=== PATIENT | female | born 1965 | race Caucasian/White ===

== ENCOUNTER 2018-12-09 02:47 | Outpatient (CLI) | payer BC, SELFPAY ==
[2018-12-09 08:35] LABS: HGB 13.4 g/dL (12.0-15.5); Mean Corp. HGB Concentration 33.5 g/dL (32.0-36.0); Mean Corpuscular Hemoglobin 30.7 pg (27.0-33.0); Mean Corpuscular Volume 91.7 fL (80-95); Mean Platelet Volume 9.8 fL (8.0-11.0); Platelet Count 233 x1000/uL (130-400); RBC 4.36 m/cumm (4.00-5.20); RBC Distribution Width 11.7 % (11.7-14.6); White Blood Cell Count 4.76 k/cumm (4.4-10.8)
[2018-12-09 08:53] LABS: Hemoglobin A1C 5.7 % (4.5-6.2)
[2018-12-09 09:18] LABS: ALT 20 U/L (12-78); AST 16 U/L (15-37); Albumin 3.7 g/dL (3.4-5.0); Alkaline Phosphatase 79 U/L (46-116); Anion Gap 6.3 mmol/L (3-11); BUN 25 mg/dL (7-18); Bilirubin, Total 0.6 mg/dL (0.2-1.0); CO2 32.7 mmol/L (21.0-32.0); CREATININE 1.22 mg/dL (0.55-1.02); Calcium 9.1 mg/dL (8.5-10.1); Chloride 104 mmol/L (98-107); Cholesterol 208 mg/dL (50-200); Estimated GFR 46.11 (mL/min/1.73m2); Glucose 114 mg/dL (70-100); HDL Cholesterol 74 mg/dL (40-60); LDL CHOLESTEROL 114 mg/dL (<100); Potassium 3.9 mmol/L (3.5-5.1); Sodium 143 mmol/L (136-145); Total Protein 6.7 g/dL (6.4-8.2); Triglyceride 78 mg/dL (30-150)
== END 2018-12-09 03:07 ==
PROVIDERS: PCP Family Medicine; Visit Provider Family Medicine
DX: Z00.00 Encounter for general adult medical examination without abnormal findings (principal); Z13.220 Encounter for screening for lipoid disorders; Z13.1 Encounter for screening for diabetes mellitus; Z13.228 Encounter for screening for other metabolic disorders; Z13.0 Encounter for screening for diseases of the blood and blood-forming organs and certain disorders involving the immune mechanism
CPT/HCPCS: 36415; 80053; 80061; 83721; 85027; 83036

== ENCOUNTER 2018-12-22 01:19 | Outpatient (CLI) | payer BC, SELFPAY ==
--- NOTE | 2018-12-22 09:14 | DI.MAMMO_ITS ---
SYMPTOMS/DIAGNOSIS: SCREENING, Z12.31 MAMMOGRAMS: Mammograms were interpreted according to the usual protocol including computer analysis with CAD system, tomosynthesis and C view imaging. The breasts are heterogeneously dense. No dominant mass or clumped microcalcification is identified in either breast. Current examination is compared with the previous examinations including December 2017 and there has been no gross interval change in appearance in comparison with the previous studies. CONCLUSION: No specific evidence of malignancy at this time. Routine screening examinations are suggested at yearly intervals in this age group according to the ACS/ACR guidelines. Category 1, breast density category C. MQSA ASSESSMENT OF FINDINGS: Negative. Category 1. Patient will receive a letter notifying them of these results. Bi-RADS category C. The breasts are heterogeneously dense, which may obscure small masses.
== END 2018-12-22 01:39 ==
PROVIDERS: PCP Family Medicine; Visit Provider Family Medicine
DX: Z12.31 Encounter for screening mammogram for malignant neoplasm of breast (principal)
CPT/HCPCS: 77063; 77067

== ENCOUNTER 2019-02-03 02:05 | Outpatient (CLI) | payer BC, SELFPAY ==
[2019-02-03 07:41] LABS: Bilirubin Negative (Negative); Blood Moderate (Negative); Clarity Cloudy; Glucose Negative (Negative); Ketones Negative (Negative); Leukocyte Esterase Large (Negative); Nitrite Negative (Negative); Specific Gravity 1.025 (1.005-1.025); Urobilinogen 0.2 EU/dL (Up TO 0.2); pH 5.5 (5-8)
[2019-02-03 07:49] LABS: C & S Indicated? Yes
== END 2019-02-03 02:25 ==
PROVIDERS: PCP Family Medicine; Visit Provider Family Medicine
DX: R35.0 Frequency of micturition (principal); R39.15 Urgency of urination
CPT/HCPCS: 81003; 81015; 87086

== ENCOUNTER 2019-11-07 23:23 | Outpatient (REF) | payer BC, SELFPAY ==
[2019-11-07 20:23] LABS: Bilirubin Negative (Negative); Blood Large (Negative); Clarity Cloudy (Clear); Glucose Negative (Negative); Ketones Negative (Negative); Leukocyte Esterase Moderate (Negative); Nitrite Negative (Negative); Specific Gravity >= 1.030 (1.005-1.025); Urobilinogen 0.2 EU/dL (Up TO 0.2)
[2019-11-07 21:04] LABS: Bacteria Many HPF (Negative); C & S Indicated? Yes; Casts Negative LPF (Negative); Crystals Negative HPF (Negative); Epithelial Cells Rare HPF (Negative); Mucus Moderate (Negative); Other Cells Negative (Negative); RBC >50 HPF (0-2); WBC >50 HPF (0-5)
== END 2019-11-07 23:43 ==
LOC: LBN 23:23
PROVIDERS: PCP Family Medicine; Visit Provider Family Medicine
DX: R35.0 Frequency of micturition (principal)
CPT/HCPCS: 87077; 81003; 81015; 87086; 87186

== ENCOUNTER 2020-01-16 02:35 | Outpatient (CLI) | payer BC, SELFPAY ==
--- NOTE | 2020-01-16 16:30 | DI.MAMMO_ITS ---
EXAM: MAMMO SCREENING CLINICAL HISTORY: screening z12.39 TECHNIQUE: Mammograms were interpreted according to the usual protocol including computer analysis w [employer] CAD system, tomosynthesis and C-view imaging. COMPARISON: FINDINGS: Breasts are heterogeneously dense. No dominant mass or clumped microcalcification is identified eith er breast. Current examination is compared with previous examinations including December 2018. There are areas increased focal vaguely nodular radiodensity projected both superiorly and inferiorly in the l eft breast on MLO view only. Additional mammographic views of these areas are questioned to include MLO spot compression views of left breast. No other significant change seen. IMPRESSION: Additional mammographic views left breast requested as described above. Breast ultrasound may be in dicated as well depending on the results of the additional mammographic views. BI-RADS Cat 0 - Assessment Incomplete: Need additional imaging evaluation: Breast Density - Category C - Heterogeneously dense:
== END 2020-01-16 02:55 ==
PROVIDERS: PCP Family Medicine; Visit Provider Family Medicine
DX: Z12.31 Encounter for screening mammogram for malignant neoplasm of breast (principal); R92.8 Other abnormal and inconclusive findings on diagnostic imaging of breast
CPT/HCPCS: 77063; 77067

== ENCOUNTER 2020-01-19 01:30 | Outpatient (CLI) | payer BC, SELFPAY ==
--- NOTE | 2020-01-19 | DI.US_ITS ---
EXAM: US BREAST LT LIMITED CLINICAL HISTORY: F/U MAMMO, INCREASED NODULAR RADIODENSITY TECHNIQUE: Ultrasound performed using standard protocol. COMPARISON: US LEFT BREAST ULTRASOUND from 07/11/2013 FINDINGS: Additional mammographic views of the left breast and left breast ultrasound are interpreted in conjun ction. These examinations were obtained to evaluate areas of asymmetric density projected superiorly and inferiorly in the left breast on MLO view of recent mammogram. Additional mammographic views show no evidence of a mass. Breast ultrasound shows no evidence of a m ass or cyst. IMPRESSION: No specific evidence of malignancy at this time. Follow-up unilateral left breast mammogram recommen ded in 6 months. BI-RADS Cat 3 - 6 month - Probably Benign Finding: Recommend follow-up mammography in 6 months Breast Density - Category C - Heterogeneously dense DATA REPOSITORY:
== END 2020-01-19 01:50 ==
PROVIDERS: PCP Family Medicine; Visit Provider Family Medicine
DX: Z12.31 Encounter for screening mammogram for malignant neoplasm of breast (principal); R92.8 Other abnormal and inconclusive findings on diagnostic imaging of breast; N64.59 Other signs and symptoms in breast
CPT/HCPCS: 76642; 77063; 77067

== ENCOUNTER 2020-07-02 09:12 | Outpatient (REF) | payer BC, SELFPAY ==
[2020-07-02 14:52] LABS: Bilirubin Negative (Negative); Blood Moderate (Negative); Clarity Cloudy (Clear); Glucose Negative (Negative); Ketones Negative (Negative); Leukocyte Esterase Small (Negative); Nitrite Negative (Negative); Specific Gravity >= 1.030 (1.005-1.025); Urobilinogen 0.2 EU/dL (Up TO 0.2); pH 5.5 (5-8)
[2020-07-02 15:16] LABS: C & S Indicated? Yes; WBC >50 HPF (0-5)
== END 2020-07-02 09:32 ==
LOC: LBN 09:12
PROVIDERS: PCP Family Medicine; Visit Provider Family Medicine
DX: R35.0 Frequency of micturition (principal)
CPT/HCPCS: 81003; 81015; 87086

== ENCOUNTER 2021-01-31 01:23 | Outpatient (CLI) | payer BC, SELFPAY ==
--- NOTE | 2021-01-31 07:45 | DI.MAMMO_ITS ---
Exam(s) MAMMO SCREENING EXAM: MAMMO SCREENING CLINICAL HISTORY: screening,Z12.39. TECHNIQUE: Bilateral full field digital CC and MLO mammographic images were obtained with 3D tomosyn thesis and utilizing computer aided detection (CAD). COMPARISON: Prior mammograms dating back to 2012, the most recent being January 2020. Ultrasound in was reviewed.. FINDINGS: Fibroglandular pattern is again noted be dense, this decreasing the sensitivity of the mammogram for finding in underlying lesions. There are no new spiculated masses nor malignant appearing microcalcification groups. Previously described asymmetric tissue inferiorly in the left breast is unchanged. No new masses nor malignant-appearing microcalcification groups in either breast. There is no signif icant architectural distortion or skin thickening-traction. IMPRESSION: Dense bilateral fibroglandular tissue. No obvious radiographic evidence of malignancy. Given the de nsity of this patient's fibroglandular tissue it may be prudent to perform screening bilateral comple te breast ultrasound BI-RADS Category 2 - Benign Findings Breast Density - Category C - Heterogeneously dense Breast density Category C or D implies that the patient has dense breast tissue. Dense breast tissue can make it harder to find cancer on a mammogram. Dense breast tissue is also associated with an incr eased risk of breast cancer. This information about the result of the mammogram report was provided to the patient to raise their awareness. Use this report when you speak with the patient about their risks for breast cancer, which includes their family history. At that time, you may recommend additional screening tests (Ultrasoun d or MRI) as these tests may add significant information. A negative radiographic report should not delay biopsy if a dominant or clinically suspicious mass is present. Up to ten percent of cancers are not identified on mammography. A negative report may reinforce clinical impression. Adenosis and dense breasts may obscure an underlying neoplasm. False positive reports average 6 to 10%. Patient will receive a letter notifying them of these results.
== END 2021-01-31 01:43 ==
PROVIDERS: PCP Family Medicine; Visit Provider Family Medicine
DX: Z12.31 Encounter for screening mammogram for malignant neoplasm of breast (principal); R92.8 Other abnormal and inconclusive findings on diagnostic imaging of breast
CPT/HCPCS: 77063; 77067

== ENCOUNTER → 2021-12-22 16:11 | Outpatient (CLI) | payer BC, SELFPAY ==
--- NOTE | 2021-12-22 15:22 | DI.RAD_ITS ---
Exam(s) XR SHOULDER RT COMPLETE 2+V EXAM: XR SHOULDER RT COMPLETE 2+V CLINICAL HISTORY: S49.91XA - frozen shoulder on right, no trauma - M54.2 Cervicalgia. TECHNIQUE: 2D digital imaging was performed. Five views. COMPARISON: No exams were available for comparison FINDINGS: BONES: No acute fracture is present. No bony destructive lesion is seen. JOINTS: No dislocation present. SOFT TISSUE: Normal. No visible calcifications. IMPRESSION: Unremarkable radiographs of the right shoulder. DATA REPOSITORY: RADIATION DOSE DELIVERED:
== END ==
PROVIDERS: PCP Family Medicine; Visit Provider Family Medicine
DX: S49.81XA Other specified injuries of right shoulder and upper arm, initial encounter; M25.511 Pain in right shoulder; M54.2 Cervicalgia; M75.01 Adhesive capsulitis of right shoulder
CPT/HCPCS: 73030

== ENCOUNTER 2021-12-30 02:06 | Outpatient (CLI) | payer BC, SELFPAY ==
[2021-12-30 12:44] LABS: HCT 39.8 % (36.0-46.0); HGB 13.3 g/dL (11.2-15.7); MCH 30.6 pg (27.0-33.0); MCHC 33.4 % (32.0-36.0); MCV 92 fL (80-95); MPV 9.9 fL (8.0-11.0); Platelet Count 212 10^3/uL (130-400); RBC 4.35 10^6/uL (3.93-5.22); RDW 11.4 % (11.7-14.6); RDW-SD 38.2 fL
[2021-12-30 13:08] LABS: ALT 20 U/L (14-59); AST 18 U/L (15-37); Alkaline Phosphatase 68 U/L (46-116); Anion Gap 6.6 mmol/L (3-11); BUN 23 mg/dL (7-18); Bilirubin, Total 0.7 mg/dL (0.2-1.0); CO2 30.4 mmol/L (21.0-32.0); CREATININE 1.2 mg/dL (0.55-1.02); Calcium 8.8 mg/dL (8.5-10.1); Calculated LDL 132 mg/dL (<100); Chloride 106 mmol/L (98-107); Cholesterol 238 mg/dL (<200); Estimated GFR 46.47 (mL/min/1.73m2); Glucose 104 mg/dL (74-106); HDL Cholesterol 82 mg/dL (40-60); Potassium 4.5 mmol/L (3.5-5.1); Sodium 143 mmol/L (136-145); Total Protein 6.7 g/dL (6.4-8.2); Triglyceride 120 mg/dL (<150)
[2021-12-31 10:09] LABS: HIV-1/2 Ag & Ab Screen Negative (Negative)
[2021-12-31 10:25] LABS: Hepatitis C Ab w Rflx HCV PCR Negative (Negative)
== END 2021-12-30 02:07 | disposition home or self-care (01) ==
LOC: LOS 02:06
PROVIDERS: PCP Family Medicine; Visit Provider Family Medicine
DX: I10 Essential (primary) hypertension (principal); E78.5 Hyperlipidemia, unspecified; N28.9 Disorder of kidney and ureter, unspecified; Z11.4 Encounter for screening for human immunodeficiency virus [HIV]; Z11.59 Encounter for screening for other viral diseases
CPT/HCPCS: 36415; 80053; 80061; 85027; 86803; 87389

== ENCOUNTER → 2022-02-24 01:55 | Outpatient (CLI) | payer BC, SELFPAY ==
--- NOTE | 2022-02-24 15:55 | DI.MAMMO_ITS ---
Exam(s) MAMMO SCREENING EXAM: MAMMO SCREENING CLINICAL HISTORY: screening,Z12.39 TECHNIQUE: Bilateral full field digital CC and MLO mammographic images were obtained with 3D tomosyn thesis and utilizing computer aided detection (CAD). COMPARISON: Available for comparison. FINDINGS: Masses/Architectural Distortion: There are areas of asymmetric breast tissue in the upper left and ri ght breast seen on the MLO views. These may represent overlying fibroglandular tissue. But addition al views are requested for further evaluation. Microcalcifications: No suspicious pleomorphic-type are seen. Skin Thickening/Nipple Retraction: None. IMPRESSION: 1. Focal areas of asymmetric breast tissue in the upper breasts bilaterally on the MLO views. 2. Spot magnification views are requested for further evaluation. Ultrasound may be indicated at jolie t time. BI-RADS Category 0 - Assessment Incomplete: Need additional imaging evaluation Breast Density - Category C - Heterogeneously dense Breast density category C or D implies that the patient has dense breast tissue. Dense breast tissue is very common and is not abnormal but dense breast tissue can make it harder to find cancer on a ma mmogram. Also, dense breast tissue may increase their breast cancer risk. This information about the result of the mammogram report was provided to the patient to raise their awareness. Use this report when you speak with the patient about their risks for breast cancer, which includes their family hist ory. At that time, you may recommend for more screening tests (Ultrasound or MRI) as they might be us eful based on their risk. A negative radiographic report should not delay biopsy if a dominant or clinically suspicious mass is present. Up to ten percent of cancers are not identified on mammography. A negative report may reinforce clinical impression. Adenosis and dense breasts may obscure an underlying neoplasm. False positive reports average 6 to 10%. Patient will receive a letter notifying them of these results.
== END ==
PROVIDERS: PCP Family Medicine; Visit Provider Family Medicine
DX: Z12.31 Encounter for screening mammogram for malignant neoplasm of breast (principal); R92.8 Other abnormal and inconclusive findings on diagnostic imaging of breast
CPT/HCPCS: 77063; 77067

== ENCOUNTER → 2022-03-05 00:29 | Outpatient (CLI) | payer BC, SELFPAY ==
--- NOTE | 2022-03-05 | DI.US_ITS ---
Exam(s) US BREAST LT COMPLETE US BREAST RT COMPLETE MG MAMMO SCREEN CALL BACK BI EXAM: MG MAMMO SCREEN CALL BACK BI AND COMPLETE BILATERAL BREAST ULTRASOUND CLINICAL HISTORY: F/U ABNL MAMMO, FOCAL AREAS ASYMMETRIC DENSITY BILAT UPPER BREASTS. TECHNIQUE: Unilateral spot mammographic images obtained with 3D tomosynthesisand utilizing computer aided detection (CAD). . Complete BILATERAL breast Ultrasound was also performed, including all 4 quadrants, the retroareolar regions, and the bilateral axillae. COMPARISON: Prior mammograms were reviewed. This additional imaging was performed due to findings described on the recent screening mammogram of 02/24/2022. FINDINGS: DIAGNOSTIC BILATERAL MAMMOGRAM: Additional mammographic views performed todayrender the areas in both breasts less concerning. BILATERAL COMPLETE BREAST ULTRASOUND: Ultrasound performed today reveals no significant focal findings in the left breast. Left axilla als o negative for adenopathy. Right breast ultrasound today reveals benign-appearing asymmetric tissue at 12 o'clock position. At the 5 o'clock position there is a small finding which has appearance of conglomeration of microcysts measuring 3 millimeters. At the 9 o'clock position there is a 6 millimeter benign microcyst. Ultrasound of the right axilla is negative for significant adenopathy Most importantly, there are no concerning solid lesions seen in either breast IMPRESSION: 1. No radiographic evidence of malignancy. 2. Negative complete left breast ultrasound. 3. Benign-appearing right breast ultrasound findings, as described above. Appropriate follow-up , as discussed by myself with the patient today, is to keep this patient on her yearly mammogram schedule, with earlier imaging if a self detected breast change is noted. The patient was informed of these findings and recommendations prior to leaving the department today. BI-RADS Category 2 - Benign Findings Breast Density - Category C - Heterogeneously dense Breast density Category C or D implies that the patient has dense breast tissue. Dense breast tissue can make it harder to find cancer on a mammogram. Dense breast tissue is also associated with an incr eased risk of breast cancer. This information about the result of the mammogram report was provided to the patient to raise their awareness. Use this report when you speak with the patient about their risks for breast cancer, which includes their family history. At that time, you may recommend additional screening tests (Ultrasoun d or MRI) as these tests may add significant information. A negative radiographic report should not delay biopsy if a dominant or clinically suspicious mass is present. Up to ten percent of cancers are not identified on mammography. A negative report may reinforce clinical impression. Adenosis and dense breasts may obscure an underlying neoplasm. False positive reports average 6 to 10%. Patient will receive a letter notifying them of these results.
--- OUTSIDE RECORDS SUMMARY | 2022-03-05 00:36 | XMS_ITS | Encounter Summary ---
:1965 Author Organization [facility] [address] Care Team Providers Name Role Phone Caitlin Callahan MD Primary Care Provider Reason for Visit Reason Comments Established 6 mth ck Encounter Details Date Type Department Care Team Description 02/01/2018 Office Visit Gynecology Oncology Margarette Jalloh Mal ignant ne[place] [facility] [place], CUSTOMER SERVICE CLERK ovary, unspecified Formerly named [facility] [address] [place] [id number] [phone] Social History Tobacco Use Types Packs/Day Years Used Date Never Smoker Smokeless Tobacco: Never Used Alcohol Use Standard Drinks/Week Comments Not Asked 0 (1 standard drink = 0.6 oz pure alcoho l) rare Alcohol Habits Answer Date Recorded How often do you have a drink containing alcohol? Not asked How many drinks containing alcohol do you have on a typical Not asked day when you are drinking? How often do you have six or more drinks on one occasion? No t asked Comment: rare 08/10/2012 Sex Assigned at Date Recorded Not on file documented as of this encounter Last Filed Vital Signs Vital Sign Reading Time Taken Comments Blood Pressure 132/68 02/01/2018 2:02 PM EDT Pulse 60 02/01/2018 2:02 PM EDT Temperature 37 ??C (98.6 ??F) 02/01/2018 2:02 PM EDT Respiratory Rate 12 02/01/2018 2:02 PM EDT Oxygen Saturation 100% 02/01/2018 2:02 PM EDT Inhaled Oxygen Concentration - - Weight 71.6 kg (157 lb 13.6 oz) 02/01/2018 2:02 PM EDT Height 175.3 cm (5' 9.02) 02/01/2018 2:02 PM EDT Body Mass Index 23.3 02/01/2018 2:02 PM EDT documented in this encounter Progress Notes Margarette Jalloh, CUSTOMER SERVICE CLERK - 02/01/2018 1:30 PM EDT Division of [place] [address] Reason For Visit: Post Treatment Surveillance Exam History of Present Illness: Dunia Trimble is a 53 y.o. woman who presents today for surveillance exam. She is post treatment of stage IIIA ovarian cancer with Dr. Ledezma. Her disease is followed by review of systems and examination. Pap testin12/2014 normal pap/hpv testing negative. 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 07/27/12: s/p laparoscopic supra-cervical hysterectomy and RSO for presumed dermoid at an outsidehospital. ?? There was no gross disease noted a the time of her surgery. The right ovary was removed intact inan endo-catch bag and the uterus was morcellated to be removed. 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 Right fallopian tube not involved by tumor. Uterine pathology showed focal simple hyperplasia and leiomyoma. ?? CA-125 obtained shortly before the surgery returned as 183. ?? 07/2012 referred to [facility] PRODUCTION COST ESTIMATOR Oncology for management. ?? A pre-op CT Abdomen/Pelvis on 08/10/2012 revealed no evidence of gross metastatic disease. ?? 09/22/12: s/p robotic-assisted laparoscopic left salpingo-oophorectomy and pelvic and para-aortic lymphadenectomy, and multiple staging biopsies. ?? 02/2013: completed 6 cycles of IV/IP cisplatin/paclitaxel chemotherapy Interim Health: Feeling overall good. No PRODUCTION COST ESTIMATOR questions/concerns. No new medical issues, surgeries orhospitalizations since her last visit. ROS: No Fever, chills, nausea, vomiting, diarrhea No Pelvic/abdominal pain or bloating No Bowel/bladder concerns or changes. Mild VEDA with exercise, sx are tolerable. Energy level is pretty good No Vaginal bleeding or discharge Mild lower extremity edema after being on her feet all day, resolves with elevation. Weight is stable Reports appetite is good No SOB, cough or chest pain. Sexual function: no changes/concerns. Not currently sexually active Mood: good Advanced Directives: No advance directives on file,she has a copy of the forms at home that she has yet to complete. Health Habits: Tobacco: nonsmoker ETOH: 0-2 glasses of wine/beers a month Exercise: weight training 2x week, walking/racquet ball/tennis Health Maintenance: Mammogram: 11/2017, done at [facility]. Colonoscopy: done 01/2016, Repeat 10 years Social History: . 3 children, youngest son (9th grade) lives at home. Adult son and daughter. Daughter is an army RN in [place]. She and her youngest son will be going to [place] for 2 [place] [facility] Patient Active Problem List Diagnosis Code ??? Ovarian cancer C56.9 ??? S/P hysterectomy Z90.710 Past Surgical History: Procedure Laterality Date ??? HYSTERECTOMY 07/27/12 lsc BUD/RSO for fibroids and ovarian CA ??? PRO LAP INSERT INTRAPERITONEAL CATHETER 10/24/2012 LAPAROSCOPY, INSERTION PERITONEAL DIALYSIS CATHETER performed by Sebastian Ledezma MD at [facility] MAIN OR ??? PRO LAP, PELVIC LYMPHADENECTOMY/BX 09/22/2012 LAPAROSCOPY,W\BILATERAL TOTAL PELVIC LYMPHADENECTOMY, PERIAORTIC LYMPH NODE SAMPLING, ROBOTIC performed by Sebastian Ledezma MD at [facility] MAIN OR ??? PRO LAP, RMV ADNEXAL STRUCTURE 09/22/2012 LAPAROSCOPY, REMOVAL OF ADNEXA, ROBOT ASSIST performed by Sebastian Ledezma MD at [facility] MAIN OR Allergies Allergen Reactions ??? Shellfish Derived Nausea And Vomiting No current outpatient prescriptions on file prior to visit. No current facility-administered medications on file prior to visit. Vital Signs: BP 132/68 (Patient Position: Sitting) Pulse 60 Temp 37 ??C (98.6 ??F) Resp 12 Ht 175.3 cm (5' 9.02) Wt 71.6 kg (157 lb 13.6 oz) SpO2 100% BMI 23.3 kg/m2 PHYSICAL EXAM: Gen: Pleasant, NAD, Alert, appears well HEENT: No clavicular adenopathy or thyromegaly Lungs: clear to auscultation Cor: heart RRR without appreciable murmurs. Abdomen: soft, non- distended, non-tender, no appreciable masses or inguinal adenopathy Lower Extremities: without edema Pelvic exam: Normal appearing external female genitalia; vulva, urethral meatus, perineum and perianal area without lesions. Speculum exam: Vagina and cervix with mild atrophic changes, no visible lesions. Bimanual exam: Cervix is non- tender and freely mobile. Uterus and adnexa are surgically absent. No appreciable masses/tenderness or nodularity. Rectovaginal exam: no masses/tenderness. ASSESSMENT/PLAN: Dunia Trimble is a 53 y.o. woman who is post treatment of stage IIIA ovarian cancer. She has no evidence of recurrent disease. We reviewed signs and symptoms of recurrent disease. Due for pap/HPV testing 2019. She is now 5 years post treatment and per surveillance guidelines, may RTC in 1 year, sooner prn with questions/concerns. Margarette Jalloh APRN documented in this encounter Plan of Treatment Not on filedocumented as of this encounter Visit Diagnoses Diagnosis Malignant neoplasm of ovary, unspecified laterality documented in this encounter Care Teams Computing Machine Operator Relationship Specialty Start Date End Date Caitlin Callahan MD PCP - General 07/08/[address] [place] [address] [address] [facility] [address] [place] [address] documented as of this encounter
--- OUTSIDE RECORDS SUMMARY | 2022-03-05 00:36 | XMS_ITS | Encounter Summary ---
:1965 Author Organization [facility] [place] [address] Care Team Providers Name Role Phone Caitlin Callahan MD Primary Care Provider Reason for Visit Reason Onset Date Comments Other 02/22/2013 Encounter Details Date Type Department Care Team Description 02/22/2013 Telephone Gynecology Oncology at [facility] [place] [address] Social History Tobacco Use Types Packs/Day Years [...] on file documented as of this encounter Miscellaneous Notes Telephone Encounter - Caron Pham - 02/22/2013 11:03 AM EDT Please sign order documented in this encounter Plan of Treatment Not on filedocumented as of this encounter Results IR mediport placement or removal (03/21/2013 10:09 AM EDT) Anatomical Region Laterality Modality X-Ray Angiography Specimen (Source) Anatomical Collection Method Collection Time Re ceived Time Location / / Volume Laterality 03/21/2013 10:09 AM EDT Impressions 03/21/2013 4:01 PM EDT Impression: Successful removal of right IJ port. ?? Fellow: Jomar Han MD ?? VAISHNAVI Almanza was present and scr ubbed throughout the procedure. ?? Attending: Dr. Bobo ?? I, Dr. Bobo, was present throughout th e procedure. ?? Film and interpretation reviewed by the attending Narrative 03/21/2013 4:01 PM EDT Procedure: Removal of tunneled right IJ chest port. ?? Acc#:[id number] ?? Indication: No longer requires long-term central venous access for chemotherapy. ?? Technique: After discussing risks (inclu ding infection, hemorrhage), and benefits, patient consented to the proce dure and conscious sedation.Due to the painful nature of the procedure, split d oses of fentanyl and versed were administered by the IR nurse during cont inuous monitoring of pulse, blood pressure and oxygen saturation. ?? After sterile preparation of the upper c hest, 7cc 1% lidocaine SQ was administered for anesthesia, and an 11 b lade was used to make a 2.5 cm incision. With blunt dissection the port and catheter were dissected free and removed. Hemostasis obtained with manual compression at the IJ catheter entry site. Pocket was closed with resorbable 2-0 interrupted sutures and running 4-0 subcuticular suture. Patient tolerated t he procedure well. There were no immediate complications. ?? No contrast administered. ?? Fluro dose: 0 0 min. EBL: 3 cc ?? Medications: Ancef 1 gm IV, versed 2 mg IV and fentanyl 100 mcg IV. ?? Procedure Note Lyndon Bobo MD - 03/21/2013Formattin g of this note might be different from the original. Procedure: Removal of tunneled right IJ chest port. Acc#:[id number] Indication: No longer requires long-term central venous access for chemotherapy. Technique: After discussing risks (inclu ding infection, hemorrhage), and benefits, patient consented to the proce dure and conscious sedation.Due to the painful nature of the procedure, split d oses of fentanyl and versed were administered by the IR nurse during cont inuous monitoring of pulse, blood pressure and oxygen saturation. After sterile preparation of the upper c hest, 7cc 1% lidocaine SQ was administered for anesthesia, and an 11 b lade was used to make a 2.5 cm incision. With blunt dissection the port and catheter were dissected free and removed. Hemostasis obtained with manual compression at the IJ catheter entry site. Pocket was closed with resorbable 2-0 interrupted sutures and running 4-0 subcuticular suture. Patient tolerated t he procedure well. There were no immediate complications. No contrast administered. Fluro dose: 0 0 min. EBL: 3 cc Medications: Ancef 1 gm IV, versed 2 mg IV and fentanyl 100 mcg IV. IMPRESSION Impression: Successful removal of right IJ port. Fellow: MD Holley Baker PA was present and scr ubbed throughout the procedure. Attending: Dr. Jihan Parker, Dr. Bobo, was present throughout th e procedure. Film and interpretation reviewed by the attending Sebastian Ledezma MD IMG IR ORDERABLES documented in this encounter Visit Diagnoses Diagnosis Ovarian cancer - Primary Malignant neoplasm of ovary Ovarian cancer Malignant neoplasm of ovary documented in this encounter Care Teams Lab Asst Relationship Specialty Start Date End Date Cailtin Callhaan MD PCP - General 07/08/[address] [place], [place] [address] [address] [place] [address] documented as of this encounter
--- OUTSIDE RECORDS SUMMARY | 2022-03-05 00:36 | XMS_ITS | Encounter Summary ---
:1965 Author Organization [facility] [place] [address] Care Team Providers Name Role Phone Caitlin Callahan MD Primary Care Provider Encounter Details Date Type Department Care Team Description 12/21/2016 Notes Only Hematology and Oncology at Bairon Le MD [facility] porras HEMATOLOGY/[place] [address] [place] [address] [phone] (Wo rk) Social History Tobacco Use Types Packs/Day Years [...] on file documented as of this encounter Progress Notes Bairon Chacon MD - 12/21/2016 7:56 AM EDT I have reviewed the patient's record and given personal and/or family history of cancer she should be seen by genetic counselor. This will be scheduled for later this week. documented in this encounter Plan of Treatment Not on filedocumented as of this encounter Visit Diagnoses Not on filedocumented in this encounter Care Teams Coffee Sampler Relationship Specialty Start Date End Date Caitlin Callahan MD PCP - General 07/08/[address] [place] [address] documented as of this encounter
--- OUTSIDE RECORDS SUMMARY | 2022-03-05 00:36 | XMS_ITS | Encounter Summary ---
:1965 Author Organization [facility] [place] [address] Care Team Providers Name Role Phone Caitlin Callahan MD Primary Care Provider Encounter Details Date Type Department Care Team Description 02/21/2013 Hospital Encounter Hematology and INFUSION THER APY, MEDS None Ovarian cancer Oncology at [facility] Sebastian Ledezma MD [facility] [place] [address] (Primary Dx) [place] [id number] Social History Tobacco Use Types Packs/Day Years [...] on file documented as of this encounter Medications at Time of Discharge Medication Sig Dispensed Refills Start Date End Date prochlorperazine Take 1 tablet by 30 tablet 0 02/07/2013 (COMPAZINE) 10 mg tablet mouth every 6 hours as needed. OXYcodone-acetaminophen Take 1-2 tablets 15 tablet 0 201203/21/2013 (PERCOCET) 5-325 mg per by mouth every 4 tablet hours as needed for Pain. senna-docusate (PERICOLACE) Take 1-4 tablets 60 tablet 11 03/21/2013 8.6-50 mg per tablet by mouth 2 times daily as needed for Constipation. ibuprofen (MOTRIN) 600 mg Take 1 tablet by 30 tablet 2 10/1412/25/2014 tablet mouth every 6 hours as needed for Pain. documented as of this encounter Progress Notes Mikal Mccormick RN - 02/21/2013 12:02 PM EDT Patient Name: Dunia Hoyos Patient Age: 48 y.o. Birthdate: 1965 Admit date: 02/21/2013 Attending Physician: Infusion Therapy, Meds TIME TREATMENT STARTED: 1115 TIME TREATMENT ENDED: 1814 Dunia Hoyos, 48 y.o. female with diagnosis of Ovarian is here for chemotherapy infusion of Taxol and Cisplatin. PROTOCOL: None CYCLE: 6 DAY: 1 S: Pt. offers no complaints at this time. O: Chemotherapy orders independently verified for correct drug name, route and dosage per patient's height, weight and BSA by Mikal Mccormick RN and onsite pharmacist Spoke to Dr Ledezma and he stated OK to run post hydration (through chest port) while she is receiving IP Cisplatin REACTIONS (DESCRIPTION, TIME, INTERVENTION AND EFFECTIVENESS) None A: Pt. Tolerated treatment well. Dunia Hoyos confirms that all questions and issues have been addressed. P: Return to clinic as scheduled documented in this encounter Plan of Treatment Not on filedocumented as of this encounter Visit Diagnoses Diagnosis Ovarian cancer - Primary Malignant neoplasm of ovary documented in this encounter Administered Medications Inactive Administered Medications - up to 3 most recent administrations Medication Order MAR Action Action Date Dose Rate Site CISplatin (PLATINOL) 145 mg in New Bag 02/21/2013 3:59 PM 145 mg 1145 mL/hr sodium chloride 0.9% 1,145 mL EDT chemo infusion 145 mg, Intraperitoneal, ONCE, 1 dose, On Wed02/21/13 at 1045, Administer over 60 Minutes, For Intraperitoneal administration only. dexamethasone 20 mg in sodium chloride 0.9% Given 02/21/2013 11:50 AM EDT 20 mg infusion 20 mg, Intravenous, ONCE, 1 dose, On Wed02/21/13 at 1145, Administer over 10 Minutes dextrose 5% and sodium chloride New Bag 02/21/2013 4:39 PM EDT 999 mL/hr 999 mL/hr 0.45% with potassium chloride 20 mEq infusion 999 mL/hr, Intravenous, ONCE, 1 dose, On Wed02/21/13 at 1145, Post cisplatin hydration x 1 L diphenhydrAMINE (BENADRYL) injection 25 mg Given 02/21/2013 11:45 AM EDT 25 mg 25 mg, Intravenous, ONCE, 1 dose, On Wed02/21/13 at 1145, Routine famotidine (PEPCID) injection 20 mg Given 02/21/2013 11:43 AM EDT 20 mg 20 mg, Intravenous, ONCE, 1 dose, On Wed02/21/13 at 1145 fosaprepitant (EMEND) 150 mg in New Bag 02/21/2013 11:57 AM ED T 150 mg 310 mL/hr sodium chloride 0.9% 155 mL infusion 150 mg, Intravenous, ONCE, 1 dose, On Wed02/21/13 at 1145, Administer over 30 Minutes LORazepam (ATIVAN) 1 mg tablet Given 02/21/2013 11:35 AM EDT 1 mg 1 dose, Starting on Wed02/21/13 at 1127, Until Wed02/21/13 at 1135, MIKAL MCCORMICK: cabinet override PACLitaxel (TAXOL) 245 mg in New Bag 02/21/2013 12:51 PM EDT 245 m g 180.3 mL/hr dextrose 5% Non-PVC 540.8333 mL chemo infusion 245 mg, Intravenous, ONCE, 1 dose, On Wed02/21/13 at 1045, Administer over 3 Hours palonosetron (ALOXI) injection 0.25 mg Given 02/21/2013 11:40 AM EDT 0.25 mg 0.25 mg, Intravenous, ONCE, 1 dose, On Wed02/21/13 at 1145, Routine sodium chloride 0.9% infusion New Bag 02/21/2013 12:02 PM EDT 999 mL/hr 999 mL/hr 999 mL/hr, Intravenous, ONCE, 1 dose, On Wed02/21/13 at 1145, Pre cisplatin hydration documented in this encounter Care Teams Automobile Assembler Relationship Specialty Start Date End Date Caitlin Callahan MD PCP - General 07/08/[address] [place] [address] documented as of this encounter
--- OUTSIDE RECORDS SUMMARY | 2022-03-05 00:36 | XMS_ITS | Encounter Summary ---
:1965 Author Organization [facility] [place] [address] Care Team Providers Name Role Phone Caitlin Callahan MD Primary Care Provider Encounter Details Date Type Department Care Team Description 02/22/2013 Orders Only Gynecology Oncology Brooke Doshi Ov kinza cancer at [facility] J, RN (Primary Dx) [place] [phone] Social History Tobacco Use Types Packs/Day Years [...] on file documented as of this encounter Plan of Treatment Not on filedocumented as of this encounter Visit Diagnoses Diagnosis Ovarian cancer - Primary Malignant neoplasm of ovary documented in this encounter Care Teams Minister Of Religion Relationship Specialty Start Date End Date Caitlin Callahan MD PCP - General 07/08/[address] [place], [place] [id number] documented as of this encounter
--- OUTSIDE RECORDS SUMMARY | 2022-03-05 00:36 | XMS_ITS | Encounter Summary ---
:1965 Author Organization [facility] Address [facility] [place] [address] Care Team Providers Name Role Phone Caitlin Callahan MD Primary Care Provider Reason for Visit Reason Comments Established 3 mth ck Encounter Details Date Type Department Care Team Description 06/27/2013 Follow-Up Gynecology Oncology at [place], Phi Thakkar MD Malignant neoplasm of [facility] ovary (Primary Dx) [facility] [address] [place] [address] [place] [address] [phone] (Wo rk) Social History Tobacco Use Types [...] Sign Reading Time Taken Comments Blood Pressure 125/75 06/27/2013 1:07 PM EST Pulse - - Temperature - - Respiratory Rate - - Oxygen Saturation - - Inhaled Oxygen Concentration - - Weight 68 kg (149 lb 14.6 oz) 06/27/2013 1:07 PM EST Height - - Body Mass Index 22.14 10/24/2012 2:19 PM EDT documented in this encounter Progress Notes Sebastian Ledezma MD - 06/27/2013 1:44 PM EST Division [place] [address] Gynecologic Oncology-Clinic Note Reason for visit: Surveillance exam, history of ovarian cancer. History of present illness: Dunia Hoyos is a 48 y.o. female who was originally referred for evaluation of post-operatively identified ovarian cancer. On 07/27/12, at an outside hospital, she underwent laparoscopic supra-cervical hysterectomy and RSO for presumed dermoid. There was no gross disease noted a the time of her surgery. The right ovary was removed intact in an endo-catch bag and the uterus was morcellated to be removed. 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 Right fallopian tube not involved by tumor. Uterine pathology showed focal simple hyperplasia and leiomyoma. CA-125 obtained shortly before the surgery returned as 183. Dunia was subsequently referred to [facility] Oncology for management. A pre-op CT Abdomen/Pelvis on 08/10/2012 revealed no evidence of gross metastatic disease. On 09/22/12 she underwent: robotic-assisted laparoscopic left salpingo-oophorectom y and pelvic and para-aortic lymphadenectomy, and multiple staging biopsies. She was discharged the same day. Subsequently, she had an intraperitoneal port place, and underwent 6 cycles of IV/IP cisplatin/paclitaxel, completing all 6 cycles and in 02/2013. Dunia is back for her first surveillance visits since completion of therapy. She reports that she isfeeling well, denies any intercurrent changes in her health. Specifically she denies any changes in her past medical, surgical, social, or family history since the last visit. She reports good appetite, denies abdominal or pelvic pain, bloating, early satiety, or other digestive symptoms. She denies any vaginal bleeding or discharge. She is slight residual peripheral neuropathy, in her hands, and in the balls of her feet, but says this is not limiting. Review of systems: 7 systems in total were reviewed, otherwise negative. Vital signs: BP 125/75 Wt 68 kg (149 lb 14.6 oz) Physical examination: General: She is alert oriented, well-groomed, well-dressed. HEENT: Head exam was generally normal. There was no scleral icterus or corneal arcus. Mucus membranes were moist. Neck was supple and without jugular venous distension, thyromegaly, or carotid bruits. Carotids were easily palpable bilaterally. There was no adenopathy. Heart: Regular rate, normal rhythm, no murmurs. Abdomen: Well-healed surgical scars, with no obvious masses, hernias, organomegaly, masses, ascites,or inguinal lymphadenopathy. Pelvic exam: Normal external genitalia, with no lesions of the vulva, perineal body, or perianal area. Speculum exam demonstrates an atrophic vagina, parous cervix, with slight atrophy changes, and on bimanual exam, confirmed on rectovaginal exam, there is a normal size freely mobile uterus, with no obvious masses, nodularity, or tenderness. Extremities: Symmetric, well-developed, no edema. Laboratory studies: None. Imaging studies: None. Impression/plan: This is a 48-year-old woman with a history of stage IIIa borderline ovarian cancer,with invasive implants. She has mild residual peripheral neuropathy, non-limiting, as a result of her adjuvant chemotherapy. She has no concerning symptoms, and has a normal exa today, I reviewed in detail the goals of surveillance, the use of laboratory or imaging studies, and explained that CA 125 is not been shown to improve prognosis if use during surveillance for recurrence of ovarian cancer. However, as recommended by the radiologist, we will repeat a CT of the abdomen and pelvis in 3 months, to coincide with her follow-up examination. We reviewed the typical symptoms of recurrent ovarian cancer, and she voiced an understanding of these, roberto to report any should they occur between scheduled visits documented in this encounter Plan of Treatment Not on filedocumented as of this encounter Visit Diagnoses Diagnosis Malignant neoplasm of ovary - Primary documented in this encounter Care Teams Loader Operator Relationship Specialty Start Date End Date Caitlin Callahan MD PCP - General 07/08/[address] [place] [address] 1 [place] [address] documented as of this encounter
--- OUTSIDE RECORDS SUMMARY | 2022-03-05 00:36 | XMS_ITS | Encounter Summary ---
:1965 Author Organization [facility] [place] [address] Care Team Providers Name Role Phone Caitlin Callahan MD Primary Care Provider Reason for Visit Reason Onset Date Comments Results 02/20/2013 Encounter Details Date Type Department Care Team Description 02/20/2013 Telephone Gynecology Oncology at [facility] Brooke Doshi, [place] [address] Social History Tobacco Use Types Packs/Day [...] this encounter Miscellaneous Notes Telephone Encounter - Brooke Doshi, RN - 02/20/2013 3:58 PM EDT TELEPHONE NOTE Reason for call: Call to Dunia Romain to report her lab results as below. Results for NELSON PACKCI Mela ( ) as of 02/20/2013 15:57 Ref. Range 02/20/2013 00:00 WBC No range found 4.06 (External Lab) Hemoglobin Latest Range: 12.0-16.0 8.7 (A) Hematocrit Latest Range: 36.0-46.0 25.2 (A) MCV Latest Range: 82.0-108.0 93.0 (External Lab) Platelets No range found 280 (External Lab) Neutr Abs (ANC) Latest Range: 1.50-6.30 x10(3)/mcL 2720 (External Lab) Neutrophils % Latest Range: 46-78 67 (External Lab) Sodium Latest Range: 137-147 144 (External Lab) Potassium Latest Range: 3.4-5.3 4.4 (External Lab) Chloride Latest Range: 99-108 107 (External Lab) CO2 Latest Range: 22-29 29 (External Lab) BUN No range found 28 (External Lab) Creatinine No range found 1.3 (External Lab) Estimated GFR No range found 43.72 (External Lab) Glucose Lvl No range found 87 (External Lab) Calcium Latest Range: 8.7-10.7 8.5 (A) Total Protein Latest Range: 6.4-8.2 6.7 (External Lab) Albumin Latest Range: 3.5-5.0 3.8 (External Lab) Total Bilirubin Latest Range: 0.1-1.4 0.4 (External Lab) Alk Phos No range found 81 (External Lab) AST Latest Range: 13-35 17 (External Lab) ALT Latest Range: 7-35 18 (External Lab) documented in this encounter Plan of Treatment Not on filedocumented as of this encounter Visit Diagnoses Not on filedocumented in this encounter Care Teams Organic Preparation Technician Relationship Specialty Start Date End Date Caitlin Callahan MD PCP - General 07/08/[address] [place] [address] documented as of this encounter
--- OUTSIDE RECORDS SUMMARY | 2022-03-05 00:36 | XMS_ITS | Encounter Summary ---
:1965 Author Organization [facility] [place] [address] Care Team Providers Name Role Phone Caitlin Callahan MD Primary Care Provider Encounter Details Date Type Department Care Team Description 02/21/2013 External Results Gynecology Oncology at [place], Radha Thakkar MD [facility] [address]ras [place] [address] [place] [address] [phone] (Wo rk) Social History Tobacco Use Types [...] on filedocumented in this encounter Care Teams Salt Grinder Relationship Specialty Start Date End Date Caitlin Callahan MD PCP - General 07/08/[address] [place] [address] documented as of this encounter
--- OUTSIDE RECORDS SUMMARY | 2022-03-05 00:36 | XMS_ITS | Encounter Summary ---
:1965 Author Organization [facility] [place] [address] Care Team Providers Name Role Phone Caitlin Callahan MD Primary Care Provider Reason for Visit Reason Comments Established 3 month check Encounter Details Date Type Department Care Team Description 09/18/2014 Follow-Up Gynecology Oncology at [place], Phi Thakkar MD Ovarian cancer, [facility] unspecified laterality [facility] [address] [place] [address] [place] [address] [phone] (Wo rk) Social History Tobacco Use Types [...] Sign Reading Time Taken Comments Blood Pressure 110/80 09/18/2014 9:27 AM EST Pulse 64 09/18/2014 9:27 AM EST Temperature 36.4 ??C (97.5 ??F) 09/18/2014 9:27 AM EST Respiratory Rate 18 09/18/2014 9:27 AM EST Oxygen Saturation 99% 09/18/2014 9:27 AM EST Inhaled Oxygen Concentration - - Weight 67 kg (147 lb 11.3 oz) 09/18/2014 9:27 AM EST Height - - Body Mass Index 21.81 06/27/2014 11:11 AM EST documented in this encounter Progress Notes Sebastian Coy MD - 09/18/2014 9:48 AM EST Division [place] [address] Gynecologic Oncology-Clinic Note Reason for visit: Surveillance exam, history of ovarian cancer. History of present illness: Catalina Hoyos is a 49 y.o. female who was originally referred for [...] shortly before the surgery returned as 183. Catalina was subsequently referred to [facility] TIME STUDY TECHNICIAN Oncology for management. A pre-op CT Abdomen/Pelvis on 08/10/2012 revealed no evidence of gross metastatic disease. On 09/22/12 she underwent: robotic-assisted laparoscopic left salpingo-oophorectom y and pelvic and para-aortic lymphadenectomy, and multiple staging biopsies. She was discharged the same day. Subsequently, she had an intraperitoneal port place, and underwent 6 cycles of IV/IP cisplatin/paclitaxel, completing all 6 cycles and in 02/2013 for stage IIIA ovarian cancer. Catalina is back for her surveillance visit today. She reports that she is feeling well, denies any intercurrent changes in her health. Specifically she denies any changes in her past medical, surgical, social, or family history since the last visit. She reports good appetite, denies abdominal or pelvic pain, bloating, early satiety, or other digestive symptoms. She denies any vaginal bleeding or discharge. She still has slight residual peripheral neuropathy in the balls of her feet, but says this is not limiting, and is stable at this point. She has been evaluated for stable pulmonary nodules, and isnot concerned about these. No further follow-up/imaging is planned for this. Review of systems: 7 systems in total were reviewed, otherwise negative. Vital signs: BP 110/80 Pulse 64 Temp(Src) 36.4 ??C (97.5 ??F) Resp 18 Wt 67 kg (147 lb 11.3 oz) SpO2 99% Physical examination: General: She is alert oriented, well-groomed, well-dressed. HEENT: Head exam was generally normal. There was no scleral icterus or corneal arcus. Mucus membranes were moist. Neck was supple and without jugular venous distension, thyromegaly, or carotid bruits. Carotids were easily palpable bilaterally. There was no adenopathy. Lungs: Lungs were clear to auscultation and percussion, and with normal diaphragmatic excursion. No wheezes or rales were noted. Heart: Regular rate, normal rhythm, no murmurs. [...] there is a normal size freely mobile retained cervix, with no obvious masses, nodularity, or tenderness. Extremities: Symmetric, well-developed, no edema. Laboratory studies: None. Imaging studies:09/19/2013: Impression 1. Stable exam. 2 small pulmonary nodules noted, as described, recommend continued followup. 2. No evidence of intra-abdominal or pelvic spread of disease. Impression/plan: Catalina is a 49 y.o. woman with a history of stage IIIa borderline ovarian cancer, with invasive implants. She has mild residual peripheral neuropathy, non-limiting, as a result of her adjuvant chemotherapy, now stable. She has no concerning symptoms, and has a normal exam today, I revie wed in detail the goals of surveillance, the use of laboratory or imaging studies, and explained that CA 125 is not been shown to improve prognosis if use during surveillance for recurrence of ovarian cancer. The repeat CT of the abdomen and pelvis in 09/2013 was reassuring. We reviewed the typical symptoms of recurrent ovarian cancer, and she voiced an understanding of these, roberto to report any should they occur between scheduled visits, and she will follow-up in 3months in accordance with current surveillance guidelines, (Current Society of Gynecologic Oncologists (SGO) Surveillance Guidelines: Posttreatment surveillance and diagnosis of recurrence in women with gynecologic malignancies: Society of Gynecologic Oncologists recommendations (Rashel, et al; AJOG, January 2011)) documented in this encounter Plan of Treatment Not on filedocumented as of this encounter Procedures Procedure Name Priority Date/Time Associated Comments Diagnosis TIME STUDY TECHNICIAN MOLECULAR GENETICS Routine 09/18/2014 9:55 AM Results for this REPORT EST procedure are i n the results section. TIME STUDY TECHNICIAN CYTOLOGY FINAL Routine 09/18/2014 9:55 AM Res ults for this REPORT EST procedure are i n the results section. CYTOPATHOLOGY Routine 09/18/2014 9:55 AM Ovarian cancer, Resul ts for this GYNECOLOGICAL EST unspecified procedure are in laterality the results section. documented in this encounter Results Senior Technical Program Manager Cytology Final Report (09/18/2014 9:55 AM EST) Component Value Ref Test Analysis Performed At [facility] gist Range Method Time Signature Senior Technical Program Manager Cytology CERNER Final Report ? Formerly named [facility] ? Provider: ?? SEBASTIAN COY ?Pt. Name: ?? CORI CATALINA CONRAD ? Acc #: ?[id number] ?Pt. MRN: ?[id number] ? Col Date: ?? 09/18/2014 ?/Sex: ?1965,(49 years),Female ? Rec Date: ?? 09/18/2014 ?LOC: ?3K ? CYTOPATHOLOGY: ??TIME STUDY TECHNICIAN ? ---Adequacy--- ? Specimen submitted is unsatisfactory due to insuffici ent squamous ? component. ? ---Cytopathologic Diagnosis--- ? Unsatisfactory ? Specimen submitted is unsatisfactory for evaluation. ??See comment. ? 09/24/14 ?? Screened by: ??SLA ??LMY ? 09/25/14 ?? Verified by: ??Ziyad TOLBERT(ASCP) , Jenna Brunson - Brim Stiffener ? ---Comment--- ? Specimen processed and examined microscop ically but unsatisfactory for ? evaluation of epithelial abnormality due to insuffici ent squamous ? cellularity. ? Please also see concurrent HPV test result. ? ---Clinical Information--- ? HPV Option: ? HPV Option: Text: Concurrent HPV and Pap ? Preparation: ? Preparation: Text: Liquid based Pap ? Specimen Source: ? Specimen Source: Text: Cervical/Endocervical ? LMP: n/a ? Hormones?: No ? Hysterectomy?: ? Hysterectomy?: Text: Supracervical Hysterectomy ?: No ?: No ? I.U.D.?: No ? Pelvic Radiation: No ? Prior TIME STUDY TECHNICIAN Therapy?: No ? Hist Abnl Pap/Biopsy?: No ? Hist of HPV Vaccine?: No ? Hist of Smoking?: No ? Hist of ANTONIO Exposure?: No ? ICD-9 Diagnosis: ? ICD-9 Diagnosis: Text: V10.44 His tory Malignant neoplasm, Other genital ? organs ? Clinical Impression: N/A ? [facility] ? Provider: ?? SEBASTIAN COY ?Pt. Name: ?? CATALINA BOWDEN L ? Acc #: ?[id number] ?Pt. MRN: ?[id number] ? Col Date: ?? 09/18/2014 ?/Sex: ?1965,(49 years),Female ? Rec Date: ?? 09/18/2014 ?LOC: ?3K ? CYTOPATHOLOGY: ??TIME STUDY TECHNICIAN ? This Pap Test has bee n evaluated with the assistance of the ThinPrep Pap ? Test Imaging System. ? Note: ? The Pap test is a screening test for cervical c ancer with an inherent ? false-negative rate dependent upon several variables. ??For further ? information please contact the [facility] Laboratory. ? Reference: ??Krystal espinoza CS. ??Supervisor Stripping of Pap Smear Results. ??In: ? Lm BS, Sarthak HH, ed. ??The Pap Smear. ??[place]: ??Chinmay, 2002: ? 71-77. Specimen (Source) Anatomical Collection Method Collection Time Re ceived Time Location / / Volume Laterality 09/18/2014 9:55 AM EST Sebastian Coy MD PATHOLOGY/CYTOLOGY ORDERABLE S Performing Organization Address City/State/[place] [address] [facility] TIME STUDY TECHNICIAN Molecular Genetics Report (09/18/2014 9:55 AM EST) [facility] gist Method Time Signature TIME STUDY TECHNICIAN Molecular CERNER Genetics ? Formerly named [facility] Report ? Provider: ?? SEBASTIAN COY ?Pt. Name: ?? CATALINA BOWDEN ? Acc #: ?[id number] ?Pt. MRN: ?[id number] ? Col Date: ?? 09/18/2014 ?/Sex: ?1965,(49 years),Female ? Rec Date: ?? 09/18/2014 ?LOC: ?3K ? MOLECULAR GENETIC STUDIES ? ---REPORT OF DNA ANALYSIS--- ? Quentin Noa?? HPV test ? NEGATIVE for high-risk HPV *. ? It is recommended jolie t patients with ASCUS cytology and a negative test for ? high-risk HPV undergo further evaluation according to current practice ? guidelines. ??* Testi ng negative for high risk HPV means that the specimen ? is negative for the f ollowing 14 types tested: ??types 16, 18, 31, 33, 35, ? 39, 45, 51, 52, 56, 5 8, 59, 66, and 68. ??The test is not intended to detect ? low risk HPV types. ? Specimen: HPV Testing - Cytology Liquid Based Prep ? Reviewed by: ??Chinmay Latif, [facility] ? A ? CELD Cerv/Endo/ LBP/Diagnostic ? B ? HPVDO Do HPV Testing ? Verified date: ??09/21/14 ??ABH ? Verified by: ?Lab Review, Molecular Genetics ? (Electronic Signature) Specimen (Source) Anatomical Collection Method Collection Time Re ceived Time Location / / Volume Laterality 09/18/2014 9:55 AM EST Sebastian Coy MD PATHOLOGY/CYTOLOGY ORDERABLE S Performing Organization Address City/State/[place] [address] [facility] Cytopathology Gynecological (09/18/2014 9:55 AM EST) Specimen Anatomical Collection Method Collection Time Receive d Time (Source) Location / / Volume Laterality AP Specimen 09/18/2014 9:55 AM 201 5 9:55 EST AM EST Narrative [facility] - 09/18/2014 9:[address] Specimen requisition ordered. ??Separate Pathology report to follow Sebastian Coy MD PATHOLOGY/CYTOLOGY ORDERABLE S Performing Organization Address City/State/[place] [address] [address] [facility] documented in this encounter Visit Diagnoses Diagnosis Ovarian cancer, unspecified laterality documented in this encounter Care Teams Wiping Rag Washer Relationship Specialty Start Date End Date Caitlin Callahan MD PCP - General 07/08/[address] [place] [address] documented as of this encounter
--- OUTSIDE RECORDS SUMMARY | 2022-03-05 00:36 | XMS_ITS | Encounter Summary ---
:1965 Author Organization [facility] [place] [address] Care Team Providers Name Role Phone Caitlin Callahan MD Primary Care Provider Encounter Details Date Type Department Care Team Description 03/21/[address] Scan at [facility] [place] [place] [address] Social History Tobacco Use Types Packs/Day [...] Sig Dispensed Refills Start Date End Date ibuprofen (MOTRIN) 600 mg Take 1 tablet by 30 tablet 2 10/1412/25/2014 tablet mouth every 6 hours as needed for Pain. documented as of this encounter Miscellaneous Notes Miscellaneous - Provider, Shayne - 03/27/2013 8:44 AM EDT documented in this encounter Plan of Treatment Not on filedocumented as of this encounter Procedures Procedure Name Priority Date/Time Associated Diagnosis Comme nts CT CHEST ABDOMEN Routine 03/21/2013 2:28 PM Ovarian cancer Res ults for this PELVIS W CONTRAST EDT procedure are in (GENERIC) the results section. documented in this encounter Results CT chest, abdomen, & pelvis with contrast (03/21/2013 2:28 PM EDT) Anatomical Region Laterality Modality Computed Tomography Specimen (Source) Anatomical Collection Method Collection Time Re ceived Time Location / / Volume Laterality 03/21/2013 2:28 PM EDT Narrative 03/21/2013 5:08 PM EDT Liver aspiration and/or drainage placement. Examination CT Chest / Abdomen / Pelvis With Contras t Clinical History ovarian cancer p/chemo ? response ??(tn) Comparison CT abdomen pelvis August 10, 2012. Technique CT images were obtained of the chest, ab domen pelvis following the administration of 100 mL Visipaque 320 i ntravenous contrast. Findings There is an ill-defined pulmonary ground -glass opacity within the right upper lobe best seen on series 4 image number 102 and may be artifactual. A 3 mm pulmonary nodule is visualized within th e superior segment of the left upper lobe. The remaining lungs are clear. ??C entral airways are clear. Normal cardiac morphology. No pathologically enlarged m ediastinal or hilar lymph nodes. Soft tissues of the chest are normal. ?? There is normal enhancement within the l iver. ??Mild periportal edema. The remaining solid organs are normal. There are multiple subcentimeter mesenteric and retroperitoneal lymph nodes predomin antly located within the left mid abdomen and left upper quadrant. There i s a 5 mm retroperitoneal lymph node (L3 level, series 2, image 71) which was not visualized on the comparison study. There are also small subcentimeter pelvi c sidewall lymph nodes which are unchanged. No free air. Peritoneal infus ion port noted within the right hemipelvis with the tip seen anterior to the rectosigmoid junction. The uterus is been removed with a residual vaginal cuff. ?? Incidental note made of prior healed fra cture of the right 3rd transverse process versus unfused apophysis. ??Blanka ining osseous structures are normal. ?? Impression 1. 3 mm pulmonary nodule within the supe rior segment of the left upper lobe. Given history of ovarian malignancy breonna mmend follow up CT in 6 months to ensure stability or correlate with prior imaging. 2. ??Multiple subcentimeter mesenteric, retroperitoneal and pelvic sidewall lymph nodes. The majority of these lesio ns are unchanged; however, there is a new 5 mm retroperitoneal lymph node like ly benign. Film and interpretation reviewed by the attending Procedure Note Hannah Miles MD - 03/21/2013Formattin g of this note might be different from the original. Liver aspiration and/or drainage placeme nt. Examination CT Chest / Abdomen / Pelvis With Contras t Clinical History ovarian cancer p/chemo ? response (tn) Comparison CT abdomen pelvis August 10, 2012. Technique CT images were obtained of the chest, ab domen pelvis following the administration of 100 mL Visipaque 320 i ntravenous contrast. Findings There is an ill-defined pulmonary ground -glass opacity within the right upper lobe best seen on series 4 image number 102 and may be artifactual. A 3 mm pulmonary nodule is visualized within th e superior segment of the left upper lobe. The remaining lungs are clear. Jane tral airways are clear. Normal cardiac morphology. No pathologically enlarged m ediastinal or hilar lymph nodes. Soft tissues of the chest are normal. There is normal enhancement within the l iver. Mild periportal edema. The remaining solid organs are normal. There are multiple subcentimeter mesenteric and retroperitoneal lymph nodes predomin antly located within the left mid abdomen and left upper quadrant. There i s a 5 mm retroperitoneal lymph node (L3 level, series 2, image 71) which was not visualized on the comparison study. There are also small subcentimeter pelvi c sidewall lymph nodes which are unchanged. No free air. Peritoneal infus ion port noted within the right hemipelvis with the tip seen anterior to the rectosigmoid junction. The uterus is been removed with a residual vaginal cuff. Incidental note made of prior healed fra cture of the right 3rd transverse process versus unfused apophysis. Remain ing osseous structures are normal. Impression 1. 3 mm pulmonary nodule within the supe rior segment of the left upper lobe. Given history of ovarian malignancy breonna mmend follow up CT in 6 months to ensure stability or correlate with prior imaging. 2. Multiple subcentimeter mesenteric, re troperitoneal and pelvic sidewall lymph nodes. The majority of these lesio ns are unchanged; however, there is a new 5 mm retroperitoneal lymph node like ly benign. Film and interpretation reviewed by the attending Sebastian Ledezma MD IMG CT ORDERABLES documented in this encounter Visit Diagnoses Diagnosis Ovarian cancer Malignant neoplasm of ovary documented in this encounter Administered Medications Inactive Administered Medications - up to 3 most recent administrations Medication Order MAR Action Action Date Dose Rate Site iodixanol (VISIPAQUE) 320 mg Given 03/21/2013 2:01 PM EDT 100 mL s iodine/mL injection 100 mL 100 mL, Intravenous, ONCE PRN, 1 dose, Starting on Wed03/21/13 at 1401, Until Wed03/21/13 at 1401, Per Protocol, Routine documented in this encounter Care Teams Drafter Commercial Relationship Specialty Start Date End Date Caitlin Callahan MD PCP - General 07/08/[address] [place] [address] documented as of this encounter
--- OUTSIDE RECORDS SUMMARY | 2022-03-05 00:36 | XMS_ITS | Encounter Summary ---
:1965 Author Organization [facility] [place] [address] Care Team Providers Name Role Phone Caitlin Callahan MD Primary Care Provider Reason for Visit Reason Comments Genetic Evaluation OVARIAN CANCER Consultation (Routine) - Closed Specialty Diagnoses / Procedures Referred By Contact Refer red To Contact Hematology and Oncology Diagnoses ovarian cancer` Sebastian Ledezma MD [facility] Hem Onc [address] [facility] [address] [place] [phone] Fax: Referral ID Status Reason Start Date Expiration Date Visits Requ ested Visits Authorized [id number] Closed 11/12/2016 11/12/2017 1 1 Encounter Details Date Type Department Care Team Description 12/23/2016 Office Visit Hematology/Oncology at [facility], H/O ovarian cancer [address] [address] HEMATOLOGY/ONCOLOGY [phone] DEPT. [place], [place] [address] (Wo rk) Social History Tobacco Use Types [...] documented as of this encounter Progress Notes Sophie Moreno - 12/23/2016 9:00 AM EDT Ms. Trimble was seen by Sophie Moreno MS, [facility] at the request of Sebastian Ledezma MD, to advise regarding possible heritable predisposition to cancer. I spent 30 minutes of this face to face encounter with the patient gathering medical and family history and discussing the likelihood of a genetic predisposition to cancer and the option of genetic testing. Reason for referral/Chief complaint Personal history of ovarian cancer and family history of cancer. Medical history Cancer hx and treatment: Ovarian cancer at 48, Basal cell carcinoma Age at 1st menses: 16 Age at 1st child: 29 Menopause status: Postmenopausal Oral contraceptive use: Taken for 2-3 years in early 20's Hormone replacement therapy use: None Current cancer screening: [place] six [place] [facility] Family History of Cancer Problem Relation Age of Onset ??? Endometrial Cancer Mother 47 ??? Colorectal Cancer, Melanoma, Brain tumor Paternal Grandfather 90's ??? Skin Cancer-BCC Father ??? Skin Cancer- BCC/Melanoma Maternal Grandfather 80 ??? Pancreatic Cancer Maternal Great Grandfather 72 ??? Colorectal Cancer Maternal Great Aunt ??? Lung Cancer Maternal Great Uncle ??? Colorectal Cancer Maternal Second Cousin 53 ??? Lung Cancer Paternal Uncle 50's ??? Endometrial Cancer Paternal Aunt 57 ??? Liver Cancer Paternal Great Uncle ??? Lung Cancer Paternal Great Uncle ??? Colorectal Cancer Paternal Second Cousin 50's ??? Breast Cancer Paternal Second Cousin, once removed 30's Maternal ethnic background is [place], [place]ayan [place]arian, non-Restorationist. Paternal ethnic background is , [place], [place]arian, non-Restorationist. Genetic risk assessment Panel genetic testing for an inherited predisposition to cancer was discussed. The risks, benefits and limitations of panel genetic testing were reviewed. Dunia opted for testing with the Breast/Crosscutter/GIPanel, a next generation sequencing panel that simultaneously analyzes 42 genes, including BRCA1 and BRCA2, that contribute to increased risk for cancer. Dunia opted for testing and was consented. Her blood sample was drawn today and sent to [facility]. Insurance pre-authorization and testing will take approximately 2-3 weeks. Dunia will be contacted via telephone once her test results become available. If positive, we will schedule an in person follow-up appointment. At that time, we will discuss with Dunia the implications that this test result mayhave for her, as well as her family members. We will also provide Dunia with screening guidelines for cancer prevention and early detection, as well as answer any questions she may have. Screening Recommendations We will readdress the issue of screening upon the receipt of Dunia???s genetic test result. documented in this encounter Plan of Treatment Not on filedocumented as of this encounter Visit Diagnoses Diagnosis H/O ovarian cancer Personal history of malignant neoplasm o f ovary documented in this encounter Care Teams Wire Inspector Relationship Specialty Start Date End Date Caitlin Callahan MD PCP - General 07/08/[address] [place] [address] [address] [place] [address] documented as of this encounter
--- OUTSIDE RECORDS SUMMARY | 2022-03-05 00:36 | XMS_ITS | Encounter Summary ---
:1965 Author Organization [facility] [place] [address] Care Team Providers Name Role Phone Caitlin Callahan MD Primary Care Provider Reason for Visit Reason Comments Follow-up 6 month ck Encounter Details Date Type Department Care Team Description 12/21/2016 Office Visit Gynecology Oncology Margarette Jalloh Ova bianca cancer, at [facility] [place], [employer] unspecified laterality [facility] [address], [place] [phone] Social History Tobacco Use Types Packs/Day Years [...] Sign Reading Time Taken Comments Blood Pressure 114/81 12/21/2016 2:03 PM EDT Pulse 70 12/21/2016 2:03 PM EDT Temperature 36.8 ??C (98.2 ??F) 12/21/2016 2:03 PM EDT Respiratory Rate 14 12/21/2016 2:03 PM EDT Oxygen Saturation 98% 12/21/2016 2:03 PM EDT Inhaled Oxygen Concentration - - Weight 70.3 kg (154 lb 15.7 oz) 12/21/2016 2:03 PM EDT Height 175.3 cm (5' 9) 12/21/2016 2:03 PM EDT Body Mass Index 22.89 12/21/2016 2:03 PM EDT documented in this encounter Progress Notes Margarette Jalloh, [employer] - 12/21/2016 2:00 PM EDT Division [place] [address] Reason For Visit: Post Treatment Surveillance Exam History of Present Illness: Dunia Trimble is a 51 y.o. woman who presents today for surveillance exam. She is post treatment of stage IIIA ovarian cancer. Her disease is followed by review of systems and examination. Pap testin12/2014 normal pap/hpv testing negative. SOFTWARE DEVELOPMENT PROJECT MANAGER Oncology History: stage IIIA ovarian cancer ?? [...] returned as 183. ?? 07/2012 referred to [facility] [employer]ELOP[employer] PROJECT MANAGER Oncology for management. ?? A pre-op CT Abdomen/Pelvis on 08/10/2012 revealed no evidence of gross metastatic disease. ?? 09/22/12: s/p robotic-assisted laparoscopic left salpingo-oophorectomy and pelvic and para-aortic lymphadenectomy, and multiple staging biopsies. ?? 02/2013: completed 6 cycles of IV/IP cisplatin/paclitaxel chemotherapy Interim Health: Feeling very well. No new medical issues, surgeries or hospitalizations since her last visit. No SOFTWARE DEVELOPMENT PROJECT MANAGER questions/concerns today ROS: No Fever, chills, nausea, vomiting, diarrhea No Pelvic/abdominal pain or bloating No Bowel/bladder concerns or changes. Energy level is good No Vaginal bleeding or discharge No lower extremity edema Weight is up 8lbs Reports appetite is good No SOB, cough or chest pain. Neuropathy: very slight in her feet/toes, does not interfere with balance or gait. Sexual function: no changes/concerns. Not currently sexually active Mood: good Advanced Directives: No advance directives on file, has info at home. Plans to complete and return. Health Habits: Tobacco: nonsmoker ETOH: 0-2 glasses of wine/beers a week. Exercise: weight training 2x week, walking Health Maintenance: Mammogram: 11/2016. Colonoscopy: done 01/2016, Repeat 10 years Social History: . Works for [email or web address]. 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 3 children, youngest son (13) lives at home, other 2 are older. Patient Active Problem List Diagnosis Code ??? Ovarian cancer C56.9 ??? S/P hysterectomy Z90.710 Past Surgical History: Procedure Laterality Date ??? HYSTERECTOMY 07/27/12 lsc BUD/RSO for fibroids and ovarian CA ??? PRO LAP INSERT INTRAPERITONEAL CATHETER 10/24/2012 LAPAROSCOPY, INSERTION PERITONEAL DIALYSIS CATHETER performed by Sebastian Ledezma MD at [facility] MAIN OR ??? PRO LAP, PELVIC LYMPHADENECTOMY/BX 09/22/2012 LAPAROSCOPY,W\BILATERAL TOTAL PELVIC LYMPHADENECTOMY, PERIAORTIC LYMPH NODE SAMPLING, ROBOTIC performed by Sebastian Ledezma MD at [facility] MAIN OR ??? PRO LAP, RMV ADNEXAL STRUCTURE 09/22/2012 LAPAROSCOPY, REMOVAL OF ADNEXA, ROBOT ASSIST performed by Sebastian Ledezma MD at [facility] MAIN OR Allergies Allergen Reactions ??? Shellfish Derived Nausea And Vomiting No current outpatient prescriptions on file prior to visit. No current facility-administered medications on file prior to visit. Vital Signs: BP 114/81 Pulse 70 Temp 36.8 ??C (98.2 ??F) (Oral) Resp 14 Ht 175.3 cm (5' 9) Wt 70.3 kg (154 lb 15.7 oz) SpO2 98% BMI 22.89 kg/m2 PHYSICAL EXAM: Gen: Pleasant, NAD, Alert, [...] no masses/tenderness. ASSESSMENT/PLAN: Dunia Trimble is a 51 y.o. woman who is 4 years post treatment of stage IIIA ovarian cancer. She has no evidence of recurrent disease. We reviewed signs and symptoms of recurrent disease. Due for pap/HPV testing 2019. Per her surveillance plan she will RTC in 6months, sooner prn with questions/concerns. Margarette Jalloh APRN documented in this encounter Plan of Treatment Not on filedocumented as of this encounter Visit Diagnoses Diagnosis Ovarian cancer, unspecified laterality documented in this encounter Care Teams Director Of Development Relationship Specialty Start Date End Date Caitlin Callahan MD PCP - General 07/08/[address] [place] [address] [address] [place] [address] documented as of this encounter
--- OUTSIDE RECORDS SUMMARY | 2022-03-05 00:36 | XMS_ITS | Encounter Summary ---
:1965 Author Organization [place] [address] Care Team Providers Name Role Phone Caitlin Callahan MD Primary Care Provider Reason for Visit Reason Comments Chemotherapy Encounter Details Date Type Department Care Team Description 02/28/2013 Hospital Encounter Hematology and INFUSION THER APY, MEDS None Ovarian cancer Oncology at [facility] Sebastian Ledezma MD [facility] [place] [address] (Primary Dx) [place] [id number] Social History Tobacco Use Types Packs/Day Years [...] Sign Reading Time Taken Comments Blood Pressure 134/85 02/28/2013 2:12 PM EDT Pulse 77 02/28/2013 2:12 PM EDT Temperature 37.4 ??C (99.3 ??F) 02/28/2013 2:12 PM EDT Respiratory Rate 18 02/28/2013 2:12 PM EDT Oxygen Saturation 95% 02/28/2013 2:12 PM EDT Inhaled Oxygen Concentration - - Weight - - Height - - Body Mass Index - - documented in this encounter Medications at Time of Discharge [...] documented as of this encounter Progress Notes Grader, JACEY Sellers - 02/28/2013 4:45 PM EDT TIME TREATMENT STARTED: 1409 TIME TREATMENT ENDED: 1754 Dunia Hoyos, 48 y.o. female with diagnosis of ovarian CA is here for chemotherapy infusion of IP taxol. PROTOCOL: no CYCLE: 6 WEEK: DAY: 8 S: I took compazine at 10 am. I didn't take ativan because of having to care for my son. I've have vomited a couple of days since my last chemo and today twice so far O: Dunia is vomiting as she arrives in clinic and vomited 3 more times, lots of wretching and bilious emesis. She does not seem too dehydrated and she has tears when she wretches. Given ativan SL but still vomited x 3 after. Notifed Brooke Feng APRN, zofran 16 mg IV given LAB DATA: Within acceptable limits for chemo. IV ACCESS: IV port IP port HYDRATION: none ANTIEMETICS/PREMEDS: zofran 16 mg IV Decadron 20 mg IV Benadryl 25 mg IV pepcid 20 mg IV Ativan 1 mg po CHEMOTHERAPY: Taxol 110 mg IP Chemotherapy orders independently verified for drug name, route and dosage per patient's height, weight and BSA by Verito Wood RN and RPharmacist REACTIONS (DESCRIPTION, TIME, INTERVENTION AND EFFECTIVENESS) none A: Pt. Tolerated treatment well. Dunia L Romain confirms that all questions and issues have been addressed. No further emesis after zofran. Had a large void after IP port deaccessed P: Return to clinic per routine. documented in this encounter Plan of Treatment Not on filedocumented as of this encounter Visit Diagnoses Diagnosis Ovarian cancer - Primary Malignant neoplasm of ovary documented in this encounter Administered Medications Inactive Administered Medications - up to 3 most recent administrations Medication Order MAR Action Action Date Dose Rate Site dexamethasone 20 mg in sodium Given 02/28/2013 3:13 PM EDT 20 mg chloride 0.9% infusion 20 mg, Intravenous, ONCE, 1 dose, On Wed02/28/13 at 1430, Administer over 10 Minutes diphenhydrAMINE (BENADRYL) injection 25 mg Given 02/28/2013 3:07 PM EDT 25 mg 25 mg, Intravenous, ONCE, 1 dose, On Wed02/28/13 at 1430, Routine famotidine (PEPCID) injection 20 mg Given 02/28/2013 3:10 PM EDT 20 mg 20 mg, Intravenous, ONCE, 1 dose, On Wed02/28/13 at 1430, Routine LORazepam (ATIVAN) tablet 1 mg Given 02/28/2013 2:30 PM EDT 1 mg 1 mg, Oral, EVERY 4 HOURS PRN, Starting on Wed02/28/13 at 1412, Until Wed03/01/13 at 0216, Anxiety, Nausea, Vomiting, Routine ondansetron (ZOFRAN) 16 mg in sodium Given 02/28/2013 4:05 P M EDT 16 mg 232 mL/hr chloride 0.9% 58 mL 16 mg, Intravenous, ONCE, 1 dose, On Wed02/28/13 at 1630, Administer over 15 Minutes PACLitaxel (TAXOL) 110 mg in New Bag 02/28/2013 4:07 PM EDT 110 mg 1018.3 mL/hr sodium chloride 0.9% Non-PVC 1,018.3333 mL chemo infusion 110 mg, Intraperitoneal, ONCE, 1 dose, On Wed02/28/13 at 1515, Administer over 60 Minutes sodium chloride 0.9% infusion New Bag 02/28/2013 3:39 PM EDT 500 mL/hr 500 mL/hr 500 mL/hr, Intraperitoneal, ONCE, 1 dose, On Wed02/28/13 at 1430, Instill into IP port prior to use documented in this encounter Care Teams Wound Care Technician Relationship Specialty Start Date End Date Caitlin Callahan MD PCP - General 07/08/[address] [place] [address] documented as of this encounter
--- OUTSIDE RECORDS SUMMARY | 2022-03-05 00:36 | XMS_ITS | Encounter Summary ---
:1965 Author Organization [facility] [place] [address] Care Team Providers Name Role Phone Caitlin Callahan MD Primary Care Provider Reason for Visit Reason Onset Date Comments Other 06/27/2013 Encounter Details Date Type Department Care Team Description 06/27/2013 Telephone Gynecology Oncology at [facility] Arianne Caruso, [place] [address] Social History Tobacco Use Types Packs/Day [...] Notes Telephone Encounter - Caron Pham - 06/27/2013 1:41 PM EST Please sign order documented in this encounter Plan of Treatment Not on filedocumented as of this encounter Results CT chest, abdomen, & pelvis with contrast (09/19/2013 12:14 PM EST) Anatomical Region Laterality Modality Computed Tomography Specimen (Source) Anatomical Collection Method Collection Time Re ceived Time Location / / Volume Laterality 09/19/2013 12:14 PM EST Narrative 09/19/2013 1:[address] Chest / Abdomen / Pelvis With Contras t Clinical History hx of ovarian cancer,survillence exam, c ompare to previous Comparison 03/21/2013. Technique 110 mL Omnipaque 350 utilized for intrav enous contrast. ??Oral contrast also administered. Findings Chest: The lungs are stable. ??2 pulmonary nodu les are noted, which are both stable: 1 measuring approximate 3 mm seen in the l eft upper lobe and a ??somewhat smaller and ill-defined nodule seen in the right upper lobe. ??No pleural effusions. ??No areas of airspace consolidation. No thoracic adenopathy. Abdomen/pelvis: The liver and spleen are unremarkable an d stable. The gallbladder and pancreas are unremar kable. The adrenal glands and kidneys are arianne l. ??No hydronephrosis. No free fluid. ??No free air. ??No adeno marty. ??Scattered, subcentimeter mesenteric lymph nodes are seen. ??No fr ee fluid. ??No free air. No bowel obstruction. ??No areas of abno rmal small bowel wall thickening or small bowel dilatation. No pelvic sidewall or inguinal lymphaden opathy. ??No pelvic free fluid. The osseous structures are unremarkable metastasis. Impression ? 1. Stable exam. ??2 small pulmona ry nodules noted, as described, recommend continued followup. ? 2. No evidence of intra-abdominal or pelvic spread of disease. Procedure Note Brady Edgar MD - 09/19/2013Form atting of this note might be different from the original. Examination CT Chest / Abdomen / Pelvis With Contras t Clinical History hx of ovarian cancer,survillence exam, c ompare to previous Comparison 03/21/2013. Technique 110 mL Omnipaque 350 utilized for intrav enous contrast. Oral contrast also administered. Findings Chest: The lungs are stable. 2 pulmonary nodule s are noted, which are both stable: 1 measuring approximate 3 mm seen in the l eft upper lobe and a somewhat smaller and ill-defined nodule seen in the right upper lobe. No pleural effusions. No areas of airspace consolidation. No thoracic adenopathy. Abdomen/pelvis: The liver and spleen are unremarkable an d stable. The gallbladder and pancreas are unremar kable. The adrenal glands and kidneys are arianne l. No hydronephrosis. No free fluid. No free air. No adenopath y. Scattered, subcentimeter mesenteric lymph nodes are seen. No free fluid. No free air. No bowel obstruction. No areas of abnorm al small bowel wall thickening or small bowel dilatation. No pelvic sidewall or inguinal lymphaden opathy. No pelvic free fluid. The osseous structures are unremarkable metastasis. Impression 1. Stable exam. 2 small pulmonary nodul es noted, as described, recommend continued followup. 2. No evidence of intra-abdominal or pe lvic spread of disease. Sebastian Ledezma MD IMG CT ORDERABLES documented in this encounter Visit Diagnoses Diagnosis Ovarian cancer - Primary Malignant neoplasm of ovary Ovarian cancer Malignant neoplasm of ovary documented in this encounter Care Teams Injection Mold Tooling Technician Relationship Specialty Start Date End Date Caitlin Callahan MD PCP - General 07/08/[address] [place] [address] documented as of this encounter
--- OUTSIDE RECORDS SUMMARY | 2022-03-05 00:36 | XMS_ITS | Encounter Summary ---
:1965 Author Organization [facility] [place] [address] Care Team Providers Name Role Phone Caitlin Callahan MD Primary Care Provider Encounter Details Date Type Department Care Team Description 09/19/[address] Scan at [facility] [place] [phone] Social History Tobacco Use Types Packs/Day [...] Miscellaneous Notes Miscellaneous - Provider, Shayne - 09/22/2013 7:43 PM EST documented in this encounter Plan of Treatment Not on filedocumented as of this encounter Procedures Procedure Name Priority Date/Time Associated Diagnosis Comme nts CT CHEST ABDOMEN Routine 09/19/2013 12:14 PM Ovarian cancer Re sults for this PELVIS W CONTRAST EST procedure are in (GENERIC) the results section. [...] kable. The adrenal glands and kidneys are david l. ??No hydronephrosis. No free fluid. ??No [...] kable. The adrenal glands and kidneys are david l. No hydronephrosis. No free fluid. No [...] intra-abdominal or pe lvic spread of disease. Sebastain Ledezma MD IMG CT ORDERABLES documented in this encounter Visit Diagnoses Diagnosis Ovarian cancer Malignant neoplasm of ovary documented in this encounter Administered Medications Inactive Administered Medications - up to 3 most recent administrations Medication Order MAR Action Action Date Dose Rate Site iohexol (OMNIPAQUE) 350 mg Given 09/19/2013 10:00 AM EST 17,500 mg iodine/mL injection 17,500 mg 17,500 mg (50 mL), Oral, ONCE PRN, 1 dose, Starting on Wed09/19/13 at 1200, Until Tu09/19/13 at 1000, Per Protocol, Routine iohexol (OMNIPAQUE) 350 mg iodine/mL Given 09/19/2013 12:[address] 38,500 mg injection 38,500 mg 38,500 mg (110 mL), Intravenous, ONCE PRN, 1 dose, Starting on Wed09/19/13 at 1200, Until 09/19/13 at 1206, Per Protocol, Routine documented in this encounter Care Teams Senior Electrical Designer Relationship Specialty Start Date End Date Caitlin Callahan MD PCP - General 07/08/[address] [place] [address] [address] [facility] [address] [place] [address] documented as of this encounter
--- OUTSIDE RECORDS SUMMARY | 2022-03-05 00:36 | XMS_ITS | Encounter Summary ---
:1965 Author Organization [facility] [place] [address] Care Team Providers Name Role Phone Caitlin Callahan MD Primary Care Provider Encounter Details Date Type Department Care Team Description 01/07/2018 Telephone Gynecology Oncology at [facility] Margarette Jalloh, [facility] [place] [address] [facility] [phone] [place] [address] (Wo rk) Social History Tobacco Use Types [...] on filedocumented in this encounter Care Teams Eap Specialist Relationship Specialty Start Date End Date Caitlin Callahan MD PCP - General 07/08/[address] [place] [address] documented as of this encounter
--- OUTSIDE RECORDS SUMMARY | 2022-03-05 00:36 | XMS_ITS | Encounter Summary ---
:1965 Author Organization [facility] [place] [address] Care Team Providers Name Role Phone Caitlin Callahan MD Primary Care Provider Reason for Visit Reason Comments Ovarian Cancer Encounter Details Date Type Department Care Team Description 02/21/2013 Hospital Encounter Hematology and Ovarian cancer (Primary Oncology at [facility] Dx) [place] [phone] Social History Tobacco Use Types Packs/Day [...] documented as of this encounter Progress Notes Karen Stratton RN - 02/21/2013 10:19 AM EDT Patient Name: Dunia Hoyos Patient Age: 48 y.o. Birthdate: 1965 Admit date: 02/21/2013 Attending Physician: No att. providers found Patient's port accessed without difficulty. Positive blood return noted. Port flushed and capped forfurther therapy. documented in this encounter Plan of Treatment Not on filedocumented as of this encounter Visit Diagnoses Diagnosis Ovarian cancer - Primary Malignant neoplasm of ovary documented in this encounter Care Teams Talent Manager Relationship Specialty Start Date End Date Caitlin Callahan MD PCP - General 07/08/10 [address] [facility] [address] [facility] [address] [place] [address] documented as of this encounter
--- OUTSIDE RECORDS SUMMARY | 2022-03-05 00:36 | XMS_ITS | Encounter Summary ---
:1965 Author Organization [facility] [place] [address] Care Team Providers Name Role Phone Caitlin Callahan MD Primary Care Provider Encounter Details Date Type Department Care Team Description 03/21/2013 Hospital Encounter Radiology at [facility] [place] [address] Social History Tobacco Use Types Packs/Day [...] Sign Reading Time Taken Comments Blood Pressure 121/79 03/21/2013 11:30 AM EDT Pulse 59 03/21/2013 11:30 AM EDT Temperature 36 ??C (96.8 ??F) 03/21/2013 10:10 AM EDT Respiratory Rate 18 03/21/2013 11:30 AM EDT Oxygen Saturation 100% 03/21/2013 11:30 AM EDT Inhaled Oxygen Concentration - - Weight - - Height - - Body Mass Index - - documented in this encounter Discharge Instructions Discharge InstructionsHaydee Berrios RN - 03/21/2013 10:22 AM EDT [facility] Vascular and Interventional Radiology Discharge Instructions for your Chest Port Removal Activity: Relax for the next 24 hours Diet: Drink plenty of fluids. Resume your regular diet Bandage: There is a sterile dressing consisting of small gauze with a clear dressing (Tegaderm or [id number]). This dressing should be left in place for 48 hours. If the clear dressing becomes loose you should place tape over the edges to secure it in place. No tub baths, swimming or whirlpools for 1 week. No showering for 48 hours. Note: If you have steri-strips beneath your dressing, simply allow them to fall off. Do not peel them off. There may be Indermil (skin glue) also, allow this to flake off. Do not pick this off. When to call your healthcare provider: If you notice bleeding from the incision on your chest, you should lie flat and apply firm pressureover the site for 10-15 minutes, keeping the site covered and call your doctor. If you are still bleeding after 10-15 minutes, reapply pressure, and have someone drive you to the nearest Emergency Department, or call 911. If you develop pain, redness, drainage or swelling at or around chest incision site. If you develop a fever equal to or greater than 101 degrees Fahrenheit. When to call the Interventional Radiology Department: Please call with any questions or concerns. Ifit is during regular office hours, please call [phone]. If it is after regular office hours, oron weekends or holidays, please call [phone] and ask to speak to the Investigator Cash Shortage on callfor Interventional Radiology. xx You have received medication during your procedure to help lesson anxiety and keep you comfortable. These medications affect judgement and reaction time. We recommend that you do not drive, operateequipment, sign any important documents, or smoke unattended for 24 hours following your procedure. Because of the sedation, be careful on stairs, as you may be unsteady on your feet. You may resume your regular diet as tolerated. IV site -- slight redness, or tenderness is normal, you can use a warm compress. If tenderness and redness increases or foul drainage occurs, please contact your M. D. 08/28/11 documented in this encounter Medications at Time of Discharge Medication Sig Dispensed Refills Start Date End Date ibuprofen (MOTRIN) 600 mg Take 1 tablet by 30 tablet 2 10/1412/25/2014 tablet mouth every 6 hours as needed for Pain. documented as of this encounter Progress Notes Haydee Berrios RN - 03/21/2013 11:47 AM EDT 1145: Pt discharged. Left AC PIV left in place for CT scan at 1500. Pt awake and alert in no distress. Pt transported in wheelchair off unit with family. Amarjit Berrios RN Holley Krueger PA - 03/20/2013 6:29 AM EDT PRE-PROCEDURE VIR NOTE Date of : 1965 Age: 48 y.o. PCP: CAITLIN CALLAHAN MD Referring Physician (if different): [place] Indication: No longer needed Planned Procedure: Single lumen chest port removal Chief Complaint/Diagnosis: Ms. Catalina Hoyos is a 48 y.o. year old with h/o Stage 1C ovarian cancer who has completed her chemotherapy and port is no longer needed. Port was placed on 11/08/12. Pertinent Past Medical/Surgical History: Patient Active Problem List Diagnoses Code ??? Ovarian cancer 183.0 Allergies Allergen Reactions ??? Shellfish Derived Nausea And Vomiting Current Outpatient Prescriptions on File Prior to Encounter Medication Sig Dispense Refill ??? prochlorperazine (COMPAZINE) 10 mg tablet Take 1 tablet by mouth every 6 hours as needed. 30 tablet 0 ??? OXYcodone-acetaminophen (PERCOCET) 5-325 mg per tablet Take 1-2 tablets by mouth every 4 hours as needed for Pain. 15 tablet 0 ??? senna-docusate (PERICOLACE) 8.6-50 mg per tablet Take 1-4 tablets by mouth 2 times daily as needed for Constipation. 60 tablet 11 ??? ibuprofen (MOTRIN) 600 mg tablet Take 1 tablet by mouth every 6 hours as needed for Pain. 30 tablet 2 Pertinent ROS: as per HPI Pertinent Family History: non contributory Social History: n/a Labs: Lab Results Component Value Date WBC 2.91* 02/27/2013 ANC 1820* 02/27/2013 HCT 27.0* 02/27/2013 PLATELET 201* 02/27/2013 BUN 28* 02/20/2013 Lab Results Component Value Date ALKPHOS 81* 02/20/2013 AST 17* 02/20/2013 ALBUMIN 3.8* 02/20/2013 BILIDIR 0.1 10/24/2012 BILITOT 0.4* 02/20/2013 ALT 18* 02/20/2013 Imaging: Physical Exam: pending ASA: Mallampati Class: Assessment / Plan: Port removal Medications to discontinue: none Prophylactic antibiotic: ancef Planned access site / position: supine Addendum: The patient's history and physical exam have been reviewed and completed. There has been no intervalchange from that of the pre-operative history and physical exam done within the last 30 days. Risks and benefits discussed and patient consented to the procedure. Physical Exam Heart: RRR Lungs: clear ASA Classification: ASA 2 - Patient with mild systemic disease with no functional limitations Mallampati Classification: II (soft palate, uvula, fauces visible) Tierra Conrad RN - 03/15/2013 6:04 PM EDT [facility] NURSING DATABASE Name: CATALINA HOYOS Date of : 1965 AGE 48 y.o. Address: [address] [place] [id number] (home) [phone] (work) Mobile: Telephone Information: Referring Provider: Sebastian Ledezma Reason for Visit: Mediport removal Catalina Hoyos is a 48 y.o. year old with Stage 1C ovarian cancer who is here today for cycle #6 of 6IP/IV cisplatin and paclitaxel. Lab slips given. F/U 3-[address] scan, IP port removal. Allergies Allergen Reactions ??? Shellfish Derived Nausea And Vomiting Pertinent PMH: Patient Active Problem List Diagnoses Code ??? Ovarian cancer 183.0 Pertinent PSH: Past Surgical History Procedure Date ??? Hysterectomy 07/27/12 lsc BUD/RSO for fibroids and ovarian CA ??? Lap, rmv adnexal structure 09/22/2012 LAPAROSCOPY, REMOVAL OF ADNEXA, ROBOT ASSIST performed by Sebastian Ledezma MD at [facility] MAIN OR ??? Lap, pelvic lymphadenectomy/bx 09/22/2012 LAPAROSCOPY,W\BILATERAL TOTAL PELVIC LYMPHADENECTOMY, PERIAORTIC LYMPH NODE SAMPLING, ROBOTIC performed by Sebastian Ledezma MD at [facility] MAIN OR ??? Lap insert intraperitoneal catheter 10/24/2012 LAPAROSCOPY, INSERTION PERITONEAL DIALYSIS CATHETER performed by Sebastian Ledezma MD at [facility] MA[facility] OR Date/Procedure Comments: 11/08/12 Single Lumen Power Port Ancef 1gm/Versed 4mg/Fent 200mcg. Robel well. 03/21/13 mediport removal Ancef 1 gm, Versed 2 mg, Fentanyl 100 mcg Laboratory Results: No results found for this basename: inr No results found for this basename: PT, PTT Lab Results Component Value Date BUN 28* 02/20/2013 Lab Results Component Value Date CREATININE 1.3* 02/20/2013 Lab Results Component Value Date K 4.4* 02/20/2013 Lab Results Component Value Date PLATELET 201* 02/27/2013 Medications: Prior to Admission medications Medication Sig Start Date End Date Taking? Authorizing Provider prochlorperazine (COMPAZINE) 10 mg tablet Take 1 tablet by mouth every 6 hours as needed. 02/07/13 Brooke Feng APRN OXYcodone-acetaminophen (PERCOCET) 5-325 mg per tablet Take 1-2 tablets by mouth every 4 hours as needed for Pain. 10/24/12 Davi Rinaldi MD senna-docusate (PERICOLACE) 8.6-50 mg per tablet Take 1-4 tablets by mouth 2 times daily as needed for Constipation. 10/24/12 Davi Rinaldi MD ibuprofen (MOTRIN) 600 mg tablet Take 1 tablet by mouth every 6 hours as needed for Pain. 10/24/12 Davi Rinaldi MD MED'S TO STOP DAY OF PROCEDURE: MED'S TO STOP DAYS OUT: PT. INFORMED: (Y/N) LABS ORDERED: (place an X in front of lab) NONE PLT CBC PT/INR BUN CREAT K OTHER LABS ORDERED IN EDH: For outpatient procedures: This patient has been informed that they require a deliver driver to drive them home after this procedure. In the absence of a deliver driver, IR will not be able to perform this procedure and will need to reschedule. Pt verbalized understanding of these instructions during the pre-procedure education via phone. documented in this encounter Procedure Notes Lyndon Bobo MD - 03/21/2013 10:09 AM EDT Procedure: Removal of tunneled right IJ chest port. Acc#:[id number] Indication: No longer requires long-term central venous access for chemotherapy. Technique: After discussing risks (including infection, hemorrhage), and benefits, patient consentedto the procedure and conscious sedation.Due to the painful nature of the procedure, split doses of fentanyl and versed were administered by the IR nurse during continuous monitoring of pulse, blood pres sure and oxygen saturation. After sterile preparation of the upper chest, 7cc 1% lidocaine SQ was administered for anesthesia, and an 11 blade was used to make a 2.5 cm incision. With blunt dissection the port and catheter were dissected free and removed. Hemostasis obtained with manual compression at the IJ catheter entry site.Pocket was closed with resorbable 2-0 interrupted sutures and running 4-0 subcuticular suture. Patient tolerated the procedure well. There were no immediate complications. No contrast administered. Fluro dose: 0 0 min. EBL: 3 cc Medications: Ancef 1 gm IV, versed 2 mg IV and fentanyl 100 mcg IV. Impression: Successful removal of right IJ port. Fellow: MD Holley Baker PA was present and scrubbed throughout the procedure. Attending: Dr. Jihan Parker, Dr. Bobo, was present throughout the procedure. documented in this encounter Miscellaneous Notes Miscellaneous - Provider, Scanning - 04/05/2013 10:16 AM EDT Miscellaneous - Provider, Scanning - 04/05/2013 10:11 AM EDT documented in this encounter Plan of Treatment Not on filedocumented as of this encounter Procedures Procedure Name Priority Date/Time Associated Diagnosis Comme nts IR MEDIPORT Routine 03/21/2013 10:09 AM Ovarian cancer Result s for this PLACEMENT EDT procedure are i n the results section. documented in this encounter Results IR mediport placement or [...] of tunneled right IJ chest port. ?? Acc#:[id number] ?? Indication: No longer requires long-term central [...] Removal of tunneled right IJ chest port. Acc#:[id number] Indication: No longer requires long-term central venous [...] Jihan Parker, Dr. Bobo, was present throughout e procedure. Film and interpretation reviewed by the attending Sebastian Ledezma MD IMG IR ORDERABLES documented in this encounter Visit Diagnoses Diagnosis Ovarian cancer Malignant neoplasm of ovary documented in this encounter Administered Medications Inactive Administered Medications - up to 3 most recent administrations Medication Order MAR Action Action Date Dose Rate Site ceFAZolin (ANCEF) 1g in Given 03/21/2013 9:30 AM EDT 1,000 mg 100 mL/hr dextrose 5% 50mL 1,000 mg (1 g), Intravenous, ONCE, 1 dose, On Wed03/21/13 at 0930, Administer over 30 Minutes, Angio/IR (Intra-Procedure), Indication for (Active or Suspected): Prophylaxis fentaNYL 50mcg/mL injection Given 03/21/2013 9:48 AM EDT 25 mcg 25-50 mcg, Intravenous, EVERY 5 MIN PRN, Starting on Wed03/21/13 at 0902, Until Wed03/21/13 at 0950, Pain, Angio/IR (Intra-Procedure), Routine Given 03/21/2013 9:36 AM EDT 25 mcg Given 03/21/2013 9:29 AM EDT 50 mcg midazolam (VERSED) injection 0.5-1 mg Given 03/21/2013 9:48 AM EDT 0.5 mg 0.5-1 mg, Intravenous, EVERY 5 MIN PRN, Starting on Wed03/21/13 at 0902, Until Wed03/21/13 at 0950, Sleep, Angio/IR (Intra-Procedure), Routine Given 03/21/2013 9:36 AM EDT 0.5 mg Given 03/21/2013 9:30 AM EDT 1 mg promethazine (PHENERGAN) 25 mg/mL inject ion 1 dose, Starting on Wed03/21/13 at 1414, Until Wed03/21/13 at 1420, JUAN JENSEN: cabinet override promethazine (PHENERGAN) injection 6.25 mg Given 03/21/2013 2:20 PM EDT 6.25 mg 6.25 mg, Intravenous, EVERY 6 HOURS PRN, Starting on Wed03/21/13 at 1411, Until 05/11/15 at 0046, Nausea, Avoid extravasation, Routine documented in this encounter Care Teams Manager Pulmonary Relationship Specialty Start Date End Date Caitlin Callahan MD PCP - General 07/08/[address] [place] [address] documented as of this encounter
--- OUTSIDE RECORDS SUMMARY | 2022-03-05 00:36 | XMS_ITS | Encounter Summary ---
:1965 Author Organization [facility] [place] [address] Care Team Providers Name Role Phone Caitlin Callahan MD Primary Care Provider Reason for Visit Reason Onset Date Comments Other 02/21/2013 Encounter Details Date Type Department Care Team Description 02/21/2013 Telephone Gynecology Oncology at [facility] Sebastian Ledezma MD [facility] [address] [address] GYNECOLOGY ONCOLOGY [phone] [place], [place] [address] (Wo rk) Social History Tobacco [...] Notes Telephone Encounter - Caron Pham - 02/21/2013 9:17 AM EDT Please sign order documented in [...] ovary documented in this encounter Care Teams Kindergarten Instructional Assistant Relationship Specialty Start Date End Date Caitlin Callahan MD PCP - General 07/08/[address] [place] [address] documented as of this encounter
--- OUTSIDE RECORDS SUMMARY | 2022-03-05 00:36 | XMS_ITS | Encounter Summary ---
:1965 Author Organization [facility] [place] [address] Care Team Providers Name Role Phone Caitlin Callahan MD Primary Care Provider Reason for Visit Reason Comments Established 3 month check Encounter Details Date Type Department Care Team Description 12/25/2014 Follow-Up Gynecology Oncology at [place], Phi Thakkar MD Ovarian cancer, [facility] unspecified laterality [facility] [address] [place] [address] [place] [address] [phone] (Wo rk) Social History Tobacco Use Types [...] Sign Reading Time Taken Comments Blood Pressure 96/64 12/25/2014 2:01 PM EDT Pulse - - Temperature - - Respiratory Rate - - Oxygen Saturation - - Inhaled Oxygen Concentration - - Weight 64.5 kg (142 lb 3.2 oz) 12/25/2014 2:01 PM EDT Height - - Body Mass Index 21 06/27/2014 11:11 AM EST documented in this encounter Progress Notes Sebastian Coy MD - 12/25/2014 2:19 PM EDT Division [place] [address] Gynecologic Oncology-Clinic Note Reason for visit: Surveillance [...] as 183. Catalina was subsequently referred to [facility] VITICULTURIST Oncology for management. A pre-op CT Abdomen/Pelvis on 08/10/2012 revealed no evidence of gross metastatic disease. On 09/22/12 she underwent: robotic-assistedlaparoscopic left salpingo-oophorectomy and pelvic and para-aortic lymphadenectomy, and multiple staging biopsies. She was discharged the same day. Subsequently, she had an intraperitoneal port placed,and underwent 6 cycles of IV/IP cisplatin/paclitaxel, completing [...] No further follow-up/imaging is planned for this. She is UTD on MMG and will be due for colonoscopy this year. Plans on going to [place] with her 21 y/o daughter next month. Review of systems: 7 systems in total were reviewed, otherwise negative. Vital signs: BP 96/64 Wt 64.5 kg (142 lb 3.2 oz) Physical examination: General: She is alert [...] with no obvious masses, nodularity, or tenderness. Routine cervical cytology screening performed today. Extremities: Symmetric, well-developed, no edema. Laboratory studies: [...] abdomen and pelvis in 09/2013 was reassuring. Routine screening Pap done today. We reviewed the typical symptoms of recurrent ovarian cancer, and she voiced an understanding of these, roberto to report any should they occur between scheduled visits, and she will follow-up in 6months in accordance with current surveillance guidelines, (Current Society of Gynecologic Oncologists (SGO) Surveillance Guidelines: Posttreatment surveillance and diagnosis of recurrence in women with gynecologic malignancies: Society of Gynecologic Oncologists recommendations (Rashel, et al; AJOG, January 2011)) documented in this encounter Plan of Treatment Not on filedocumented as of this encounter Procedures Procedure Name Priority Date/Time Associated Comments Diagnosis HPV Routine 12/25/2014 2:48 PM Results f or this EDT procedure are i n the results section. VITICULTURIST CYTOLOGY FINAL Routine 12/25/2014 2:48 PM Res ults for this REPORT EDT procedure are i n the results section. CYTOPATHOLOGY Routine 12/25/2014 2:48 PM Ovarian cancer, Resul ts for this GYNECOLOGICAL EDT unspecified procedure are in laterality the results section. documented in this encounter Results Unattended Ground Sensor Specialist Cytology Final Report (12/25/2014 2:48 PM EDT) Component Value Ref Test Analysis Performed At [facility] gist Range Method Time Signature Unattended Ground Sensor Specialist Cytology CERNER Final Report ? [facility] ? Provider: ?? SEBASTIAN COY ?Pt. Name: ?? CATALINA BOWDEN ? Acc #: ?[id number] ?Pt. MRN: ?[id number] ? Col Date: ?? 5 ? /Sex: ?1965,(49 years),Female ? Rec Date: ?? 12/25/2014 ? LOC: ?3K ? CYTOPATHOLOGY: ??VITICULTURIST ? ---Adequacy--- ? Specimen submitted is satisfactory. ? Endocervical component present. ? ---Cytopathologic Diagnosis--- ? NORMAL ? Negative for Intraepithelial Lesion or Malignancy (NI LM). ? 12/28/14 ?? Screened by: ??REP ? 12/28/14 ?? Verified by: ??Proskovec, CT(ASCP), Rosey E. - Bulk Sausage Casing Tier Off ? ---Comment--- ? Please also see concurrent HPV test result. ? ---Clinical Information--- ? HPV Option: ?Concurrent HPV and Pa p ? Preparation: ? Liquid based Pap ? Specimen Source: ? Cervical/Endocervical ? LMP: ? n/a ? Hormones?: ? No ? Hysterectomy?: ? No ?: ? No ?: ? No ? I.U.D.?: ? No ? Pelvic Radiation: ?No ? Prior VITICULTURIST Therapy?: ?Cryotherapy ? Hist Abnl Pap/Biopsy?: ?? Yes, history of previous ab normal Pap ? Hist of HPV Vaccine?: ?No ? Hist of Smoking?: ?No ? Hist of ANTONIO exposure?: ?? No ? ICD-9 Diagnosis: ? V76.2 Screening Pap no s ymptoms ? Clinical Data, Significant Therapy and Clinical Impre ssion: ? _ ? This Pap Test has bee n evaluated with the assistance of the ThinPrep Pap ? Test Imaging System. ? Note: ? The Pap test is a screening test for cervical c ancer with an inherent ? false-negative rate dependent upon several variables. ??For further ? information please contact the [facility] Laboratory. ? [facility] ? Provider: ?? SEBASTIAN COY ?Pt. Name: ?? CATALINA BOWDEN ? Acc #: ?[id number] ?Pt. MRN: ?[id number] ? Col Date: ?? 5 ? /Sex: ?1965,(49 years),Female ? Rec Date: ?? 12/25/2014 ? LOC: ?3K ? CYTOPATHOLOGY: ??VITICULTURIST ? Reference: ??Abendrot h CS. ??Deposit Refund Clerk of Pap Smear Results. ??In: ? Lm BS, Sarthak HH, ed. ??The Pap Smear. ??[place]: ??Chinmay, 2002: ? 71-77. Specimen (Source) Anatomical Collection Method Collection Time Re ceived Time Location / / Volume Laterality 12/25/2014 2:48 PM EDT Sebastian Coy MD PATHOLOGY/CYTOLOGY ORDERABLE S Performing Organization Address City/State/[place] [address] CERNER MILLENNIUM HPV (12/25/2014 2:48 PM EDT) Component Value Ref Test Analysis Performed At [facility] Method Time Signature HPV 16 NEGATIVE CERNER MILLENNIUM HPV 18 NEGATIVE CERNER MILLENNIUM HPV Other HR NEGATIVE CERNER MILLENNIUM HPV Quentin Noa?? HPV test CERNER Interpretation MILLENNIUM NEGATIVE for high-risk HPV *. It is recommended that patients with ASCUS cytology and a negative test for high-risk HPV undergo further evaluation according to curren t practice guidelines. ??* Testing negative for high risk H PV means that the specimen is negative for the following 1 4 types tested: ??types 16, 18, 31, 33, 35, 39, 45, 51, 52, 56, 58, 59, 66, and 68. ??The test is no t intended to detect low risk HPV types. Specimen: HPV Testing - Cytology Liquid Based Prep Specimen Anatomical Collection Method Collection Time Receive d Time (Source) Location / / Volume Laterality Cervical swab 12/25/2014 2:48 PM 12/27/19 15 3:12 (specimen) EDT PM EDT Resulting Agency Comment Spec In Lab Sebastian Coy MD PATHOLOGY/CYTOLOGY ORDERABLE S Performing Organization Address City/[facility]/ZIP Code Phon e Number [address] [facility] Cytopathology Gynecological (12/25/2014 2:48 PM EDT) Specimen Anatomical Collection Method Collection Time Receive d Time (Source) Location / / Volume Laterality AP Specimen 12/25/2014 2:48 PM 5 2:48 EDT PM EDT Narrative CERNER MILLENNIUM - 12/25/2014 2:48 PM E DT Specimen requisition ordered. ??Separate Pathology report to follow Sebastian Coy MD PATHOLOGY/CYTOLOGY ORDERABLE S Performing Organization Address City/[facility] Phon e Number [address] [facility] documented in this encounter Visit Diagnoses Diagnosis Ovarian cancer, unspecified laterality documented in this encounter Care Teams Ediphone Operator Relationship Specialty Start Date End Date Caitlin Callahan MD PCP - General 07/08/10 [address] [place] [address] documented as of this encounter
--- OUTSIDE RECORDS SUMMARY | 2022-03-05 00:36 | XMS_ITS | Encounter Summary ---
:1965 Author Organization [facility] [place] [address] Care Team Providers Name Role Phone Caitlin Callahan MD Primary Care Provider Reason for Visit Reason Comments Follow-up Encounter Details Date Type Department Care Team Description 06/24/2016 Office Visit Gynecology Oncology Margarette Jalloh [place] b[place]ca [place] [facility] [place] SURVEY STATISTICIAN unspecified laterality [facility] [address] [place], [place], [place] [id number] [phone] Social History Tobacco Use Types Packs/Day Years [...] Sign Reading Time Taken Comments Blood Pressure 124/65 06/24/2016 3:36 PM EST Pulse 64 06/24/2016 3:36 PM EST Temperature 36.6 ??C (97.9 ??F) 06/24/2016 3:36 PM EST Respiratory Rate 16 06/24/2016 3:36 PM EST Oxygen Saturation 99% 06/24/2016 3:36 PM EST Inhaled Oxygen Concentration - - Weight 68.6 kg (151 lb 3.8 oz) 06/24/2016 3:36 PM EST Height - - Body Mass Index 22.33 06/27/2014 11:11 AM EST documented in this encounter Progress Notes Margarette Jalloh, SURVEY STATISTICIAN - 06/24/2016 3:30 PM EST Division [place] [address] Reason For Visit: Post Treatment Surveillance Exam History of Present Illness: Dunia Trimble is a 51 y.o. woman who presents today for surveillance exam. She is post treatment of stage IIIA ovarian cancer. Her disease is followed by review of systems and examination. Pap testin12/2014 normal pap/hpv testing negative. FIL[facility]ENT MAKER Oncology History: stage IIIA ovarian cancer ?? [...] 183. ?? 07/2012 [place] [facility] On[facility] for management. ?? A pre-op CT Abdomen/Pelvis on 08/10/2012 revealed no evidence of gross metastatic disease. ?? 09/22/12: s/p robotic-assisted laparoscopic left salpingo-oophorectomy and pelvic and para-aortic lymphadenectomy, and multiple staging biopsies. ?? 02/2013: completed 6 cycles of IV/IP cisplatin/paclitaxel chemotherapy Interim Health: Feeling fine. No new medical issues, surgeries or hospitalizations since her last visit. No questions/concerns today ROS: No Fever, chills, nausea, vomiting, diarrhea No Pelvic/abdominal pain or bloating No Bowel/bladder concerns or changes. Energy level is ok No Vaginal bleeding or discharge No lower extremity edema Weight is up Reports appetite is fine, diet could be better No SOB, cough or chest pain. Neuropathy: very slight in her feet/toes. Sexual function: no changes/concerns. Not currently sexually active Mood: pretty good Advanced Directives: No advance directives on file, has info at home. Plans to complete and return. Health Habits: Tobacco: nonsmoker ETOH: 0-2 glasses of wine a week. Exercise: nothing recently, plans to start spinning Health Maintenance: Mammogram: 01/2015, plans to repeat in 2 years. Colonoscopy: done 01/2016, Repeat 10 years Social History: . Works for [employer]. 3 children, youngest son (12) lives at home, other 2 are older. Patient Active Problem List Diagnosis Code ??? Ovarian cancer C56.9 ??? S/P hysterectomy Z90.710 Past Surgical History Procedure Laterality Date ??? Hysterectomy 07/27/12 lsc BUD/RSO for fibroids and ovarian CA ??? Pro lap, rmv adnexal structure 09/22/2012 LAPAROSCOPY, REMOVAL OF ADNEXA, ROBOT ASSIST performed by Sebastian Ledezma MD at [facility] MA[facility] OR ??? Pro lap, pelvic lymphadenectomy/bx 09/22/2012 LAPAROSCOPY,W\BILATERAL TOTAL PELVIC LYMPHADENECTOMY, PERIAORTIC LYMPH NODE SAMPLING, ROBOTIC performed by Sebastian Ledezma MD at [facility] MA[facility] OR ??? Pro lap insert intraperitoneal catheter 10/24/2012 LAPAROSCOPY, INSERTION PERITONEAL DIALYSIS CATHETER performed by Sebastian Ledezma MD at [facility] MAIN OR Allergies Allergen Reactions ??? Shellfish Derived Nausea And Vomiting No current outpatient prescriptions on file prior to visit. No current facility-administered medications on file prior to visit. Vital Signs: BP 124/65 Pulse 64 Temp 36.6 ??C (97.9 ??F) (Oral) Resp 16 Wt 68.6 kg (151 lb 3.8 oz) SpO2 99% BMI 22.33 kg/m2 PHYSICAL EXAM: Gen: Pleasant, NAD, Alert, [...] Cervix is non- tender and freely mobile. No appreciable masses/tenderness or nodularity. Rectovaginal exam: no masses/tenderness. ASSESSMENT/PLAN: Dunia Trimble is a 51 y.o. woman who is 3 years post treatment of stage IIIA ovarian [...] laterality documented in this encounter Care Teams Conditioner Tumbler Relationship Specialty Start Date End Date Caitlin Callahan MD PCP - General 07/08/[address] [place] [address] [address] [place] [address] documented as of this encounter
--- OUTSIDE RECORDS SUMMARY | 2022-03-05 00:36 | XMS_ITS | Encounter Summary ---
:1965 Author Organization [facility] [place] [address] Care Team Providers Name Role Phone Caitlin Callahan MD Primary Care Provider Encounter Details Date Type Department Care Team Description 01/22/2017 Telephone [place]ology [place] [address] [facility]AT[phone] [address] ([facility]o r[facility] Social History Tobacco Use Types [...] this encounter Miscellaneous Notes Telephone Encounter - Sophie Moreno - 01/22/2017 2:40 PM EDT This test result was discussed with the patient by phone. A copy of a letter sent to the patient containing these results is provided below. Please be advised that [place] law requires that all health care workers respect the confidentiality of this information and not pass it along to other health care providers, insurance companies, or individuals without the written permission of the patient. The [facility] welcomes any questions about these matters. Our phone number is: [phone]. On 12/23/16, Dunia underwent genetic testing for a hereditary predisposition to ovarian cancer. Following are the results of this test. Result: The Common Hereditary Cancers Panel analysis showed no mutation was detected. This means that Dunia does not carry a mutation in the genes detectable by this test. The genes included on this panel are BRCA1, BRCA2, CDH1, PALB2, PTEN, STK11, TP53, CHEK2, ARACELI, BARD1, BRIP1, NBN, NF1, RAD50, RAD51C, RAD51D, SDHB, SDHD, MUTYH, MLH1, MSH2, MSH6, PMS2, APC, BMPR1A, SMAD4, AXIN2, POLD1, POLE, DICER1, SMARCA4, CDKN2A, KIT, MEN1, PDGFRA, SDHA, SDHC, TSC1, TSC2, and VHL (sequencing and deletion/duplication), EPCAM and GREM1 (deletion/duplication only). We are enclosing a printed copy of Dunia's test results. Interpretation: Because the genetic basis, if any, of the cancer in Dunia and her family has not been identified, this negative test result does not necessarily mean that Dunia's cancer was sporadic (i.e. not attributable to an inherited predisposition). This is because of two important limitations of the test. First, not all inherited predisposition to cancer is attributable to the genes tested by this panel. Research has identified other genes that when mutated can increase one???s risk of cancer. Second, a smallpercentage of mutations in genes tested by this panel may be missed by current technology. Additional genetic testing for Dunia or other family members is not recommended at this time. Screening Recommendations Based on genetic test results and personal and/or family history, we recommend: Breast cancer screening ?? Monthly self breast exams and annual clinical breast exams ?? Annual tomosynthesis (3D mammogram) Other cancer screening ?? Periodic colonoscopy screening as recommended by Dunia's sensor specialist. ?? Annual dermatologic/skin exams documented in this encounter Plan of Treatment Not on filedocumented as of this encounter Visit Diagnoses Not on filedocumented in this encounter Care Teams Harm Reduction Worker Relationship Specialty Start Date End Date Caitlin Callahan MD PCP - General 07/08/[address] [place] [address] documented as of this encounter
--- OUTSIDE RECORDS SUMMARY | 2022-03-05 00:36 | XMS_ITS | Encounter Summary ---
:1965 Author Organization [facility] [place] [address] Care Team Providers Name Role Phone Caitlin Callahan MD Primary Care Provider Reason for Visit Reason Comments Other Encounter Details Date Type Department Care Team Description 02/28/2013 Hospital Encounter Hematology and Ovarian cancer ([place] [facility] [address] Social History Tobacco Use Types Packs/Day [...] documented as of this encounter Progress Notes Rohan Ramos RN - 02/28/2013 1:49 PM EDT Patient Name: Dunia Hoyos Patient Age: 48 y.o. Birthdate: 1965 Admit date: 02/28/2013 Attending Physician: No att. providers found Port accessed for infusion. documented in this encounter Plan of Treatment Not on filedocumented as of this encounter Visit Diagnoses Diagnosis Ovarian cancer - Primary Malignant neoplasm of ovary documented in this encounter Care Teams Dam Attendant Relationship Specialty Start Date End Date Caitlin Callahan MD PCP - General 07/08/10 [address] [place] [address] documented as of this encounter
--- OUTSIDE RECORDS SUMMARY | 2022-03-05 00:36 | XMS_ITS | Encounter Summary ---
:1965 Author Organization [facility] [place] [address] Care Team Providers Name Role Phone Caitlin Callahan MD Primary Care Provider Reason for Visit Reason Comments Established 3 mth ck Encounter Details Date Type Department Care Team Description 12/19/2013 Follow-Up Gynecology Oncology at [place], Phi Thakkar MD Ovarian cancer, [facility] unspecified laterality [facility] [address] [place] [address] [place] [address] [phone] (Wo rk) Social History Tobacco Use Types [...] Sign Reading Time Taken Comments Blood Pressure 120/62 12/19/2013 3:15 PM EDT Pulse - - Temperature - - Respiratory Rate - - Oxygen Saturation - - Inhaled Oxygen Concentration - - Weight 71.8 kg (158 lb 4.6 oz) 12/19/2013 3:15 PM EDT Height - - Body Mass Index 23.38 10/24/2012 2:19 PM EDT documented in this encounter Progress Notes Sebastian Ledezma MD - 12/19/2013 3:44 PM EDT Division [place] [address] Gynecologic Oncology-Clinic Note Reason for visit: Surveillance [...] as 183. Dunia was subsequently referred to [facility] Oncology for management. A pre-op CT [...] in 02/2013. Dunia is back for her surveillance visit today. [...] discharge. She still has slight residual peripheral neuropathy, in her fingertips, and in the balls of her feet, but says this is not limiting, and is gradually improving.. Review of systems: 7 systems in total were reviewed, otherwise negative. Vital signs: BP 120/62 Wt 71.8 kg (158 lb 4.6 oz) Physical examination: General: She is alert [...] intra-abdominal or pelvic spread of disease. Impression/plan: Dunia is a 48 y.o. woman with a history of stage IIIa borderline ovarian cancer, with invasive implants. She has mild residual peripheral neuropathy, non-limiting, as a result of her adjuvant chemotherapy, but this continues to improve. She has no concerning symptoms, and has a normal exam today, I reviewed in detail the goals [...] laterality documented in this encounter Care Teams Communication Studies Professor Relationship Specialty Start Date End Date Caitlin Callahan MD PCP - General 07/08/[address] [place] [address] [address] [place] [address] documented as of this encounter
--- OUTSIDE RECORDS SUMMARY | 2022-03-05 00:36 | XMS_ITS | Encounter Summary ---
:1965 Author Organization [facility] Address [address] [place] [address] Care Team Providers Name Role Phone Caitlin Callahan MD Primary Care Provider Reason for Visit Reason Comments Follow-up Encounter Details Date Type Department Care Team Description 07/28/2019 Office Visit Gynecology Oncology Margarette Jalloh ignant neoplasm of ovary, unspecified laterality; at [facility] M, WELL DRILL OPERATOR Screening for malignant neoplasm of cerv ix; [facility] [address] [place] [id number] [phone] Social History Tobacco Use Types Packs/Day Years [...] Sign Reading Time Taken Comments Blood Pressure 138/82 07/28/2019 10:48 AM EST Pulse 60 07/28/2019 10:48 AM EST Temperature 36.8 ??C (98.2 ??F) 07/28/2019 10:48 AM EST Respiratory Rate 16 07/28/2019 10:48 AM EST Oxygen Saturation 100% 07/28/2019 10:48 AM EST Inhaled Oxygen Concentration - - Weight 64.8 kg (142 lb 13.7 oz) 07/28/2019 10:48 AM EST Height 175 cm (5' 8.9) 07/28/2019 10:48 AM EST Body Mass Index 21.16 07/28/2019 10:48 AM EST documented in this encounter Progress Notes Margarette Jalloh, WELL DRILL OPERATOR - 07/28/2019 11:00 AM EST Division of Gynecologic Oncology [place] [id number] Reason For Visit: Post Treatment Surveillance Exam History of Present Illness: Dunia Trimble is a 54 y.o. woman who presents today for surveillance exam. She is post treatment of stage IIIA ovarian cancer with Dr. Ledezma. Her disease is followed by review of systems and examination. She had a supra cervical hysterectomy, no hx of abnormal paps or HPV. Last pap testin12/2014 normal pap/hpv testing negative. 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 [...] returned as 183. ?? 07/2012 referred to [facility] CUSTOM FRAMING SPECIALIST Oncology for management. ?? A pre-op CT Abdomen/Pelvis on 08/10/2012 revealed no evidence of gross metastatic disease. ?? 09/22/12: s/p robotic-assisted laparoscopic left salpingo-oophorectomy and pelvic and para-aortic lymphadenectomy, and multiple staging biopsies. ?? 02/2013: completed 6 cycles of IV/IP cisplatin/paclitaxel chemotherapy Interim Health: Feeling great. She is in a new relationship this past year and has been sexually active now for 9 months, notes a recent white discharge, no itching, burning, irritation or odor. [place] is fine without problems. No vaginal bleeding. Otherwise her health has been stable with no newmedical issues, surgeries or hospitalizations since her last visit. ROS: No Fever, chills, nausea, vomiting, diarrhea No Pelvic/abdominal pain or bloating No Bowel/bladder concerns or changes. Mild VEDA with exercise, sx are tolerable. Energy level is good No Vaginal bleeding No lower extremity edema Weight is down, not eating as much Reports appetite is good No SOB, cough or chest pain. Sexual function: no concerns Mood: good Health Habits: Tobacco: nonsmoker ETOH: 0-2 glasses of wine/beers a month Exercise: weight training 2x week Health Maintenance: Mammogram: 11/2018, done at [facility]. Colonoscopy: done 01/2016, Repeat 10 years Social History: . 3 children, youngest son is in . Adult son and daughter. Daughter is an army RN in [place] Patient Active Problem List Diagnosis Code ??? Ovarian cancer C56.9 ??? S/P hysterectomy Z90.710 Past Surgical History: Procedure Laterality Date ??? HYSTERECTOMY 07/27/12 lsc BUD/RSO for fibroids and ovarian CA ??? PRO LAP INSERT INTRAPERITONEAL CATHETER 10/24/2012 LAPAROSCOPY, INSERTION PERITONEAL DIALYSIS CATHETER performed by Sebastian Ledezma MD at [facility] MA[facility] OR ??? PRO LAP, PELVIC LYMPHADENECTOMY/BX 09/22/2012 LAPAROSCOPY,W\BILATERAL TOTAL PELVIC LYMPHADENECTOMY, PERIAORTIC LYMPH NODE SAMPLING, ROBOTIC performed by Sebastian Ledezma MD at [facility] OR ??? PRO LAP, RMV ADNEXAL STRUCTURE 09/22/2012 LAPAROSCOPY, REMOVAL OF ADNEXA, ROBOT ASSIST performed by Sebastian Ledezma MD at [facility] OR Allergies Allergen Reactions ??? Shellfish Derived Nausea And Vomiting No current outpatient medications on file prior to visit. No current facility-administered medications on file prior to visit. Vital Signs: BP 138/82 Pulse 60 Temp 36.8 ??C (98.2 ??F) (Temporal) Resp 16 Ht 175 cm (5' 8.9) Wt 64.8kg (142 lb 13.7 oz) SpO2 100% BMI 21.16 kg/m?? PHYSICAL EXAM: Gen: Pleasant, NAD, Alert, appears well HEENT: No clavicular adenopathy or thyromegaly Breast Exam: No dominant masses, no lymphadenopathy, No nipple discharge or puckering noted. Lungs: clear to auscultation Cor: heart RRR without appreciable murmurs. Abdomen: soft, non- distended, non-tender, no appreciable masses or inguinal adenopathy Lower Extremities: without edema Pelvic exam: Normal appearing external female genitalia; vulva, urethral meatus, perineum and perianal area without lesions. Speculum exam: Vagina and cervix with mild atrophic changes, no visible lesions. There is a small amount of discharge which appears physiologic. Bimanual exam: Cervix is non-tender and freely mobile. Uterus and adnexa are surgically absent. No appreciable masses/tenderness or nodularity. Rectovaginal exam: no masses/tenderness. ASSESSMENT/PLAN: Dunia Trimble is a 54 y.o. woman who is post treatment of stage IIIA ovarian cancer. She has no evidence of recurrent disease. We reviewed signs and symptoms of recurrent disease. Pap/HPV testing done today. Vaginal discharge, asymptomatic: could be physiologic, but will check GC/chlamydia culture and BV cultures today. She will continue to monitor and f/u if sx worsen/fail to improve. Per surveillance guidelines, may RTC in 1 year, sooner prn with questions/concerns. Margarette Jalloh APRN documented in this encounter Plan of Treatment Not on filedocumented as of this encounter Procedures Procedure Name Priority Date/Time Associated Comments Diagnosis CYTOPATHOLOGY Routine 07/28/2019 12:25 Screening for Results f or this GYNECOLOGICAL PM EST malignant neoplasm procedur e are in of cervix the results section. CT/NG PCR Routine 07/28/2019 11:00 Results for this AM EST procedure are i n the results section. HPV Routine 07/28/2019 11:00 Results for this AM EST procedure are i n the results section. CUSTOM FRAMING SPECIALIST CYTOLOGY Routine 07/28/2019 11:00 Results for this INTERPRETATION AM EST procedure are in the results section. CUSTOM FRAMING SPECIALIST CYTOLOGY FINAL Routine 07/28/2019 11:00 Resul ts for this REPORT AM EST procedure are i n the results section. HC BV RAPID TEST Routine 07/28/2019 11:00 Vaginal discharge Re sults for this AM EST procedure are i n the results section. documented in this encounter Results Cytopathology Gynecological (07/28/2019 12:25 PM EST) Specimen Anatomical Collection Method Collection Time Receive d Time (Source) Location / / Volume Laterality AP Specimen 07/28/2019 12:25 07/28/2019 PM EST 12:25 PM EST Narrative [facility] - 07/28/2019 12:25 PM EST Specimen requisition ordered. ??Separate Pathology report to follow Margarette Jalloh APRN PATHOLOGY/CYTOLOGY ORDERABLE S Performing Organization Address City/State/[place] [address] [facility] Final Report (07/28/2019 11:00 AM EST) Component Value Ref Test Analysis Performed At [facility] gist Range Method Time Signature [facility] [id number] ? Location: [address] [place] [address] Final Report COURTENAY The signing pathologist has (i) examined the relevant preparation(s) for the [facility] specimen(s) and (ii) rendered or confirmed the diagnosis(es) . HOSPITAL LABORATORY . ? [facility] Final DIAGNOSIS Infection and/or Reactive Repair Process Note: Reactive changes are p resent in the epithelial cells (benign cellular changes). This Pap test is negative for intraepithelial lesion or m alignancy. (NILM) For consensus guidelines for the management of c ervical cancer screening test results, please see: ?? http://www.asccp.org . Electronically signed by: ??Claudia Aguilar MD Verified: ??08/10/2019 ?Pathologist Performed at: ??-[facility] Dept. of Pathology, [place], [place] DISCUSSION Inflammation present. HPV RESULTS HPV16 (Result) ?Negative HPV18 (Result) ?Negative HPVOHR (Result) ? Positive * HPV (Interpretation) ?See Below HPV (Interpretation) Text: POSITIVE for high-risk HPV* (High risk type other than types 16 or 18): *Testing positive for high risk HPV means that the specimen is positive for at least one of the following 14 types tested: types 16 , 18, 31, 33, 35, 39, 45, 51, 52, 56, 58, 59, 66, and 68. Quentin noa HPV test Specimen: HPV Testing - Cytology Liquid Based Prep The Quentin noa ? HPV cal t was validated, performed and results reported through the Laboratory for Clinical Gen omics and Advanced Technology (CGAT) at [facility]. ? - Alexis Murray, PhD, HCLD, Director-[facility] STATEMENT OF ADEQUACY Specimen submitted is satisfactory. Endocervical component present. CLINICAL INFORMATION HPV Option: ?Concurrent HPV and Pap CT/NG Option: ?Yes Preparation: ? Liquid based Pap Specimen Source: ? Cervical/Endocervical LMP: ? N/A Hysterectomy: ?Supracervical Hysterectomy : ?_ : ?_ I.U.D.: ?_ Pelvic Radiation: ?No Hist Abnl Pap/Biopsy: ?No Prior CUSTOM FRAMING SPECIALIST Therapy: ? Cryotherapy Hist of HPV Vaccine: ? No . CLINICAL INFORMATION ICD Diagnosis: ? Z12.4 Encounter for screening for malignant neoplasm of cervix Clinical Data, Significant Therapy and Clinical Impression ? ? : ?_ This Pap Test has been evalu ated with the assistance of the ThinPrep Pap Test Imaging System. Note: The Pap test is a screening test for cervical cancer with an inherent false-negative rate dependent upon several variables. For further information please contact the [facility] Laboratory. Reference: Pio WETZEL. Bus Mechanic of Pap Smear Results. In: Lm BS, Sarthak MOREAU, tc austin. The Pap Smear. The [facility]: Chinmay, 2002: 71-77. Specimen (Source) Anatomical Collection Method Collection Time Re ceived Time Location / / Volume Laterality 07/28/2019 11:00 AM EST Margarette Jalloh APRN PATHOLOGY/CYTOLOGY ORDERABLE S Performing Organization Address City/[facility]/[place]IP [place] [address] CUSTOM FRAMING SPECIALIST Cytology Interpretation (07/28/2019 11:00 AM EST) [employer] gist Method Time Signature [facility] NILM [facility] LABORATORY Comment: [facility] Final Report Acces farrukh: [id number] [facility] Comment Present [facility] Endocervical Component Present [facility] Specimen Anatomical Collection Method Collection Time Receive d Time (Source) Location / / Volume Laterality AP Specimen 07/28/2019 11:00 08/10/2019 3:00 AM EST PM EST Margarette Jalloh APRN PATHOLOGY/CYTOLOGY ORDERABLE S Performing Organization Address City/[facility]/[place] [address] (ABNORMAL) HPV (07/28/2019 11:00 AM EST) [employer] gist Method Time Signature HPV 16 NEGATIVE NEGATIVE [facility] HPV 18 NEGATIVE NEGATIVE [facility] HPV Other HR POSITIVE NEGATIVE [facility] (A) [facility] HPV See Comment [facility] Interpretation [facility] Comment: POSITIVE for high-risk HPV* (High risk t ype other than types 16 or 18): * Testing positive for high risk HPV samia ns that the specimen is positive for at least one of the following 14 types test ed: ??types 16, 18, 31, 33, 35, 39, 45, 51, 52, 56, 58, 59, 66, and 68. Quentin Noa HPV test Specimen: HPV Testing - Cytology Liquid Based Prep Specimen Anatomical Collection Method Collection Time Receive d Time (Source) Location / / Volume Laterality Cervical swab 07/28/2019 11:00 07/28/2019 6:44 (specimen) AM EST PM EST Resulting Agency Comment Spec In Lab Margarette Jalloh APRN PATHOLOGY/CYTOLOGY ORDERABLE S Performing Organization Address City/State/[place] [address]/NG PCR (07/28/2019 11:00 AM EST) Analysis Performed At Patho logist Time Signature Chlamydia Gene Negative Negative [facility] LABORATORY Comment: This assay was performed in the [facility] [employer] Laboratory using the noa?? CT/NG v2.0 Test ([employer]entin [employer] The noa?? CT/NG v2.0 Test is an in vit ro diagnostic test for the qualitative detection of Chlamydia trachomatis (CT) and/or Neisseria gonorrhoeae (NG) DNA in urogenital specimens. The Test utiliz es the Polymerase Chain Reaction (PCR) for the detection of Chlamydia trachomat is and Neisseria gonorrhoeae DNA in cervical specimens collected in PreservC yt?? solution. This test is intended as an aid in the diagnosis of chlamydial an d gonococcal disease in both symptomatic and asymptomatic individuals . GC Gene Amp Negative Negative [facility] LAB[facility] Comment: This assay was performed in the [facility] [employer] and [employer] Laboratory using the noa?? CT/NG v2.0 Test ([employer] The noa?? CT/NG v2.0 Test is an in vit ro diagnostic test for the qualitative detection of Chlamydia trachomatis (CT) and/or Neisseria gonorrhoeae (NG) DNA in urogenital specimens. The Test utiliz es the Polymerase Chain Reaction (PCR) for the detection of Chlamydia trachomat is and Neisseria gonorrhoeae DNA in cervical specimens collected in PreservC yt?? solution. This test is intended as an aid in the diagnosis of chlamydial an d gonococcal disease in both symptomatic and asymptomatic individuals . Specimen Anatomical Collection Method Collection Time Receive d Time (Source) Location / / Volume Laterality Cervical swab 07/28/2019 11:00 07/31/2019 3:49 (specimen) AM EST PM EST Resulting Agency Comment Spec In Lab Margarette Jalloh APRN MICROBIOLOGY - GENERAL ORDER SIMONE Performing Organization Address City/State/[place] [address] Bacterial Vaginosis Screen ([facility]/CGP/APD) (07/28/2019 11:00 AM EST) [facility] gist Method Time Signature Bacterial Bacterial [facility] Vaginosis Vaginosis [facility] Screen Screen: HOSPITAL Negative LABORATORY Specimen Anatomical Collection Method Collection Time Receive d Time (Source) Location / / Volume Laterality Vaginal 07/28/2019 11:00 07/28/2019 3:00 AM EST PM EST Resulting Agency Comment Spec In Lab Margarette Jalloh APRN MICROBIOLOGY - GENERAL ORDER SIMONE Performing Organization Address City/[facility]/ZIP [facility] [place] [address] documented in this encounter Visit Diagnoses Diagnosis Malignant neoplasm of ovary, unspecified laterality Screening for malignant neoplasm of cerv ix Screening for malignant neoplasm of the cervix Vaginal discharge Leukorrhea, not specified as infective documented in this encounter Care Teams Oil Lease Broker Relationship Specialty Start Date End Date Caitlin Callahan MD PCP - General 07/08/10 [facility] [address] [place] [address] documented as of this encounter
--- OUTSIDE RECORDS SUMMARY | 2022-03-05 00:36 | XMS_ITS | Encounter Summary ---
:1965 Author Organization [place] [address] Care Team Providers Name Role Phone Caitlin Callahan MD Primary Care Provider Reason for Visit Reason Comments Port Removal IP port removal Encounter Details Date Type Department Care Team Description 03/21/2013 Office Visit Hematology and CLINIC, DR ZAMORA Malignant neoplasm of Oncology at [facility], Sebastian Thakkar MD [facility] [place] [address] ovary (Primary Dx) [place] [id number] Social History Tobacco Use Types Packs/Day Years [...] Sign Reading Time Taken Comments Blood Pressure 106/64 03/21/2013 2:43 PM EDT Pulse - - Temperature - - Respiratory Rate - - Oxygen Saturation - - Inhaled Oxygen Concentration - - Weight - - Height - - Body Mass Index - - documented in this encounter Progress Notes Sebastian Ledezma MD - 03/21/2013 4:22 PM EDT Gynecologic Oncology-Clinic Note Reason for visit: Intraperitoneal chemotherapy port/catheter removal. History of present illness: Dunia Hoyos is a 47 y.o. female who was originally referred for evaluation of post-operatively identified ovarian cancer. On 07/27/12 laparoscopic supra-cervical hysterectomy and RSO for presumed [...] as 183. 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 On 09/22/12 she underwent: robotic-assisted laparoscopic left salpingo- oophorectomy and pelvic and para-aortic lymphadenectomy, and multiple staging biopsies. She was discharged the same day. 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 2 - Focal foreign body reaction with chronic inflammation. 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 C - Right bladder serosa, biopsy: Fibrous connective tissue and rare psammoma bodies, negative for malignancy. D - Cul-de-sac, biopsy: Loose fibrous connective tissue and scattered psammoma bodies, negative for malignancy. E - Right ovarian fossa, biopsy: Fibrous connective tissue and small clusters of psammoma bodies, negative for malignancy. F - Right ovarian vessel, excision: Benign vascular tissue, negative for malignancy. G - Periaortic lymph nodes, excision: Two lymph nodes negative for malignancy (0/2). H - Bilateral pelvic lymph nodes, excision: Eleven lymph nodes negative for malignancy (0/11). I - Omentum, resection: Adipose tissue with scattered psammoma bodies and a few minute clumps of atypical cells, consistent with microscopic non-invasive implants of micropapillary serous carcinoma, low-grade (see Comment). J - Left ovary, excision: 1 - Micropapillary serous tumor, left ovary (see Comment). 2 - Corpus luteum. 3 - Left fallopian tube without histopathological abnormality. 4 - Paratubal cyst. 5 - Two lymph nodes negative for malignancy (0/2). TNM Staging (AJCC, 7th ed., 2009): Primary tumor stage: pT3a [IIIA](Microscopic peritoneal metastasis beyond pelvis; no macroscopic tumor) Regional lymph nodes: pN0 (No regional lymph node metastases) Distant metastasis: pMX (Not applicable or not assessed) The tumor in the left ovary by itself has features most in keeping with a borderline tumor; given the findings of microinvasion in the contralateral ovary ([id number]), however, the tumor in this ovary likely represents the same neoplasm. Microscopic rounded collections of atypical cells with histologic features resembling the ovarian tumor are present on the surfaces of biopsies A and B and in the omentum in specimen I. These foci stain positively with PAX-8, supporting the diagnosis of microscopic tumor implants. Dr. Armas reviewed outbound call center representative slides from this case and concurs with this interpretation. Due to the invasive microscopic implants on the ovary, she was dispositioned to, and subsequently received 6 cycles of IV/IP cisplatin/paclitaxel. Today, Dunia is here for follow-up visit. She underwent removal of her IV Mediport today, had a CT of the abdomen and pelvis for baseline, and had some nausea associated with contrast. She was given promethazine, and reports that she is quite groggy and sleepy today. She has no other concerns today, really does not want to engage in a long discussion, and just wants to get her port out, so she can gohome. She voices no other concerns today. Review of systems: 3 systems reviewed, otherwise negative. Vital signs: BP 106/64 Physical examination: Abdomen: Well-healed surgical scars, the IP port reservoir is palpable in the right upper quadrant. The abdomen is otherwise nondistended and soft. Pelvic exam: Deferred today. Procedure Note: IP Catheter Removal Indication: Completion if Intraperitoneal Chemotherapy, IP port no longer needed. Anesthesia: Local infiltration with 10 mL lidocaine/epinephrine Procedure: Written consent obtained. A procedural time-out was performed. The IP port area of the abdomen was prepped and draped. Infiltration analgesia was performed. The skin was incised with a scalpel, and the sub-cutaneous space was developed. The port reservoir was visualized and freed from its attachments/sutures, and withdrawn. The reservoir and silicone tubing was fully recovered. The incision was closed with Vicryl suture(s), and a sterile dressing/cyanoacylate adhesive was applied. Wound care instructions and precautions were provided to the patient. Complications: None. Impression/plan: Dunia is a 48-year-old woman with a history of stage IIIa borderline ovarian serouscarcinoma, with microinvasive implants. She completed 6 cycles of IV/IP cisplatin/paclitaxel. She does voice some peripheral neuropathy, which has increased slightly since her last cycle. I reassured her that that she is usually will improve over the next 6-9 months. We will arrange surveillance visits every 3 months. I will follow-up in the CT performed today. She voiced understanding of the plan. She was also given precautions for wound care, regarding the IP catheter removal site. documented in this encounter Plan of Treatment Not on filedocumented as of this encounter Visit Diagnoses Diagnosis Malignant neoplasm of ovary - Primary documented in this encounter Care Teams Research Environmental Engineer Relationship Specialty Start Date End Date Caitlin Callahan MD PCP - General 07/08/[address] [place] [address] [address] [place] [address] documented as of this encounter
--- OUTSIDE RECORDS SUMMARY | 2022-03-05 00:36 | XMS_ITS | Encounter Summary ---
:1965 Author Organization [facility] [place] [address] Care Team Providers Name Role Phone Caitlin Callahan MD Primary Care Provider Reason for Visit Reason Comments Referral Encounter Details Date Type Department Care Team Description 06/27/2014 Office Visit Pulmonology at [facility] [place] Joseph Richardson Pulmonary nodules [facility] Aiden porras Jr., [place] [address] [facility] [phone] PULMONARY MEDICI [place], [place] 0[address] (Wo rk) Social History Tobacco [...] Sign Reading Time Taken Comments Blood Pressure 108/59 06/27/2014 11:11 AM EST Pulse 68 06/27/2014 11:11 AM EST Temperature - - Respiratory Rate 18 06/27/2014 11:11 AM EST Oxygen Saturation 99% 06/27/2014 11:11 AM EST Inhaled Oxygen Concentration - - Weight 69.9 kg (154 lb) 06/27/2014 11:11 AM EST Height 175.3 cm (5' 9) 06/27/2014 11:11 AM EST Body Mass Index 22.74 06/27/2014 11:11 AM EST documented in this encounter Progress Notes Joseph Richardson Jr., MD - 07/01/2014 2:45 PM EST Pulmonary Outpatient Consult Reason for Consult: I was asked by Dr. CAITLIN CALLAHAN to evaluate this patient for pulmonary nodules. I have personally interviewed and examined the patient, and reviewed her radiographic studies and laboratory data. HPI: Ms. Trimble is a 49 y.o. female who presents for evaluation of incidentally found pulmonary nodules. She was diagnosed with ovarian cancer in 2012, and is s/p hysterectomy and oophorectomy. In follow-up, small pulmonary nodules were identified. Subsequent imaging showed them to be stable in size. She is referred to Pulmonary for further evaluation and management suggestions. From a symptomatic front, Ms. Trimble is doing well. She denies fevers, chills, exertional dyspnea,chest wall pain, hemoptysis, nocturnal dyspnea, and any other symptoms which could be attributable to progressive lung disease. Past Medical History 1. 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 S/p hysterectomy and right salphigo-oophorectomy 07/2012 3. Left salpingo-oophorectomy and lymph node dissection 09/2012 4. S/p 6 cycles cisplatin/paclitaxel, completed 02/2013 Allergies Shellfish derived Medications Current Outpatient Prescriptions on File Prior to Visit Medication Sig Dispense Refill ??? ibuprofen (MOTRIN) 600 mg tablet Take 1 tablet by mouth every 6 hours as needed for Pain. 30 tablet 2 Current Facility-Administered Medications on File Prior to Visit Medication Dose Route Frequency Provider Last Rate Last Dose ??? 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 Two sisters, twobrothers. Three children alive and well. Review of Systems A complete review of systems was obtained. Positives are noted in the HPI. All remaining systems arenegative. Physical Exam General Pleasant slender female in no acute respiratory distress. Vitals Pulse: 68 Resp: 18 BP: 108/59 Weight 69.854 kg (154 lb). Body mass index is 22.73 kg/(m^2). O2 sat 99% on room air HEENT PER, EOMI. Sinuses non-tender. OP clear. Dentition is in good repair. Neck Supple, no stridor. Trachea is midline. Lymph No adenopathy in the supraclavicular, cervical, or posterior auricular node chains. Lungs Clear to auscultation bilaterally. No crackles, wheezes, or pleural rubs. Chest excursion is symmetric. Cardiac Regular rhythm, no murmurs. Abdomen Soft, non-tender, non-distended. Bowel sounds are normal. Extremities No cyanosis, clubbing, or peripheral edema. Neuro Alert and oriented to name, time, and location. Ambulates without difficulty. Transfers from chair to exam table without difficulty. Objective Data Radiology 09/19/2013 CCT shows stability of the previously noted pulmonary nodules. No evidence of acute or chronic pulmonary disease 03/21/2013 CCT shows 3 mm rounded nodule in the left upper lobe, less defined opacity (~ 2-3 mm in diameter) in the right upper lobe. No evidence of pulmonary fibrosis or emphysema. No pleural effusion. Pulmonary Function Testing 06/27/2014 FEV1 3.02L (91%), FVC 4.36L (104%), FEV1/FVC 0.69; Dsb 105%. RA O2 sat 99%, without ambulatory desaturation. Assessment Incidental pulmonary nodules, less than 1 cm each, found in a lifelong non- smoker. Normal pulmonary function testing. Normal physical examination. No respiratory symptoms. We discussed the role for CT surveillance in following pulmonary nodules. Typically nodules are followed for 1-2 years to document size stability. Her initial scan was over a year ago, with a follow-upnine months ago with size stability. I think it is reasonable to repeat a chest CT without IV contrast. That said, she remains completely asymptomatic over the last nine months. We reviewed the pros and cons of repeating a CT today, or in September. At present she would like to defer follow-up chest CTimaging. We reviewed signs and symptoms which might be attributable to an intrapulmonary metastasis. Plan 1. Suggest repeat chest CT w/o contrast 2. No scheduled follow-up at present, but would be happy to see her again following chest CT if she elects to undergo repeat scanning. --Vanita Richardson MD documented in this encounter Plan of Treatment Not on filedocumented as of this encounter Visit Diagnoses Diagnosis Pulmonary nodules Other nonspecific abnormal finding of kelton ng field documented in this encounter Care Teams Neuroscientist Relationship Specialty Start Date End Date Caitlin Callahan MD PCP - General 07/08/[address] [place] [address] documented as of this encounter
--- OUTSIDE RECORDS SUMMARY | 2022-03-05 00:36 | XMS_ITS | Encounter Summary ---
:1965 Author Organization [facility] [place] [address] Care Team Providers Name Role Phone Caitlin Callahan MD Primary Care Provider Encounter Details Date Type Department Care Team Description 02/20/2013 External Results [facility]necology [facility] [place] [facility] [place] [address] Social History Tobacco Use Types Packs/Day [...] Name Priority Date/Time Associated Diagnosis Comme nts EXTERNAL LAB CBC CMP Routine 02/20/2013 Results for this THYROID RESULTS PANEL proced ure are in the results section . documented in this encounter Results (ABNORMAL) CBC / CMP / Thyroid External Results (02/20/2013) [facility] Method Time Signature WBC 4.06 (External Lab) Hemoglobin 8.7 (A) 12.0 - 16.0 Hematocrit 25.2 (A) 36.0 - 46.0 MCV 93.0 82.0 - (External 108.0 Lab) Platelets 280 (External Lab) Sodium 144 137 - 147 (External Lab) Potassium 4.4 3.4 - 5.3 (External Lab) Chloride 107 99 - 108 (External Lab) CO2 29 22 - 29 (External Lab) BUN 28 (External Lab) Creatinine 1.3 (External Lab) Estimated GFR 43.72 (External Lab) Glucose Lvl 87 (External Lab) Calcium 8.5 (A) 8.7 - 10.7 Magnesium Phosphorus 2.5 - 4.9 Total Protein 6.7 6.4 - 8.2 (External Lab) Albumin 3.8 3.5 - 5.0 (External Lab) Total Bilirubin 0.4 0.1 - 1.4 (External Lab) Bili, Direct 0.01 - 0.4 Alk Phos 81 (External Lab) AST 17 13 - 35 (External Lab) ALT 18 7 - 35 (External Lab) GGT LDH 80 - 250 Amylase 25 - 110 Lipase 0 - 53 TSH T4, total Neutrophils % 67 46 - 78 (External Lab) Neutr Abs (ANC) 2,720 (External Lab) Specimen (Source) Anatomical Location Collection Method / Collectio n Time Received Time / Laterality Volume 02/20/2013 Sebastian Ledezma MD POINT OF CARE TEST ORDERABLE S documented in this encounter Visit Diagnoses Not on filedocumented in this encounter Care Teams Ambulance Mechanic Relationship Specialty Start Date End Date Caitlin Callahan MD PCP - General 07/08/[address] [place] [address] documented as of this encounter
--- OUTSIDE RECORDS SUMMARY | 2022-03-05 00:36 | XMS_ITS | Encounter Summary ---
:1965 Author Organization [facility] [address] Care Team Providers Name Role Phone Caitlin Callahan MD Primary Care Provider Reason for Visit Reason Comments Established 3 mth ck Encounter Details Date Type Department Care Team Description 04/10/2014 Follow-Up Gynecology Oncology at [place], Phi Thakkar MD Ovarian cancer, [facility] unspecified laterality [facility] [address] Freeman [place] [address] [place] [address] [phone] (Wo rk) Social History Tobacco Use Types [...] Sign Reading Time Taken Comments Blood Pressure 116/62 04/10/2014 3:17 PM EDT Pulse - - Temperature - - Respiratory Rate - - Oxygen Saturation - - Inhaled Oxygen Concentration - - Weight 70.9 kg (156 lb 4.9 oz) 04/10/2014 3:17 PM EDT Height - - Body Mass Index 23.08 10/24/2012 2:19 PM EDT documented in this encounter Progress Notes Sebastian Ledezma MD - 04/10/2014 3:39 PM EDT Division of [place] [address] Gynecologic Oncology-Clinic Note Reason for visit: Surveillance exam, history of ovarian cancer. History of present illness: Dunia Hoyos is a 49 y.o. female who [...] as 183. Dunia was subsequently referred to [facility] Oncology for management. A pre-op CT Abdomen/Pelvis [...] were reviewed, otherwise negative. Vital signs: BP 116/62 Wt 70.9 kg (156 lb 4.9 oz) Physical examination: General: She is alert [...] spread of disease. Impression/plan: Dunia is a 49 y.o. woman with a [...] laterality documented in this encounter Care Teams Garment Form Assembler Relationship Specialty Start Date End Date Caitlin Callahan MD PCP - General 07/08/[address] [place] [address] [address] [place] [address] documented as of this encounter
--- OUTSIDE RECORDS SUMMARY | 2022-03-05 00:36 | XMS_ITS | Encounter Summary ---
:1965 Author Organization [facility] [address] Care Team Providers Name Role Phone Caitlin Callahan MD Primary Care Provider Reason for Visit Reason Comments Follow-up ctscan 12noon Encounter Details Date Type Department Care Team Description 09/19/2013 Follow-Up [facility] [place] [address] cancer, unspecified [facility] lateralit y (Primary Dx) [place] [address] Social History Tobacco Use Types Packs/Day [...] Sign Reading Time Taken Comments Blood Pressure 98/64 09/19/2013 2:06 PM EST Pulse - - Temperature - - Respiratory Rate - - Oxygen Saturation - - Inhaled Oxygen Concentration - - Weight 69.8 kg (153 lb 14.1 oz) 09/19/2013 2:06 PM EST Height - - Body Mass Index 22.72 10/24/2012 2:19 PM EDT documented in this encounter Progress Notes Sebastian Ledezma MD - 09/20/2013 12:46 PM EST Division of [place] [address] Gynecologic Oncology-Clinic Note Reason for visit: Surveillance [...] as 183. Dunia was subsequently referred to [facility] for management. A pre-op CT Abdomen/Pelvis [...] still has slight residual peripheral neuropathy, in herfingertips, and in the balls of her feet, but says this is not limiting. Review of systems: 7 systems in total were reviewed, otherwise negative. Vital signs: BP 98/64 Wt 69.8 kg (153 lb 14.1 oz) Physical examination: General: She is alert [...] intra-abdominal or pelvic spread of disease. Impression/plan: This is a 48-year-old woman with [...] repeat CT of the abdomen and pelvis today was reassuring. We reviewed the typical symptoms of recurrent ovarian cancer, and she voiced an understanding of these, roberto to report any should they occur between scheduled visits, and she will follow-up in 3 months,*G. A surveillance guidelines, (Current Society of Gynecologic Oncologists (SGO) Surveillance Guidelines: Posttreatment surveillance and diagnosis of recurrence in women with gynecologic malignancies: Society of Gynecologic Oncologists recommendations (Rashel, et al; AJOG, January 2011)) Sandy Vyas - 09/19/2013 2:26 PM EST Division of Gynecologic Oncology [place] [id number] Dunia Trimble [id number] 1965 Service Date: 09/19/2013 ID/CC:Dunia Trimble is a 48 y.o. female w/ h/o stage IIIa borderline ovarian cancer, s/p hysterectomy and RSO in 07/2012, LSO and lymphadenectomy in 09/2012, and adjuvant chemotherapy. Current Issues: Patient finished 6 cycles of IV/IP paclitaxel/cisplatin chemotherapy in 02/2013. She still reports mild, constant peripheral neuropathy in fingers and toes. She describes the neuropathy as discomfort at her fingertips and pads of toes, with intermittent paresthesias. She says the neuropathy has improved considerably and does not affect QOL. No abdominal pain, cramping, bloating, or vaginal bleeding. Normal BM and no dysuria or increased urinary frequency. Had normal MMG recently, no other concerns voiced. Problem List: Patient Active Problem List Diagnosis ??? Ovarian cancer Past Medical History: No past medical history on file. Past Surgical History: Past Surgical History Procedure Date ??? Hysterectomy 07/27/12 lsc BUD/RSO for fibroids and ovarian CA ??? Lap, rmv adnexal structure 09/22/2012 LAPAROSCOPY, REMOVAL OF ADNEXA, ROBOT ASSIST performed by Sebastian Ledezma MD at [facility] MAIN OR ??? Lap, pelvic lymphadenectomy/bx 09/22/2012 LAPAROSCOPY,W\BILATERAL TOTAL PELVIC LYMPHADENECTOMY, PERIAORTIC LYMPH NODE SAMPLING, ROBOTIC performed by Sebastian Ledezma MD at [facility] MAIN OR ??? Lap insert intraperitoneal catheter 10/24/2012 LAPAROSCOPY, INSERTION PERITONEAL DIALYSIS CATHETER performed by Sebastian Ledezma MD at [facility] MAIN OR Family History: Family History Problem Relation Age of Onset ??? Diabetes Mother ??? Cancer Mother 47 hysterectomy, no further treatment ??? Cancer neg for breast, ovarian, colon ??? Cancer Paternal Grandfather possibly bladder ALLERGIES: Shellfish derived MEDICATIONS: Prior to Admission medications Medication Sig Start Date End Date Taking? Authorizing Provider ibuprofen (MOTRIN) 600 mg tablet Take 1 tablet by mouth every 6 hours as needed for Pain. 10/24/12 Davi Rinaldi MD REVIEW OF SYSTEMS No fevers/chills, fatigue, dizziness, headache, vision change, chest pain, palpitations, cough, wheeze, shortness of breath, abdominal pain, nausea/vomiting, diarrhea/constipation, dysuria, urinary frequency, vaginal bleeding, change in vaginal discharge, muscle/joint aches, easy bruising, rashes, depression/anxiety. PHYSICAL EXAM VITAL SIGNS Filed Vitals: 09/19/13 1406 BP: 98/64 Weight: 69.8 kg (153 lb 14.1 oz) General: alert and oriented, NAD CV: RRR, no r/m/g Pulm: CTAB Pelvis: External genitalia: normal general appearance Vaginal: normal mucosa without prolapse or lesions Cervix: absent w/ well-healed cuff Adnexa: no masses or tenderness Rectal: no masses or tenderness Imagin09/19/13 CT chest, abd, pelvis: 2 small pulmonary nodules noted, stable, recommend continued followup.No evidence of intra-abdominal or pelvic spread of disease. ASSESSMENT: Patient is a 48 y.o. female w/ h/o stage IIIa borderline ovarian cancer, s/p hysterectomy and RSO in 07/2012, LSO and lymphadenectomy in 09/2012, and adjuvant chemotherapy. Patient's peripheral neuropathy has improved, and she reports no other symptoms. PE was benign and CT scan was negative. PLAN: - F/u in 3mo w/ history and physical exam. Continue to follow q3mo for total of 2yrs. - Per guidelines for ovarian cancer: CT scan per provider discretion, based upon any clinical concerns for recurrence, per SGO surveillance guidelines.; Patient does not need CA-[address] scan at this time. - Discussed genetic screening with patient, as patient had ovarian cancer when <50yo. Her mother had endometrial cancer at 47yo. She will consider. She is concerned about cost. Sandy Ariane Vyas MS3 09/19/2013 Pt was seen and discussed with Dr. Ledezma, Attending. Staff Addendum: I saw and evaluated the patient with the medical student. I independently confirmed the student's history and physical findings, and I reviewed the pertinent data. The assessment and plan were formulated in discussion with me, as outlined in the above note, and I agree with the note as written. In addition to the above, Dunia was given contact information for the familial cancer program here, for self referral as desired. She will come back in 3 months for her next visit. In the interval between visits, she is counseled to report any symptoms which may be typical of recurrent ovarian cancer,and she voiced understanding of this. documented in this encounter Plan of Treatment Not on filedocumented as of this encounter Visit Diagnoses Diagnosis Ovarian epithelial cancer, unspecified l aterality - Primary documented in this encounter Care Teams Window Caser Relationship Specialty Start Date End Date Caitlin Callahan MD PCP - General 07/08/[address] [place] [address] [address] [place] [address] documented as of this encounter
--- OUTSIDE RECORDS SUMMARY | 2022-03-05 00:36 | XMS_ITS | Encounter Summary ---
:1965 Author Organization [facility] [place] [address] Care Team Providers Name Role Phone Caitlin Callahan MD Primary Care Provider Encounter Details Date Type Department Care Team Description 06/19/2014 Orders Only [place] [facility], Pulmonary nodule [facility] Helga Alves MD (Primary Dx) [place] [address] [address] [phone] PULMONARY MEDICI [place], [place] [address] Social History Tobacco Use Types Packs/Day Years [...] on filedocumented as of this encounter Results Pulmonary Function Testing (06/28/2014 4:48 PM EST) Narrative Joseph Richardson Jr., MD - 06/28/2014 4: 48 PM EST Joseph Richardson Jr., MD ? 06/28/2014 ??4:48 PM Pulmonary Function Testing Spirometry is normal, although the reduc ed FEV1/FVC ratio and BZJ31-93% suggest early airflow obstruct ion. ??Diffusing capacity is normal. ??Oxygen saturation is normal at rest, without ambulatory desaturation. Joseph Richardson MD Pulmonary Medicine Helga Cabrera MD PFT ORDERABLES documented in this encounter Visit Diagnoses Diagnosis Pulmonary nodule - Primary Solitary pulmonary nodule documented in this encounter Care Teams Dairy Laboratory Technician Relationship Specialty Start Date End Date Caitlin Callahan MD PCP - General 07/08/[address] [place] [address] documented as of this encounter
--- OUTSIDE RECORDS SUMMARY | 2022-03-05 00:36 | XMS_ITS | Clinical Summary ---
:1965 Author Organization [facility] [place] [address] Care Team Providers Name Role Phone Caitlin Callahan MD Primary Care Provider Allergies Active Allergy Reactions Severity Noted Date Comments Shellfish Derived Nausea And Vomiting Medium 11/03/2012 Medications No known medications Active Problems Problem Noted Date S/P hysterectomy 07/01/2014 Ovarian cancer 11/01/2012 Family History Medical History Relation Comments Skin Cancer Father BCC Colorectal Cancer Maternal Cousin Skin Cancer Maternal Grandfather BCC/Melanoma Diabetes Mother Endometrial Cancer Mother hysterectomy, no fur ther treatment Pancreatic Cancer Other 1 Colorectal Cancer Other 2 Lung Cancer Other 3 Liver Cancer Other 4 Lung Cancer Other 5 Endometrial Cancer Paternal Aunt Colorectal Cancer Paternal Cousin 1 Breast Cancer Paternal Cousin 2 Brain Tumor Paternal Grandfather Colorectal Cancer Paternal Grandfather Melanoma Paternal Grandfather Lung Cancer Paternal Uncle Relation Status Comments Father Maternal Cousin Alive Maternal Grandfather Maternal Grandmother Mother Other 1 Other 2 Other 3 Other 4 Other 5 Paternal Aunt Alive Paternal Cousin 1 Alive Paternal Cousin 2 Alive Paternal Grandfather Paternal Grandmother Paternal Uncle Social History Tobacco Use Types Packs/Day Years [...] Assigned at Date Recorded Not on file Last Filed Vital Signs Vital Sign Reading Time Taken Comments Blood Pressure 124/72 08/11/2019 10:34 AM EST Pulse 67 08/11/2019 10:34 AM EST Temperature 36.8 ??C (98.3 ??F) 08/11/2019 10:34 AM EST Respiratory Rate 16 08/11/2019 10:34 AM EST Oxygen Saturation 97% 08/11/2019 10:34 AM EST Inhaled Oxygen Concentration - - Weight 65.5 kg (144 lb 6.4 oz) 08/11/2019 10:34 AM EST Height 175 cm (5' 8.9) 08/11/2019 10:34 AM EST Body Mass Index 21.39 08/11/2019 10:34 AM EST Plan of Treatment Health Maintenance Due Date Last Done Comments Covid-19 Vaccine (#1) 1970 HIV screen 1983 Hepatitis C Screening 1983 Tdap adult 01/25/1984 Tetanus vaccine 01/25/1984 Breast Cancer Share Decision Needed 2005 Colonoscopy 2010 Breast Cancer screening 2015 Zoster vaccine (1 of 2) 2015 Advance Directive 01/25/2020 Influenza (Flu) vaccine (1 of 1 - 04/16/2022 Influenza standard series) HPV test 07/28/2024 07/28/2019, 12/25/2014, 09/18/2014 PAP Smear 07/28/2024 07/28/2019, 12/25/2014, 09/18/2014 Medical Devices Implanted Type Area Credit Rating Inspector Device Shelf Model / Identifier Expiration Serial / Date Lot Port,Ifsn,Mri,Plst,1 Lmn,9.6fr ([id number]) - [id number] IMPLANTS N/A: 07/15/2017 [id number] / Implanted: Qty: 1 on 10/24/2012 by Sebastian Ledezma MD at [facility] Abdomen / [id number] Insurance Payer Benefit Plan / Subscriber ID Effective Dates Phone Addre ss Type Group [facility] [facility] [id number] 2018-Kelly [phone] [address] [employer] PPO t [address] [place] [address] Advance Directives Latest Code Status on File Code Status Date Activated Date Inactivated Comments Full Code 10/24/2012 5:04 PM 10/24/2012 8:43 PM Full Code 10/24/2012 5:04 PM 10/24/2012 5:04 PM Does patient have decision making capacity? Yes, Order is based on Patients wishes. Full Code 10/24/2012 2:26 PM 10/24/2012 5:04 PM Order Status: Initial Order Does patient have decision making capacity? Yes, Order is based on Patients wishes. Full Code 09/22/2012 10:38 AM 09/23/2012 1:13 AM Full Code 09/22/2012 6:34 AM 09/22/2012 10:38 AM Order Status: Initial Order Does patient have decision making capacity? Yes, Order is based on Patients wishes. Care Teams Senior Ui Developer Relationship Specialty Start Date End Date Caitlin Callahan MD PCP - General 07/08/[address] [place] [address]
--- OUTSIDE RECORDS SUMMARY | 2022-03-05 00:36 | XMS_ITS | Encounter Summary ---
:1965 Author Organization [facility] [place] [address] Care Team Providers Name Role Phone Caitlin Callahan MD Primary Care Provider Reason for Visit Reason Onset Date Comments Results 02/27/2013 Encounter Details Date Type Department Care Team Description 02/27/2013 Telephone Gynecology Oncology at [facility] [place] [place] Brooke Doshi, [place] [address] Social History Tobacco Use Types Packs/Day [...] Telephone Encounter - Brooke Doshi, RN - 02/27/2013 2:01 PM EDT Left message for Dunia Romain of lab results as listed below. Results for NELSON PACKCI Mela ( ) as of 02/27/2013 14:02 Ref. Range 02/27/2013 00:00 WBC No range found 2.91 (External Lab) Hemoglobin Latest Range: 12.0-16.0 9.2 (A) Hematocrit Latest Range: 36.0-46.0 27.0 (A) MCV Latest Range: 82.0-108.0 91.8 (External Lab) Platelets No range found 201 (External Lab) Neutr Abs (ANC) Latest Range: 1.50-6.30 x10(3)/mcL 1820 (External Lab) Neutrophils % Latest Range: 46-78 63 (External Lab) documented in this encounter Plan of Treatment Not on filedocumented as of this encounter Visit Diagnoses Not on filedocumented in this encounter Care Teams Reptile Keeper Relationship Specialty Start Date End Date Caitlin Callahan MD PCP - General 07/08/[address] [place] [address] documented as of this encounter
--- OUTSIDE RECORDS SUMMARY | 2022-03-05 00:36 | XMS_ITS | Encounter Summary ---
:1965 Author Organization [facility] Address [facility] [place] [address] Care Team Providers Name Role Phone Caitlin Callahan MD Primary Care Provider Reason for Visit Reason Comments Chemotherapy IP CISPLAT/TAXOL Encounter Details Date Type Department Care Team Description 02/21/2013 Office Visit Gynecology Oncology Sebastian Ledezma MD Malignant neoplasm of at [facility] ovary (Primary Dx) [facility] [address] GYNECOLOGY [place], [place] ONCOLOGY [address] [place] [address] [phone] Social History Tobacco Use Types Packs/Day Years [...] Sign Reading Time Taken Comments Blood Pressure 102/62 02/21/2013 8:30 AM EDT Pulse 64 02/21/2013 8:30 AM EDT Temperature 36.8 ??C (98.2 ??F) 02/21/2013 8:30 AM EDT Respiratory Rate 20 02/21/2013 8:30 AM EDT Oxygen Saturation - - Inhaled Oxygen Concentration - - Weight 67.7 kg (149 lb 4 oz) 02/21/2013 8:30 AM EDT Height - - Body Mass Index 22.04 10/24/2012 2:19 PM EDT documented in this encounter Progress Notes Rachel Medrano MD - 02/21/2013 8:43 AM EDT Division [place] [address] PreChemotherapy Visit: cycle #6 of 6 IP/IV cisplatin and paclitaxel Patient Active Problem List Diagnoses Code ??? 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 With her primary ict quality assurance engineer, the plan was made to proceed to [facility] supra-cervical hysterectomy and RSO for presumed dermoid, which she had on 07/27/12. There was no gross disease noted a the time of her surgery. The right ovary was removed intact in an endo-catch bag and the uterus was morcellated to be removed. 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 Right fallopian tube not involved bytumor. Uterine pathology showed focal simple hyperplasia and leiomyoma. CA-125 obtained shortly before the surgery returned as 183. On 09/22/12 she underwent: robotic-assisted laparoscopic left salpingo- oophorectomy and pelvic and para-aortic lymphadenectomy at [facility] Stage 1C ovarian cancer IP port was placed on 10-24-2012. She had delay of cycle #5 due to neutropenia. Subjective: Dunia Hoyos comes to the office today before cycle # 6 of IP /IV Cisplatin/Paclitaxel, day 1, day 8 for ovarian cancer. She has felt very well for the past week and a half. Reports that one toe on her right foot that hasstable numbness. Taking Senna-S and is having bowel movements every other day. Reports a PINZON over thelast couple of days due to lack of sleep. Denies swelling on arms/legs. Constipation is managed wellwith 2 senna BID. Denies any vaginal bleeding. Her CBC yesterday was acceptable for treatment today. Review of Systems Otherwise negative to 10-point review of systems Objective: Filed Vitals: 02/21/13 0830 BP: 102/62 Pulse: 64 Temp: 36.8 ??C (98.2 ??F) Resp: 20 Physical Exam: General: Dunia appears well, wearing a head wrap Pulm: Lungs CTAB without wheezes/crackles CV: RRR, normal S1 S2 Abdomen: soft and non tender. Incision sites are well healed. IP port in place with well-healed incision. Pelvic: Normal external female genitalia with a normal pubic hair distribution. The urethral meatus is without prolapse. The vagina is pink and rugated. There are no vaginal lesions. The cervix is normal in appearance without lesions/masses. Bimanual exam reveals a normal-sized retroverted, mobile andnon- tender uterus and no palpable adnexal masses. The rectovaginal exam reveals no masses, parametrial thickening or rectovaginal septum nodularity or thickening. The anal sphincter tone is normal and there are no rectal masses. The stool is grossly heme negative. Ext: No peripheral edema Labs: Are reviewed and are acceptable for chemotherapy Assessment and Plan: Dunia Hoyos is a 48 y.o. year old with Stage 1C ovarian cancer who is here today for cycle #6 of 6IP/IV cisplatin and paclitaxel. Lab slips given. F/U 3-[address] scan, IP port removal. RACHEL MEDRANO MD, PGY-3 02/21/2013 I saw and evaluated the patient with Dr. Medrano, and I confirmed the history and physical findings as outlined, and I agree with the note as written. documented in this encounter Plan of Treatment Not on filedocumented as of this encounter Visit Diagnoses Diagnosis Malignant neoplasm of ovary - Primary documented in this encounter Care Teams Thermal Cutter Hand Relationship Specialty Start Date End Date Caitlin Callahan MD PCP - General 07/08/[address] [place] [address] documented as of this encounter
--- OUTSIDE RECORDS SUMMARY | 2022-03-05 00:36 | XMS_ITS | Encounter Summary ---
:1965 Author Organization [facility] [place] [address] Care Team Providers Name Role Phone Caitlin Callahan MD Primary Care Provider Reason for Visit Reason Comments Established 6 month check Encounter Details Date Type Department Care Team Description 01/07/2016 Office Visit Gynecology Oncology Margarette Jalloh Ova bianca cancer, at [facility] M, BLASTING MACHINE OPERATOR unspecified laterality [address] [facility] [address] [place], [place] [phone] Social History Tobacco Use Types Packs/Day Years [...] Sign Reading Time Taken Comments Blood Pressure 115/67 01/07/2016 9:19 AM EDT Pulse - - Temperature - - Respiratory Rate - - Oxygen Saturation - - Inhaled Oxygen Concentration - - Weight 66.4 kg (146 lb 6.2 oz) 01/07/2016 9:19 AM EDT Height - - Body Mass Index 21.62 06/27/2014 11:11 AM EST documented in this encounter Progress Notes Margarette Jalloh, BLASTING MACHINE OPERATOR - 01/07/2016 9:19 AM EDT Division of [place] [address] Reason For Visit: Post Treatment Surveillance Exam History of Present Illness: Dunia Trimble is a 50 y.o. woman who presents today for surveillance exam. She is post treatment of stage IIIA ovarian cancer. Her disease is followed by review of systems and examination. Pap testin12/2014 normal pap/hpv testing negative. OPTOMETRY DOCTOR Oncology History: stage IIIA ovarian cancer ?? [...] returned as 183. ?? 07/2012 referred to [facility] OPTOMETRY DOCTOR Oncology for management. ?? A pre-op CT Abdomen/Pelvis on 08/10/2012 revealed no evidence of gross metastatic disease. ?? 09/22/12: s/p robotic-assisted laparoscopic left salpingo-oophorectomy and pelvic and para-aortic lymphadenectomy, and multiple staging biopsies. ?? 02/2013: completed 6 cycles of IV/IP cisplatin/paclitaxel chemotherapy Interim Health: Feeling good. Blocked tear duct, otherwise, no new medical issues, surgeries or hospitalizations since her last visit. No questions/concerns/complaints. ROS: No Fever, chills, nausea, vomiting, diarrhea No Pelvic/abdominal pain or bloating No Bowel/bladder concerns or changes. Energy level:lately lower than norm, not sleeping through the night, increased stressors r/t work and daughter's graduation from college. No Vaginal bleeding or discharge No lower extremity edema Weight is stable Reports appetite is fine No SOB, cough or chest pain. Neuropathy: barely noticeable, much improved. Sexual function: no changes/concerns. Not currently sexually active Mood: good/ok Advanced Directives: No advance directives on file. The purpose of advance directives were reviewed with her and she was provided with the state-specific booklet to complete these. I have asked that she bring a copy of her completed advance directives to her next visit so that it may be scanned into our electronic medical record. Health Habits: Tobacco: nonsmoker ETOH: 1-2 glasses of wine a week. Exercise: walking/running 2x week. Health Maintenance: Mammogram: Due next month. Colonoscopy:scheduled January 29, 2016. Social History: . Works for [employer]. Lives with her 12 yo son. Daughter just graduated from [employer] with her BSN. 20 yo son is living in [place]. Patient Active Problem List Diagnosis Code ??? Ovarian cancer C56.9 ??? S/P hysterectomy Z90.710 Past Surgical History Procedure Laterality Date ??? Hysterectomy 07/27/12 lsc BUD/RSO for fibroids and ovarian CA ??? Pro lap, rmv adnexal structure 09/22/2012 LAPAROSCOPY, REMOVAL OF ADNEXA, ROBOT ASSIST performed by Sebastian Ledezma MD at [facility] OR ??? Pro lap, pelvic lymphadenectomy/bx 09/22/2012 LAPAROSCOPY,W\BILATERAL TOTAL PELVIC LYMPHADENECTOMY, PERIAORTIC LYMPH NODE SAMPLING, ROBOTIC performed by Sebastian Ledezma MD at [facility] MA[facility] OR ??? Pro lap insert intraperitoneal catheter 10/24/2012 LAPAROSCOPY, INSERTION PERITONEAL DIALYSIS CATHETER performed by Sebastian Ledezma MD at [facility] MA[facility] OR Allergies Allergen Reactions ??? Shellfish Derived Nausea And Vomiting No current outpatient prescriptions on file prior to visit. No current facility-administered medications on file prior to visit. Vital Signs: Visit Vitals ??? BP 115/67 ??? Wt 66.4 kg (146 lb 6.2 oz) ??? BMI 21.62 kg/m2 PHYSICAL EXAM: Gen: Pleasant, NAD, Alert, [...] No appreciable masses/tenderness or nodularity. Rectovaginal exam: confirms above. ASSESSMENT/PLAN: Dunia Trimble is a 50 y.o. woman who is post treatment of stage IIIA ovarian cancer. She has no evidence of recurrent disease. We reviewed signs and symptoms of recurrent disease. Due for pap/HPV testing 2019. Per her surveillance plan she will RTC in 6months, sooner prn with questions/concerns. Margarette Jalloh APRN documented in this encounter Miscellaneous Notes Advance Care Plan Note - Margarette Jalloh APRN - 01/07/2016 9:20 AM EDT Advanced Directives: No advance directives on file. The purpose of advance directives were reviewed with her and she was provided with the state-specific booklet to complete these. I have asked that she bring a copy of her completed advance directives to her next visit so that it may be scanned into our electronic medical record. documented in this encounter Plan of Treatment Not on filedocumented as of this encounter Visit Diagnoses Diagnosis Ovarian cancer, unspecified laterality documented in this encounter Care Teams Network Operations Center Engineer Relationship Specialty Start Date End Date Caitlin Callahan MD PCP - General 07/08/[address] [place] [address] [address] [place] [address] documented as of this encounter
--- OUTSIDE RECORDS SUMMARY | 2022-03-05 00:36 | XMS_ITS | Encounter Summary ---
:1965 Author Organization [facility] [place] [address] Care Team Providers Name Role Phone Caitlin Callahan MD Primary Care Provider Reason for Visit Reason Comments Established 6 month check Encounter Details Date Type Department Care Team Description 06/25/2015 Office Visit Gynecology Oncology Margarette Jalloh Ova bianca cancer, at [facility] M, DESK INTERVIEWER unspecified laterality [address] [place], [place], [place] [phone] Social History Tobacco Use Types Packs/Day Years [...] Sign Reading Time Taken Comments Blood Pressure 110/60 06/25/2015 10:27 AM EST Pulse - - Temperature - - Respiratory Rate - - Oxygen Saturation - - Inhaled Oxygen Concentration - - Weight 63.5 kg (139 lb 15.9 oz) 06/25/2015 10:27 AM EST Height - - Body Mass Index 20.67 06/27/2014 11:11 AM EST documented in this encounter Progress Notes Margarette Jalloh, DESK INTERVIEWER - 06/25/2015 10:33 AM EST Division [place] [address] Reason For Visit: Post Treatment Surveillance Exam History of Present Illness: Dunia Trimble is a 50 y.o. woman who presents today for surveillance exam. She is post treatment of stage IIIA ovarian cancer. Her disease is followed by review of systems and examination. 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 [...] returned as 183. ?? 07/2012 referred to [facility] SALON PROFESSIONAL Oncology for management. ?? A pre-op CT Abdomen/Pelvis on 08/10/2012 revealed no evidence of gross metastatic disease. ?? 09/22/12: s/p robotic-assisted laparoscopic left salpingo-oophorectomy and pelvic and para-aortic lymphadenectomy, and multiple staging biopsies. ?? 02/2013: completed 6 cycles of IV/IP cisplatin/paclitaxel chemotherapy Interim Health: Feeling great. No new medical issues, surgeries or hospitalizations since her lastvisit. No questions/concerns/complaints. ROS: No Fever, chills, nausea, vomiting, diarrhea No Pelvic/abdominal pain or bloating No Bowel/bladder concerns or changes. Energy level: pretty good No Vaginal bleeding or discharge No lower extremity edema Weight is stable Reports appetite is good No SOB or chest pain. Getting over cold, lingering cough. Neuropathy: continues to improve. Resolved in her fingers, Mild numbness in her toes. Sexual function: Not currently sexually active Health Habits: Tobacco: nonsmoker ETOH: 1-2 drinks a month Exercise: yoga, wt. Training/walking 3x week. Health Maintenance: Mammogram: up to date ? 09/2014 Colonoscopy: no baseline, will schedule through PCP. Pap testin12/2014 normal pap/hpv testing negative. Social History: . Lives with her 11 yo son. 2 older children in college. Works for [employer]. Patient Active Problem List Diagnosis Code ??? Ovarian cancer C56.9 ??? S/P hysterectomy Z90.710 Past Surgical History Procedure Laterality Date ??? Hysterectomy 07/27/12 lsc BUD/RSO for fibroids and ovarian CA ??? Pro lap, rmv adnexal structure 09/22/2012 LAPAROSCOPY, REMOVAL OF ADNEXA, ROBOT ASSIST performed by Sebastian Ledezma MD at [facility] OR ??? Pro lap, pelvic lymphadenectomy/bx 09/22/2012 LAPAROSCOPY,W\BILATERAL TOTAL PELVIC LYMPHADENECTOMY, PERIAORTIC LYMPH NODE SAMPLING, ROBOTIC performed by Sebastian Ledezma MD at [facility] OR ??? Pro lap insert intraperitoneal catheter 10/24/2012 LAPAROSCOPY, INSERTION PERITONEAL DIALYSIS CATHETER performed by Sebastian Ledezma MD at [facility] MA[facility] OR Allergies Allergen Reactions ??? Shellfish Derived Nausea And Vomiting No current outpatient prescriptions on file prior to visit. No current facility-administered medications on file prior to visit. Vital Signs: BP 110/60 mmHg Wt 63.5 kg (139 lb 15.9 oz) PHYSICAL EXAM: Gen: Pleasant, NAD, Alert, appears [...] laterality documented in this encounter Care Teams Trials Manager Relationship Specialty Start Date End Date Caitlin Callahan MD PCP - General 07/08/[address] [place] [address] [address] [place] [address] documented as of this encounter
--- OUTSIDE RECORDS SUMMARY | 2022-03-05 00:36 | XMS_ITS | Encounter Summary ---
:1965 Author Organization [facility] [place] [address] Care Team Providers Name Role Phone Caitlin Callahan MD Primary Care Provider Reason for Visit Reason Comments Follow-up Encounter Details Date Type Department Care Team Description 08/11/2019 Office Visit Gynecology Oncology at Lawrence[facility], Vaginal discharge [facility] VP CARDIOVASCULAR [facility] [address] [place] [address] [place] [phone] (Wo rk) Social History Tobacco Use Types [...] Mass Index 21.39 08/11/2019 10:34 AM EST documented in this encounter Progress Notes Margarette Jalloh, VP CARDIOVASCULAR - 08/11/2019 10:30 AM EST Division of Gynec[place] [address] Reason For Visit: Vaginal discharge History of Present Illness: Dunia Trimble is a 54 y.o. woman who is post treatment of stage IIIA ovarian cancer, she is s/p supracervical hysterectomy. She was seen a 07/28/19 for her surveillance exam, at that time she had c/o vaginal discharge. GC/chlamydia and BV cultures were done at that time and were negative. Her discharge persists, it is less than before, but still present. No vaginal/vulvar itching, burning or irritation. No odor. Her recent pap was NILM but did show Infection and/or Reactive Repair Process. Her HPV testing was positive for other high risk types Patient Active Problem List Diagnosis Code ??? Ovarian cancer C56.9 ??? S/P hysterectomy Z90.710 Allergies Allergen Reactions ??? Shellfish Derived Nausea And Vomiting No current outpatient medications on file prior to visit. No current facility-administered medications on file prior to visit. Vital Signs: BP 124/72 Pulse 67 Temp 36.8 ??C (98.3 ??F) (Temporal) Resp 16 Ht 175 cm (5' 8.9) Wt 65.5 kg (144 lb 6.4 oz) SpO2 97% BMI 21.39 kg/m?? PHYSICAL EXAM: Gen: Pleasant, NAD, Alert, appears well Pelvic exam: normal external female genitalia; vulva, urethral meatus, perineum and perianal area without lesions. Speculum exam: intact vaginal cuff, no visible lesions, small amount of light yellow discharge. Bimanual and rectovaginal exam: deferred. wet prep: + wbcs, + parabasal cells, few squamous cells, ph 7, no hyphae, no clue cells, negative whiff, negative for trich ASSESSMENT/PLAN: Vaginal discharge/inflammatory vaginitis. Rx for cleocin 2% cream vaginally qhs x 2-4 weeks. Reviewed pap and HPV results. + HR HPV, discussed high risk for cervical changes/dysplasia and need for yearly screening. Patient verbalized understanding. She will f/u 1 year, she will call/RTC sooner prn with questions/concerns or if her vaginal discharge worsens/fails to improve. Margarette Jalloh APRN documented in this encounter Plan of Treatment Not on filedocumented as of this encounter Visit Diagnoses Diagnosis Vaginal discharge Leukorrhea, not specified as infective documented in this encounter Care Teams Artist'S Model Relationship Specialty Start Date End Date Caitlin Callahan MD PCP - General 07/08/[address] [place] [address] [address] [place] [address] documented as of this encounter
--- OUTSIDE RECORDS SUMMARY | 2022-03-05 00:36 | XMS_ITS | Encounter Summary ---
:1965 Author Organization [facility] [address] Care Team Providers Name Role Phone Caitlin Callahan MD Primary Care Provider Encounter Details Date Type Department Care Team Description 02/27/2013 External Results [facility]cology [facility] at [facility] [place] [address] Social History Tobacco Use Types Packs/Day [...] Comme nts EXTERNAL LAB CBC CMP Routine 02/27/2013 Results for this THYROID RESULTS PANEL proced ure are in the results section . documented in this encounter Results (ABNORMAL) CBC / CMP / Thyroid External Results (02/27/2013) [facility] Method Time Signature WBC 2.91 (External Lab) Hemoglobin 9.2 (A) 12.0 - 16.0 Hematocrit 27.0 (A) 36.0 - 46.0 MCV 91.8 82.0 - (External 108.0 Lab) Platelets 201 (External Lab) Sodium 137 - 147 Potassium 3.4 - 5.3 Chloride 99 - 108 CO2 22 - 29 BUN Creatinine Estimated GFR Glucose Lvl Calcium 8.7 - 10.7 Magnesium Phosphorus 2.5 - 4.9 Total Protein 6.4 - 8.2 Albumin 3.5 - 5.0 Total Bilirubin 0.1 - 1.4 Bili, Direct 0.01 - 0.4 Alk Phos AST 13 - 35 ALT 7 - 35 GGT LDH 80 - 250 Amylase 25 - 110 Lipase 0 - 53 TSH T4, total Neutrophils % 63 46 - 78 (External Lab) Neutr Abs (ANC) 1,820 (External Lab) Specimen (Source) Anatomical Location Collection Method / Collectio n Time Received Time / Laterality Volume 02/27/2013 Narrative This result has an attachment that is no t available. Sebastian Ledezma MD POINT OF CARE TEST ORDERABLE S documented in this encounter Visit Diagnoses Not on filedocumented in this encounter Care Teams Machine Packager Relationship Specialty Start Date End Date Caitlin Callahan MD PCP - General 07/08/[address] [place] [address] documented as of this encounter
--- OUTSIDE RECORDS SUMMARY | 2022-03-05 00:37 | XMS_ITS | Encounter Summary ---
:1965 Author Organization [facility] [place] [address] Care Team Providers Name Role Phone Caitlin Callahan MD Primary Care Provider Encounter Details Date Type Department Care Team Description 01/30/2013 External Results Gynecology Oncology [place] [address] Social History Tobacco Use Types Packs/Day [...] Name Priority Date/Time Associated Diagnosis Comme nts CBC (WITH DIFF) Routine 01/30/2013 Results for this procedure are in the resu lts section. documented in this encounter Results (ABNORMAL) CBC (with Diff) (01/30/2013) [facility] Method Time Signature WBC 2.79 (External Lab) Hemoglobin 9.7 (A) 12.0 - 16.0 Hematocrit 28.7 (A) 36.0 - 46.0 Platelets 200 (External Lab) Neutrophil % 54.9 (External Lab) Neutr Abs (ANC) 1,530 (External Lab) Specimen (Source) Anatomical Location Collection Method / Collectio n Time Received Time / Laterality Volume Blood specimen 01/30/2013 (specimen) Sebastian Ledezma MD HEMATOLOGY ORDERABLES documented in this encounter Visit Diagnoses Not on filedocumented in this encounter Care Teams Rpg Developer Relationship Specialty Start Date End Date Caitlin Callahan MD PCP - General 07/08/[address] [place] [address] documented as of this encounter
--- OUTSIDE RECORDS SUMMARY | 2022-03-05 00:37 | XMS_ITS | Encounter Summary ---
:1965 Author Organization [facility] [place] [address] Care Team Providers Name Role Phone Caitlin Callahan MD Primary Care Provider Encounter Details Date Type Department Care Team Description 11/21/2012 External Results [facility] [place] [address] Social History Tobacco Use Types Packs/Day Years Used Date Never Smoker Alcohol Use Standard Drinks/Week Comments Not Asked [...] Comme nts EXTERNAL LAB CBC CMP Routine 11/21/2012 Results for this THYROID RESULTS PANEL proced ure are in the results section . documented in this encounter Results (ABNORMAL) External Lab CBC CMP THYROID Panel (11/21/2012) [facility] Method Time Signature WBC 3.10 (External Lab) Hemoglobin 10.9 (A) 12.0 - 16.0 Hematocrit 34.4 (A) 36.0 - 46.0 MCV 82.0 - 108.0 Platelets 279 (External Lab) Sodium 144 137 - 147 (External Lab) Potassium 3.8 3.4 - 5.3 (External Lab) Chloride 105 99 - 108 (External Lab) CO2 31 (A) 22 - 29 BUN 17 (External Lab) Creatinine 0.9 (External Lab) Estimated GFR Glucose Lvl Calcium 8.2 (A) 8.7 - 10.7 Magnesium 1.7 (External Lab) Phosphorus 3.7 2.5 - 4.9 (External Lab) Total Protein 6.9 6.4 - 8.2 (External Lab) Albumin 3.6 3.5 - 5.0 (External Lab) Total Bilirubin 0.3 0.1 - 1.4 (External Lab) Bili, Direct 0.01 - 0.4 Alk Phos 96 (External Lab) AST 15 13 - 35 (External Lab) ALT 19 7 - 35 (External Lab) GGT LDH 80 - 250 Amylase 25 - 110 Lipase 0 - 53 TSH T4, total Neutrophil % 53.9 (External Lab) Neutr Abs (ANC) 1,670 (External Lab) Specimen (Source) Anatomical Location Collection Method / Collectio n Time Received Time / Laterality Volume 11/21/2012 Sebastian Ledezma MD POINT OF CARE TEST ORDERABLE S documented in this encounter Visit Diagnoses Not on filedocumented in this encounter Care Teams Crna Relationship Specialty Start Date End Date Caitlin Callahan MD PCP - General 07/08/[address] [place] [address] documented as of this encounter
--- OUTSIDE RECORDS SUMMARY | 2022-03-05 00:37 | XMS_ITS | Encounter Summary ---
:1965 Author Organization [facility] [place] [address] Care Team Providers Name Role Phone Caitlin Callahan MD Primary Care Provider Encounter Details Date Type Department Care Team Description 2013 Hospital Encounter Hematology [place] [address] Social History Tobacco Use Types Packs/Day [...] Take 1 tablet by 30 tablet 0 12/13/2012 (COMPAZINE) 10 mg tablet mouth every 6 [...] for Pain. documented as of this encounter Plan of Treatment Not on filedocumented as of this encounter Visit Diagnoses Not on filedocumented in this encounter Care Teams Captain Waiter/Waitress Relationship Specialty Start Date End Date Caitlin Callahan MD PCP - General 07/08/[address] [place] [address] [address] [place] [address] documented as of this encounter
--- OUTSIDE RECORDS SUMMARY | 2022-03-05 00:37 | XMS_ITS | Encounter Summary ---
:1965 Author Organization [facility] [address] Care Team Providers Name Role Phone Caitlin Callahan MD Primary Care Provider Encounter Details Date Type Department Care Team Description 12/05/2012 External Results Gynecology Oncology at Arianne Caruso RN [facility] [place] [address] Social History Tobacco Use Types Packs/Day [...] Diagnosis Comme nts CBC (WITH DIFF) Routine 12/05/2012 Results for this procedure are in the resu lts section. documented in this encounter Results (ABNORMAL) CBC (with Diff) (12/05/2012) [facility] gist Method Time Signature WBC 2.72 (External Lab) Hemoglobin 11.2 (A) 12.0 - 16.0 Hematocrit 34.2 (A) 36.0 - 46.0 Platelets 150 (External Lab) Neutrophil % 44.2 (External Lab) Neutr Abs (ANC) 1,200 (External Lab) Specimen (Source) Anatomical Location Collection Method / Collectio n Time Received Time / Laterality Volume Blood specimen 12/05/2012 (specimen) Narrative This result has an attachment that is no t available. Sebastian Ledezma MD HEMATOLOGY ORDERABLES documented in this encounter Visit Diagnoses Not on filedocumented in this encounter Care Teams Lunchroom Worker Relationship Specialty Start Date End Date Caitlin Callahan MD PCP - General 07/08/[address] [place] [address] documented as of this encounter
--- OUTSIDE RECORDS SUMMARY | 2022-03-05 00:37 | XMS_ITS | Encounter Summary ---
:1965 Author Organization [facility] [place] [address] Care Team Providers Name Role Phone Caitlin Callahan MD Primary Care Provider Reason for Visit Reason Comments Chemotherapy Encounter Details Date Type Department Care Team Description 12/20/2012 Hospital Encounter Hematology and INFUSION THER APY, MEDS None Ovarian ca ([place] [facility] [place] Sebastian Thakkar MD [facility] GYNEC[place] [address] Dx) [place] [id number] Social History Tobacco Use Types Packs/Day Years [...] documented as of this encounter Progress Notes Radha Rodriguez RN - 12/20/2012 2:54 PM EDT Patient Name: Dunia Hoyos Patient Age: 47 y.o. Birthdate: 1965 Admit date: 12/20/2012 Attending Physician: Infusion Therapy, Meds INFUSION THERAPY ADMINISTRATION NOTES TIME TREATMENT STARTED: 1425 TIME TREATMENT ENDED: 1800 DIAGNOSIS: Ovarian Ca PROTOCOL: CYCLE #: 3 REASON FOR VISIT: IP Taxol SUBJECTIVE Dunia Hoyos has c/o nausea, vomited on arrival to room after receiving oral Ativan OBJECTIVE Patient states she has had nausea everyday for 8 days, taking Compazine. Seen by clinic nurse, Jimmy script given. LAB DATA: Labs reviewed and found adequate for treatment. HYDRATION, RATE, START TIME, STOP TIME NS @ KVO, right chest port NS 500 cc to right abdomen port, on fluid warmer Premeds: IV Pepcid IV Ativan IV Benadryl IV Decadron Pre administration: Chemotherapy orders independently verified for drug name, route, and dosage per patient's height, weight and BSA by Radha Rodriguez RN and on site pharmacist. REACTIONS (DESCRIPTION, TIME, INTERVENTION AND EFFECTIVENESS) none ASSESSMENT Dunia Hoyos was awake, alert and she tolerated treatment well. PLAN Return to clinic per routine. documented in this encounter Plan of Treatment Not on filedocumented as of this encounter Visit Diagnoses Diagnosis Ovarian ca - Primary Malignant neoplasm of ovary documented in this encounter Administered Medications Inactive Administered Medications - up to 3 most recent administrations Medication Order MAR Action Action Date Dose Rate Site dexamethasone 20 mg in sodium Given 12/20/2012 2:37 PM EDT 20 mg chloride 0.9% infusion 20 mg, Intravenous, ONCE, 1 dose, On Wed12/20/12 at 1430, Administer over 10 Minutes diphenhydrAMINE (BENADRYL) injection 25 mg Given 12/20/2012 2:45 PM EDT 25 mg 25 mg, Intravenous, ONCE, 1 dose, On Wed12/20/12 at 1430, Routine famotidine (PEPCID) injection 20 mg Given 12/20/2012 2:30 PM EDT 20 mg 20 mg, Intravenous, ONCE, 1 dose, On Wed12/20/12 at 1430, Routine LORazepam (ATIVAN) 2 mg/mL injection Given 12/20/2012 3:10 PM EDT 0.5 mg 1 dose, Starting on Wed12/20/12 at 1451, Until Wed12/20/12 at 1510, RADHA RODRIGUEZ: cabinet override LORazepam (ATIVAN) tablet 1 mg Given 12/20/2012 2:30 PM EDT 1 mg 1 mg, Oral, EVERY 4 HOURS PRN, Starting on Wed12/20/12 at 1400, Until Wed12/21/12 at 0216, Anxiety, Nausea, Vomiting, Routine PACLitaxel (TAXOL) 110 mg in New Bag 12/20/2012 4:00 PM EDT 110 mg 1018.3 mL/hr sodium chloride 0.9% Non-PVC 1,018.3333 mL chemo infusion 110 mg, Intraperitoneal, ONCE, 1 dose, On Wed12/20/12 at 1415, Administer over 60 Minutes sodium chloride 0.9% infusion New Bag 12/20/2012 3:20 PM EDT 500 mLs mL/hr 500 mL, Intraperitoneal, ONCE, 1 dose, On Wed12/20/12 at 1430, Instill into IP port prior to use documented in this encounter Care Teams Full Service Supervisor Relationship Specialty Start Date End Date Caitlin Callahan MD PCP - General 07/08/[address] [place] [address] documented as of this encounter
--- OUTSIDE RECORDS SUMMARY | 2022-03-05 00:37 | XMS_ITS | Encounter Summary ---
:1965 Author Organization [facility] [place] [address] Care Team Providers Name Role Phone Caitlin Callahan MD Primary Care Provider Encounter Details Date Type Department Care Team Description 01/26/2013 External Results Gynecology Oncology [place] [address] Social History Tobacco Use Types Packs/Day [...] Diagnosis Comme nts CBC (WITH DIFF) Routine 01/26/2013 Results for this procedure are in the resu lts section. documented in this encounter Results (ABNORMAL) CBC (with Diff) (01/26/2013) [facility] Method Time Signature WBC 2.43 (External Lab) Hemoglobin 9.4 (A) 12.0 - 16.0 Hematocrit 27.1 (A) 36.0 - 46.0 Platelets 184 (External Lab) Neutrophil % 47 (External Lab) Neutr Abs (ANC) 1,140 (EXTERNAL/ ABN) Specimen (Source) Anatomical Location Collection Method / Collectio n Time Received Time / Laterality Volume Blood specimen 01/26/2013 (specimen) Sebastian Ledezma MD HEMATOLOGY ORDERABLES documented in this encounter Visit Diagnoses Not on filedocumented in this encounter Care Teams Industrial Furnace Fabricator Relationship Specialty Start Date End Date Caitlin Callahan MD PCP - General 07/08/[address] [place] [address] documented as of this encounter
--- OUTSIDE RECORDS SUMMARY | 2022-03-05 00:37 | XMS_ITS | Encounter Summary ---
:1965 Author Organization [facility] [place] [address] Care Team Providers Name Role Phone Caitlin Callahan MD Primary Care Provider Reason for Visit Reason Onset Date Comments Results 11/21/2012 Encounter Details Date Type Department Care Team Description 11/21/2012 Telephone Gynecology Oncology at [facility] Arianne Caruso, [place] [address] Social History Tobacco Use Types Packs/Day [...] this encounter Miscellaneous Notes Telephone Encounter - Arianne Caruso RN - 11/21/2012 3:47 PM EDT Relayed following results to pt Recent Results (from the past 24 hour(s)) EXTERNAL LAB CBC CMP THYROID PANEL Component Value Range WBC 3.10 (*) Hemoglobin 10.9 (*) 12.0 - 16.0 Hematocrit 34.4 (*) 36.0 - 46.0 MCV 82.0 - 108.0 Platelets 279 (*) Sodium 144 (*) 137 - 147 Potassium 3.8 (*) 3.4 - 5.3 Chloride 105 (*) 99 - 108 CO2 31 (*) 22 - 29 BUN 17 (*) Creatinine 0.9 (*) Estimated GFR Glucose Lvl Calcium 8.2 (*) 8.7 - 10.7 Magnesium 1.7 (*) Phosphorus 3.7 (*) 2.5 - 4.9 Total Protein 6.9 (*) 6.4 - 8.2 Albumin 3.6 (*) 3.5 - 5.0 Total Bilirubin 0.3 (*) 0.1 - 1.4 Bili, Direct 0.01 - 0.4 Alk Phos 96 (*) AST 15 (*) 13 - 35 ALT 19 (*) 7 - 35 GGT LDH 80 - 250 Amylase 25 - 110 Lipase 0 - 53 TSH T4, total Neutrophil % 53.9 (*) Neutr Abs (ANC) 1670 (*) CANCER ANTIGEN 125 Component Value Range CA 125 14.5 (*) documented in this encounter Plan of Treatment Not on filedocumented as of this encounter Visit Diagnoses Not on filedocumented in this encounter Care Teams Remote Broadcast Engineer Relationship Specialty Start Date End Date Caitlin Callahan MD PCP - General 07/08/[address] [place] [address] documented as of this encounter
--- OUTSIDE RECORDS SUMMARY | 2022-03-05 00:37 | XMS_ITS | Encounter Summary ---
:1965 Author Organization [facility] [place] [address] Care Team Providers Name Role Phone Caitlin Callahan MD Primary Care Provider Encounter Details Date Type Department Care Team Description 12/13/2012 External Results Gynecology Oncology at Arianne Caruso RN [facility] [place] [address] Social History Tobacco Use Types Packs/Day [...] Comme nts EXTERNAL LAB CBC CMP Routine 12/12/2012 Results for this THYROID RESULTS PANEL proced ure are in the results section . documented in this encounter Results (ABNORMAL) External Lab CBC CMP THYROID Panel (12/12/2012) [facility] Method Time Signature WBC 3.13 (External Lab) Hemoglobin 11.0 (A) 12.0 - 16.0 Hematocrit 33.5 (A) 36.0 - 46.0 MCV 82.0 - 108.0 Platelets 236 (External Lab) Sodium 139 137 - 147 (External Lab) Potassium 4.2 3.4 - 5.3 (External Lab) Chloride 102 99 - 108 (External Lab) CO2 29 22 - 29 (External Lab) BUN 14 (External Lab) Creatinine 0.9 (External Lab) Estimated GFR Glucose Lvl Calcium 8.5 (A) 8.7 - 10.7 Magnesium Phosphorus 2.5 - 4.9 Total Protein 7.0 6.4 - 8.2 (External Lab) Albumin 3.7 3.5 - 5.0 (External Lab) Total Bilirubin 0.3 0.1 - 1.4 (External Lab) Bili, Direct 0.01 - 0.4 Alk Phos 82 (External Lab) AST 20 13 - 35 (External Lab) ALT 23 7 - 35 (External Lab) GGT LDH 80 - 250 Amylase 25 - 110 Lipase 0 - 53 TSH T4, total Neutrophil % 56.9 (External Lab) Neutr Abs (ANC) 1,780 (External Lab) CA 125 10.9 (External Lab) Specimen (Source) Anatomical Location Collection Method / Collectio n Time Received Time / Laterality Volume 12/12/2012 Sebastian Ledezma MD POINT OF CARE TEST ORDERABLE S documented in this encounter Visit Diagnoses Not on filedocumented in this encounter Care Teams Residential Real Estate Appraiser Relationship Specialty Start Date End Date Caitlin Callahan MD PCP - General 07/08/[address] [place] [address] documented as of this encounter
--- OUTSIDE RECORDS SUMMARY | 2022-03-05 00:37 | XMS_ITS | Encounter Summary ---
:1965 Author Organization [facility] [place] [address] Care Team Providers Name Role Phone Caitlin Callahan MD Primary Care Provider Encounter Details Date Type Department Care Team Description 01/27/2013 External Results Gynecology Oncology at [place], Radha Thakkar MD [facility] Aiden porras [place] [address] [place] [address] [phone] (Wo rk) Social History Tobacco Use Types [...] on filedocumented in this encounter Care Teams Mail Forwarding System Markup Clerk Relationship Specialty Start Date End Date Caitlin Callahan MD PCP - General 07/08/[address] [place] [address] documented as of this encounter
--- OUTSIDE RECORDS SUMMARY | 2022-03-05 00:37 | XMS_ITS | Encounter Summary ---
:1965 Author Organization [facility] [place] [address] Care Team Providers Name Role Phone Caitlin Callahan MD Primary Care Provider Encounter Details Date Type Department Care Team Description 01/03/2013 External Results Hematology and Oncology Mela Ledezma MD at [facility] Aiden porras [place] [address] [place] [address] [phone] (Wo rk) Social History Tobacco Use Types [...] on filedocumented in this encounter Care Teams Drapery Sewer Hand Relationship Specialty Start Date End Date Caitlin Callahan MD PCP - General 07/08/[address] [place] [address] documented as of this encounter
--- OUTSIDE RECORDS SUMMARY | 2022-03-05 00:37 | XMS_ITS | Encounter Summary ---
:1965 Author Organization [facility] [place] [address] Care Team Providers Name Role Phone Caitlin Callahan MD Primary Care Provider Encounter Details Date Type Department Care Team Description 11/29/2012 External Results Gynecology Oncology at [place], Radha Thakkar MD [facility] Aiden porras [place] [address] [place] [address] [phone] (Wo rk) Social History Tobacco Use Types [...] on filedocumented in this encounter Care Teams Agricultural And Forestry Supervisor Relationship Specialty Start Date End Date Caitlin Callahan MD PCP - General 07/08/[address] [place] [address] documented as of this encounter
--- OUTSIDE RECORDS SUMMARY | 2022-03-05 00:37 | XMS_ITS | Encounter Summary ---
:1965 Author Organization [facility] [place] [address] Care Team Providers Name Role Phone Caitlin Callahan MD Primary Care Provider Encounter Details Date Type Department Care Team Description 01/16/2013 External Results Gynecology Oncology [place] [address] Social History Tobacco Use Types Packs/Day [...] Diagnosis Comme nts CBC (WITH DIFF) Routine 01/16/2013 Results for this procedure are in the resu lts section. documented in this encounter Results (ABNORMAL) CBC (with Diff) (01/16/2013) [facility] Method Time Signature WBC 2.4 (External Lab) Hemoglobin 10.0 (A) 12.0 - 16.0 Hematocrit 29.3 (A) 36.0 - 46.0 Platelets 192 (External Lab) Neutrophil % 62 (External Lab) Neutr Abs (ANC) 1,490 (External Lab) Specimen (Source) Anatomical Location Collection Method / Collectio n Time Received Time / Laterality Volume Blood specimen 01/16/2013 (specimen) Narrative This result has an attachment that is no t available. Sebastian Ledezma MD HEMATOLOGY ORDERABLES documented in this encounter Visit Diagnoses Not on filedocumented in this encounter Care Teams Outboard Motorboat Operator Relationship Specialty Start Date End Date Caitlin Callahan MD PCP - General 07/08/[address] [place] [address] documented as of this encounter
--- OUTSIDE RECORDS SUMMARY | 2022-03-05 00:37 | XMS_ITS | Encounter Summary ---
:1965 Author Organization [facility] [place] [address] Care Team Providers Name Role Phone Caitlin Callahan MD Primary Care Provider Encounter Details Date Type Department Care Team Description 11/22/2012 Hospital Encounter Hematology and Ovarian cancer (Primary Oncology at [facility] [place] [address] Social History Tobacco Use Types Packs/Day [...] Sig Dispensed Refills Start Date End Date ondansetron (ZOFRAN) 8 mg Take 1 tablet by 20 tablet 3 10/1412/01/2012 tablet mouth every 8 hours as needed for Nausea for 30 days. prochlorperazine Take 1 tablet by 30 tablet 0 11/01/2012 (COMPAZINE) 10 mg tablet mouth every 6 hours as needed for Nausea for 30 days. LORazepam (ATIVAN) 1 mg Take 1 tablet by 30 tablet 2 201212/01/2012 tablet mouth every 6 hours as needed (place under the tongue as needed for nausea not controlled with zofran and compazine) for 30 days. OXYcodone-acetaminophen Take 1-2 tablets by 15 tablet 0 06/201303/21/2013 (PERCOCET) 5-325 mg per mouth every 4 hours tablet as needed for Pain. senna-docusate Take 1-4 tablets by 60 tablet 11 10/24/2012 0 03/21/2013 (PERICOLACE) 8.6-50 mg per mouth 2 times daily tablet as needed for Constipation. ibuprofen (MOTRIN) 600 mg Take 1 tablet by 30 tablet 2 10/1412/25/2014 tablet mouth every 6 hours as needed for Pain. documented as of this encounter Progress Notes Ibis Reyes, RN - 11/22/2012 8:55 AM EDT Patient Name: Dunia Hoyos Patient Age: 47 y.o. Birthdate: 1965 Admit date: 11/22/2012 Attending Physician: No att. providers found Chest mediport accessed for treatment. documented in this encounter Plan of Treatment Not on filedocumented as of this encounter Visit Diagnoses Diagnosis Ovarian cancer - Primary Malignant neoplasm of ovary documented in this encounter Care Teams Sink Maker Relationship Specialty Start Date End Date Caitlin Callahan MD PCP - General 07/08/[address] [place] [address] [address] [place] [address] documented as of this encounter
--- OUTSIDE RECORDS SUMMARY | 2022-03-05 00:37 | XMS_ITS | Encounter Summary ---
:1965 Author Organization [facility] [place] [address] Care Team Providers Name Role Phone Caitlin Callahan MD Primary Care Provider Encounter Details Date Type Department Care Team Description 02/06/2013 External [facility] [address] Social History Tobacco Use Types Packs/Day [...] Diagnosis Comme nts CBC (WITH DIFF) Routine 02/06/2013 CBC (WITH DIFF) Routine 02/06/2013 Results for this procedure are in the resu lts section. documented in this encounter Results CBC (with Diff) (02/06/2013) Specimen (Source) Anatomical Location Collection Method / Collectio n Time Received Time / Laterality Volume Blood specimen (specimen) Narrative This result has an attachment that is no t available. Sebastian Ledezma MD HEMATOLOGY ORDERABLES (ABNORMAL) CBC (with Diff) (02/06/2013) [facility] gist Method Time Signature WBC 2.39 (External Lab) Hemoglobin 9.4 (A) 12.0 - 16.0 Hematocrit 26.9 (A) 36.0 - 46.0 Platelets 88 (EXTERNAL/ ABN) Neutrophil % 59.5 (External Lab) Neutr Abs (ANC) 1,420 (External Lab) Specimen (Source) Anatomical Location Collection Method / Collectio n Time Received Time / Laterality Volume Blood specimen 02/06/2013 (specimen) Sebastian Ledezma MD HEMATOLOGY ORDERABLES documented in this encounter Visit Diagnoses Not on filedocumented in this encounter Care Teams Devops Consultant Relationship Specialty Start Date End Date Caitlin Callahan MD PCP - General 07/08/[address] [place] [address] documented as of this encounter
--- OUTSIDE RECORDS SUMMARY | 2022-03-05 00:37 | XMS_ITS | Encounter Summary ---
:1965 Author Organization [facility] [place] [address] Care Team Providers Name Role Phone Caitlin Callahan MD Primary Care Provider Encounter Details Date Type Department Care Team Description 12/20/2012 Hospital Encounter Hematology and Ovarian cancer (Primary Oncology at [facility] [address] Social History Tobacco Use Types Packs/Day [...] documented as of this encounter Progress Notes Francie Lin RN - 12/20/2012 1:33 PM EDT Patient Name: Dunia Hoyos Patient Age: 47 y.o. Birthdate: 1965 Admit date: 12/20/2012 Attending Physician: Marcia att. providers found Port accessed for treatment by Ibis Reyes RN documented in this encounter Plan of Treatment Not on filedocumented as of this encounter Visit Diagnoses Diagnosis Ovarian cancer - Primary Malignant neoplasm of ovary documented in this encounter Care Teams Branch Controller Relationship Specialty Start Date End Date Caitlin Callahan MD PCP - General 07/08/[address] [place] [address] [address] [place] [address] documented as of this encounter
--- OUTSIDE RECORDS SUMMARY | 2022-03-05 00:37 | XMS_ITS | Encounter Summary ---
:1965 Author Organization [place] [address] Care Team Providers Name Role Phone Caitlin Callahan MD Primary Care Provider Reason for Visit Reason Comments Chemotherapy Encounter Details Date Type Department Care Team Description 01/03/2013 Hospital Encounter Hematology and INFUSION THER APY, MEDS None Ovarian cancer Oncology at [facility] Sebastian Ledezma MD [facility] [address] [place] [address] (Primary Dx) [place] [id number] Social History Tobacco Use Types Packs/Day Years [...] documented as of this encounter Progress Notes Kristi Wall RN - 01/03/2013 6:46 PM EDT Patient Name: Dunia Hoyos Patient Age: 47 y.o. Birthdate: 1965 Admit date: 01/03/2013 Attending Physician: Infusion Therapy, Meds Care assumed from Radha Rodriguez RN at 1750. Pt. Tolerated rest of post hydration without incident. Pt. To return to clinic per routine. documented in this encounter Plan of Treatment Not on filedocumented as of this encounter Visit Diagnoses Diagnosis Ovarian cancer - Primary Malignant neoplasm of ovary documented in this encounter Administered Medications Inactive Administered Medications - up to 3 most recent administrations Medication Order MAR Action Action Date Dose Rate Site CISplatin (PLATINOL) 145 mg in New Bag 01/03/2013 3:29 PM 145 mg 1145 mL/hr sodium chloride 0.9% 1,145 mL EDT chemo infusion 145 mg, Intraperitoneal, ONCE, 1 dose, On Wed01/03/13 at 1045, Administer over 60 Minutes, For Intraperitoneal administration only. dexamethasone (DECADRON) premix Given 01/03/2013 11:05 AM EDT 1 dose, Starting on Wed01/03/13 at 1048, Until Wed01/03/13 at 1105, RADHA RODRIGUEZ: cabinet override diphenhydrAMINE (BENADRYL) 50 mg/mL inje ction Given 01/03/2013 11:03 AM EDT 25 mg 1 dose, Starting on 5/21/13 at 1050, Until Wed01/03/13 at 1103, RADHA RODRIGUEZ: cabinet override famotidine (PEPCID) 20 mg/2 mL injection Given 01/03/2013 11:01 AM EDT 20 mg 1 dose, Starting on Wed01/03/13 at 1050, Until Wed01/03/13 at 1101, RADHA RODRIGUEZ: cabinet override fosaprepitant (EMEND) 150 mg in New Bag 01/03/2013 11:39 AM ED T 150 mg 310 mL/hr sodium chloride 0.9% 155 mL infusion 150 mg, Intravenous, ONCE, 1 dose, On Wed01/03/13 at 1145, Administer over 30 Minutes LORazepam (ATIVAN) 1 mg tablet Given 01/03/2013 11:00 AM EDT 1 mg 1 dose, Starting on Wed01/03/13 at 1050, Until Wed01/03/13 at 1100, RADHA RODRIGUEZ: cabinet override PACLitaxel (TAXOL) 250 mg in New Bag 01/03/2013 12:17 PM EDT 250 m g 180.6 mL/hr dextrose 5% Non-PVC 541.6667 mL chemo infusion 250 mg, Intravenous, ONCE, 1 dose, On Wed01/03/13 at 1045, Administer over 3 Hours palonosetron (ALOXI) 0.25 mg/5 mL inject ion Given 01/03/2013 11:00 AM EDT 0.25 mg 1 dose, Starting on Wed01/03/13 at 1050, Until Wed01/03/13 at 1100, RADHA RODRIGUEZ: cabinet override sodium chloride 0.9% infusion New Bag 01/03/2013 2:00 PM EDT 500 mL/hr 500 mL/hr 500 mL/hr, Intraperitoneal, ONCE, 1 dose, On Wed01/03/13 at 1145, Instill 500cc into IP port prior to use documented in this encounter Care Teams Binding End Stitcher Relationship Specialty Start Date End Date Caitlin Callahan MD PCP - General 07/08/[address] [place] [address] documented as of this encounter
--- OUTSIDE RECORDS SUMMARY | 2022-03-05 00:37 | XMS_ITS | Encounter Summary ---
:1965 Author Organization [facility] [place] [address] Care Team Providers Name Role Phone Caitlin Callahan MD Primary Care Provider Reason for Visit Reason Onset Date Comments Results 02/06/2013 Encounter Details Date Type Department Care Team Description 02/06/2013 Telephone [place]cology [place] [facility] [place]uso[place] [address] Social History Tobacco Use Types Packs/Day [...] Telephone Encounter - Arianne Caruso RN - 02/06/2013 2:35 PM EDT Spoke with Dunia and relayed following results Recent Results (from the past 24 hour(s)) CBC (WITH DIFF) Component Value Range WBC 2.39 (*) Hemoglobin 9.4 (*) 12.0 - 16.0 Hematocrit 26.9 (*) 36.0 - 46.0 Platelets 88 (*) Neutrophil % 59.5 (*) Neutr Abs (ANC) 1420 (*) documented in this encounter Plan of Treatment Not on filedocumented as of this encounter Visit Diagnoses Not on filedocumented in this encounter Care Teams Delicate Fabrics Presser Relationship Specialty Start Date End Date Caitlin Callahan MD PCP - General 07/08/10 [facility] [address] [place] [address] documented as of this encounter
--- OUTSIDE RECORDS SUMMARY | 2022-03-05 00:37 | XMS_ITS | Encounter Summary ---
:1965 Author Organization [facility] [place] [address] Care Team Providers Name Role Phone Caitlin Callahan MD Primary Care Provider Encounter Details Date Type Department Care Team Description 11/21/2012 External Results Gynecology Oncology [place] [address] Social History Tobacco Use Types Packs/Day [...] Name Priority Date/Time Associated Diagnosis Comme nts CANCER ANTIGEN 125 Routine 11/21/2012 Results f or this procedure are i n the results section . documented in this encounter Results (ABNORMAL) Cancer Antigen 125 (11/21/2012) P athologist Signature CA 125 14.5 (External Lab) Specimen (Source) Anatomical Location Collection Method / Collectio n Time Received Time / Laterality Volume Blood specimen 11/21/2012 (specimen) Sebastian Ledezma MD CHEMISTRY ORDERABLES documented in this encounter Visit Diagnoses Not on filedocumented in this encounter Care Teams Road Engineer Relationship Specialty Start Date End Date Caitlin Callahan MD PCP - General 07/08/[address] [place] [address] documented as of this encounter
--- OUTSIDE RECORDS SUMMARY | 2022-03-05 00:37 | XMS_ITS | Encounter Summary ---
:1965 Author Organization [facility] [place] [address] Care Team Providers Name Role Phone Caitlin Callahan MD Primary Care Provider Reason for Visit Reason Onset Date Comments Results 01/30/2013 Encounter Details Date Type Department Care Team Description 01/30/2013 Telephone Gynecology Oncology at [facility] Arianne [place]uso, [place] [address] Social History Tobacco Use Types Packs/Day [...] Telephone Encounter - Arianne Caruso RN - 01/30/2013 2:28 PM EDT Relayed following results to pt Recent Results (from the past 24 hour(s)) CBC (WITH DIFF) Component Value Range WBC 2.79 (*) Hemoglobin 9.7 (*) 12.0 - 16.0 Hematocrit 28.7 (*) 36.0 - 46.0 Platelets 200 (*) Neutrophil % 54.9 (*) Neutr Abs (ANC) 1530 (*) documented in this encounter Plan of Treatment Not on filedocumented as of this encounter Visit Diagnoses Not on filedocumented in this encounter Care Teams Accountant Auditor Relationship Specialty Start Date End Date Caitlin Callahan MD PCP - General 07/08/10 [facility] [address] [place] [address] documented as of this encounter
--- OUTSIDE RECORDS SUMMARY | 2022-03-05 00:37 | XMS_ITS | Encounter Summary ---
:1965 Author Organization [facility] [place] [address] Care Team Providers Name Role Phone Caitlin Callahan MD Primary Care Provider Reason for Visit Reason Onset Date Comments Results 01/16/2013 Encounter Details Date Type Department Care Team Description 01/16/2013 Telephone Gynecology Oncology [place] [facility] Arianne Caruso, [place] [address] Social History Tobacco Use Types Packs/Day [...] Telephone Encounter - Arianne Caruso RN - 01/16/2013 11:48 AM EDT Relayed following labs to pt via phone message. Recent Results (from the past 24 hour(s)) CBC (WITH DIFF) Component Value Range WBC 2.4 (*) Hemoglobin 10.0 (*) 12.0 - 16.0 Hematocrit 29.3 (*) 36.0 - 46.0 Platelets 192 (*) Neutrophil % 62 (*) Neutr Abs (ANC) 1490 (*) documented in this encounter Plan of Treatment Not on filedocumented as of this encounter Visit Diagnoses Not on filedocumented in this encounter Care Teams Sheep Herder Relationship Specialty Start Date End Date Caitlin Callahan MD PCP - General 07/08/[address] [place] [address] documented as of this encounter
--- OUTSIDE RECORDS SUMMARY | 2022-03-05 00:37 | XMS_ITS | Encounter Summary ---
:1965 Author Organization [facility] Address [address] [place] [address] Care Team Providers Name Role Phone Caitlin Callahan MD Primary Care Provider Reason for Visit Reason Comments Chemotherapy PRECHEMO Encounter Details Date Type Department Care Team Description 01/31/2013 Office Visit Gynecology Oncology Brooke Feng, Joselyn varian cancer at [facility] ASSISTANT PROGRAM MANAGER (Primary Dx) [facility] [address] [place], [place] OBSTETRICS & [phone] GYNECOLOGY [phone] [place], [place] [address] (Wo rk) Social History Tobacco [...] Sign Reading Time Taken Comments Blood Pressure 115/80 01/31/2013 8:53 AM EDT Pulse 60 01/31/2013 8:53 AM EDT Temperature 36.4 ??C (97.5 ??F) 01/31/2013 8:53 AM EDT Respiratory Rate 20 01/31/2013 8:53 AM EDT Oxygen Saturation - - Inhaled Oxygen Concentration - - Weight 68.4 kg (150 lb 12.7 oz) 01/31/2013 8:53 AM EDT Height - - Body Mass Index 22.27 10/24/2012 2:19 PM EDT documented in this encounter Progress Notes Brooke Feng E - 01/31/2013 9:28 AM EDT Division [place] [address] PreChemotherapy Visit: Patient Active Problem List Diagnoses Code ??? Ovarian cancer 183.0 MUD MILL TENDER/ONC History This 47 yo female went to ED for evaluation in late April 2012 for abdominal pain, had a f/u US which showed ovarian mass and small fibroids, then had CT and second US. With her primary senior property accountant, the plan was made to proceed to [facility] supra-cervical hysterectomy and RSO for presumed dermoid, [...] oophorectomy and pelvic and para-aortic lymphadenectomy at [facility] Stage 1C ovarian cancer IP port was placed on 10-24-2012 Subjective: Dunia Hoyos comes to the office today before cycle # 5 of IP /IV Cisplatin/Paclitaxel, day 1, day 8 for ovarian cancer. She reports increasing nausea after each cycle, and she is taking compazine as needed. She had delay of cycle #5 due to neutropenia. Her CBC yesterday was acceptable for treatment t marciano. Constipation is managed well with 2 senna BID. Her neuropathy is stable in the one great toe. She takes magnesium daily. Performance status is 1 Review of Systems 6 point review is o/w negative Objective: Filed Vitals: 01/31/13 0853 BP: 115/80 Pulse: 60 Temp: 36.4 ??C (97.5 ??F) Resp: 20 General: Dunia Hoyos appears fatigued but well. she is appropriate in her dress and demeanor Lungs are clear Heart RRR Abdomen: soft and non tender. Incision sites are clean and dry. IP port intact and w/o erythema. No peripheral edema Labs: Are reviewed and are acceptable for chemotherapy Assessment and Plan: Dunia Hoyos is a 48 y.o. year old with Stage 1C ovarian cancer who is here today for cycle 5 of 6 IP/IV cisplatin and paclitaxel. Neutropenia, grade 3 has resolved. Neulasta today after chemotherapy.Lab slips given. F/U 3 weeks documented in this encounter Plan of Treatment Not on filedocumented as of this encounter Visit Diagnoses Diagnosis Ovarian cancer - Primary Malignant neoplasm of ovary documented in this encounter Care Teams Hand Sample Maker Relationship Specialty Start Date End Date Caitlin Callahan MD PCP - General 07/08/[address] [place] [address] documented as of this encounter
--- OUTSIDE RECORDS SUMMARY | 2022-03-05 00:37 | XMS_ITS | Encounter Summary ---
:1965 Author Organization [place] [address] Care Team Providers Name Role Phone Caitlin Callahan MD Primary Care Provider Reason for Visit Reason Comments Chemotherapy ip cisplat/taxol Encounter Details Date Type Department Care Team Description 11/22/2012 Office Visit Gynecology Oncology Sebastian Ledezma MD [facility] [place] [address] [place] [facility] Ibis Reyes RN (Primary Dx) [place] [id number] Social History Tobacco Use Types Packs/Day Years [...] Sign Reading Time Taken Comments Blood Pressure 130/85 11/22/2012 8:14 AM EDT Pulse 64 11/22/2012 8:14 AM EDT Temperature 36.7 ??C (98.1 ??F) 11/22/2012 8:14 AM EDT Respiratory Rate 36 11/22/2012 8:14 AM EDT Oxygen Saturation - - Inhaled Oxygen Concentration - - Weight 69.5 kg (153 lb 3.5 oz) 11/22/2012 8:14 AM EDT Height - - Body Mass Index 22.63 10/24/2012 2:19 PM EDT documented in this encounter Progress Notes Sebastian Ledezma MD - 11/22/2012 9:52 AM EDT Gynecologic Oncology-Clinic Note Reason for visit: Cycle #2, IV/IP cisplatin/paclitaxel, for stage IC low-grade papillary ovarian carcinoma. History of present illness: Dunia is a very nice 47-year-old woman who was diagnosed with stage I C.low-grade papillary ovarian carcinoma, with invasive implants. She was dispositioned to, and is currently receiving adjuvant chemotherapy, with IV/IP cisplatin/paclitaxel. Dunia reports that she had some constipation after the for cycle, as well as myalgias/arthralgias. She was not sure whether she could take analgesics for this and did not take anything to relieve her pain. She had slight nausea, which was relieved by oral prochlorperazine. She had no vomiting. She notes some slight neuropathy, with a right second toe, which started and she began to experience alopecia. She voices no other concerns for the visit today. Review of systems: 6 systems in total reviewed, otherwise negative Vital signs: BP 130/85 Pulse 64 Temp 36.7 ??C (98.1 ??F) Resp 36 Wt 69.5 kg (153 lb 3.5 oz) Physical examination: General: She is alert and oriented, well-groomed and rest, has almost total alopecia this point. No obvious distress. HEENT: Pupils are equal square without icterus extracted muscles intact. The oropharynx is moist. She has excellent dentition and no mucosal lesions. There is no lymphadenopathy or thyromegaly appreciated. Heart: Regular rate, normal rhythm, no murmurs. Lungs: Clear to auscultation bilaterally Abdomen: flat, soft, nontender, without well-healed laparoscopic and IP port site. The IP port reservoir is palpable in the right upper quadrant. There no concerning masses, ascites, organomegaly, or lymphadenopathy. Of exam: Deferred today. Extremities: Symmetric, no edema. Impression/plan: Dunia is a very nice 47-year-old woman with stage IC low-grade papillary ovarian carcinoma. She had mild myalgias/arthralgias, and will benefit from oral Tylenol or ibuprofen, which have encouraged her to use. Additionally she has a mild constipation likely due to the antiemetics. I reviewed bowel hygiene with her today. Her laboratory studies are adequate for treatment today. She will return in 3 weeks for cycle #3. documented in this encounter Plan of Treatment Not on filedocumented as of this encounter Visit Diagnoses Diagnosis Ovarian cancer - Primary Malignant neoplasm of ovary documented in this encounter Care Teams Garden Machinery Mechanic Relationship Specialty Start Date End Date Caitlin Callahan MD PCP - General 07/08/[address] [place] [address] [address] [place] [address] documented as of this encounter
--- OUTSIDE RECORDS SUMMARY | 2022-03-05 00:37 | XMS_ITS | Encounter Summary ---
:1965 Author Organization [facility] [place] [address] Care Team Providers Name Role Phone Caitlin Callahan MD Primary Care Provider Encounter Details Date Type Department Care Team Description 11/22/2012 External Results Obstetrics [place] [address] Social History Tobacco Use Types Packs/Day [...] on filedocumented in this encounter Care Teams Wrapper And Preserver Relationship Specialty Start Date End Date Caitlin Callahan MD PCP - General 07/08/[address] [place], [place] [id number] documented as of this encounter
--- OUTSIDE RECORDS SUMMARY | 2022-03-05 00:37 | XMS_ITS | Encounter Summary ---
:1965 Author Organization [facility] [place] [address] Care Team Providers Name Role Phone Caitlin Callahan MD Primary Care Provider Encounter Details Date Type Department Care Team Description 01/10/2013 Hospital Encounter Laboratory Sebastian Ledezma MD [facility] [place] [address] GYNECOLOGY ONCOLOGY [phone] [place], [place] [address] (Wo rk) Social History Tobacco [...] Name Priority Date/Time Associated Diagnosis Comme nts DIFFERENTIAL, Routine 01/10/2013 3:00 PM Results for this AUTOMATED EDT procedure are i n the results section. CBC (WITH DIFF) Routine 01/10/2013 3:00 PM Result s for this EDT procedure are i n the results section. documented in this encounter Results (ABNORMAL) Differential, Automated (01/10/2013 3:00 PM EDT) [facility] gist Method Time Signature Neutrophils % 59.7 34.0 - CERNER 71.0 % MILLENNIUM Neutr Abs (ANC) 1.94 1.50 - CERNER 6.30 MILLENNIUM x10(3)/mcL Lymphocytes % 34.8 19.0 - CERNER 53.0 % MILLENNIUM Lymphocytes Abs 1.1 1.0 - 3.6 CERNER x10(3)/mcL MILLENNIUM Monocytes % 4.3 4.0 - 13.0 CERNER % MILLENNIUM Monocyte Abs 0.1 (L) 0.2 - 1.0 CERNER x10(3)/mcL MILLENNIUM Eosinophils % 0.6 0.0 - 7.0 CERNER % MILLENNIUM Eosinophils Abs 0.0 0.0 - 0.5 CERNER x10(3)/mcL MILLENNIUM Basophils % 0.3 0.0 - 2.0 CERNER % MILLENNIUM Basophils Abs 0.0 0.0 - 0.2 CERNER x10(3)/mcL MILLENNIUM Immature Gran % 0.30 0.00 - CERNER 0.66 % MILLENNIUM Comment: Immature granulocytes(IG's)percentage an d absolute count will include metamyelocytes, myelocytes, and promyelo cytes. Blood smears from CBCs yielding IG's will be scanned manually for concor danrock. If this scan disagrees with the automated IG or if promyelocytes are not ed, a manual differential will be performed. Marilee Gran Abs 0.01 0.00 - 0.05 x10(3)/mcL CER NER MILLENNIUM Specimen Anatomical Collection Method Collection Time Receive d Time (Source) Location / / Volume Laterality Blood specimen 01/10/2013 3:00 PM 013 3:20 (specimen) EDT PM EDT Sebastian Ledezma MD HEMATOLOGY ORDERABLES Performing Organization Address City/[facility] Code Phon e Number [address] CERNER MILLENNIUM (ABNORMAL) CBC (with Diff) (01/10/2013 3:00 PM EDT) P athologist Signature WBC 3.2 (L) 4.0 - 10.0 CERNER x10(3)/mcL MILLENNIUM RBC 3.36 (L) 3.93 - CERNER 5.22 MILLENNIUM x10(6)/mcL Hemoglobin 9.9 (L) 11.2 - CERNER 15.7 gm/dL MILLENNIUM Hematocrit 28.0 (L) 34.0 - CERNER 45.0 % MILLENNIUM MCV 83.3 79.0 - CERNER 94.0 fL MILLENNIUM MCH 29.5 26.6 - CERNER 32.2 pg MILLENNIUM MCHC 35.4 32.0 - CERNER 36.5 gm/dL MILLENNIUM Platelets 173 145 - 370 CERNER x10(3)/mcL MILLENNIUM RDWSD 45.4 35.0 - CERNER 46.0 fL MILLENNIUM RDWCV 14.8 (H) 10.9 - CERNER 14.4 % MILLENNIUM MPV 9.3 9.0 - 12.0 CERNER fL MILLENNIUM Specimen Anatomical Collection Method Collection Time Receive d Time (Source) Location / / Volume Laterality Blood specimen 01/10/2013 3:00 PM 013 3:20 (specimen) EDT PM EDT Resulting Agency Comment Spec In Lab Sebastian Ledezma MD HEMATOLOGY ORDERABLES Performing Organization Address City/[facility]/[place] [address] [facility] documented in this encounter Visit Diagnoses Not on filedocumented in this encounter Care Teams Account Consultant Relationship Specialty Start Date End Date Caitlin Callahan MD PCP - General 07/08/[address] [place] [address] documented as of this encounter
--- OUTSIDE RECORDS SUMMARY | 2022-03-05 00:37 | XMS_ITS | Encounter Summary ---
:1965 Author Organization [facility] [place] [address] Care Team Providers Name Role Phone Caitlin Callahan MD Primary Care Provider Encounter Details Date Type Department Care Team Description 12/13/2012 Notes Only Care Management Jo Ann Peters, [facility] [address] [facility] [address] [address] PSYCHIATRY [phone] [place] [address] Social History Tobacco Use Types Packs/Day Years [...] documented as of this encounter Progress Notes Jo Ann Peters, WRAPPER LAYER AND EXAMINER SOFT WORK - 12/13/2012 9:24 AM EDT Social Work follow up note: I met with pt today to follow up on referrals for [facility] and state assistance. Pt reported that she has been using the money from her tax return and has not follow up on applying for any further assistance. I stressed that it was important to do it sooner than later as money is not an added stressor that she needs, especially as she still has three more cycles of treatment. Pt reported that she feels good and that her children were still doing well. P/A: Pt knows to call or have me paged should she need any further psychosocial or resource supports. Will continue to monitor her progress and follow up as needed. documented in this encounter Plan of Treatment Not on filedocumented as of this encounter Visit Diagnoses Not on filedocumented in this encounter Care Teams Ice Cream Chef Relationship Specialty Start Date End Date Caitlin Callahan MD PCP - General 07/08/[address] [place] [address] documented as of this encounter
--- OUTSIDE RECORDS SUMMARY | 2022-03-05 00:37 | XMS_ITS | Encounter Summary ---
:1965 Author Organization [facility] [address] Care Team Providers Name Role Phone Caitlin Callahan MD Primary Care Provider Reason for Visit Reason Onset Date Comments Results 11/28/2012 Encounter Details Date Type Department Care Team Description 11/28/2012 Telephone Gynecology Oncology at [facility] Arianne Caruso, [place] [address] Social History Tobacco Use Types Packs/Day [...] Telephone Encounter - Arianne Caruso RN - 11/28/2012 4:31 PM EDT Relayed following lab results to pt Recent Results (from the past 24 hour(s)) CBC (WITH DIFF) Component Value Range WBC 3.2 (*) Hemoglobin 12.1 (*) 12.0 - 16.0 Hematocrit 36.3 (*) 36.0 - 46.0 Platelets 195 (*) Neutrophil % 61.8 (*) Neutr Abs (ANC) 2000 (*) documented in this encounter Plan of Treatment Not on filedocumented as of this encounter Visit Diagnoses Not on filedocumented in this encounter Care Teams Cooling Pipe Inspector Relationship Specialty Start Date End Date Caitlin Callahan MD PCP - General 07/08/[address] [facility] [place] [address] documented as of this encounter
--- OUTSIDE RECORDS SUMMARY | 2022-03-05 00:37 | XMS_ITS | Encounter Summary ---
:1965 Author Organization [facility] [place] [address] Care Team Providers Name Role Phone Caitlin Callahan MD Primary Care Provider Encounter Details Date Type Department Care Team Description 11/14/2012 External Results Obstetrics and Sebastian Ledezma M D Gynecology at [facility] Aiden porras [place] [address] [place] [address] [phone] (Wo rk) Social History Tobacco Use Types [...] Comme nts EXTERNAL LAB CBC CMP Routine 11/14/2012 Results for this THYROID RESULTS PANEL proced ure are in the results section . documented in this encounter Results (ABNORMAL) External Lab CBC CMP THYROID Panel (11/14/2012) Patholo gist Method Time Signature WBC 2.21 (EXTERNAL/ ABN) Hemoglobin 11.2 12.0 - (EXTERNAL/ 16.0 ABN) Hematocrit 35.3 36.0 - (EXTERNAL/ 46.0 ABN) MCV 79.7 82.0 - (EXTERNAL/ 108.0 ABN) Platelets 208 (EXTERNAL/ ABN) Sodium 137 - 147 Potassium 3.4 - [...] Lipase 0 - 53 TSH T4, total Specimen (Source) Anatomical Location Collection Method / Collectio n Time Received Time / Laterality Volume 11/14/2012 Narrative This result has an attachment that is no t available. Sebastian Ledezma MD POINT OF CARE TEST ORDERABLE S documented in this encounter Visit Diagnoses Not on filedocumented in this encounter Care Teams Unit Controller Relationship Specialty Start Date End Date Caitlin Callahan MD PCP - General 07/08/[address] [place] [address] documented as of this encounter
--- OUTSIDE RECORDS SUMMARY | 2022-03-05 00:37 | XMS_ITS | Encounter Summary ---
:1965 Author Organization [facility] [place] [address] Care Team Providers Name Role Phone Caitlin Callahan MD Primary Care Provider Encounter Details Date Type Department Care Team Description 2013 External Results Gynecology Oncology [place] [address] Social History Tobacco Use Types Packs/Day [...] Comme nts EXTERNAL LAB CBC CMP Routine 01/23/2013 Results for this THYROID RESULTS PANEL proced ure are in the results section . documented in this encounter Results (ABNORMAL) External Lab CBC CMP THYROID Panel (01/23/2013) [facility] Method Time Signature WBC 2.16 (External Lab) Hemoglobin 10.6 (A) 12.0 - 16.0 Hematocrit 30.0 (A) 36.0 - 46.0 MCV 82.0 - 108.0 Platelets 221 (External Lab) Sodium 139 137 - 147 (External Lab) Potassium 3.7 3.4 - 5.3 (External Lab) Chloride 100 99 - 108 (External Lab) CO2 31 (A) 22 - 29 BUN 23 (External Lab) Creatinine 1.2 (External Lab) Estimated GFR Glucose Lvl Calcium 9.0 8.7 - 10.7 (External Lab) Magnesium 1.2 (External Lab) Phosphorus 3.6 2.5 - 4.9 (External Lab) Total Protein 7.5 6.4 - 8.2 (External Lab) Albumin 4.1 3.5 - 5.0 (External Lab) Total Bilirubin 0.7 0.1 - 1.4 (External Lab) Bili, Direct 0.01 - 0.4 Alk Phos 80 (External Lab) AST 30 13 - 35 (External Lab) ALT 23 7 - 35 (External Lab) GGT LDH 80 - 250 Amylase 25 - 110 Lipase 0 - 53 TSH T4, total Neutrophil % 38 (EXTERNAL/ ABN) Neutr Abs (ANC) 840 (EXTERNAL/ ABN) CA 125 5.58 (External Lab) Specimen (Source) Anatomical Location Collection Method / Collectio n Time Received Time / Laterality Volume 01/23/2013 Sebastian Ledezma MD POINT OF CARE TEST ORDERABLE S documented in this encounter Visit Diagnoses Not on filedocumented in this encounter Care Teams Contract Management Specialist Relationship Specialty Start Date End Date Caitlin Callahan MD PCP - General 07/08/[address] [place] [address] documented as of this encounter
--- OUTSIDE RECORDS SUMMARY | 2022-03-05 00:37 | XMS_ITS | Encounter Summary ---
:1965 Author Organization [facility] [address] Care Team Providers Name Role Phone Caitlin Callahan MD Primary Care Provider Reason for Visit Reason Onset Date Comments Results 12/05/2012 Encounter Details Date Type Department Care Team Description 12/05/2012 Telephone [place] [facility] [place]rian[place] [address] Social History Tobacco Use Types Packs/Day [...] Telephone Encounter - Arianne Caruso RN - 12/05/2012 12:03 PM EDT Relayed following lab results to pt via phone message. Recent Results (from the past 72 hour(s)) CBC (WITH DIFF) Component Value Range WBC 2.72 (*) Hemoglobin 11.2 (*) 12.0 - 16.0 Hematocrit 34.2 (*) 36.0 - 46.0 Platelets 150 (*) Neutrophil % 44.2 (*) Neutr Abs (ANC) 1200 (*) documented in this encounter Plan of Treatment Not on filedocumented as of this encounter Visit Diagnoses Not on filedocumented in this encounter Care Teams Medical Support Specialist Relationship Specialty Start Date End Date Caitlin Callahan MD PCP - General 07/08/[address] [place] [address] [address] [place] [address] documented as of this encounter
--- OUTSIDE RECORDS SUMMARY | 2022-03-05 00:37 | XMS_ITS | Encounter Summary ---
:1965 Author Organization [facility] Address [facility] [place] [address] Care Team Providers Name Role Phone Caitlin Callahan MD Primary Care Provider Reason for Visit Reason Comments Chemotherapy IP CISPLAT/TAXOL Encounter Details Date Type Department Care Team Description 2013 Office Visit Gynecology Oncology Brooke Feng, Jsoelyn varian cancer at [facility] [place] TOBACCO EDUCATOR (Primary Dx) Formerly [facility] [address] [place], [place] OBSTETRICS & [phone] GYNECOLOGY [phone] [place], [place] [address] (Wo rk) Social History Tobacco [...] Sign Reading Time Taken Comments Blood Pressure 110/70 2013 8:03 AM EDT Pulse 68 2013 8:03 AM EDT Temperature 36.6 ??C (97.9 ??F) 2013 8:03 AM EDT Respiratory Rate 20 2013 8:03 AM EDT Oxygen Saturation - - Inhaled Oxygen Concentration - - Weight 66.9 kg (147 lb 7.8 oz) 2013 8:03 AM EDT Height - - Body Mass Index 21.78 10/24/2012 2:19 PM EDT documented in this encounter Progress Notes Brooke Feng E - 2013 3:14 PM EDT Division of [place] [address] PreChemotherapy Visit: Patient Active Problem List Diagnoses Code ??? Ovarian cancer 183.0 SPARERIBS TRIMMER/ONC History This 47 yo female went to ED for evaluation in late April 2012 for abdominal pain, had a f/u US which showed ovarian mass and small fibroids, then had CT and second US. With her primary senior analytical chemist, the plan was made to proceed [place] [facility] [place] supra-cervical hysterectomy and RSO for presumed dermoid, [...] oophorectomy and pelvic and para-aortic lymphadenectomy at [facility] [place] Stage 1C ovarian cancer IP port was placed on 10-24-2012 Subjective: Dunia Hoyos comes to the office today before cycle # 5 of IP /IV Cisplatin/Paclitaxel, day 1, day 8 for ovarian cancer. She reports increasing nausea after each cycle, and she is taking compazine as needed. After this past cycle, she recovered from chemo until late last week, when her nausea returned. This had not happened before. She also noted increased fatigue.Constipation is managed well with 2senna BID. Her neuropathy is stable in the one great toe. She takes magnesium daily. Performance status is 1 Review of Systems 6 point review is o/w negative Objective: Filed Vitals: 01/24/13 0803 BP: 110/70 Pulse: 68 Temp: 36.6 ??C (97.9 ??F) Resp: 20 General: Dunia Hoyos appears fatigued she is appropriate in her dress and demeanor Lungs are clear Heart RRR Abdomen: soft and non tender. Incision sites are clean and dry. IP port intact and w/o erythema. No peripheral edema Labs: Are reviewed and are not acceptable for chemotherapy Assessment and Plan: Dunia Hoyos is a 48 y.o. year old with Stage 1C ovarian cancer who is here today for cycle 5 of 6 IP/IV cisplatin and paclitaxel. Neutropenia, grade 3. She is showing the effects of chemotherapy related fatigue. Chemotherapy cancelled for today. Will repeat blood work on , and is scheduled for infusion this Wednesday if her neutropenia resolves documented in this encounter Plan of Treatment Not on filedocumented as of this encounter Visit Diagnoses Diagnosis Ovarian cancer - Primary Malignant neoplasm of ovary documented in this encounter Care Teams Spot Machine Operator Relationship Specialty Start Date End Date Caitlin Callahan MD PCP - General 07/08/10 [address] [facility] [facility] [address] [place] [address] documented as of this encounter
--- OUTSIDE RECORDS SUMMARY | 2022-03-05 00:37 | XMS_ITS | Encounter Summary ---
:1965 Author Organization [facility] [place] [address] Care Team Providers Name Role Phone Caitlin Callahan MD Primary Care Provider Encounter Details Date Type Department Care Team Description 01/31/2013 External Results Obstetrics [place] [address] Social History Tobacco Use Types Packs/Day [...] on filedocumented in this encounter Care Teams Marketing Manager Relationship Specialty Start Date End Date Caitlin Callahan MD PCP - General 07/08/[address] [place], [place] [id number] documented as of this encounter
--- OUTSIDE RECORDS SUMMARY | 2022-03-05 00:37 | XMS_ITS | Encounter Summary ---
:1965 Author Organization [facility] [place] [address] Care Team Providers Name Role Phone Caitlin Callahan MD Primary Care Provider Encounter Details Date Type Department Care Team Description 02/07/2013 Hospital Encounter Hematology and Ovarian cancer (Primary Oncology at [facility] [place] [address] Social History Tobacco Use Types Packs/Day [...] Sig Dispensed Refills Start Date End Date OXYcodone-acetaminophen Take 1-2 tablets by 15 tablet 0 06/201303/21/2013 (PERCOCET) 5-325 mg per mouth every 4 hours tablet as needed for Pain. senna-docusate Take 1-4 tablets by 60 tablet 11 10/24/2012 0 03/21/2013 (PERICOLACE) 8.6-50 mg mouth 2 times daily per tablet as needed for Constipation. ibuprofen (MOTRIN) 600 Take 1 tablet by 30 tablet 2 013 12/25/2014 mg tablet mouth every 6 hours as needed for Pain. documented as of this encounter Progress Notes Kristi Wlal RN - 02/07/2013 7:54 AM EDT Patient Name: Dunia Hoyos Patient Age: 48 y.o. Birthdate: 1965 Admit date: 02/07/2013 Attending Physician: Marcia att. providers found Pt. Here to have port accessed. POrt accessed using sterile technique. Pt. Tolerated procedure well.Pt. To return to clinic per routine. documented in this encounter Plan of Treatment Not on filedocumented as of this encounter Visit Diagnoses Diagnosis Ovarian cancer - Primary Malignant neoplasm of ovary documented in this encounter Care Teams Oncology Nurse Relationship Specialty Start Date End Date Caitlin Callahan MD PCP - General 07/08/[address] [place] [address] [address] [place] [address] documented as of this encounter
--- OUTSIDE RECORDS SUMMARY | 2022-03-05 00:37 | XMS_ITS | Encounter Summary ---
:1965 Author Organization [facility] Address [facility] [place] [address] Care Team Providers Name Role Phone Caitlin Callahan MD Primary Care Provider Reason for Visit Reason Comments Chemotherapy IP cisplat/taxol Encounter Details Date Type Department Care Team Description 01/03/2013 Office Visit Gynecology Oncology Sebastian Ledezma MD Malignant neoplasm of at [facility] ovary (Primary Dx) [facility] [address] GYNECOLOGY [place], [place] ONCOLOGY [address] [place] [address] [phone] Social History Tobacco Use Types Packs/Day Years [...] Sign Reading Time Taken Comments Blood Pressure 108/70 01/03/2013 9:12 AM EDT Pulse 72 01/03/2013 9:12 AM EDT Temperature 37 ??C (98.6 ??F) 01/03/2013 9:12 AM EDT Respiratory Rate 18 01/03/2013 9:12 AM EDT Oxygen Saturation - - Inhaled Oxygen Concentration - - Weight 69 kg (152 lb 1.9 oz) 01/03/2013 9:12 AM EDT Height - - Body Mass Index 22.46 10/24/2012 2:19 PM EDT documented in this encounter Progress Notes Alonso Olivarez MD - 01/03/2013 10:50 AM EDT Outpatient Editor Dictionary-Oncology Follow-up Patient Active Problem List Diagnoses ??? Ovarian cancer ID: 47 y./o on treatment for low grade, stage Ic ovarian cancer, with IP/IV cisplatin/paclitaxel. She presents for cycle 4 of 6. Interval History: She had more trouble with nausea after cycle 3, with 4 episodes of vomiting during the first week. She was only given 6 tablets of ondansetron because of insurance problems, but has since got this resolved and will have enough ondansetron for this cycle. She was taking the Compazine on a scheduled basis. SHe did not take any lorazepam. She otherwise maintained reasonable PO intake, urinating several time per day and maintaining pale urine. She has quests about the timing of her port removals and implications of her cancer for her daughter(who accompanies her today). ROS: General: Denies fever, chills, nightsweats. Eyes: Denies pain, vision changes ENT: Denies epistaxis, mouth pain or lesions Cardiovascular: Denies chest pain, pressure or palpitations Respiratory: Denies SOB, orthopnea, cough GI: Denies dysphagia, abd pain, GERD Sx, N/V/D, black or bloody stool. Constipation controlled with senna daily : Denies dysuria Musculoskeletal: Denies arthralgia, myalgia Neuro: Denies numbness, tingling or focal weakness other than numbness in the second digit of the left foot, which is unchanged from cycle 1. Hem/Lymph: Denies new lumps or bumps Skin: Denies rash or concerning lesions Other systems reviewed and negative. Outpatient medications: Medications the Patient is Leaving With 01/03/13 0915 Medication Sig Start Date End Date Taking? Authorizing Provider prochlorperazine (COMPAZINE) 10 mg tablet Take 1 tablet by mouth every 6 hours as needed. 12/13/12 Yes Brooke Feng, TEMO senna-docusate (PERICOLACE) 8.6-50 mg per tablet Take 1-4 tablets by mouth 2 times daily as needed for Constipation. 10/24/12 Yes Davi Rinaldi MD ibuprofen (MOTRIN) 600 mg tablet Take 1 tablet by mouth every 6 hours as needed for Pain. 10/24/12 Yes Davi Rinaldi MD OXYcodone-acetaminophen (PERCOCET) 5-325 mg per tablet Take 1-2 tablets by mouth every 4 hours as needed for Pain. 10/24/12 Davi Rinaldi MD Allergies: Shellfish derived Physical Exam: Temperature Temp: 37 ??C (98.6 ??F) Heart Rate Heart Rate: 72 Blood Pressure BP: 108/70 mmHg Respiratory Rate Resp: 18 SpO2 on RA Wt Readings from Last 3 Encounters: 01/03/13 69 kg (152 lb 1.9 oz) 12/13/12 70.2 kg (154 lb 12.2 oz) 11/22/12 69.5 kg (153 lb 3.5 oz) Constitutional: Well appearing woman, alopecia Eyes: Non-icteric, not injected, PERRL, EOMI ENT: MM moist, no oral lesions Cardiovascular: RRR, no m/r/g, mediport OK Respiratory: CTAB Hem/Lymph/Immuno: No cervical or supraclavicular DANILO GI: Soft, NT, ND, no organomegaly, BS+, IP port palpated in the RUQ - nontender Skin: No rash or lesions noted Extremities: No peripheral edema Labs: Recent Labs Basename 01/02/13 12/26/12 12/19/12 12/12/12 12/05/12 WBC 2.99* 2.21* 3.35* 3.13* 2.72* HGB 10.1* 9.8* 12.2* 11.0* 11.2* PLATELET 226* 173* 228* 236* 150* LDH -- -- -- -- -- Lab Results Component Value Date NEUTROABS 2.14 10/24/2012 Recent Labs Basename 01/02/13 12/12/12 11/21/12 10/24/12 1405 NA 140* 139* 144* 140 K 4.0* 4.2* 3.8* 4.1 CL 102* 102* 105* 103 CO2 31* 29* 31* 29 BUN 24* 14* 17* 15 CREATININE 1.0* 0.9* 0.9* 0.96 GLUCOSE -- -- -- 83 CALCIUM 8.6* 8.5* 8.2* 9.6 MAGNESIUM 1.3* -- 1.7* 0.85 PHOS 3.3* -- 3.7* -- URICACID -- -- -- -- Recent Labs Basename 01/02/13 12/12/12 11/21/12 10/24/12 1405 PROT 6.8* 7.0* 6.9* 6.9 ALBUMIN 3.6* 3.7* 3.6* 4.5 BILITOT 0.3* 0.3* 0.3* 0.5 BILIDIR -- -- -- 0.1 AST 16* 20* 15* 18 ALT 24* 23* 19* 9 ALKPHOS 82* 82* 96* 59 59 Radiology/Studies: No new ASSESSMENT/PLAN: The patient is a 47 y.o. woman with a history of stage Ic ovarian cancer. She has had minimal toxicity from her adjuvant chemotherapy and her labs are adequate for treatment today,. She is planning a trip to [place] in late February, about 3 weeks after cycle 6. While we may be ableto remove her IP port before this, we will leave the Mediport in until obtaining a baseline CT scan ~ 1month after completion of adjuvant chemotherapy. She was given information about the [facility]. Given the limited number of female relatives, it is reasonable to have her seen to discuss the probability of a familial mutation and the implications of testing. She was given lab slips for counts monitoring before cycle 5. Staff Addendum: I saw and evaluated the patient with the fellow. I independently confirmed the resident's history and physical findings, and I reviewed the pertinent data. The assessment and plan were formulated in discussion with me, as outlined in the above note, and I agree with the note as written. documented in this encounter Plan of Treatment Not on filedocumented as of this encounter Visit Diagnoses Diagnosis Malignant neoplasm of ovary - Primary documented in this encounter Care Teams Cavalry Scout Relationship Specialty Start Date End Date Caitlin Callahan MD PCP - General 07/08/[address] [place] [address] documented as of this encounter
--- OUTSIDE RECORDS SUMMARY | 2022-03-05 00:37 | XMS_ITS | Encounter Summary ---
:1965 Author Organization [facility] [place] [address] Care Team Providers Name Role Phone Caitlin Callahan MD Primary Care Provider Encounter Details Date Type Department Care Team Description 12/19/2012 External [facility] [place] [address] Social History Tobacco Use Types Packs/Day [...] Diagnosis Comme nts CBC (WITH DIFF) Routine 12/19/2012 Results for this procedure are in the resu lts section. documented in this encounter Results (ABNORMAL) CBC (with Diff) (12/19/2012) [facility] Method Time Signature WBC 3.35 (External Lab) Hemoglobin 12.2 12.0 - (External 16.0 Lab) Hematocrit 35.4 36.0 - (External 46.0 Lab) Platelets 228 (External Lab) Neutrophil % 61.2 (External Lab) Neutr Abs (ANC) 2,050 (External Lab) Specimen (Source) Anatomical Location Collection Method / Collectio n Time Received Time / Laterality Volume Blood specimen 12/19/2012 (specimen) Sebastian Ledezma MD HEMATOLOGY ORDERABLES documented in this encounter Visit Diagnoses Not on filedocumented in this encounter Care Teams Library Director Relationship Specialty Start Date End Date Caitlin Callahan MD PCP - General 07/08/[address] [place] [address] documented as of this encounter
--- OUTSIDE RECORDS SUMMARY | 2022-03-05 00:37 | XMS_ITS | Encounter Summary ---
:1965 [place] [address] Care Team Providers Name Role Phone Caitlin Callahan MD Primary Care Provider Encounter Details Date Type Department Care Team Description 11/29/2012 Notes Only Care Management Jo Ann Peters, [facility] A[address] [facility] [address] [place] [address] PSYCHIATRY [phone] [place] [address] Social History Tobacco Use Types Packs/Day Years [...] this encounter Progress Notes Jo Ann Peters, SALES DEPARTMENT CLERK - 11/29/2012 3:10 PM EDT Social Work follow up: Pt resides in [place] with her two sons and has an older daughter who attends [employer]. Pt's eldest son is a stacia in high school, and her youngest is 8 years old. Pt reported that her children have been coping well with her illness. She reported her daughter checks in about 2x a week and will be home for the summer. She shared that the children understand she has an illness that many people get, and how the medicine to help her makes her ill. She shared that her understanding isthat her cancer is very curable and this is what she has shared with her children. 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 Pt has many family and friends in the area who have been supportive with rides, helping out in the house, bringing meals over and emotionally. Pt reported that she is using the [facility] services at the cancer center, and that a good friend of hers is able to do it for her at home. Pt reported that her coping is to take things one day at a time and not dwell on what might happen. She feels positive about her future. I provided pt with information on Social Security. I referred her to the state as well to apply for aide as an incapacitated parent, and I referred her to grass roots supports including local utilitiesand the town. I gave her information on Cancer Care and the [employer] [place]. Provided information on the Gynecologic Cancer support group through [facility] Patient Support Services. Plan: To follow up for support and resources as needed. documented in this encounter Plan of Treatment Not on filedocumented as of this encounter Visit Diagnoses Not on filedocumented in this encounter Care Teams Radio Machinist Relationship Specialty Start Date End Date Caitlin Callahan MD PCP - General 07/08/[address] [place] [address] [address] [place] [address] documented as of this encounter
--- OUTSIDE RECORDS SUMMARY | 2022-03-05 00:37 | XMS_ITS | Encounter Summary ---
:1965 Author Organization [facility] [place] [address] Care Team Providers Name Role Phone Caitlin Callahan MD Primary Care Provider Encounter Details Date Type Department Care Team Description 12/20/2012 External Results Gynecology Oncology at [place], Radha Thakkar MD [facility] [address] [place] [address] [place] [address] [phone] (Wo rk) Social History Tobacco Use Types [...] on filedocumented in this encounter Care Teams Ludlow Machine Operator Relationship Specialty Start Date End Date Caitlin Callahan MD PCP - General 07/08/[address] [place] [address] documented as of this encounter
--- OUTSIDE RECORDS SUMMARY | 2022-03-05 00:37 | XMS_ITS | Encounter Summary ---
:1965 Author Organization [facility] [place] [address] Care Team Providers Name Role Phone Caitlin Callahan MD Primary Care Provider Reason for Visit Reason Onset Date Comments Other 11/29/2012 referral Encounter Details Date Type Department Care Team Description 11/29/2012 Telephone Care Management Jo Ann Peters, Other (referral) [facility] [place] [address] [facility] [phone] [place] [address] Social History Tobacco Use Types Packs/Day Years [...] this encounter Miscellaneous Notes Telephone Encounter - Jo Ann Peters MSW - 11/29/2012 8:42 AM EDT Pt was referred by GRANT Green from the [facility] for support and resources. Pt reported that she is a single parent of three children, 2 in the home and 1 in college. She reported she was told by her doctor that she should not be working, which she has stopped. Pt reported that she receives very little in child support ($500 and change). She has gone to [employer] in [facility] to apply for assistance. Pt reported that she will have her 2nd cycle of 6 tx's tomorrow. I planned with the pt to connect during her 2:30 infusion apt. Plan: Look into resources for pt and family. Meet with pt to assess and provide resources. documented in this encounter Plan of Treatment Not on filedocumented as of this encounter Visit Diagnoses Not on filedocumented in this encounter Care Teams Plant Safety Leader Relationship Specialty Start Date End Date Caitlin Callahan MD PCP - General 07/08/[address] [place] [address] documented as of this encounter
--- OUTSIDE RECORDS SUMMARY | 2022-03-05 00:37 | XMS_ITS | Encounter Summary ---
:1965 Author Organization [facility] [address] Care Team Providers Name Role Phone Caitlin Callahan MD Primary Care Provider Reason for Visit Reason Comments Chemotherapy Encounter Details Date Type Department Care Team Description 11/29/2012 Hospital Encounter Hematology and INFUSION THER APY, MEDS None Ovarian cancer Oncology [place] [facility] Maite Kim MD [facility] [place] [address] (Primary Dx) [place] [phone] Social History Tobacco Use Types Packs/Day Years [...] Sign Reading Time Taken Comments Blood Pressure 120/75 11/29/2012 2:02 PM EDT Pulse 70 11/29/2012 2:02 PM EDT Temperature 36.6 ??C (97.9 ??F) 11/29/2012 2:02 PM EDT Respiratory Rate 18 11/29/2012 2:02 PM EDT Oxygen Saturation 100% 11/29/2012 2:02 PM EDT Inhaled Oxygen Concentration - [...] encounter Progress Notes Grader, JACEY Sellers - 11/29/2012 6:20 PM EDT TIME TREATMENT STARTED: 1353 TIME TREATMENT ENDED: 1800 Dunia Hoyos, 47 y.o. female with diagnosis of ovarian CA is here for chemotherapy infusion of IP taxol. PROTOCOL: no CYCLE: 2 WEEK: DAY: 8 S: I had a lot of nausea after (day 1) this time. It was constant. I took my meds but I still threwup one day. The bone pain was less and I had a little joint pain. The 2nd toe of my right foot is numb but it hasn't increased. I don't have any mouth sores O: Dunia's friend Tonia is here with her today LAB DATA: Within acceptable limits for chemo. Per 11/28 IV ACCESS: IP port IV port HYDRATION: NS 500 cc IP pre taxol ANTIEMETICS/PREMEDS: Decadron 20 mg IV Benadryl 25 mg IV pepcid 20 mg IV CHEMOTHERAPY: Taxol 110 mg IP Chemotherapy orders independently verified for drug name, route and dosage per patient's height, weight and BSA by Verito Wood RN and RPharmacist REACTIONS (DESCRIPTION, TIME, INTERVENTION AND EFFECTIVENESS) none A: Pt. Tolerated treatment well. Dunia Hoyos confirms that all questions and issues have been addressed. P: Return to clinic in 2 weeks. documented in this encounter Plan of Treatment Not on filedocumented as of this encounter Visit Diagnoses Diagnosis Ovarian cancer - Primary Malignant neoplasm of ovary documented in this encounter Administered Medications Inactive Administered Medications - up to 3 most recent administrations Medication Order MAR Action Action Date Dose Rate Site dexamethasone 20 mg in sodium Given 11/29/2012 2:35 PM EDT 20 mg chloride 0.9% infusion 20 mg, Intravenous, ONCE, 1 dose, On Wed11/29/12 at 1415, Administer over 10 Minutes diphenhydrAMINE (BENADRYL) injection 25 mg Given 11/29/2012 2:25 PM EDT 25 mg 25 mg, Intravenous, ONCE, 1 dose, On Wed11/29/12 at 1415, Routine famotidine (PEPCID) injection 20 mg Given 11/29/2012 2:30 PM EDT 20 mg 20 mg, Intravenous, ONCE, 1 dose, On Wed11/29/12 at 1415, Routine PACLitaxel (TAXOL) 110 mg in New Bag 11/29/2012 4:13 PM EDT 110 mg 1018.3 mL/hr sodium chloride 0.9% Non-PVC 1,018.3333 mL chemo infusion 110 mg, Intraperitoneal, ONCE, 1 dose, On Wed11/29/12 at 1400, Administer over 1 Hours sodium chloride 0.9% infusion New Bag 11/29/2012 3:35 PM EDT 500 mLs mL/hr 500 mL, Intraperitoneal, ONCE, 1 dose, On Wed11/29/12 at 1415, Instill into IP port prior to use documented in this encounter Care Teams Shop Technician Relationship Specialty Start Date End Date Caitlin Callahan MD PCP - General 07/08/[address] [place] [address] documented as of this encounter
--- OUTSIDE RECORDS SUMMARY | 2022-03-05 00:37 | XMS_ITS | Encounter Summary ---
:1965 Author Organization [place] [address] Care Team Providers Name Role Phone Caitlin Callahan MD Primary Care Provider Encounter Details Date Type Department Care Team Description 11/28/2012 External Results [facility] [place] [address] Social History Tobacco Use Types Packs/Day [...] Diagnosis Comme nts CBC (WITH DIFF) Routine 11/28/2012 Results for this procedure are in the resu lts section. documented in this encounter Results (ABNORMAL) CBC (with Diff) (11/28/2012) [facility] gist Method Time Signature WBC 3.2 (External Lab) Hemoglobin 12.1 12.0 - (External 16.0 Lab) Hematocrit 36.3 36.0 - (External 46.0 Lab) Platelets 195 (External Lab) Neutrophil % 61.8 (External Lab) Neutr Abs (ANC) 2,000 (External Lab) Specimen (Source) Anatomical Location Collection Method / Collectio n Time Received Time / Laterality Volume Blood specimen 11/28/2012 (specimen) Sebastian Ledezma MD HEMATOLOGY ORDERABLES documented in this encounter Visit Diagnoses Not on filedocumented in this encounter Care Teams Manga Artist Relationship Specialty Start Date End Date Caitlin Callahan MD PCP - General 07/08/[address] [place] [address] documented as of this encounter
--- OUTSIDE RECORDS SUMMARY | 2022-03-05 00:37 | XMS_ITS | Encounter Summary ---
:1965 Author Organization [facility] [address] Care Team Providers Name Role Phone Caitlin Callahan MD Primary Care Provider Reason for Visit Reason Comments Chemotherapy Encounter Details Date Type Department Care Team Description 12/13/2012 Hospital Encounter Hematology and INFUSION THERAPY, Ov kinza cancer Oncology at [facility] (Primary Dx) [place] [id number] Social History Tobacco Use Types Packs/Day Years [...] documented as of this encounter Progress Notes Verito Wood RN - 12/13/2012 6:28 PM EDT TIME TREATMENT STARTED: 952 TIME TREATMENT ENDED: 1824 Dunia Hoyos, 47 y.o. female with diagnosis of ovarian CA is here for chemotherapy infusion of IV taxol/IP cisplatin. PROTOCOL: no CYCLE: 3 WEEK: DAY: 1 S: I've had lots of constipation but I took senna. But last week was great, I felt really great O: Dunia's brother Arjun is with her today LAB DATA: Within acceptable limits for chemo. IV ACCESS: IV port, IP port HYDRATION: NS 1 liter IV over 1 hour pre chemo D51/2 NS 1 liter IV over 2 hours post chemo NS 500cc IP pre IP chemo ANTIEMETICS/PREMEDS: Decadron 20 mg IV Benadryl 25 mg IV pepcid 20 mg IV aloxi 0.25 mg IV Emend 150 mg IV CHEMOTHERAPY: Taxol 250 mg IV Cisplatin 145 mg IP Chemotherapy orders independently verified for drug name, route and dosage per patient's height, weight and BSA by Verito Wood RN and RPharmacist REACTIONS (DESCRIPTION, TIME, INTERVENTION AND EFFECTIVENESS) none A: Pt. Tolerated treatment well. Dunia Hoyos confirms that all questions and issues have been addressed. INTAKE PO: 1080 INTAKE IV: 4782 OUTPUT: 2450 P: Return to clinic in 1 week for day 8. documented in this encounter Plan of Treatment Not on filedocumented as of this encounter Visit Diagnoses Diagnosis Ovarian cancer - Primary Malignant neoplasm of ovary documented in this encounter Administered Medications Inactive Administered Medications - up to 3 most recent administrations Medication Order MAR Action Action Date Dose Rate Site CISplatin (PLATINOL) 145 mg in New Bag 12/13/2012 3:08 PM 145 mg 1145 mL/hr sodium chloride 0.9% 1,145 mL EDT chemo infusion 145 mg, Intraperitoneal, ONCE, 1 dose, On Wed12/13/12 at 1030, Administer over 60 Minutes, For Intraperitoneal administration only. dexamethasone 20 mg in sodium chloride 0.9% Given 12/13/2012 11:00 AM EDT 20 mg infusion 20 mg, Intravenous, ONCE, 1 dose, On Wed12/13/12 at 1045, Administer over 10 Minutes dextrose 5% and sodium chloride New Bag 12/13/2012 4:10 PM EDT 500 mL/hr 500 mL/hr 0.45% with potassium chloride 20 mEq infusion 500 mL/hr, Intravenous, CONTINUOUS, Starting on Wed12/13/12 at 1045, Until Wed12/13/12 at 1244, Post cisplatin diphenhydrAMINE (BENADRYL) injection 25 mg Given 12/13/2012 10:56 AM EDT 25 mg 25 mg, Intravenous, ONCE, 1 dose, On Wed12/13/12 at 1045, Routine famotidine (PEPCID) injection 20 mg Given 12/13/2012 10:50 AM EDT 20 mg 20 mg, Intravenous, ONCE, 1 dose, On Wed12/13/12 at 1045, Routine fosaprepitant (EMEND) 150 mg in New Bag 12/13/2012 11:17 AM ED T 150 mg 310 mL/hr sodium chloride 0.9% 155 mL infusion 150 mg, Intravenous, ONCE, 1 dose, On Wed12/13/12 at 1030, Administer over 30 Minutes PACLitaxel (TAXOL) 250 mg in New Bag 12/13/2012 11:54 AM EDT 250 m g 180.6 mL/hr dextrose 5% Non-PVC 541.6667 mL chemo infusion 250 mg, Intravenous, ONCE, 1 dose, On Wed12/13/12 at 1030, Administer over 3 Hours palonosetron (ALOXI) injection 0.25 mg Given 12/13/2012 10:49 AM EDT 0.25 mg 0.25 mg, Intravenous, ONCE, 1 dose, On Wed12/13/12 at 1045, Routine sodium chloride 0.9% infusion New Bag 12/13/2012 10:48 AM EDT 999 mL/hr 999 mL/hr 999 mL/hr, Intravenous, CONTINUOUS, Starting on Wed12/13/12 at 1045, Until Wed12/14/12 at 1044, Prior to cisplatin sodium chloride 0.9% infusion New Bag 12/13/2012 2:30 PM EDT 500 mLs mL/hr 500 mL, Intraperitoneal, ONCE, 1 dose, On Wed12/13/12 at 1045, Instill into IP port prior to use documented in this encounter Care Teams Service Station Operator Relationship Specialty Start Date End Date Caitlin Callahan MD PCP - General 07/08/[address] [place] [address] documented as of this encounter
--- OUTSIDE RECORDS SUMMARY | 2022-03-05 00:37 | XMS_ITS | Encounter Summary ---
:1965 Author Organization [facility] [place] [address] Care Team Providers Name Role Phone Caitlin Callahan MD Primary Care Provider Encounter Details Date Type Department Care Team Description 12/27/2012 External Results [facility] [place] [address] Social History Tobacco Use Types Packs/Day [...] Diagnosis Comme nts CBC (WITH DIFF) Routine 12/26/2012 Results for this procedure are in the resu lts section. documented in this encounter Results (ABNORMAL) CBC (with Diff) (12/26/2012) [facility] gist Method Time Signature WBC 2.21 (EXTERNAL/ ABN) Hemoglobin 9.8 (A) 12.0 - 16.0 Hematocrit 29.2 (A) 36.0 - 46.0 Platelets 173 (External Lab) Neutrophil % 43.4 (External Lab) Neutr Abs (ANC) 960 (EXTERNAL/ ABN) Specimen (Source) Anatomical Location Collection Method / Collectio n Time Received Time / Laterality Volume Blood specimen 12/26/2012 (specimen) Narrative This result has an attachment that is no t available. Sebastian Ledezma MD HEMATOLOGY ORDERABLES documented in this encounter Visit Diagnoses Not on filedocumented in this encounter Care Teams Memory Care Program Director Relationship Specialty Start Date End Date Caitlin Callahan MD PCP - General 07/08/[address] [place] [address] documented as of this encounter
--- OUTSIDE RECORDS SUMMARY | 2022-03-05 00:37 | XMS_ITS | Encounter Summary ---
:1965 Author Organization [place] [address] Care Team Providers Name Role Phone Caitlin Callahan MD Primary Care Provider Encounter Details Date Type Department Care Team Description 11/29/2012 Hospital Encounter Hematology and Ovarian cancer (Primary Oncology at [facility] [place] [place] [address] Social History Tobacco Use Types Packs/Day [...] documented as of this encounter Progress Notes Gaviota Duarte, JACEY - 11/29/2012 1:07 PM EDT Port accessed for infusion today. documented in this encounter Plan of Treatment Not on filedocumented as of this encounter Visit Diagnoses Diagnosis Ovarian cancer - Primary Malignant neoplasm of ovary documented in this encounter Care Teams Rubber Compounder Supervisor Relationship Specialty Start Date End Date Caitlin Callahan MD PCP - General 07/08/[address] [place] [address] [address] [place] [address] documented as of this encounter
--- OUTSIDE RECORDS SUMMARY | 2022-03-05 00:37 | XMS_ITS | Encounter Summary ---
:1965 Author Organization [facility] [place] [address] Care Team Providers Name Role Phone Caitlin Callahan MD Primary Care Provider Reason for Visit Reason Comments Ovarian Cancer Encounter Details Date Type Department Care Team Description 01/31/2013 Hospital Encounter Hematology and INFUSION THER APY, MEDS None Ovarian cancer Oncology at [facility] Sebastian Ledezma MD [facility] [address] (Primary Dx) [place] [phone] Social History Tobacco Use Types Packs/Day Years [...] encounter Progress Notes Karen Stratton RN - 01/31/2013 2:58 PM EDT Patient Name: Dunia Hoyos Patient Age: 48 y.o. Birthdate: 1965 Admit date: 01/31/2013 Attending Physician: Infusion Therapy, Meds TIME TREATMENT STARTED: 1040 TIME TREATMENT ENDED: 1700 End of shift report given to: Daljit Sumner RN Dunia Hoyos, 48 y.o. female with diagnosis of Ovarian Cancer is here for chemotherapy infusion of Paclitaxel and IP Cisplatin. CYCLE: 5 DAY: 1 S: Pt. offers no complaints. O: Patient alert, oriented and appropriate. IV utilized for therapy: Right port a cath (chest) for Paclitaxel and IP port for Cisplatin. Chemotherapy orders independently verified for drug name, route and dosage per patient's height, weight and BSA by Karen Stratton RN and Pharmacy Personnel. REACTIONS (DESCRIPTION, TIME, INTERVENTION AND EFFECTIVENESS) None noted. A: Pt. Tolerated treatment well. Dunia Hoyos confirms that all questions and issues have been addressed. P: Return to clinic as previously scheduled. Discharge Note: Patient to be discharged to home when her post-hydration is complete. documented in this encounter Plan of Treatment Not on filedocumented as of this encounter Visit Diagnoses Diagnosis Ovarian cancer - Primary Malignant neoplasm of ovary documented in this encounter Administered Medications Inactive Administered Medications - up to 3 most recent administrations Medication Order MAR Action Action Date Dose Rate Site CISplatin (PLATINOL) 145 mg in New Bag 01/31/2013 3:03 PM 145 mg 1145 mL/hr sodium chloride 0.9% 1,145 mL EDT chemo infusion 145 mg, Intraperitoneal, ONCE, 1 dose, On Wed01/31/13 at 1000, Administer over 60 Minutes, For Intraperitoneal administration only. dexamethasone 20 mg in sodium chloride 0.9% Given 01/31/2013 10:58 AM EDT 20 mg infusion 20 mg, Intravenous, ONCE, 1 dose, On Wed01/31/13 at 1015, Administer over 10 Minutes dextrose 5% and sodium chloride New Bag 01/31/2013 4:30 PM EDT 500 mL/hr 500 mL/hr 0.45% with potassium chloride 20 mEq infusion 500 mL/hr, Intravenous, CONTINUOUS, Starting on Wed01/31/13 at 1015, Until Wed01/31/13 at 1214, Post cisplatin diphenhydrAMINE (BENADRYL) injection 25 mg Given 01/31/2013 10:55 AM EDT 25 mg 25 mg, Intravenous, ONCE, 1 dose, On Wed01/31/13 at 1015, Routine famotidine (PEPCID) injection 20 mg Given 01/31/2013 10:52 AM EDT 20 mg 20 mg, Intravenous, ONCE, 1 dose, On Wed01/31/13 at 1015, Routine fosaprepitant (EMEND) 150 mg in New Bag 01/31/2013 11:30 AM ED T 150 mg 310 mL/hr sodium chloride 0.9% 155 mL infusion 150 mg, Intravenous, ONCE, 1 dose, On Wed01/31/13 at 1000, Administer over 30 Minutes PACLitaxel (TAXOL) 245 mg in New Bag 01/31/2013 11:51 AM EDT 245 m g 180.3 mL/hr dextrose 5% Non-PVC 540.8333 mL chemo infusion 245 mg, Intravenous, ONCE, 1 dose, On Wed01/31/13 at 1000, Administer over 3 Hours palonosetron (ALOXI) injection 0.25 mg Given 01/31/2013 10:50 AM EDT 0.25 mg 0.25 mg, Intravenous, ONCE, 1 dose, On Wed01/31/13 at 1015, Routine pegfilgrastim (NEULASTA) injection 6 mg Given 01/31/2013 4:25 PM EDT 6 mg 6 mg, Subcutaneous, ONCE, 1 dose, On Wed01/31/13 at 1015, Routine sodium chloride 0.9% infusion New Bag 01/31/2013 2:15 PM EDT 500 mLs 500 mL, Intraperitoneal, ONCE, 1 dose, On Wed01/31/13 at 1015, Instill into IP port prior to use sodium chloride 0.9% infusion New Bag 01/31/2013 11:01 AM EDT 1,000 mLs 999 mL/hr 1,000 mL, at 999 mL/hr, Intravenous, ONCE, 1 dose, On Wed01/31/13 at 1015, Pre-cisplatin documented in this encounter Care Teams Group Home Manager Relationship Specialty Start Date End Date Caitlin Callahan MD PCP - General 07/08/[address] [place] [address] documented as of this encounter
--- OUTSIDE RECORDS SUMMARY | 2022-03-05 00:37 | XMS_ITS | Encounter Summary ---
:1965 Author Organization [facility] [address] Care Team Providers Name Role Phone Caitlin Callahan MD Primary Care Provider Encounter Details Date Type Department Care Team Description 12/13/2012 Hospital Encounter Hematology and Ovarian cancer (Primary Oncology [place] [facility] [place] [address] Social History Tobacco Use Types Packs/Day [...] as of this encounter Progress Notes Gaviota Duarte RN - 12/13/2012 9:33 AM EDT Port accessed for infusion documented in this encounter Plan of Treatment Not on filedocumented as of this encounter Visit Diagnoses Diagnosis Ovarian cancer - Primary Malignant neoplasm of ovary documented in this encounter Care Teams Insurance Follow Up Representative Relationship Specialty Start Date End Date Caitlin Callahan MD PCP - General 07/08/[address] [place] [address] [address] [place] [address] documented as of this encounter
--- OUTSIDE RECORDS SUMMARY | 2022-03-05 00:37 | XMS_ITS | Encounter Summary ---
:1965 Author Organization [place] [address] Care Team Providers Name Role Phone Caitlin Callahan MD Primary Care Provider Encounter Details Date Type Department Care Team Description 11/08/2012 External Results Gynecology Oncology at [place], Radha Thakkar MD [facility] Aiden porras [place] [address] [place] [address] [phone] (Wo rk) Social History Tobacco Use Types [...] on filedocumented in this encounter Care Teams Chainstitch Hemmer Relationship Specialty Start Date End Date Caitlin Callahan MD PCP - General 07/08/[address] [place] [address] documented as of this encounter
--- OUTSIDE RECORDS SUMMARY | 2022-03-05 00:37 | XMS_ITS | Encounter Summary ---
:1965 Author Organization [facility] [place] [address] Care Team Providers Name Role Phone Caitlin Callahan MD Primary Care Provider Encounter Details Date Type Department Care Team Description 01/03/2013 Hospital Encounter Hematology and Ovarian cancer (Primary Oncology [place] [facility] [place] [address] Social History Tobacco Use Types Packs/Day [...] documented as of this encounter Progress Notes Donna Davies RN - 01/03/2013 10:05 AM EDT Patient Name: Dunia Hoyos Patient Age: 47 y.o. Birthdate: 1965 Admit date: 01/03/2013 Attending Physician: No att. providers found Port Accessed. documented in this encounter Plan of Treatment Not on filedocumented as of this encounter Visit Diagnoses Diagnosis Ovarian cancer - Primary Malignant neoplasm of ovary documented in this encounter Care Teams Coutierier Relationship Specialty Start Date End Date Caitlin Callahan MD PCP - General 07/08/[address] [place] [address] [address] [place] [address] documented as of this encounter
--- OUTSIDE RECORDS SUMMARY | 2022-03-05 00:37 | XMS_ITS | Encounter Summary ---
:1965 Author Organization [facility] [place] [address] Care Team Providers Name Role Phone Caitlin Callahan MD Primary Care Provider Reason for Visit Reason Onset Date Comments Medication Refill 02/07/2013 Encounter Details Date Type Department Care Team Description 02/07/2013 Refill [place] [facility] Sebastian Ledezma MD [facility] [address] [place] [address] GYNECOLOGY ONCOLOGY [phone] [place], [place] [address] (Wo rk) Social History Tobacco [...] on filedocumented in this encounter Care Teams Senior Mechanical Design Engineer Relationship Specialty Start Date End Date Caitlin Callahan MD PCP - General 07/08/[address] [place] [address] documented as of this encounter
--- OUTSIDE RECORDS SUMMARY | 2022-03-05 00:37 | XMS_ITS | Encounter Summary ---
:1965 Author Organization [facility] [place] [address] Care Team Providers Name Role Phone Caitlin Callahan MD Primary Care Provider Reason for Visit Reason Onset Date Comments Results 11/14/2012 Encounter Details Date Type Department Care Team Description 11/14/2012 Telephone [place]st[place]s [place] [facility] [place], [place] [address] Social History Tobacco Use Types Packs/Day [...] this encounter Miscellaneous Notes Telephone Encounter - Tess Snider - 11/14/2012 3:50 PM EDT Message left for patient that her labs were in and her ANC was low but to be expected. She may call with any questions. documented in this encounter Plan of Treatment Not on filedocumented as of this encounter Visit Diagnoses Not on filedocumented in this encounter Care Teams Plastics Design Engineer Relationship Specialty Start Date End Date Caitlin Callahan MD PCP - General 07/08/[address] [place] [address] documented as of this encounter
--- OUTSIDE RECORDS SUMMARY | 2022-03-05 00:37 | XMS_ITS | Encounter Summary ---
:1965 Author Organization [facility] [place] [address] Care Team Providers Name Role Phone Caitlin Callahan MD Primary Care Provider Encounter Details Date Type Department Care Team Description 01/02/2013 External Results Gynecology [place] [address] Social History Tobacco Use Types Packs/Day [...] Comme nts EXTERNAL LAB CBC CMP Routine 01/02/2013 THYROID RESULTS PANEL EXTERNAL LAB CBC CMP Routine 01/02/2013 Results for this THYROID RESULTS PANEL proced ure are in the results section . documented in this encounter Results External Lab CBC CMP THYROID Panel (01/02/2013) Narrative This result has an attachment that is no t available. Sebastian Ledezma MD POINT OF CARE TEST ORDERABLE S (ABNORMAL) External Lab CBC CMP THYROID Panel (01/02/2013) [facility] gist Method Time Signature WBC 2.99 (External Lab) Hemoglobin 10.1 (A) 12.0 - 16.0 Hematocrit 30.2 (A) 36.0 - 46.0 MCV 82.0 - 108.0 Platelets 226 (External Lab) Sodium 140 137 - 147 (External Lab) Potassium 4.0 3.4 - 5.3 (External Lab) Chloride 102 99 - 108 (External Lab) CO2 31 (A) 22 - 29 BUN 24 (External Lab) Creatinine 1.0 (External Lab) Estimated GFR Glucose Lvl Calcium 8.6 (A) 8.7 - 10.7 Magnesium 1.3 (External Lab) Phosphorus 3.3 2.5 - 4.9 (External Lab) Total Protein 6.8 6.4 - 8.2 (External Lab) Albumin 3.6 3.5 - 5.0 (External Lab) Total Bilirubin 0.3 0.1 - 1.4 (External Lab) Bili, Direct 0.01 - 0.4 Alk Phos 82 (External Lab) AST 16 13 - 35 (External Lab) ALT 24 7 - 35 (External Lab) GGT LDH 80 - 250 Amylase 25 - 110 Lipase 0 - 53 TSH T4, total Neutrophil % 55.6 (External Lab) Neutr Abs (ANC) 1,660 (External Lab) Specimen (Source) Anatomical Location Collection Method / Collectio n Time Received Time / Laterality Volume 01/02/2013 Sebastian Ledezma MD POINT OF CARE TEST ORDERABLE S documented in this encounter Visit Diagnoses Not on filedocumented in this encounter Care Teams Air Boatswain Relationship Specialty Start Date End Date Caitlin Callahan MD PCP - General 07/08/[address] [place] [address] documented as of this encounter
--- OUTSIDE RECORDS SUMMARY | 2022-03-05 00:37 | XMS_ITS | Encounter Summary ---
:1965 Author Organization [facility] [place] [address] Care Team Providers Name Role Phone Caitlin Callahan MD Primary Care Provider Reason for Visit Reason Comments Chemotherapy Encounter Details Date Type Department Care Team Description 11/22/2012 Hospital Encounter Hematology and INFUSION THERAPY, Ov kinza cancer Oncology at [facility] MEDS (Primary Dx) [place] [id number] Social History Tobacco Use Types Packs/Day Years [...] documented as of this encounter Progress Notes GraderVerito RN - 11/22/2012 10:54 AM EDT TIME TREATMENT STARTED: 931 TIME TREATMENT ENDED: 1756 Dunia Hoyos, 47 y.o. female with diagnosis of ovarian CA is here for chemotherapy infusion of IV taxol/cisplatin IP. PROTOCOL: no CYCLE: 2 WEEK: DAY: 1 S: after the first chemo, I couldn't eat until Wednesday. I was nauseated but took my anti nausea medsso I didn't vomit. I lost weight but gained it back. And I felt much better after the day 8 chemo O: here today with her friend Cindy LAB DATA: Within acceptable limits for chemo. Per 11/21 IV ACCESS: IP port IV port HYDRATION: NS 1 liter pre chemo (ran concurrent with premeds and chemo) D51/2 NS with 20 meq KCL (premix) IV over 2 hours post chemo, ran alone ANTIEMETICS/PREMEDS: Decadron 20 mg IV Benadryl 25 mg IV pepcid 20 mg IV aloxi 0.25 mg IV Emend 150 mg IV CHEMOTHERAPY: Taxol 245 mg IV Cisplatin 145 mg IP Chemotherapy orders independently verified for drug name, route and dosage per patient's height, weight and BSA by Verito Wood RN and RPharmacist REACTIONS (DESCRIPTION, TIME, INTERVENTION AND EFFECTIVENESS) None INTAKE IV: 4661 INTAKE PO: 900 OUTPUT: 3150 A: Pt. Tolerated treatment well. Dunia Hoyos confirms that all questions and issues have been addressed. P: Return to clinic next Wednesday for day 8. documented in this encounter Plan of Treatment Not on filedocumented as of this encounter Visit Diagnoses Diagnosis Ovarian cancer - Primary Malignant neoplasm of ovary documented in this encounter Administered Medications Inactive Administered Medications - up to 3 most recent administrations Medication Order MAR Action Action Date Dose Rate Site CISplatin (PLATINOL) 145 mg in New Bag 11/22/2012 2:39 PM 145 mg 2290 mL/hr sodium chloride 0.9% 1,145 mL EDT chemo infusion 145 mg, Intraperitoneal, ONCE, 1 dose, On Wed11/22/12 at 0945, Administer over 30 Minutes, For Intraperitoneal administration only. dexamethasone 20 mg in sodium chloride 0.9% Given 11/22/2012 10:11 AM EDT 20 mg infusion 20 mg, Intravenous, ONCE, 1 dose, On Wed11/22/12 at 1015, Administer over 10 Minutes dextrose 5% and sodium chloride New Bag 11/22/2012 3:37 PM EDT 500 mL/hr 500 mL/hr 0.45% with potassium chloride 20 mEq infusion 500 mL/hr, Intravenous, CONTINUOUS, Starting on Wed11/22/12 at 1015, Until Wed11/22/12 at 1214, Post cisplatin diphenhydrAMINE (BENADRYL) injection 25 mg Given 11/22/2012 10:07 AM EDT 25 mg 25 mg, Intravenous, ONCE, 1 dose, On Wed11/22/12 at 1015, Routine famotidine (PEPCID) injection 20 mg Given 11/22/2012 10:03 AM EDT 20 mg 20 mg, Intravenous, ONCE, 1 dose, On Wed11/22/12 at 1015, Routine fosaprepitant (EMEND) 150 mg in New Bag 11/22/2012 10:29 AM ED T 150 mg 310 mL/hr sodium chloride 0.9% 155 mL infusion 150 mg, Intravenous, ONCE, 1 dose, On Wed11/22/12 at 1015, Administer over 30 Minutes PACLitaxel (TAXOL) 245 mg in New Bag 11/22/2012 11:42 AM EDT 245 m g 180.3 mL/hr dextrose 5% Non-PVC 540.8333 mL chemo infusion 245 mg, Intravenous, ONCE, 1 dose, On Wed11/22/12 at 0945, Administer over 3 Hours palonosetron (ALOXI) injection 0.25 mg Given 11/22/2012 10:01 AM EDT 0.25 mg 0.25 mg, Intravenous, ONCE, 1 dose, On Wed11/22/12 at 1015, Routine sodium chloride 0.9% infusion New Bag 11/22/2012 10:00 AM EDT 999 mL/hr 999 mL/hr 999 mL/hr, Intravenous, CONTINUOUS, Starting on Wed11/22/12 at 1015, Until Wed11/23/12 at 1014, Prior to cisplatin sodium chloride 0.9% infusion New Bag 11/22/2012 2:14 PM EDT 500 mLs 999 mL/hr 500 mL, Intraperitoneal, ONCE, 1 dose, On Wed11/22/12 at 1015, Instill into IP port prior to use documented in this encounter Care Teams Oil Dispenser Relationship Specialty Start Date End Date Caitlin Callahan MD PCP - General 07/08/[address] [place] [address] documented as of this encounter
--- OUTSIDE RECORDS SUMMARY | 2022-03-05 00:37 | XMS_ITS | Encounter Summary ---
:1965 Author Organization [facility] [place] [address] Care Team Providers Name Role Phone Caitlin Callahan MD Primary Care Provider Reason for Visit Reason Comments IV Access Encounter Details Date Type Department Care Team Description 01/31/2013 Hospital Encounter Hematology and Ovarian ca (Primary Dx) [place] [address] Social History Tobacco Use Types Packs/Day [...] documented as of this encounter Progress Notes Rylie Miles RN - 01/31/2013 9:43 AM EDT Patient Name: Dunia Hoyos Patient Age: 48 y.o. Birthdate: 1965 Admit date: 01/31/2013 Attending Physician: No att. providers found Pts port accessed for infusion documented in this encounter Plan of Treatment Not on filedocumented as of this encounter Visit Diagnoses Diagnosis Ovarian ca - Primary Malignant neoplasm of ovary documented in this encounter Care Teams Rn Burn Relationship Specialty Start Date End Date Caitlin Callahan MD PCP - General 07/08/[address] [place] [address] documented as of this encounter
--- OUTSIDE RECORDS SUMMARY | 2022-03-05 00:37 | XMS_ITS | Encounter Summary ---
:1965 Author Organization [facility] [place] [address] Care Team Providers Name Role Phone Caitlin Callahan MD Primary Care Provider Encounter Details Date Type Department Care Team Description 01/10/2013 Hospital Encounter Hematology and Ovarian cancer (Primary Oncology at [facility] Dx) [place] [address] Social History Tobacco Use Types Packs/Day [...] encounter Progress Notes Francie Lin RN - 01/10/2013 3:06 PM EDT Patient Name: Dunia Hoyos Patient Age: 47 y.o. Birthdate: 1965 Admit date: 01/10/2013 Attending Physician: No att. providers found Port accessed, CBC drawn. documented in this encounter Plan of Treatment Not on filedocumented as of this encounter Visit Diagnoses Diagnosis Ovarian cancer - Primary Malignant neoplasm of ovary documented in this encounter Care Teams Vp Product Relationship Specialty Start Date End Date Caitlin Callahan MD PCP - General 07/08/[address] [place] [address] [address] [place] [address] documented as of this encounter
--- OUTSIDE RECORDS SUMMARY | 2022-03-05 00:37 | XMS_ITS | Encounter Summary ---
:1965 Author Organization [facility] [place] [address] Care Team Providers Name Role Phone Caitlin Callahan MD Primary Care Provider Reason for Visit Reason Comments Ovarian Cancer Encounter Details Date Type Department Care Team Description 02/07/2013 Hospital Encounter Hematology and INFUSION THER APY, MEDS None Ovarian cancer Oncology at [facility] Sebastian Ledezma MD [facility] [place] [address] (Primary Dx) [place] [id number] Social History Tobacco Use Types Packs/Day Years [...] Sign Reading Time Taken Comments Blood Pressure 136/75 02/07/2013 8:27 AM EDT Pulse 81 02/07/2013 8:27 AM EDT Temperature 36.7 ??C (98.1 ??F) 02/07/2013 8:27 AM EDT Respiratory Rate 18 02/07/2013 8:27 AM EDT Oxygen Saturation 100% 02/07/2013 8:27 AM EDT Inhaled Oxygen Concentration - - [...] documented as of this encounter Progress Notes Zuri Gómez RN - 02/07/2013 8:15 AM EDT Patient Name: Dunia Hoyos Patient Age: 48 y.o. Birthdate: 1965 Admit date: 02/07/2013 Attending Physician: Infusion Therapy, Meds TIME TREATMENT STARTED: 0820 TIME TREATMENT ENDED: 1210 Dunia Hoyos, 48 y.o. female with diagnosis of Ovarian Cancer is here for chemotherapy infusion of IP Paclitaxel. CYCLE: 5 DAY: 8 S: Pt. Reported feeling nauseated all morning. It got worse when she arrived at the hospital and shevomited three times prior to arriving in the Infusion Suites and one time upon arrival. Her emesis was yellowish mucous. Yokasta Feng RED HAT LINUX ADMINISTRATOR came to the bedside in the Infusion Suites to evaluate Dunia. She discussed developing a schedule for nausea control since this has been an on going issue. Yokasta Feng RED HAT LINUX ADMINISTRATOR returned to patient's bedside prior to discharge. Patient admits relief from her nausea. O: Patient alert, oriented and appropriate. Pleasant affect. IV utilized for therapy: IP PORT. Chemotherapy orders independently verified for drug name, route and dosage per patient's height, weight and BSA by Zuri Gómez RN and Pharmacy Personnel. REACTIONS (DESCRIPTION, TIME, INTERVENTION AND EFFECTIVENESS) None noted. A: Pt. Tolerated treatment well. Dunia Mela Hoyos confirms that all questions and issues have been addressed. P: Return to clinic as previously scheduled. Discharge Note: Both the IJ port and the IP were flushed and de-accessed. documented in this encounter Plan of Treatment Not on filedocumented as of this encounter Visit Diagnoses Diagnosis Ovarian cancer - Primary Malignant neoplasm of ovary documented in this encounter Administered Medications Inactive Administered Medications - up to 3 most recent administrations Medication Order MAR Action Action Date Dose Rate Site dexamethasone 20 mg in sodium Given 02/07/2013 8:47 AM EDT 20 mg chloride 0.9% infusion 20 mg, Intravenous, ONCE, 1 dose, On Wed02/07/13 at 0830, Administer over 10 Minutes diphenhydrAMINE (BENADRYL) injection 25 mg Given 02/07/2013 8:45 AM EDT 25 mg 25 mg, Intravenous, ONCE, 1 dose, On Wed02/07/13 at 0830, Routine famotidine (PEPCID) injection 20 mg Given 02/07/2013 8:42 AM EDT 20 mg 20 mg, Intravenous, ONCE, 1 dose, On Wed02/07/13 at 0830, Routine LORazepam (ATIVAN) tablet 1 mg Given 02/07/2013 8:48 AM EDT 1 mg 1 mg, Oral, EVERY 4 HOURS PRN, Starting on Wed02/07/13 at 0814, Until Wed02/08/13 at 0229, Anxiety, Nausea, Vomiting, Routine PACLitaxel (TAXOL) 110 mg in New Bag 02/07/2013 10:00 AM EDT 1 10 mg 1018.3 mL/hr sodium chloride 0.9% Non-PVC 1,018.3333 mL chemo infusion 110 mg, Intraperitoneal, ONCE, 1 dose, On Wed02/07/13 at 0815, Administer over 60 Minutes palonosetron (ALOXI) 0.25 mg/5 mL inject ion 1 dose, Starting on Wed02/07/13 at 0930, Until Wed02/07/13 at 0932, ZURI GÓMEZ: cabinet override palonosetron (ALOXI) injection 0.25 mg Given 02/07/2013 9:32 AM EDT 0.25 mg 0.25 mg, Intravenous, ONCE, 1 dose, On Wed02/07/13 at 1000, Routine sodium chloride 0.9% infusion New Bag 02/07/2013 9:33 AM EDT 500 mL/hr 500 mL/hr 500 mL/hr, Intraperitoneal, ONCE, 1 dose, On Wed02/07/13 at 0830, Instill into IP port prior to use sodium chloride 0.9% infusion New Bag 02/07/2013 9:32 AM EDT 999 mL/hr 999 mL/hr 999 mL/hr, Intravenous, ONCE, 1 dose, On Wed02/07/13 at 1000 documented in this encounter Care Teams Relations Liaison Relationship Specialty Start Date End Date Caitlin Callahan MD PCP - General 07/08/[address] [place] [address] documented as of this encounter
--- OUTSIDE RECORDS SUMMARY | 2022-03-05 00:38 | XMS_ITS | Encounter Summary ---
:1965 Author Organization [facility] Address [facility] [place] [address] Care Team Providers Name Role Phone Caitlin Callahan MD Primary Care Provider Encounter Details Date Type Department Care Team Description 10/13/2012 Orders Only Gynecology Oncology at [place], Phi Thakkar MD Ovarian ca (Primary [facility] Dx) [facility] [address] [place] [address] ONCOLOGY [phone] [place], [place] [address] Social History Tobacco Use Types Packs/Day Years [...] on filedocumented as of this encounter Results Cancer Antigen 125 (10/24/2012 2:05 PM EDT) athologist Signature CA 125 19 <=20 u/ml CERNER [facility] Specimen Anatomical Collection Method Collection Time Receive d Time (Source) Location / / Volume Laterality Blood specimen 10/24/2012 2:05 PM 013 8:14 (specimen) EDT AM EDT Resulting Agency Comment Spec In Lab Sebastian Ledezma MD CHEMISTRY ORDERABLES Performing Organization Address City/[facility]/ZIP Code Phon e Number [address] CERNER MILLENNIUM Alkaline Phosphatase (10/24/2012 2:05 PM EDT) athologist Signature Alk Phos 59 40 - 104 CERNER unit/L MILLENNIUM Specimen Anatomical Collection Method Collection Time Receive d Time (Source) Location / / Volume Laterality Blood specimen 10/24/2012 2:05 PM 013 2:18 (specimen) EDT PM EDT Resulting Agency Comment Spec In Lab Sebastian Ledezma MD CHEMISTRY ORDERABLES Performing Organization Address City/[facility]/ZIP [facility] Phon e Number [address] CERNER MILLENNIUM Magnesium (10/24/2012 2:05 PM EDT) athologist Signature Magnesium 0.85 0.69 - 1.07 CERNER mmol/L MILLENNIUM Specimen Anatomical Collection Method Collection Time Receive d Time (Source) Location / / Volume Laterality Blood specimen 10/24/2012 2:05 PM 013 2:18 (specimen) EDT PM EDT Resulting Agency Comment Spec In Lab Sebastian Ledezma MD CHEMISTRY ORDERABLES Performing Organization Address City/[facility]/ZIP [facility] [place] [address] CERNER MILLENNIUM Comprehensive metabolic panel (non-fasting) (10/24/2012 2:05 PM EDT) athologist Signature Glucose Lvl 83 60 - 199 CERNER mg/dL MILLENNIUM Comment: Diabetes: >=200 mg/dL plus symp toms BUN 15 8 - 18 mg/dL CERNER MILLENNIUM Creatinine 0.96 0.70 - 1.20 mg/dL CERNER MILL ENNIUM Comment: Please note that the pediatric reference intervals supplied above were not validated at [facility]. Results from pediatri c patients should be interpreted in conjunction to the patient's age, height and muscle mass. Sodium 140 135 - 145 mmol/L CERNER TIA NIUM Potassium 4.1 3.5 - 5.0 mmol/L CERNER TIA NIUM Comment: Please note: ??Patients with WBC >100,00 0 may have falsely elevated Potassium levels. ??For accurate Potassium quantif ication in these patients send serum separator tube (gold top) for subsequent determinations. ??Contact the Clinical Chemistry Laboratory if there are any qu estions. Chloride 103 98 - 107 mmol/L CERNER MILLENN IUM CO2 29 22 - 31 mmol/L CERNER MILLENNI UM Anion Gap 8 5 - 15 mmol/L CERNER MILLENNIU M Calcium 9.6 8.5 - 10.5 mg/dL CERNER TIA NIUM Total Protein 6.9 6.4 - 8.3 gm/dL CERNER MIL LENNIUM Albumin 4.5 3.2 - 5.2 gm/dL CERNER MILLENN IUM AST 18 0 - 30 unit/L CERNER MILLENNIU M ALT 9 0 - 30 unit/L CERNER MILLENNIU M Alk Phos 59 40 - 104 unit/L CERNER MILLENN IUM Total Bilirubin 0.5 0.2 - 1.3 mg/dL CERNER M ILLENNIUM Bili, Direct 0.1 0.0 - 0.3 mg/dL CERNER MILL ENNIUM Estimated GFR >60 >=60 CERNER MILLENNIU M Comment: The National Kidney Disease Education Pr ogram (NKDEP) has recommended all laboratories report estimated GFR (eGFR) along with plasma creatinine measurements to assist you with recognit ion of early kidney disease. Caveats: ??Plasma creatinine should be a t steady-state (unchanged within the past week). For patient s multiply eGFR by 1.2. The MDRD equation was developed using patients be tween the ages of 18 and 70 years. ?? The MDRD equation has not been validated for patients < 18 years of age and should not be used to assess renal function in the pediatric population. ??The MDRD eGFR equation will also overestimate the true GFR of patients above the age of 70. ??This overestimation is variable bu t increases with age. At present, NKDEP does NOT recommend usi ng the MDRD equation for drug dosing purposes and pharmacists should continue to use their current dosing methods. In addition, numerical eGFR values great er than 60 ml/min/1.73 square meters should be treated as > 60, and not an ex act number due to greater inaccuracies at these higher values. Per NKDEP, they classify normal renal function as any GFR >60ml/min/1.73 square meters; chronic kidney disease wh en GFR <60, and renal failure when GFR <15. ??This calculation may not be valid for patients with atypical muscle mass (very lean or obese), acute renal failur e, and in patients with diabetic kidney disease. References: http://nkdep.nih.gov/resources/NKDEP_Sug gestn4Labs_0606_508.pdf http://www.kidney.org/professionals/kls/ pdf/faq_gfr.pdf Roxana Nicholson, Josy NA, Magnus AK, Cory TS, Luz AD, Huma MILAGROS. Relative performance of the MDRD and CKD-EPI equa tions for estimating glomerular filtration rate among patients with vari ed clinical presentations. Clin J Am Soc Nephrol;6:1963-72. Specimen Anatomical Collection Method Collection Time Receive d Time (Source) Location / / Volume Laterality Blood specimen 10/24/2012 2:05 PM 013 2:18 (specimen) EDT PM EDT Resulting Agency Comment Spec In Lab Sebastian Ledezma MD CHEMISTRY ORDERABLES Performing Organization Address City/State/[place]IP [place] [address] CERNER MILLENNIUM (ABNORMAL) CBC (with Diff) (10/24/2012 2:05 PM EDT) P athologist Signature WBC 4.0 4.0 - 10.0 CERNER x10(3)/mcL MILLENNIUM RBC 4.78 3.93 - CERNER 5.22 MILLENNIUM x10(6)/mcL Hemoglobin 11.9 11.2 - CERNER 15.7 gm/dL MILLENNIUM Hematocrit 37.9 34.0 - CERNER 45.0 % MILLENNIUM MCV 79.3 79.0 - CERNER 94.0 fL MILLENNIUM MCH 24.9 (L) 26.6 - CERNER 32.2 pg MILLENNIUM MCHC 31.4 (L) 32.0 - CERNER 36.5 gm/dL MILLENNIUM Platelets 186 145 - 370 CERNER x10(3)/mcL MILLENNIUM RDWSD 44.5 35.0 - CERNER 46.0 fL MILLENNIUM RDWCV 15.4 (H) 10.9 - CERNER 14.4 % MILLENNIUM MPV 10.0 9.0 - 12.0 CERNER fL MILLENNIUM Specimen Anatomical Collection Method Collection Time Receive d Time (Source) Location / / Volume Laterality Blood specimen 10/24/2012 2:05 PM 013 2:18 (specimen) EDT PM EDT Resulting Agency Comment Spec In Lab Sebastian Ledezma MD HEMATOLOGY ORDERABLES Performing Organization Address City/State/[place]IP [place] [address] [facility] DAVIDENNIUM documented in this encounter Visit Diagnoses Diagnosis Ovarian ca - Primary Malignant neoplasm of ovary documented in this encounter Care Teams Bag Mender Relationship Specialty Start Date End Date Caitlin Callahan MD PCP - General 07/08/[address] [place] [address] documented as of this encounter
--- OUTSIDE RECORDS SUMMARY | 2022-03-05 00:38 | XMS_ITS | Encounter Summary ---
:1965 Author Organization [facility] [place] [address] Care Team Providers Name Role Phone Caitlin Callahan MD Primary Care Provider Encounter Details Date Type Department Care Team Description 11/07/2012 External Results [facility] [address] Social History Tobacco Use Types Packs/Day [...] Diagnosis Comme nts CBC (WITH DIFF) Routine 11/07/2012 Results for this procedure are in the resu lts section. documented in this encounter Results (ABNORMAL) CBC (with Diff) (11/07/2012) [facility] gist Method Time Signature WBC 3.6 (External Lab) Hemoglobin 12.9 12.0 - (External 16.0 Lab) Hematocrit 40.0 36.0 - (External 46.0 Lab) Platelets 257 (External Lab) Neutrophil % 58 (External Lab) Neutr Abs (ANC) 2,100 (External Lab) Specimen (Source) Anatomical Location Collection Method / Collectio n Time Received Time / Laterality Volume Blood specimen 11/07/2012 (specimen) Sebastian Ledezma MD HEMATOLOGY ORDERABLES documented in this encounter Visit Diagnoses Not on filedocumented in this encounter Care Teams Recruitment Manager Relationship Specialty Start Date End Date Caitlin Callahan MD PCP - General 07/08/[address] [place] [address] documented as of this encounter
--- OUTSIDE RECORDS SUMMARY | 2022-03-05 00:38 | XMS_ITS | Encounter Summary ---
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) [facility] [address] [place] OBSTETRICS & [address] GYNECOLOGY [phone] [place], [place] [address] (Wo rk) Social History Tobacco [...] Sign Reading Time Taken Comments Blood Pressure 110/75 11/01/2012 8:13 AM EDT Pulse 64 11/01/2012 8:13 AM EDT Temperature 36.5 ??C (97.7 ??F) 11/01/2012 8:13 AM EDT Respiratory Rate 20 11/01/2012 8:13 AM EDT Oxygen Saturation - - Inhaled Oxygen Concentration - - Weight 68 kg (149 lb 14.6 oz) 11/01/2012 8:13 AM EDT Height - - Body Mass Index 22.14 10/24/2012 2:19 PM EDT documented in this encounter Progress Notes Brooke Feng E - 11/01/2012 10:18 AM EDT Division [place] [address] PreChemotherapy Visit: Patient Active Problem List Diagnoses Code ??? 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 With her primary visualizer, the plan was made to proceed to c supra-cervical hysterectomy and RSO for presumed dermoid, [...] oophorectomy and pelvic and para-aortic lymphadenectomy at [facility] IP port was placed on 10-24-2012 Subjective: Dunia Hoyos comes to the office today before cycle # 1 of IP /IV Cisplatin/Paclitaxel, day 1, day 8 for ovarian cancer. She reports that after IP port placement, she experienced intermittent shootingpain to the right shoulder for a few days. Advil helped, and the pain has now resolved. Plan is for a medi- port next Wednesday before day 8 chemotherapy. She is otherwise feeling back to pre-surgery baseline. She would like to work as much as possible during chemotherapy. She has a sit down job, with nophysical requirements other than sitting and standing. Performance status is 0 Review of Systems 6 point review is o/w negative Objective: Filed Vitals: 11/01/12 0813 BP: 110/75 Pulse: 64 Temp: 36.5 ??C (97.7 ??F) Resp: 20 General: Dunia Hoyos appears well. she is appropriate in her dress and demeanor Abdomen: soft and non tender. Incision sites are clean and dry. IP port intact and w/o erythema. Labs: Are reviewed and are acceptable for chemotherapy Assessment and Plan: Dunia Hoyos is a 47 y.o. year old with ovarian cancer who is here today for cycle 1 of 6 IP/IV cisplatin and paclitaxel. No dose-limiting toxicities, will proceed with chemotherapy today as scheduled. Lab slips given. Chemotherapy teaching reviewed. Prescriptions written and reviewed with Dunia. C3 weeks for next cycle. documented in this encounter Plan of Treatment Not on filedocumented as of this encounter Visit Diagnoses Diagnosis Ovarian cancer - Primary Malignant neoplasm of ovary documented in this encounter Care Teams Form Designer Relationship Specialty Start Date End Date Caitlin Callahan MD PCP - General 07/08/[address] [place] [address] documented as of this encounter
--- OUTSIDE RECORDS SUMMARY | 2022-03-05 00:38 | XMS_ITS | Encounter Summary ---
:1965 Author Organization [facility] [place] [address] Care Team Providers Name Role Phone Caitlin Callahan MD Primary Care Provider Encounter Details Date Type Department Care Team Description 10/24/2012 Hospital Encounter Same Day Program at [place], Phi Thakkar MD Ovarian ca [facility] [place] [address] [place] [address] [phone] Social History Tobacco Use Types Packs/Day Years [...] Sign Reading Time Taken Comments Blood Pressure 127/74 10/24/2012 6:00 PM EDT Pulse 60 10/24/2012 6:00 PM EDT Temperature 36.7 ??C (98.1 ??F) 10/24/2012 5:00 PM EDT Respiratory Rate 16 10/24/2012 6:00 PM EDT Oxygen Saturation 100% 10/24/2012 6:00 PM EDT Inhaled Oxygen Concentration - - Weight 67.1 kg (148 lb) 10/24/2012 2:19 PM EDT Height 175.3 cm (5' 9) 10/24/2012 2:19 PM EDT Body Mass Index 21.86 10/24/2012 2:19 PM EDT documented in this encounter Discharge Instructions Discharge InstructionsBecca Brown RN - 10/24/2012 5:06 PM EDT POST ANESTHESIA INSTRUCTIONS Go home, rest, use caution on stairs. Change positions slowly. Do not smoke if you are alone. Diet light to regular as tolerated today. If nausea occurs start with clear liquids and progress slowly. No driving, operating machinery, alcoholic beverages and no important decisions for 24 hours. Monitor IV site for signs and symptoms of infection: increasing redness, swelling, foul drainage, ifoccurs contact M.D. Patients who have had endotrachial tubes (this tube, used by anesthesia department, is passed down your throat after you are asleep, to ensure safe air passage during your operation). A sore throat is normal due to the tube. Cold liquids or soothing lozenges will help ease the discomfort. The generalized muscle aches are due to the medication given to you just before the tube is inserted. As the medication wears off, you may develop muscle soreness, which usually goes away in 12-24 hours. Patient InstructionsAntonio Rinaldi MD - 10/24/2012 4:58 PM EDT PATIENT DISCHARGE INSTRUCTIONS Gynecology Oncology phone number: [phone] Call your doctor if you develop: --A fever over 101 degrees --Severe pain --Increasing pain, redness, or discharge at your incision Activity level: No heavy lifting, pushing or pulling for 2 weeks. Diet: You may resume your regular diet. Be sure you drink plenty of fluids. Please use pericolace 1-4 tabs twice daily for the entire time that you are taking pain medication to keep your bowel movements soft and regular. If you are constipated or have not had a bowel movement in 3 days, please use milk of magnesia (or miralax) as directed over the counter. Driving: Do not drive until you are off of all narcotic medications and you are not feeling pain; usually about 2 weeks. Shower/Bath: Showering is fine. Short baths are OK but you should avoid having any abdominal incision submerged for more than 10-15 minutes for the next 2 weeks. Wound Care: Your skin is closed with skin adhesive (derma-flex) which does not require special care.It will peel-off on its own in the next 1-2 weeks.You have stitches just under the skin and these will dissolve on their own over the next couple of weeks. They do not need to be removed or altered. Pain medications include percocet and motrin Please use motrin 600 mg every 6 hours with food around the clock for the next several days and then after that use it only as needed. Please use the percocet every 4-6 hours as needed for pain that breaks through the motrin. Percocet contains tylenol. Do not exceed 4gms of tylenol in 24 hours Follow-up for scheduled appointment in Contact Lens Inspector/Oncology clinic 11/01 at 8:00 AM in [facility] 3K documented in this encounter Medications at Time [...] for Pain. documented as of this encounter H&P Notes Sebastian Coy MD - 10/24/2012 2:18 PM EDT Inpatient GROCERY CARRIER - Admission Interval Note I have reviewed the pre-procedure H&P completed by Dr. Coy on 10/12/2012. (x) Condition unchanged since H&P originally performed. Interval Note: Patient seen in same day area. Chart, meds, allergies reviewed. No changes since postop visit. A copy of this document will be sent to the patient's Primary Care Physician and/or Referring Physician. ANTONIO RINALDI MD 10/24/2012 Staff Addendum: I saw and evaluated the patient with Dr. Rinaldi (engineer of system development resident). I independently confirmed the resident's history and physical findings, and I reviewed the pertinent data. The assessment and plan were formulated in discussion with me, as outlined in the above note, and I agree with the note as written. Sebastian Coy MD documented in this encounter Miscellaneous Notes Miscellaneous - Provider, Scanning - 10/24/2012 11:13 PM EDT Op Note - Antonio Rinaldi MD - 10/24/2012 5:04 PM EDT Operative Note Patient Name: Dunia Hoyos : [id number] MR#: [id number] Case Date: 10/24/2012 Surgeon: Surgeon(s) and Role: * Sebastian Coy MD - Primary * Antonio Rinaldi MD - Resident-Surgeon Brett Preoperative diagnosis: OVARIAN CANCER Postoperative diagnosis: OVARIAN CANCER Procedure(s): LAPAROSCOPY, INSERTION INTRAPERITONEAL CHEMOTHERAPY CATHETER Anesthesia: General Findings: Normal abdomen, no adhesions. Complications: none. Fluids: 500 ml. Estimated Blood Loss: 0 ml. (none). Urine Output: None recorded Drains: none Disposition: awakened from anesthesia, extubated and taken to the recovery room in a stable condition, having suffered no apparent untoward event. Condition: doing well without problems : 1965 Indications and Consent: The patient presented for planned laparoscopic intraperitoneal chemotherapy port placement for a known history of stage IIIA ovarian cancer, optimally debulked, for IP/IV chemotherapy. She understood the risks, benefits, and alternatives of the procedure and wished to proceed, having signed the consent form. Procedure: The patient was taken to the Operating Room where she was placed in the dorsal supine position. She was prepped and draped in the usual sterile fashion. A time-out was performed with all members of the team in agreement. A skin wheal was made with 0.25% Sensorcaine at the site of previous left upper quadrant laparoscopic port. A 5-mm skin incision was made and the 5-mm laparoscopic trocar was introduced under direct visualization with the laparoscope. Intraabdominal placement was confirmed with the laparoscopic and insufflation with 15 mmHg of CO2 gas was obtained. Intraabdominal survey revealed normal-appearing liver and stomach and bowels with no evident intraabdominal adhesive disease. A second 5-mm laparoscopic trocar was placed in an identical fashion to the first in the left upper quadrant approximately 3 mm inferolateral to the prior port site placement at the site of previous laparoscopic port scar. A 3 cm transverse skin incision was made in the right upper quadrant over the site of a prior laparoscopic port scar after injection with local anesthesia. The incision was carried down to the fascia in the midline using the Bovie for hemostasis. The fascia was exposed superiorly and inferiorly to allow space for the intraperitoneal port catheter. A 3-mm incision was then made in the right lower quadrant approximately 10 cm inferior to the 3-cm incision, and the tunneling device was used to tunnel the IV port catheter through this incision. A needle was then used under direct laparoscopic visualization to introduce the needle through the abdominal wall at this site. A guidewire was advanced over the needle and the 10-Maldivian dilator was advanced over the guidewire. The guidewire was removed, and the 9.6-Maldivian open-ended, single-lumen catheter was cut to 40 cm and advanced through this incision. The laparoscopic blunt grasper was used to grasp and pull the catheter and pull the catheter Through the incision. The dilator was removed from the catheter. The catheter was then flushed and saline was noted to leave the catheter without difficulty. 2-0 Prolene suture was used to tie down the IP port to the fascia at the 6 and 9 o'clock locations. A total of two interrupted 4-0 Vicryl sutures were used to close Yuriy fascia over the port. The pneumoperitoneum was then evacuated. The laparoscopic ports were removed. The port sites were closed with subcuticular 4-0 Vicryl suture for excellent hemostasis and covered with DermaFlex. The patient tolerated the procedure well. All counts were correct times two. The patient was awakened from anesthesia and taken to the Recovery Room in stable condition postoperatively. There were no complications. Dr. Coy, attending, was present for the entire procedure without conflicting clinical responsibility. Brief Op Note - Sebastian Coy MD - 10/24/2012 4:44 PM EDT Brief Operative Note Patient Name: Dunia Hoyos : [id number] MR#: [id number] Case Date: 10/24/2012 Surgeon: Surgeon(s) and Role: * Sebastian Coy MD - Primary * Antonio Rinaldi MD - Resident-Surgeon Brett Preoperative diagnosis: OVARIAN CANCER Postoperative diagnosis: OVARIAN CANCER Procedure(s): LAPAROSCOPY, INSERTION INTRAPERITONEAL CHEMOTHERAPY CATHETER Anesthesia: General Findings: Normal abdomen, no adhesions. Complications: none. Fluids: 500 ml. Estimated Blood Loss: 0 ml. (none). Drains: none Disposition: awakened from anesthesia, extubated and taken to the recovery room in a stable condition, having suffered no apparent untoward event. Condition: doing well without problems (Please see the Surgical Encounter Summary for any Implant and Specimen details pertinent to this patient.) OR Attestation - Sebastian Coy MD - 10/24/2012 4:44 PM EDT Attestation: Case Date: 10/24/2012 I was present and I participated during the entire procedure (does not need to include opening and closing). SEBASTIAN COY MD 10/24/2012 Miscellaneous - Shayne Sawyer - 10/24/2012 2:26 PM EDT documented in this encounter Plan of Treatment Not on filedocumented as of this encounter Procedures Procedure Name Priority Date/Time Associated Comments Diagnosis LAPAROSCOPY, INSERTION Yes 10/24/2012 3:40 PM OVARIAN CANC ER PERITONEAL DIALYSIS EDT CATHETER (WRVU 6.32) DIFFERENTIAL, Routine 10/24/2012 2:05 PM Results for this AUTOMATED EDT procedure are i n the results section. CBC (WITH DIFF) Routine 10/24/2012 2:05 PM Ovarian ca Result s for this EDT procedure are i n the results section. CANCER ANTIGEN 125 Routine 10/24/2012 2:05 PM Ovarian ca Res ults for this EDT procedure are i n the results section. ALKALINE PHOSPHATASE Routine 10/24/2012 2:05 PM Ovarian ca R esults for this EDT procedure are i n the results section. MAGNESIUM Routine 10/24/2012 2:05 PM Ovarian ca Results f or this EDT procedure are i n the results section. COMPREHENSIVE Routine 10/24/2012 2:05 PM Ovarian ca Results for this METABOLIC PANEL EDT procedure ar e in (NON-FASTING) the results section. documented in this encounter Results Differential, Automated (10/24/2012 2:05 PM EDT) P athologist Signature Neutrophils % 53.9 34.0 - CERNER 71.0 % MILLENNIUM Neutr Abs (ANC) 2.14 1.50 - CERNER 6.30 MILLENNIUM x10(3)/mcL Lymphocytes % 36.5 19.0 - CERNER 53.0 % MILLENNIUM Lymphocytes Abs 1.4 1.0 - 3.6 CERNER x10(3)/mcL MILLENNIUM Monocytes % 7.1 4.0 - 13.0 CERNER % MILLENNIUM Monocyte Abs 0.3 0.2 - 1.0 CERNER x10(3)/mcL MILLENNIUM Eosinophils % 2.0 0.0 - 7.0 CERNER % MILLENNIUM Eosinophils Abs 0.1 0.0 - 0.5 CERNER x10(3)/mcL MILLENNIUM Basophils % 0.5 0.0 - 2.0 CERNER % MILLENNIUM Basophils Abs 0.0 0.0 - 0.2 CERNER x10(3)/mcL MILLENNIUM Immature Gran % 0.00 0.00 - CERNER 0.66 % MILLENNIUM Comment: Immature granulocytes(IG's)percentage an d absolute count will include metamyelocytes, myelocytes, and promyelo cytes. Blood smears from CBCs yielding IG's will be scanned manually for concor dance. If this scan disagrees with the automated IG or if promyelocytes are not ed, a manual differential will be performed. Marilee Gran Abs 0.00 0.00 - 0.05 x10(3)/mcL [facility] Specimen Anatomical Collection Method Collection Time Receive d Time (Source) Location / / Volume Laterality Blood specimen 10/24/2012 2:05 PM 013 2:18 (specimen) EDT PM EDT Sebastian Coy MD HEMATOLOGY ORDERABLES Performing Organization Address City/[facility] Code Phon e Number [address] [facility] Cancer Antigen 125 (10/24/2012 2:05 PM EDT) P athologist Signature CA 125 19 <=20 u/ml [facility] Specimen Anatomical Collection Method Collection Time Receive d Time (Source) Location / / Volume Laterality Blood specimen 10/24/2012 2:05 PM 013 8:14 (specimen) EDT AM EDT Resulting Agency Comment Spec In Lab Sebastian Coy MD CHEMISTRY ORDERABLES Performing Organization Address City/[facility]/ZIP Code Phon e Number [address] [facility] Alkaline Phosphatase (10/24/2012 2:05 PM EDT) P athologist Signature Alk Phos 59 40 - 104 CERNER unit/L [facility] Specimen Anatomical Collection Method Collection Time Receive d Time (Source) Location / / Volume Laterality Blood specimen 10/24/2012 2:05 PM 013 2:18 (specimen) EDT PM EDT Resulting Agency Comment Spec In Lab Sebastian Coy MD CHEMISTRY ORDERABLES Performing Organization Address City/[facility] Phon e Number [address] [facility] Magnesium (10/24/2012 2:05 PM EDT) P athologist Signature Magnesium 0.85 0.69 - 1.07 CERNER mmol/L MILLENNIUM Specimen Anatomical Collection Method Collection Time Receive d Time (Source) Location / / Volume Laterality Blood specimen 10/24/2012 2:05 PM 013 2:18 (specimen) EDT PM EDT Resulting Agency Comment Spec In Lab Sebastian Coy MD CHEMISTRY ORDERABLES Performing Organization Address City/State/ZIP Code Phon e Number [place] [phone] CERNER MILLENNIUM Comprehensive metabolic panel (non-fasting) (10/24/2012 2:05 PM EDT) athologist Signature Glucose Lvl 83 60 - 199 CERNER mg/dL MILLENNIUM Comment: Diabetes: >=200 mg/dL plus symp toms BUN 15 8 - 18 mg/dL CERNER MILLENNIUM Creatinine 0.96 0.70 - 1.20 mg/dL CERNER MILL ENNIUM Comment: Please note that the pediatric reference intervals supplied above were not validated at [facility]. Results from pediatri c patients should be [...] Total Bilirubin 0.5 0.2 - 1.3 mg/dL DVAONTE Oscar ILLENNIUM Bili, Direct 0.1 0.0 - 0.3 mg/dL DAVONTE HERNANDEZ ENNIUM Estimated GFR >60 >=60 DAVONTE WALKERU M Comment: The National Kidney Disease Education [...] disease. References: http://nkdep.nih.gov/resources/NKDEP_Sug gestn4Labs_0606_508.pdf http://www.kidney.org/professionals/kls/ pdf/faq_gfr.pdf Roxana K, Josy NA, Magnus AK, Cory TS, Luz [...] Comment Spec In Lab Sebastian Coy MD CHEMISTRY ORDERABLES Performing Organization Address City/[facility]/[place] [address] CERNER MILLENNIUM (ABNORMAL) CBC [...] Comment Spec In Lab Sebastian Coy MD HEMATOLOGY ORDERABLES Performing Organization Address City/[facility]/ZIP Code Phon e Number [address] CERNER MILLENNIUM documented in this encounter Visit Diagnoses Diagnosis Ovarian ca Malignant neoplasm of ovary documented in this encounter Administered Medications Inactive Administered Medications - up to 3 most recent administrations Medication Order MAR Action Action Date Dose Rate Site acetaminophen (TYLENOL) 325 mg Given 10/24/2012 6:30 PM EDT 650 mg tablet 1 dose, Starting on Wed10/24/12 at 1816, Until Wed10/24/12 at 1830, BECCA BROWN: cabinet override OXYcodone (ROXICODONE) immediate release tablet Given 10/24/2012 6:24 PM EDT 5 mg 5 mg 5 mg, Oral, EVERY 3 HOURS PRN, Starting on Wed10/24/12 at 1701, Until Wed10/24/12 at 2043, Pain, May repeat once within 30-60 minutes if pain unrelieved., Routine documented in this encounter Active and Recently Administered Medications Due to Daylight Saving Time, this section may contain times in both EST and EDT. PRN Medication Order 10/22/2012 10/23/2012 10/24/2012 BUpivacaine-epiNEPHrine 0.25 %-1:200,000 injection (CANCELED) 1634 (Given - Provider: Sebastian Coy MD) ONCE PRN, Starting Wed10/24/12 at 1634, Until Wed10/24/12 at 2043, Intra- Operative (Intra-Procedure), Routine OXYcodone (ROXICODONE) immediate release tablet 5 mg (CANCELED) 1824 (Given - Provider: Becca Brown, RN) 5 mg, Oral, EVERY 3 HOURS PRN, Starting Wed10/24/12 at 1701, Until Wed10/24/12 at 2043, Pain, May repeat once within 30-60 minutes if pain unrelieved., Routine No Frequency Medication Order 10/22/2012 10/23/2012 10/24/2012 acetaminophen (TYLENOL) 325 mg tablet (COMPLETED) 1830 (Given - Provider: Becca Brown, RN) 1 dose, Starting Wed10/24/12 at 1816, Un til Wed10/24/12 at 1830, BECCA BROWN: cabinet override documented in this encounter Care Teams Soup Mixer Relationship Specialty Start Date End Date Caitlin Callahan MD PCP - General 07/08/[address] [place] [address] documented as of this encounter
--- OUTSIDE RECORDS SUMMARY | 2022-03-05 00:38 | XMS_ITS | Encounter Summary ---
:1965 Author Organization [facility] [place] [address] Care Team Providers Name Role Phone Caitlin Callahan MD Primary Care Provider Reason for Visit Reason Onset Date Comments Prior Authorization 11/02/2012 Encounter Details Date Type Department Care Team Description 11/02/2012 Telephone Gynecology Oncology at [facility], Prior Authorization [facility] [place] [address] Social History Tobacco Use Types Packs/Day [...] Telephone Encounter - Arianne Caruso RN - 11/02/2012 9:48 AM EDT Prior auth approved for ondansetron 8mg every 8 hours prn #20 a month. documented in this encounter Plan of Treatment Not on filedocumented as of this encounter Visit Diagnoses Not on filedocumented in this encounter Care Teams Medical Assistant Supervisor Relationship Specialty Start Date End Date Caitlin Callahan MD PCP - General 07/08/[address] [place] [address] documented as of this encounter
--- OUTSIDE RECORDS SUMMARY | 2022-03-05 00:38 | XMS_ITS | Encounter Summary ---
:1965 Author Organization [facility] [place] [address] Care Team Providers Name Role Phone Caitlin Callahan MD Primary Care Provider Encounter Details Date Type Department Care Team Description 10/24/2012 Surgery Main Operating Room Sebastian Coy MD LAPAROSCOPY, INSERTION [facility] PERITONEAL DIALYSIS [facility] DR AWAD (WRVU 6.32) [facility] GYNECOLOGY ON [id number] [place] [address] [phone] Social History Tobacco Use Types Packs/Day Years [...] Sign Reading Time Taken Comments Blood Pressure 135/80 10/24/2012 5:30 PM EDT Pulse 56 10/24/2012 5:30 PM EDT Temperature 36.7 ??C (98.1 ??F) 10/24/2012 5:00 PM EDT Respiratory Rate 16 10/24/2012 5:30 PM EDT Oxygen Saturation 100% 10/24/2012 5:30 PM EDT Inhaled Oxygen Concentration - - [...] PATIENT DISCHARGE INSTRUCTIONS Gynecology Oncology phone number: [phone] Call your doctor if you develop: --A [...] 24 hours Follow-up for scheduled appointment in Supervisor Patching/Oncology clinic 11/01 at 8:00 AM in [facility] 3K documented in this encounter Medications [...] MD - 10/24/2012 2:18 PM EDT Inpatient STATION HELPER - Admission Interval Note I have reviewed [...] and evaluated the patient with Dr. Rinaldi (client renewal specialist resident). I independently confirmed the resident's history [...] Operative Note Patient Name: Dunia Hoyos : [id number] MR#: [id number] Case Date: 10/24/2012 Surgeon: Surgeon(s) and Role: [...] was advanced over the needle and the 10-Mongolian dilator was advanced over the guidewire. The guidewire was removed, and the 9.6-Mongolian open-ended, single-lumen catheter was cut to 40 [...] Operative Note Patient Name: Dunia Hoyos : [id number] MR#: [id number] Case Date: 10/24/2012 Surgeon: Surgeon(s) and Role: [...] Gran Abs 0.00 0.00 - 0.05 x10(3)/mcL [facility] Specimen Anatomical Collection Method Collection Time Receive d Time (Source) Location / / Volume Laterality Blood specimen 10/24/2012 2:05 PM 013 2:18 (specimen) EDT PM EDT Sebastian Coy MD HEMATOLOGY ORDERABLES Performing Organization Address City/[facility] Code Phon e Number [address] [facility] Cancer Antigen 125 (10/24/2012 2:05 PM EDT) athologist Signature CA 125 19 <=20 u/ml [facility] Specimen Anatomical Collection Method Collection Time Receive d Time (Source) Location / / Volume Laterality Blood specimen 10/24/2012 2:05 PM 013 8:14 (specimen) EDT AM EDT Resulting Agency Comment Spec In Lab Sebastian Coy MD CHEMISTRY ORDERABLES Performing Organization Address City/[facility] Code Phon e Number [address] [facility] Alkaline Phosphatase (10/24/2012 2:05 PM EDT) athologist Signature Alk Phos 59 40 - 104 CERNER unit/L [facility] Specimen Anatomical Collection Method Collection Time Receive d Time (Source) Location / / Volume Laterality Blood specimen 10/24/2012 2:05 PM 013 2:18 (specimen) EDT PM EDT Resulting Agency Comment Spec In Lab Sebastian Coy MD CHEMISTRY ORDERABLES Performing Organization Address City/[facility] [place] [address] [facility] Magnesium (10/24/2012 2:05 PM EDT) athologist Signature Magnesium 0.85 0.69 - 1.07 CERNER mmol/L [facility] Specimen Anatomical Collection Method Collection Time Receive d Time (Source) Location / / Volume Laterality Blood specimen 10/24/2012 2:05 PM 013 2:18 (specimen) EDT PM EDT Resulting Agency Comment Spec In Lab Sebastian Coy MD CHEMISTRY ORDERABLES Performing Organization Address City/State/ZIP [place] [address] CERNER [facility]ENNIUM Comprehensive metabolic panel (non-fasting) (10/24/2012 2:05 PM EDT) athologist Signature Glucose Lvl 83 60 - 199 CERNER mg/dL [facility] Comment: Diabetes: >=200 mg/dL plus symp toms BUN 15 8 - 18 mg/dL CERNER MILLENNIUM Creatinine 0.96 0.70 - 1.20 mg/dL CERNER MILL ENNIUM Comment: Please note that the pediatric reference intervals supplied above were not validated at [facility]. Results from pediatri c patients should be [...] Total Bilirubin 0.5 0.2 - 1.3 mg/dL DAVONTE M ILLENNIUM Bili, Direct 0.1 0.0 - 0.3 mg/dL CERNER MILL ENNI[facility] Estimated GFR >60 >=60 CERBENITA GAMEZIU M Comment: The National Kidney Disease Education [...] Organization Address City/State/[place]IP [place] [address] CERNER MILLENNIUM (ABNORMAL) CBC [...] Coy MD HEMATOLOGY ORDERABLES Performing Organization Address City/[facility]/[place]IP [place] [address] CERNER MILLENNIUM documented in this encounter Visit Diagnoses Not on filedocumented in this encounter Administered Medications Inactive Administered Medications - up to 3 most recent administrations Medication Order MAR Action Action Date Dose Rate Site acetaminophen (TYLENOL) 325 mg Given 10/24/2012 6:30 PM EDT 650 mg tablet 1 dose, Starting on Wed10/24/12 at 1816, Until Wed10/24/12 at 1830, BECCA BROWN: cabinet override BUpivacaine-epiNEPHrine 0.25 Given 10/24/2012 4:34 PM 7.5 mLs 19- Surgical Site %-1:200,000 injection EDT ONCE PRN, Starting on Wed10/24/12 at 1634, Until Wed10/24/12 at 204, Intra-Operative (Intra-Procedure), Routine OXYcodone (ROXICODONE) immediate release tablet Given 10/24/2012 6:24 PM EDT 5 mg 5 mg 5 mg, Oral, EVERY 3 HOURS PRN, Starting on Wed10/24/12 at 1701, Until Wed10/24/12 at 2042, Pain, May repeat once within 30-60 minutes [...] (CANCELED) 1824 (Given - Provider: Becca Brown, JACEY) 5 mg, Oral, EVERY 3 HOURS PRN, Starting Wed10/24/12 at 1701, Until Wed10/24/12 at 2043, Pain, May repeat once within 30-60 minutes if pain unrelieved., Routine No Frequency Medication Order 10/22/2012 10/23/2012 10/24/2012 acetaminophen (TYLENOL) 325 mg tablet (COMPLETED) 1830 (Given - Provider: Becca Brown, JACEY) 1 dose, Starting Wed10/24/12 at 1816, Un til Wed10/24/12 at 1830, BECCA BROWN: cabinet override documented in this encounter Care Teams Tip Cutter Relationship Specialty Start Date End Date Caitlin Callahan MD PCP - General 07/08/[address] [place] [address] documented as of this encounter
--- OUTSIDE RECORDS SUMMARY | 2022-03-05 00:38 | XMS_ITS | Encounter Summary ---
:1965 Author Organization [facility] [place] [address] Care Team Providers Name Role Phone Caitlin Callahan MD Primary Care Provider Encounter Details Date Type Department Care Team Description 11/01/2012 Hospital Encounter Laboratory CLINIC, [facility] Sebastian Ledezma MD [facility] [place] [address] [place] [address] Social History Tobacco Use Types Packs/Day [...] on filedocumented in this encounter Care Teams Return Checker Relationship Specialty Start Date End Date Caitlin Callahan MD PCP - General 07/08/[address] [place] [address] documented as of this encounter
--- OUTSIDE RECORDS SUMMARY | 2022-03-05 00:38 | XMS_ITS | Encounter Summary ---
:1965 Author Organization [facility] [place] [address] Care Team Providers Name Role Phone Caitlin Callahan MD Primary Care Provider Encounter Details Date Type Department Care Team Description 11/08/2012 Hospital Encounter Radiology at [facility] [address] Social History Tobacco Use Types Packs/Day [...] Sign Reading Time Taken Comments Blood Pressure 122/78 11/08/2012 9:15 AM EDT Pulse 70 11/08/2012 9:15 AM EDT Temperature 36.2 ??C (97.2 ??F) 11/08/2012 8:39 AM EDT Respiratory Rate 18 11/08/2012 9:15 AM EDT Oxygen Saturation 99% 11/08/2012 9:15 AM EDT Inhaled Oxygen Concentration - - Weight - - Height - - Body Mass Index - - documented in this encounter Discharge Instructions Discharge InstructionsVal Pereyra RN - 11/08/2012 8:41 AM EDT [facility] Department of Vascular and Interventional Radiology Discharge Instructions for your Chest Port XXX You have received a ???Power Port?? , which provides access for infusions and blood draws. Whatmakes this a ???Power Port?? is the unique ability to ???power inject?? contrast (intravenous dye)through the port when getting a CT scan, which produces superior images (pictures). Patients who don???t have these special ports need to have an IV started if they need dye injected for their CT scan.Your port is printed with the letters ???CT?? which can be detected by x- ray to identify it as a ???Power Port?? . You will be provided with an ID card stating the director of partner marketing and type of port you have. Please carry this with you in a safe place. Bandage: There is a sterile dressing over the port site consisting of small gauze with a clear dressing (Tegaderm or [id number] ). This dressing should be left in place for 48 hours. If the clear dressing becomes loose you should place tape over the edges to secure it in place. Note: If you have steri-strips beneath your dressing, simply allow them to fall off. Do not peel them off. Bathing: Do not take a shower until 48 hours after your port is placed; after this time you may shower with the dressing in place, then remove it and pat your skin dry. After 48 hours, we recommend that you cover the area with Saran Wrap and tape the edges for 1 week while showering, facing away from the shower stream. You may use a bandaid to cover the site after the 48 hours are up if there is any drainage. No tub baths, whirlpools or swimming for one week following port placement. What to expect when your port is accessed: 1. You may feel tenderness the first few times it is accessed but generally this subsides over time.Ask your healthcare provider to use a local anesthetic on the site if discomfort is a problem for you. You may ask for a prescription for a topical cream (EMLA) from your clinician; you may apply at home prior to your appointments, to help numb the skin over your port. 2. The clinician should be wearing sterile gloves and a mask during the access procedure 3. The skin over and 2 inches around the port should be cleaned with a disinfectant 4. Tell the clinician if you would like the skin numbed (lidocaine) before the access needle is placed. 5. Unless you are unable to take heparin (blood thinner), the port should be injected with a heparinsolution before deaccess (at end of each treatment or blood draw). When to call your healthcare provider: If you notice bleeding from the puncture site in your neck, or from the port incision on your chest, you should apply firm pressure over the site for 10-15 minutes, keeping the site covered. Call if you are still bleeding after 10-15 minutes. If you develop pain, redness, drainage or swelling at or around the port site, or the puncture sitein the neck If you develop fever (elevation of more than 2 degrees or greater than 101F) and/or shaking chills When to call the Interventional Radiology Department: Please call with any questions or concerns. Ifit is during regular office hours, please call [phone]. If it is after regular office hours, oron weekends or holidays, please call [phone] and ask to speak to the Under Ground Miner on callfor Interventional Radiology. XXX___ You have received medication during your procedure to help lesson anxiety and keep you comfortable. These medications affect judgement and reaction time. We recommend that you do not drive, operate equipment, sign any important documents, or smoke unattended [...] drainage occurs, please contact your M. D. Revised 08/28/11 documented in this encounter Medications at [...] documented as of this encounter Progress Notes Holley Krueger PA - 11/07/2012 9:21 AM EDT PRE-PROCEDURE VIR NOTE Date of : 1965 Age: 47 y.o. PCP: CAITLIN CALLAHAN MD Referring Physician (if different): Dr. 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 She is now s/p robotic-assisted laparoscopic left salpingo- oophorectomy and pelvic and para-aortic lymphadenectomy 09/22/12 and laparoscopic insertion of intraperitoneal catheter 10/24/12. Needs chest mediport for chemo treatment prior to day 8 cycle #1 of chemotherapy. Pertinent Past Medical/Surgical History: - ovarian cancer Allergies Allergen Reactions ??? Shellfish Derived Nausea And Vomiting Current Outpatient Prescriptions on File Prior to Encounter Medication Sig Dispense Refill ??? ondansetron (ZOFRAN) 8 mg tablet Take 1 tablet by mouth every 8 hours as needed for Nausea for 30 days. 20 tablet 3 ??? prochlorperazine (COMPAZINE) 10 mg tablet Take 1 tablet by mouth every 6 hours as needed for Nausea for 30 days. 30 tablet 0 ??? LORazepam (ATIVAN) 1 mg tablet Take 1 tablet by mouth every 6 hours as needed (place under the tongue as needed for nausea not controlled with zofran and compazine) for 30 days. 30 tablet 2 ??? 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 Medications to discontinue: None Prophylactic antibiotic: Ancef 1 gm Planned access site / position: right chest mediport placement 11/08/12 Addendum: The patient's history and physical exam [...] Classification: II (soft palate, uvula, fauces visible) Jackie Samuels RN - 11/03/2012 1:18 PM EDT [facility] NURSING DATABASE Name: CATALINA PACK Date of : 1965 AGE 47 y.o. Address: [address] [place] [id number] (home) [phone] (work) Mobile: Telephone Information: Referring Provider: Sebastian Ledezma Reason for Visit: MEDIPORT PLACEMENT FOR CHEMO TREATMENT Allergies Allergen Reactions ??? Other (Unclassified Drug) Shellfish= vomiting Pertinent PMH: Patient Active Problem List Diagnoses Code ??? Ovarian cancer 183.0 Pertinent PSH: Past Surgical History Procedure Date ??? Hysterectomy 07/27/12 lsc BUD/RSO for fibroids and ovarian CA ??? Lap, rmv adnexal structure 09/22/2012 LAPAROSCOPY, REMOVAL OF ADNEXA, ROBOT ASSIST performed by Sebastian Ledezma MD at [facility] MA[facility] OR ??? Lap, pelvic lymphadenectomy/bx 09/22/2012 LAPAROSCOPY,W\BILATERAL TOTAL PELVIC LYMPHADENECTOMY, PERIAORTIC LYMPH NODE SAMPLING, ROBOTIC performed by Sebastian Ledezma MD at [facility] OR ??? Lap insert intraperitoneal catheter 10/24/2012 LAPAROSCOPY, INSERTION PERITONEAL DIALYSIS CATHETER performed by Sebastian Ledezma MD at [facility] OR Date/Procedure Comments: 11/08/12 Single Lumen Power Port Ancef 1gm/Versed 4mg/Fent 200mcg. Robel well. Laboratory Results: Lab Results Component Value Date BUN 15 10/24/2012 Lab Results Component Value Date CREATININE 0.96 10/24/2012 Lab Results Component Value Date K 4.1 10/24/2012 Lab Results Component Value Date PLATELET 186 10/24/2012 Medications: Prior to Admission medications Medication Sig Start Date End Date Taking? Authorizing Provider ondansetron (ZOFRAN) 8 mg tablet Take 1 tablet by mouth every 8 hours as needed for Nausea for 30 days. 11/01/12 12/01/12 Brooke Feng APRN prochlorperazine (COMPAZINE) 10 mg tablet Take 1 tablet by mouth every 6 hours as needed for Nausea for 30 days. 11/01/12 12/01/12 Brooke Feng APRN LORazepam (ATIVAN) 1 mg tablet Take 1 tablet by mouth every 6 hours as needed (place under the tongue as needed for nausea not controlled with zofran and compazine) for 30 days. 11/01/12 12/01/12 Brooke Feng APRN OXYcodone-acetaminophen (PERCOCET) 5-325 mg [...] needed for Pain. 10/24/12 Davi Rinaldi MD For outpatient procedures: This patient has been informed that they require a laborer driver to drive them home after this procedure. In the absence of a laborer driver, IR will not be able to perform this procedure and will need to reschedule. Pt verbalized understanding of these instructions during the pre-procedure education via phone. documented in this encounter Procedure Notes Holley Krueger PA - 11/08/2012 8:31 AM EDTProcedure(s): ANISH\JOSE.CATHETER,TUNNELED, WITH SQ PORT OR PUMP OVER 5YR VIR PROCEDURE NOTE: Procedure: Placement of right IJ single lumen chest port (Bard CT POWER PORT) ACC#: [id number] Indication: Ovarian cancer, needs access for chemotherapy TECHNIQUE: After discussing risks (including infection, hemorrhage, occlusion), and benefits, patient consented to the procedure and conscious sedation. A moment of truth was performed and the patient and procedure correctly identified. Due to the painful nature of the procedure, split doses of fentanyl and Versed were administered by the IR nurse during continuous monitoring of pulse, blood pressureand oxygen saturation. After maximal sterile barrier technique preparation of the right neck and upper chest, ultrasound was used to localize the right internal jugular vein. 1% lidocaine SQ was administered for anesthesia, and a 21 ga needle was advanced under ultrasound guidance into the IJ and a 0.018 inch wire was advanced into SVC. A 4 Fr introducer sheath was placed and the wire exchanged for a 0.035 inch wire. Lidocaine was then infiltrated in a caudal-lateral direction, and infiltrated over a 2.5 cm infraclavicular area for pocket creation. A 2 cm incision was made and, with blunt dissection, a pocket created. Port was attached to the catheter, placed into the pocket. A tunneler was then used to bring the catheter through the tunnel to the venotomy site. Venotomy was dilated to accommodate the peel-away sheath, and during breath-hold, the catheter advanced. Sheath was removed. Port flushed and aspirated well. The pocket was closed usinga two layer technique with absorbable suture material (2-0 vicryl deep interrupted and 4-0 monocryl running subcuticular). Skin closed with indermil. Patient tolerated the procedure well. There were noimmediate complications. Port left accessed as requested. MEDICATIONS: Fentanyl 200 mcg IV Versed 4 mg IV Ancef 1 gram IV Lidocaine 1% 10 cc used Contrast: None EBL: < 3 cc Fluoro time: 0.7 minutes. IMPRESSION: US and fluoro guided placement single lumen right IJ CT POWER port, catheter tip in the cavoatrial junction. Port ready for use. Procedure performed by Holley Krueger PA-C Attending: Dr. Muñoz documented in this encounter Plan of Treatment Not on filedocumented as of this encounter Procedures Procedure Name Priority Date/Time Associated Diagnosis Comme nts IR MEDIPORT Routine 11/08/2012 8:23 AM Ovarian cancer Results for this PLACEMENT EDT procedure are i n the results section. documented in this encounter Results IR mediport placement or removal (11/08/2012 8:23 AM EDT) Anatomical Region Laterality Modality X-Ray Angiography Specimen (Source) Anatomical Collection Method Collection Time Re ceived Time Location / / Volume Laterality 11/08/2012 8:23 AM EDT Impressions 11/08/2012 2:33 PM EDT IMPRESSION: US- and fluoro-guided placement of single lumen right IJ CT POWER port, catheter tip in the cavoatrial levy ction. Port ready for use. ?? Procedure performed by Holley Krueger PA-C ?? Attending: Dr. Muñoz Narrative 11/08/2012 2:33 PM EDT VIR PROCEDURE NOTE: ?? Procedure: Placement of right IJ single lumen chest port (Bard CT POWER PORT) ?? ACC#: [id number] ?? Indication: Ovarian cancer, needs access for chemotherapy ?? TECHNIQUE: After discussing risks (inclu ding infection, hemorrhage, occlusion), and benefits, patient consented to the p rocedure and conscious sedation. A moment of truth was performed and the pa tient and procedure correctly identified. Due to the painful nature of the procedure, split doses of fentanyl and Versed were administered by the AXEL tim during continuous monitoring of pulse, blood pressure and oxygen saturat ion. ?? After maximal sterile barrier technique preparation of the right neck and upper chest, ultrasound was used to localize t he right internal jugular vein. 1% lidocaine SQ was administered for anesth esia, and a 21 ga needle was advanced under ultrasound guidance into the IJ an d a 0.018 inch wire was advanced into SVC. A 4 Fr introducer sheath was placed and the wire exchanged for a 0.035 inch wire. Lidocaine was then infiltrate d in a caudal-lateral direction, and infiltrated over a 2.5 cm infraclavicula r area for pocket creation. ?? A 2 cm incision was made and, with blunt dissection, a pocket created. Port was attached to the catheter, placed into th e pocket. A tunneler was then used to bring the catheter through the tunnel to the venotomy site. Venotomy was dilated to accommodate the peel-away she ath, and during breath-hold, the catheter advanced. Sheath was removed. P ort flushed and aspirated well. The pocket was closed using a two-layer tech nique with absorbable suture material (2-0 Vicryl deep interrupted and 4-0 Mon ocryl running subcuticular). Skin closed with indermil. Patient tolerated the procedure well. There were no immediate complications. Port left acces sed as requested. ?? MEDICATIONS: ?? Fentanyl 200 mcg IV ?? Versed 4 mg IV ?? Ancef 1 gram IV ?? Lidocaine 1% 10 cc used ?? Contrast: None ?? EBL: < 3 cc ?? Fluoro Time: 0.7 minutes. ?? Procedure Note Modesto Muñoz MD - 11/08/2012Formattin g of this note might be different from the original. VIR PROCEDURE NOTE: Procedure: Placement of right IJ single lumen chest port (Bard CT POWER PORT) ACC#: [id number] Indication: Ovarian cancer, needs access for chemotherapy TECHNIQUE: After discussing risks (inclu ding infection, hemorrhage, occlusion), and benefits, patient consented to the p rocedure and conscious sedation. A moment of truth was performed and the pa tient and procedure correctly identified. Due to the painful nature of the procedure, split doses of fentanyl and Versed were administered by the AXEL tim during continuous monitoring of pulse, blood pressure and oxygen saturat ion. After maximal sterile barrier technique preparation of the right neck and upper chest, ultrasound was used to localize t he right internal jugular vein. 1% lidocaine SQ was administered for anesth esia, and a 21 ga needle was advanced under ultrasound guidance into the IJ an d a 0.018 inch wire was advanced into SVC. A 4 Fr introducer sheath was placed and the wire exchanged for a 0.035 inch wire. Lidocaine was then infiltrate d in a caudal-lateral direction, and infiltrated over a 2.5 cm infraclavicula r area for pocket creation. A 2 cm incision was made and, with blunt dissection, a pocket created. Port was attached to the catheter, placed into th e pocket. A tunneler was then used to bring the catheter through the tunnel to the venotomy site. Venotomy was dilated to accommodate the peel-away she ath, and during breath-hold, the catheter advanced. Sheath was removed. P ort flushed and aspirated well. The pocket was closed using a two-layer tech nique with absorbable suture material (2-0 Vicryl deep interrupted and 4-0 Mon ocryl running subcuticular). Skin closed with indermil. Patient tolerated the procedure well. There were no immediate complications. Port left acces sed as requested. MEDICATIONS: Fentanyl 200 mcg IV Versed 4 mg IV Ancef 1 gram IV Lidocaine 1% 10 cc used Contrast: None EBL: < 3 cc Fluoro Time: 0.7 minutes. IMPRESSION IMPRESSION: US- and fluoro-guided placem ent of single lumen right IJ CT POWER port, catheter tip in the cavoatrial levy ction. Port ready for use. Procedure performed by Holley Krueger PA-C Attending: Dr. Muñoz Sebastian A West MD IMG IR ORDERABLES documented in this encounter Visit Diagnoses Diagnosis Ovarian cancer Malignant neoplasm of ovary documented in this encounter Administered Medications Inactive Administered Medications - up to 3 most recent administrations Medication Order MAR Action Action Date Dose Rate Site BUpivacaine-epiNEPHrine 0.25 Given 11/08/2012 7:30 AM EDT 50 mLs %-1:200,000 injection 1 dose, Starting on Wed11/08/12 at 0717, Until Wed11/08/12 at 0730, JACKIE RAMOS: cabinet override ceFAZolin (ANCEF) 1g in dextrose New Bag 11/08/2012 7:30 AM ED T 1,000 mg 100 mL/hr 5% 50mL 1,000 mg (1 g), Intravenous, ONCE, 1 dose, On Wed11/08/12 at 0730, Administer over 30 Minutes, Angio/IR (Intra-Procedure), Indication for (Active or Suspected): Prophylaxis fentaNYL 50mcg/mL injection Given 11/08/2012 8:24 AM EDT 200 mcg 25-50 mcg, Intravenous, EVERY 5 MIN PRN, Starting on Wed11/08/12 at 0704, Until Wed11/08/12 at 0825, per protocol, Angio/IR (Intra-Procedure), Routine midazolam (VERSED) injection 0.5-1 mg Given 11/08/2012 8:25 AM EDT 4 mg 0.5-1 mg, Intravenous, EVERY 5 MIN PRN, Starting on Wed11/08/12 at 0704, Until Wed11/08/12 at 0825, per protocol, Angio/IR (Intra-Procedure), Routine documented in this encounter Care Teams Rn On Site Relationship Specialty Start Date End Date Caitlin Callahan MD PCP - General 07/08/[address] [place] [address] documented as of this encounter
--- OUTSIDE RECORDS SUMMARY | 2022-03-05 00:38 | XMS_ITS | Encounter Summary ---
:1965 Author Organization [facility] [place] [address] Care Team Providers Name Role Phone Caitlin Callahan MD Primary Care Provider Reason for Visit Reason Onset Date Comments Results 11/07/2012 Encounter Details Date Type Department Care Team Description 11/07/2012 Telephone Gynecology Oncology at [facility] Arianne Caruso, [place] [address] Social History Tobacco Use Types Packs/Day [...] Telephone Encounter - Arianne Caruso RN - 11/07/2012 11:30 AM EDT Relayed following results to pt Recent Results (from the past 24 hour(s)) CBC (WITH DIFF) Component Value Range WBC 3.6 (*) Hemoglobin 12.9 (*) 12.0 - 16.0 Hematocrit 40.0 (*) 36.0 - 46.0 Platelets 257 (*) Neutrophil % 58 (*) Neutr Abs (ANC) 2100 (*) documented in this encounter Plan of Treatment Not on filedocumented as of this encounter Visit Diagnoses Not on filedocumented in this encounter Care Teams Sharples Machine Operator Relationship Specialty Start Date End Date Caitlin Callahan MD PCP - General 07/08/[address] [place] [address] [address] [place] [address] documented as of this encounter
--- OUTSIDE RECORDS SUMMARY | 2022-03-05 00:38 | XMS_ITS | Encounter Summary ---
:1965 Author Organization [facility] [place] [address] Care Team Providers Name Role Phone Caitlin Callahan MD Primary Care Provider Reason for Visit Reason Onset Date Comments Other 10/13/2012 Encounter Details Date Type Department Care Team Description 10/13/2012 Telephone Gynecology Oncology at [facility] Arianne [place]uso, [place] [address] Social History Tobacco Use Types Packs/Day [...] Telephone Encounter - Arianne Caruso RN - 10/13/2012 8:48 AM EST Phoned pt to give her appointment times and ask her to get labs drawn when she is here 10/24. Messageleft on home phone. documented in this encounter Plan of Treatment Not on filedocumented as of this encounter Visit Diagnoses Not on filedocumented in this encounter Care Teams Public Opinion Survey Taker Relationship Specialty Start Date End Date Caitlin Callahan MD PCP - General 07/08/[address] [place] [address] documented as of this encounter
--- OUTSIDE RECORDS SUMMARY | 2022-03-05 00:38 | XMS_ITS | Encounter Summary ---
:1965 Author Organization [facility] [place] [place] [address] Care Team Providers Name Role Phone Caitlin Callahan MD Primary Care Provider Reason for Visit Reason Onset Date Comments Other 10/24/2012 Encounter Details Date Type Department Care Team Description 10/24/2012 Telephone Gynecology Oncology at [facility] Arianne [place]uso[place] [address] Social History Tobacco Use Types Packs/Day [...] Notes Telephone Encounter - Caron Pham - 10/24/2012 3:24 PM EDT Please sign order documented in this [...] by Holley Krueger PA-C ?? Attending: Dr. Wanda Cárdenas 11/08/2012 2:33 PM EDT VIR PROCEDURE NOTE: ?? Procedure: Placement of right IJ single lumen chest port (Bard CT POWER PORT) ?? ACC#: [id number] ?? Indication: Ovarian cancer, needs access for [...] chest port (Bard CT POWER PORT) ACC#: [id number] Indication: Ovarian cancer, needs access for chemotherapy [...] Holley Krueger PA-C Attending: Dr. Muñoz Sebastian Ledezma MD IMG IR ORDERABLES documented in this encounter Visit Diagnoses Diagnosis Ovarian cancer - Primary Malignant neoplasm of ovary Ovarian cancer Malignant neoplasm of ovary documented in this encounter Care Teams Corner Trimmer Operator Relationship Specialty Start Date End Date Caitlin Callahan MD PCP - General 07/08/[address] [place] [address] documented as of this encounter
--- OUTSIDE RECORDS SUMMARY | 2022-03-05 00:38 | XMS_ITS | Encounter Summary ---
:1965 [place] [address] Care Team Providers Name Role Phone Caitlin Callahan MD Primary Care Provider Encounter Details Date Type Department Care Team Description 10/24/2012 Anesthesia Event Main Operating Room Sarah Doty MD [facility] AN[place]ESIOLOG[place] [address] [facility] Arnoldo Johns MD [facility] [address] [place] [address] [place] [address] Anesthesia Record Procedure Summary Procedure Name Responsible Anesthesia Start Anesthesia Stop Anesthesiologist Time Time LAPAROSCOPYNona Meredith M, MD 10/24/12 1546 10/24/12 17 03 INSERTION PERITONEAL DIALYSIS CATHETER (WRVU 6.32) (N/A Abdomen) Events Date Time Event Comment 10/24/2012 1524 1546 Start 1703 Stop No medications on file. Agents No agents on file. Blood No blood administrations on file. Lines, Drains, and Airways Type Details Placement Removal Incision 09/22/12; abdomen 09/22/12 0000 by Tiera Koch RN Incision 10/24/12; abdomen 10/24/12 0000 by Bharati Paez RN (RETIRED) Port A Cath 10/24/12; 1541; 10/24/12 1541 by Abdomen; Right Rohan Ramos RN PIV 08/10/12; 1427; 08/10/12 1427 by 11/03/12 1326 b y 11/03/12; 1326 Pluta, Val Gross RN Urethral Catheter 09/22/12; indwelling 09/22/12 0000 by 11/03/12 1326 by double lumen catheter; Tiera Koch Menar d, Susan A RN silastic; 16; inserted RN (Inserted from field by Marcia Moore HORTICULTURAL AGENT); drainage bag to dependent drainage; 11/03/12; 1326 PIV 10/24/12; 1432; 10/24/12 1432 by 10/24/12 1840 b y 10/24/12; 1840 Karen Goddard RN Barlow, kaya Singh RN documented in this encounter Social History Tobacco Use Types Packs/Day Years [...] on file documented as of this encounter OR Notes Anesthesia Postprocedure Evaluation - Sarah Castellano MD - 10/24/2012 9:06 PM EDT Patient: Dunia Hoyos Procedure(s) Performed: Procedure(s): LAPAROSCOPY, INSERTION PERITONEAL DIALYSIS CATHETER Patient location: PACU Post-op pain: Adequate analgesia Post-op nausea: no nausea or vomiting Last Vitals: Filed Vitals: 10/24/12 1800 BP: 127/74 Pulse: 60 Temp: Resp: 16 Post-op cardiovascular and respiratory status: is stable Level of consciousness: awake, alert and oriented Complications: no apparent complications, tolerated the procedure well and no evidence of recall Fluid Status: normal Anesthesia Preprocedure Evaluation - Lo Parry MD - 10/24/2012 3:12 PM EDT Today I evaluated Dunia Hoyos a 47 y.o. female. Procedure(s): LAPAROSCOPY, REMOVAL OF ADNEXA, ROBOT ASSIST LAPAROSCOPY,W\BILATERAL TOTAL PELVIC LYMPHADENECTOMY, PERIAORTIC LYMPH NODE SAMPLING, ROBOTIC There are no active problems to display for this patient. No past medical history on file. Past Surgical History Procedure Date ??? Hysterectomy 07/27/12 lsc BUD/RSO for fibroids and ovarian CA ??? Lap, rmv adnexal structure 09/22/2012 LAPAROSCOPY, REMOVAL OF ADNEXA, ROBOT ASSIST performed by Sebastian Ledezma MD at [facility] MAIN OR ??? Lap, pelvic lymphadenectomy/bx 09/22/2012 LAPAROSCOPY,W\BILATERAL TOTAL PELVIC LYMPHADENECTOMY, PERIAORTIC LYMPH NODE SAMPLING, ROBOTIC performed by Sebastian Ledezma MD at [facility] MAIN OR History Substance Use Topics ??? Smoking status: Never Smoker ??? Smokeless tobacco: Not on file ??? Alcohol Use: Not on file rare Allergies Allergen Reactions ??? Other (Unclassified Drug) Shellfish= vomiting Medications: MAR and/or home medications have been reviewed. Physical Exam: There were no vitals filed for this visit. There is no height or weight on file to calculate BMI. Airway Assessment: Mallampati: II TM distance: >3 FB Neck ROM: full Cardiovascular Assessment: cardiovascular exam normal Pulmonary Assessment: pulmonary exam normal Dental Assessment: - normal exam Mis Assessment: IV access: Peripheral line Anesthesia Plan: ASA 3 general, with a(n) intravenous induction 47 y/o female with ovarian cancer for insertion peritoneal dialysis catheter. Plan GA with ETT. Informed Consent: Anesthetic plan and risks discussed with patient and mother. Use of blood products discussed with patient whom consented to blood products. Plan discussed with resident. [facility] Assessment: documented in this encounter Plan of Treatment Not on filedocumented as of this encounter Visit Diagnoses Not on filedocumented in this encounter Care Teams Insulation Board Calender Operator Relationship Specialty Start Date End Date Caitlin Callahan MD PCP - General 07/08/[address] [place] [address] documented as of this encounter
--- OUTSIDE RECORDS SUMMARY | 2022-03-05 00:38 | XMS_ITS | Encounter Summary ---
:1965 Author Organization [facility] [place] [address] Care Team Providers Name Role Phone Caitlin Callahan MD Primary Care Provider Encounter Details Date Type Department Care Team Description 11/01/2012 External Results Hematology and Oncology Mela Ledezma MD at [facility] Aiden porras [place] [address] [place] [address] [phone] (Wo rk) Social History Tobacco Use Types [...] on filedocumented in this encounter Care Teams Railroad Passenger Agent Relationship Specialty Start Date End Date Caitlin Callahan MD PCP - General 07/08/[address] [place] [address] documented as of this encounter
--- OUTSIDE RECORDS SUMMARY | 2022-03-05 00:38 | XMS_ITS | Encounter Summary ---
:1965 Author Organization [facility] [place] [address] Care Team Providers Name Role Phone Caitlin Callahan MD Primary Care Provider Encounter Details Date Type Department Care Team Description 11/08/[address] [facility] [place] [address] Social History Tobacco Use Types Packs/Day [...] on filedocumented in this encounter Care Teams Spring Tier Relationship Specialty Start Date End Date Caitlin Callahan MD PCP - General 07/08/[address] [place], [place] [id number] documented as of this encounter
--- OUTSIDE RECORDS SUMMARY | 2022-03-05 00:38 | XMS_ITS | Encounter Summary ---
:1965 Author Organization [facility] [place] [address] Care Team Providers Name Role Phone Caitlin Callahan MD Primary Care Provider Encounter Details Date Type Department Care Team Description 11/08/2012 Hospital Encounter Hematology [place] [address] Social History Tobacco Use Types Packs/Day [...] on filedocumented in this encounter Care Teams Publicity Manager Relationship Specialty Start Date End Date Caitlin Callahan MD PCP - General 07/08/[address] [place] [address] [address] [place] [address] documented as of this encounter
--- OUTSIDE RECORDS SUMMARY | 2022-03-05 00:38 | XMS_ITS | Encounter Summary ---
:1965 Author Organization [facility] [address] Care Team Providers Name Role Phone Caitlin Callahan MD Primary Care Provider Reason for Visit Reason Comments Ovarian Cancer Chemotherapy IV Paclitaxel and IP Cisplat in Encounter Details Date Type Department Care Team Description 11/01/2012 Hospital Encounter Hematology and Ovarian cancer (Primary Oncology at [facility] [place] [place] [address] Social History Tobacco Use Types Packs/Day [...] documented as of this encounter Progress Notes Emiliana Mclaughlin RN - 11/01/2012 10:29 AM EDT Patient Name: Dunia Hoyos Patient Age: 47 y.o. Birthdate: 1965 Admit date: 11/01/2012 Attending Physician: No att. providers found TIME TREATMENT STARTED: 924 TIME TREATMENT ENDED: 1804 Dunia Hoyos, 47 y.o. female with diagnosis of ovarian cancer is here for chemotherapy infusion of IV Paclitaxel and Intra-peritoneal Cisplatin . PROTOCOL: n/a CYCLE: 1 WEEK: n/a DAY: 1 S: Pt. offers no complaints at this time. This is her first chemo-therapy treatment. O: Chemotherapy orders independently verified for correct drug name, route and dosage per patient's height, weight and BSA by Ankit Mclaughlin RN and onsite pharmacist. Total IV hydration: 2000 cc Total IP hydration: 500 cc Total Urine Output: 3250 cc REACTIONS (DESCRIPTION, TIME, INTERVENTION AND EFFECTIVENESS) none A: Pt. Tolerated treatment well. Dunia Hoyos confirms that all questions and issues have been addressed. TEACHING: Already completed. Main issues reiterated. Ms. Hoyos knows to call with concerns. P: Return to clinic per routine. documented in this encounter Plan of Treatment Not on filedocumented as of this encounter Visit Diagnoses Diagnosis Ovarian cancer - Primary Malignant neoplasm of ovary documented in this encounter Administered Medications Inactive Administered Medications - up to 3 most recent administrations Medication Order MAR Action Action Date Dose Rate Site CISplatin (PLATINOL) 145 mg in New Bag 11/01/2012 2:44 PM 145 mg 1145 mL/hr sodium chloride 0.9% 1,145 mL EDT chemo infusion 145 mg, Intraperitoneal, ONCE, 1 dose, On Wed11/01/12 at 1000, Administer over 60 Minutes, For Intraperitoneal administration only. dexamethasone 20 mg in sodium chloride 0.9% Given 11/01/2012 10:20 AM EDT 20 mg infusion 20 mg, Intravenous, ONCE, 1 dose, On Wed11/01/12 at 1015, Administer over 10 Minutes dextrose 5% and sodium chloride New Bag 11/01/2012 3:40 PM EDT 500 mL/hr 500 mL/hr 0.45% with potassium chloride 20 mEq infusion 500 mL/hr, Intravenous, CONTINUOUS, Starting on Wed11/01/12 at 1015, Until Wed11/01/12 at 1214, Post cisplatin diphenhydrAMINE (BENADRYL) injection 25 mg Given 11/01/2012 10:10 AM EDT 25 mg 25 mg, Intravenous, ONCE, 1 dose, On Wed11/01/12 at 1015, Routine famotidine (PEPCID) injection 20 mg Given 11/01/2012 10:05 AM EDT 20 mg 20 mg, Intravenous, ONCE, 1 dose, On Wed11/01/12 at 1015, Routine fosaprepitant (EMEND) 150 mg in New Bag 11/01/2012 10:31 AM ED T 150 mg 310 mL/hr sodium chloride 0.9% 155 mL infusion 150 mg, Intravenous, ONCE, 1 dose, On Wed11/01/12 at 1000, Administer over 30 Minutes PACLitaxel (TAXOL) 250 mg in New Bag 11/01/2012 11:37 AM EDT 250 m g 180.6 mL/hr dextrose 5% Non-PVC 541.6667 mL chemo infusion 250 mg, Intravenous, ONCE, 1 dose, On Wed11/01/12 at 1000, Administer over 3 Hours palonosetron (ALOXI) injection 0.25 mg Given 11/01/2012 10:17 AM EDT 0.25 mg 0.25 mg, Intravenous, ONCE, 1 dose, On Wed11/01/12 at 1015, Routine sodium chloride 0.9% infusion New Bag 11/01/2012 10:55 AM EDT 500 mLs mL/hr 500 mL, Intraperitoneal, ONCE, 1 dose, On Wed11/01/12 at 1015, Instill into IP port prior to use sodium chloride 0.9% infusion New Bag 11/01/2012 10:15 AM EDT 999 mL/hr 999 mL/hr 999 mL/hr, Intravenous, CONTINUOUS, Starting on Wed11/01/12 at 1015, Until Wed11/02/12 at 1014, Prior to cisplatin documented in this encounter Care Teams Concrete Analyst Relationship Specialty Start Date End Date Caitlin Callahan MD PCP - General 07/08/[address] [place] [address] documented as of this encounter
--- OUTSIDE RECORDS SUMMARY | 2022-03-05 00:38 | XMS_ITS | Encounter Summary ---
:1965 Author Organization [place] [address] Care Team Providers Name Role Phone Caitlin Callahan MD Primary Care Provider Reason for Visit Reason Comments Chemotherapy Encounter Details Date Type Department Care Team Description 11/08/2012 Hospital Encounter Hematology and INFUSION THER APY, MEDS None Ovar[place]cology [place] [facility] Sebastian Ledezma MD [facility] DR [place] [address] (Primary Dx) [place] [id number] Social History Tobacco Use Types Packs/Day Years [...] documented as of this encounter Progress Notes Gracie Rashid RN - 11/08/2012 12:28 PM EDT Patient Name: Dunia Hoyos Patient Age: 47 y.o. Birthdate: 1965 Admit date: 11/08/2012 Attending Physician: Infusion Therapy, Meds TIME TREATMENT STARTED: 1020 TIME TREATMENT ENDED: 1345 Dunia Hoyos, 47 y.o. female with diagnosis of ovarian cancer is here for chemotherapy infusion of IP taxol. CYCLE: 1 DAY: 8 S: Pt. C/o nausea/vomiting. I just had my mediport placed and I'm feeling sick to my stomach, I've vomited twice since I've been here. O: Right port mediport dressing is dry and intact, port has + blood return. Pt vomited x 1 at 1045, clear fluid approximately 100 cc. Premeds given, pt reported feeling better after. Chemotherapy orders independently verified for correct drug name, route and dosage per patient's height, weight and BSAby Janel MARI and onsite pharmacist. Mediport right chest accessed with placement this am, + blood return. Decadron 20mg IV, Benadryl 25mg IV, Pepcid 20mg IV, Ativan 1mg po 500 cc NS IP [id number] IP Right chest mediport deaccessed. Incisions x 2 are WNL with steri strips in place. Sterile dressing placed. Pt instructed to leave dressing on for 48 hours and not to get it wet, steri strips to stay in place until they fall off. REACTIONS (DESCRIPTION, TIME, INTERVENTION AND EFFECTIVENESS) none A: Pt. Tolerated treatment well. Dunia Hoyos confirms that all questions and issues have been addressed. P: Return to clinic per routine. documented in this encounter Miscellaneous Notes Miscellaneous - Provider, Scanning - 11/15/2012 3:18 PM EDT Miscellaneous - Provider, Scanning - 11/15/2012 9:58 AM EDT documented in this encounter Plan of Treatment Not on filedocumented as of this encounter Visit Diagnoses Diagnosis Ovarian cancer - Primary Malignant neoplasm of ovary documented in this encounter Administered Medications Inactive Administered Medications - up to 3 most recent administrations Medication Order MAR Action Action Date Dose Rate Site dexamethasone 20 mg in sodium Given 11/08/2012 10:50 AM EDT 20 m g chloride 0.9% infusion 20 mg, Intravenous, ONCE, 1 dose, On Wed11/08/12 at 1100, Administer over 10 Minutes diphenhydrAMINE (BENADRYL) injection 25 mg Given 11/08/2012 10:47 AM EDT 25 mg 25 mg, Intravenous, ONCE, 1 dose, On Wed11/08/12 at 1100, Routine famotidine (PEPCID) injection 20 mg Given 11/08/2012 10:42 AM EDT 20 mg 20 mg, Intravenous, ONCE, 1 dose, On Wed11/08/12 at 1100, Routine LORazepam (ATIVAN) tablet 1 mg Given 11/08/2012 10:40 AM EDT 1 mg 1 mg, Oral, EVERY 4 HOURS PRN, Starting on Wed11/08/12 at 1032, Until Wed11/09/12 at 0216, Anxiety, Nausea, Vomiting, Routine PACLitaxel (TAXOL) 110 mg in New Bag 11/08/2012 12:13 PM EDT 1 10 mg 1018.3 mL/hr sodium chloride 0.9% Non-PVC 1,018.3333 mL chemo infusion 110 mg, Intraperitoneal, ONCE, 1 dose, On Wed11/08/12 at 1045, Administer over 1 Hours sodium chloride 0.9% infusion New Bag 11/08/2012 11:40 AM EDT 500 mLs mL/hr 500 mL, Intraperitoneal, ONCE, 1 dose, On Wed11/08/12 at 1100, Instill into IP port prior to use documented in this encounter Care Teams Access Liaison Relationship Specialty Start Date End Date Caitlin Callahan MD PCP - General 07/08/[address] [place] [address] documented as of this encounter
--- OUTSIDE RECORDS SUMMARY | 2022-03-05 00:38 | XMS_ITS | Encounter Summary ---
:1965 Author Organization [facility] Address [facility] [place] [address] Care Team Providers Name Role Phone Caitlin Callahan MD Primary Care Provider Reason for Visit Reason Comments Established POST-OP CK Encounter Details Date Type Department Care Team Description 10/12/2012 Office Visit Gynecology Oncology Sebastian Ledezma MD Malignant neoplasm of at [facility] (Primary Dx) [facility] [address] GYNECOLOGY [place], [place] ONCOLOGY [address] [place] [address] [phone] Social History Tobacco Use Types Packs/Day Years [...] Sign Reading Time Taken Comments Blood Pressure 118/71 10/12/2012 1:00 PM EST Pulse - - Temperature 36.8 ??C (98.2 ??F) 10/12/2012 1:00 PM EST Respiratory Rate - - Oxygen Saturation - - Inhaled Oxygen Concentration - - Weight 68.2 kg (150 lb 5.7 oz) 10/12/2012 1:00 PM EST Height 176 cm (5' 9.29) 10/12/2012 1:00 PM EST Body Mass Index 22.02 10/12/2012 1:00 PM EST documented in this encounter Progress Notes Merlyn Jack MD - 10/12/2012 1:19 PM EST GYNECOLOGIC ONCOLOGY-CLINIC NOTE Reason for Visit: Post-op check, discuss pathology results and plan. History of Present Illness: Dunia Hoyos is a 47 y.o. female who was originally referred for evaluation of post-operatively identified ovarian cancer. Dunia had pain in RLQ off and on, no pattern, for2-3 years. After a severe episode, she went to ED for evaluation in late April 2012, had a f/u US which showed ovarian mass and small fibroids, then had CT and second US. With her primary atg java developer, the plan was made to proceed to [facility] supra-cervical hysterectomy and RSO for presumed dermoid, [...] as 183. Dunia was subsequently referred to [facility] for management.A pre-op CT Abdomen/Pelvis on 08/10/2012 revealed no evidence of gross metastatic disease. On 09/22/12 she underwent: robotic-assisted laparoscopic left salpingo- oophorectomy and pelvic and para-aortic lymphadenectomy, and multiple staging biopsies. She was discharged the same day. Today, she says that she is eating well without changes in appetite. Denies any abdominal or pelvic pain. Denies vaginal bleeding or discharge. No change in bowel or bladder function. No hospitalization, ED visits or new medications since last visit. Review of Systems: Six systems reviewed, otherwise negative. Physical Exam: Filed Vitals: 10/12/12 1300 BP: 118/71 Temp: 36.8 ??C (98.2 ??F) TempSrc: Oral Height: 176 cm (5' 9.29) Weight: 68.2 kg (150 lb 5.7 oz) Gen: Well appearing woman, in no distress HEENT: Normal hair distribution. Pupils are equal and reactive. Sclerae without icterus. Extraocularmuscles intact. Oropharynx is moist with no lesion. Neck: supple. No lymphadenopathy. Lungs: clear to auscultation bilaterally. Heart: regular rate and rhythm, no murmurs. Breast exam: deferred. Abdomen: Flat, soft, nontender. Well-healed incision scars from laparoscopic ports. No masses, organomegaly, ascites or tenderness. The inguinal nodes are not enlarged. Pelvic exam: deferred Extremities: No edema. Pathology: A - Left bladder serosa, biopsy: 1 - Microscopic non-invasive implants of micropapillary serous carcinoma, low grade, associated withpsammoma bodies 2 - Focal foreign body reaction with chronic inflammation. B - Anterior bladder serosa, biopsy: Microscopic non-invasive implants of micropapillary serous carcinoma, low grade, associated with psammoma bodies C - Right bladder serosa, biopsy: Fibrous [...] non-invasive implants of micropapillary serous carcinoma, low-grade J - Left ovary, excision: 1 - Micropapillary serous tumor, left ovary 2 - Corpus luteum. Impression/Plan: This is a 47 y.o. 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 She has a normal exam today. This newer category of ovarian tumor tends to be more aggressive than the more common serous borderline tumors the ovary, and is relatively uncommon. Prospective studies in the management of this disease are lacking. Retrospective studies show that chemotherapy may have some role in the treatment of this disease, especially with advanced stage. The most significant adverse prognostic factor is residual tumor following surgery, and fortunately she has no gross residual disease. These low-grade tumor sent to be less chemotherapy sensitive than the more common higher grade ovarian variants. I reviewed the above with Dunia today, discussing her options. The first is adjuvant chemotherapy, and I would recommend IV/IP cisplatin/paclitaxel, with the goal of treating any residual microscopic cancer, as she certainly has microscopic residual disease. Alternatively, she could undergo surveillance, and chemotherapy, or potentially surgery, could be used for relapse, should it occur. I favor theformer approach, as chemotherapy is more successful in treating lower volume disease. Dunia had an opportunity to ask questions, as did her family members, and she would like to proceed with adjuvant chemotherapy. Surgical consent is obtained today. Therefore, she will undergo laparoscopic placement of an intraperitoneal chemotherapy catheter, placement of an IV Mediport, and we'll begin chemotherapy shortly thereafter.The patient understands thatshe will be treated with [place] and taxane chemotherapy. The anticipated side effects of this treatment include: alopecia, nausea, vomiting, cyclic decreases in the white blood cell count, anemia, fatigue, numbness and tingling in the fingers and toes that is partially reversible,constipation, possible hypersensitivity reaction, possible skin rash. She has had the opportunity to ask questions. She will follow up for additional education and prescriptions after the above procedures. Pt seen and plan DW Dr. Darien JACK MD PGY2 OBYGN 10/12/12 I saw and evaluated the patient with Dr. Jack, and I confirmed the history and physical findings asoutlined, and I agree with the note as written. Total visit time 55 minutes, of which 30 minutes [id number] counseling and coordination of care. documented in this encounter Plan of Treatment Not on filedocumented as of this encounter Visit Diagnoses Diagnosis Malignant neoplasm of ovary - Primary documented in this encounter Care Teams Political Consultant Relationship Specialty Start Date End Date Caitlin Callahan MD PCP - General 07/08/[address] [place], [place] [address]Y [facility] [address] [place] [address] documented as of this encounter
--- OUTSIDE RECORDS SUMMARY | 2022-03-05 00:39 | XMS_ITS | Encounter Summary ---
:1965 Author Organization [facility] [place] [address] Care Team Providers Name Role Phone Caitlin Callahan MD Primary Care Provider Encounter Details Date Type Department Care Team Description 08/10/[address] [place] [facility] [place] [address] Social History Tobacco Use Types Packs/Day [...] Take 1 tablet by 30 tablet 2 02/201310/24/2012 tablet mouth every 6 hours as needed for Pain. documented as of this encounter Plan of Treatment Not on filedocumented as of this encounter Procedures Procedure Name Priority Date/Time Associated Diagnosis Comme nts CT ABDOMEN AND Routine 08/10/2012 2:40 PM Ovarian cancer Resul ts for this PELVIS W CONTRAST EST procedure are in the results section. documented in this encounter Results CT abdomen & pelvis with contrast (08/10/2012 2:40 PM EST) Anatomical Region Laterality Modality Abdomen, Pelvis Computed Tomography Specimen (Source) Anatomical Collection Method Collection Time Re ceived Time Location / / Volume Laterality 08/10/2012 2:40 PM EST Narrative 08/10/2012 3:[address] Abdomen / Pelvis With Contrast Clinical History Ovarian cancer Evaluate for metastatic disease Comparison Outside study dated May 23. Technique CT scan of abdomen and pelvis utilizing oral intravenous contrast. Intravenous contras: ??110 mL of Omnipaq ue 350. Findings The visualized portions of the lung base s demonstrate minor linear atelectasis with no infiltrates or pleural effusions . Abdomen. No abnormality of the liver, spleen, harden creas, adrenal glands or kidneys are seen. ??There is no evidence of free air , peritoneal fluid or bowel obstruction. Pelvis. The previously seen right ovarian mass h as been removed. ??There has been a previous hysterectomy. ??A prominent vag inal cuff remains, possibly associated with edema or blood. The left adnexa is again visualized, con tains a cyst, and appears unchanged. ?? No pelvic adenopathy is seen. Skeleton. No bony abnormalities are seen. Impression 1. Removal of the right ovarian mass. 2. ??No metastases are seen. Procedure Note Ming Zimmer MD - 08/10/[address] Abdomen / Pelvis With Contrast Clinical History Ovarian cancer Evaluate for metastatic disease Comparison Outside study dated May 23. Technique CT scan of abdomen and pelvis utilizing oral intravenous contrast. Intravenous contras: 110 mL of Omnipaque 350. Findings The visualized portions of the lung base s demonstrate minor linear atelectasis with no infiltrates or pleural effusions . Abdomen. No abnormality of the liver, spleen, harden creas, adrenal glands or kidneys are seen. There is no evidence of free air, peritoneal fluid or bowel obstruction. Pelvis. The previously seen right ovarian mass h as been removed. There has been a previous hysterectomy. A prominent vagin al cuff remains, possibly associated with edema or blood. The left adnexa is again visualized, con tains a cyst, and appears unchanged. No pelvic adenopathy is seen. Skeleton. No bony abnormalities are seen. Impression 1. Removal of the right ovarian mass. 2. No metastases are seen. Sebastian Ledezma MD IMG CT ORDERABLES documented in this encounter Visit Diagnoses Diagnosis Ovarian cancer Malignant neoplasm of ovary documented in this encounter Administered Medications Inactive Administered Medications - up to 3 most recent administrations Medication Order MAR Action Action Date Dose Rate Site iohexol (OMNIPAQUE) 350 mg Given 08/10/2012 11:30 AM EST 17,500 mg iodine/mL injection 17,500 mg 17,500 mg (50 mL), Oral, ONCE PRN, 1 dose, Starting on Wed08/10/12 at 1427, Until Wed08/10/12 at 1130, Per Protocol, Routine iohexol (OMNIPAQUE) 350 mg iodine/mL Given 08/10/2012 2:28 PM ES T 38,500 mg injection 38,500 mg 38,500 mg (110 mL), Intravenous, ONCE PRN, 1 dose, Starting on Wed08/10/12 at 1427, Until Wed08/10/12 at 1428, Per Protocol, Routine documented in this encounter Care Teams Metrology Technician Relationship Specialty Start Date End Date Caitlin Callahan MD PCP - General 07/08/[address] [place] [address] documented as of this encounter
--- OUTSIDE RECORDS SUMMARY | 2022-03-05 00:39 | XMS_ITS | Encounter Summary ---
:1965 Author Organization [facility] [place] [address] Care Team Providers Name Role Phone Caitlin Callahan MD Primary Care Provider Encounter Details Date Type Department Care Team Description 09/22/2012 Surgery Main Operating Room Sebastian Coy [facility] 11.35[facility] GYNECOLOGY ON [address] [id number] [phone] Social History Tobacco Use Types Packs/Day Years [...] Sign Reading Time Taken Comments Blood Pressure 127/67 09/22/2012 10:45 AM EST Pulse 56 09/22/2012 10:45 AM EST Temperature 36 ??C (96.8 ??F) 09/22/2012 10:29 AM EST Respiratory Rate 16 09/22/2012 10:45 AM EST Oxygen Saturation 100% 09/22/2012 10:45 AM EST Inhaled Oxygen Concentration - - Weight 67.1 kg (148 lb) 09/22/2012 6:13 AM EST Height 175.3 cm (5' 9) 09/22/2012 6:13 AM EST Body Mass Index 21.86 09/22/2012 6:13 AM EST documented in this encounter Discharge Instructions Discharge InstructionsTierra Joiner RN - 09/22/2012 12:48 PM EST POST ANESTHESIA INSTRUCTIONS Go home, rest, use [...] which usually goes away in 12-24 hours. Wound infection may occur at any time, but it is evident more often 4-7 days after surgery. Signs and symptoms may involve one or more of the followin. Temperature elevation of more than 2 degrees or greater than 100.5 degrees F 2. Swelling and redness in or around the incision. 3. Increasing pain or discomfort in or around the incision. 4. Red streaks in the skin near the incision. 5. Pus or other foul drainage from the incision. 6. Foul smell from the incision. 7. Generalized body chills or fever. 8. Severe pain. If you suspect an incisional infection is present, are having problems, or have additional questionsor concerns, please call. Scopolamine Patch Discharge Instructions You are wearing a scopolamine patch. This is a medication patch used to prevent and treat nausea andvomiting after surgery. The patch is located: behind your left ear Please follow these instructions while you are wearing the patch. Try not to touch the patch. If you do touch the patch, wash your hands right away. Make sure to remove all traces of medicationfrom your hands. If the medication gets on your hands and then you touch your eyes, your vision may become blurry oryour pupils may widen. These are both normal and temporary reactions; they will go away shortly. Remove the patch on morning There will still be some active ingredients on the patch, so fold it in half (with the sticky sides together) and throw it in the trash. This will help prevent others from coming into contact with it. After removing the patch, carefully wash your hands and behind your ear (or wherever the patch was placed) with soap and water. If you have not urinated in 6-8 hours after your surgery, remove the patch and call your surgeon. If you have any questions or concerns: Call the Same Day Program 8a-5pm Wednesday-Wednesday. All other times, call [phone] and ask for the anesthesiologist grinder carbon plant. Patient InstructionsMaira Cunningham - 09/22/2012 10:23 AM EST PATIENT DISCHARGE INSTRUCTIONS Call your doctor if you develop: --A fever over 101 degrees --Severe pain --Increasing pain, redness, or discharge at your incisions Please call [facility], , with questions/concerns. After hours, call [phone]. Please follow up with Dr. Coy in clinic in 3-4 weeks. You will be contacted with this follow up appointment date and time. Activity level: No heavy lifting, pushing or pulling for 6 weeks. No sexual intercourse, no tampons,nothing in the vagina for 6 weeks. Diet: You may resume your regular diet. Be sure you drink plenty of fluids. Please use a stool softener twice daily for the entire time that [...] for the next 2 weeks. Wound Care: None Special Physician Instructions: Pain medications include dilaudid and motrin Please use motrin 600 mg every 6 hours with food around the clock for the next several days and then after that use it only as needed. Please use the percocet (1-2 tablets) every 4-6 hours as needed for pain that breaks through the motrin. documented in this encounter Medications at Time of Discharge Medication Sig Dispensed Refills Start Date End Date ibuprofen (MOTRIN) 600 mg Take 1 tablet by 30 tablet 2 02/201310/24/2012 tablet mouth every 6 hours as needed for Pain. documented as of this encounter Progress Notes Tierra Joiner RN - 09/22/2012 2:28 PM EST Patient OOB to BR with steady gait. Denies nausea. Medicated with 5 mg oxycodone for ride home. Tolerated gingerale and crackers. AVS reviewed with patient and family. All questions answered. documented in this encounter H&P Notes Sebastian Coy MD - 09/22/2012 7:15 AM EST Gynecologic Oncology H&P CC: Preop H&P History of Present Illness: Presents for planned surgery. Patient feels well. Denies pain or vaginalbleeding. Denies SOB, CP, N/V, F/C. From preop H&P 08/10/2013: Catalina Hoyos is a 47 y.o. female referred for evaluation of post-operatively identified ovarian cancer. Catalina says she has had pain in RLQ off and on, no pattern, for 2-3 years. Sometimes it is a minor twinge, sometimes makes her double over in pain. After a severe episode, she went to ED for evaluation in late April 2012, had a f/u US which showed ovarian mass and small fibroids, then had CT and second US. With her primary regional director of finance, the plan was made to proceed to [facility] supra-cervical hysterectomy and RSO for presumed dermoid, which she had on 07/27/12. Therewas no gross disease noted a the time of her surgery. The right ovary was removed intact in an endo-catch bag and the uterus was morcellated to be removed. 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 Right fallopian tube not involved by tumor. Uterine pathology showed focal simple h yperplasia and leiomyoma. CA-125 obtained shortly before the surgery returned as 183. She is now referred to [facility]. Today, Catalina says she is doing well and recovering from her surgery. No pain. No fevers/chills. No abnormal vaginal discharge. Before her surgery, she says she had no symptoms of b loating/fullness/pressure/early satiety/reduced appetite/change in bowel or bladder habits. GYNhx: abnormal pap many years ago, s/p colpo. Normals since that time. No STDs or other [facility] history. Menses were starting to become irregular, heavier in recent months until her surgery. Not currentlysexually active, no problems with sex the last time she was active. UTD mammograms, all normal. Obstetric History: . x 3, FT, no complications. TOP x 1. Review of Systems: Per HPI. Otherwise, negative. Medical History: No major medical history. Surgical History: Past Surgical History Procedure Date ??? Hysterectomy 07/27/12 [facility] BUD/RSO for fibroids and ovarian CA Medications: No current facility-administered medications on file prior to encounter. No current outpatient prescriptions on file prior to encounter. Allergies: Allergies Allergen Reactions ??? Other (Unclassified Drug) Shellfish= vomiting Family History: Family History Problem Relation Age of Onset ??? Diabetes Mother ??? Cancer Mother 47 hysterectomy, no further treatment ??? Cancer neg for breast, ovarian, colon ??? Cancer Paternal Grandfather possibly bladder Social History: History Social History ??? Marital Status: Legal Separation Spouse Name: N/A Number of Children: N/A ??? Years of Education: N/A Social History Main Topics ??? Smoking status: Never Smoker ??? Smokeless tobacco: Not on file ??? Alcohol Use: Not on file rare ??? Drug Use: No ??? Sexually Active: Not on file Other Topics Concern ??? 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 Kids 18,16.8, Physical Exam: Filed Vitals: 09/22/12 0613 BP: 115/66 Pulse: 59 Temp: 37 ??C (98.6 ??F) Resp: 16 General: NAD, conversant CV: RRR Lungs: CTA B Abd: ND, NT, +BS, soft Pelvic: Deferred to OR No LE edema Labs: Lab Results Component Value Date WBC 4.7 08/10/2012 RBC 3.82* 08/10/2012 HGB 9.6* 08/10/2012 HCT 30.9* 08/10/2012 MCV 80.9 08/10/2012 MCH 25.1* 08/10/2012 MCHC 31.1* 08/10/2012 PLATELET 227 08/10/2012 RDWCV 14.4 08/10/2012 Lab Results Component Value Date CREATININE 0.83 08/10/2012 Impression/Plan: Catalina Hoyos is a 47 y.o. with ovarian cancer, at least stage IC, found on pathology post-operatively after lsc BUD/RSO on 07/27/12. For robotic staging procedure today. No evidence of metastatic disease on 08/10/2012 CT abdomen/pelvis. Proceed with planned procedure. Consent signed 08/10/2012. MAIRA CUNNINGHAM MD Obgyn PGY4 I saw and evaluated the patient with Dr. Cunningham, and I confirmed the history and physical findings as outlined, and I agree with the note as written. documented in this encounter Miscellaneous Notes Miscellaneous - Provider, Scanning - 09/22/2012 5:47 PM EST OR Attestation - Sebastian Coy MD - 09/22/2012 10:15 AM EST Attestation: Case Date: 09/22/2012 I was present and I participated during the entire procedure (does not need to include opening and closing). SEBASTIAN COY MD 09/22/2012 Brief Op Note - Sebastian Coy MD - 09/22/2012 10:05 AM EST Brief Operative Note Patient Name: Catalina Hoyos : [id number] MR#: [id number] Case Date: 09/22/2012 Surgeon: Surgeon(s) and Role: * Sebastian Coy MD - Primary * Maira Cunningham MD - Resident-Sensitized Paper Tester Preoperative diagnosis: Ovarian carcinoma, unstaged Postoperative diagnosis: Ovarian carcinoma, final pathology and stage pending. Procedure(s): 1. Laparoscopic/robotic left salpingo-oophorectomy. 2.. Laparoscopic/robotic pelvic and para-aortic lymphadectomy, omental biopsy, and multiple staging biopsies Anesthesia: General Findings: surgically absent uterus, left ovary/tube; no obvious carcinomatosis/ascites, or lymphadenopathy. Normal upper abdomen. Complications: none. Fluids: 2000 ml. Estimated Blood Loss: 5 ml. Drains: none. Disposition: awakened from anesthesia, extubated and taken to the recovery room in a stable condition, having suffered no apparent untoward event. Condition: doing well without problems (Please see the Surgical Encounter Summary for any Implant and Specimen details pertinent to this patient.) Op Note - Sebastian Coy MD - 09/22/2012 9:34 AM EST [facility] Operative Note Patient Name: Catalina Hoyos : [id number] MR#: [id number] Case Date: 09/22/2012 Surgeon: Surgeon(s) and Role: * Sebastian Coy MD - Primary * Maira Cunningham MD - Resident-Sensitized Paper Tester Procedure: 1) Robotic-Assisted laparoscopic left salpingo-oophorectomy and completion of ovarian cancer stagingprocedure including pelvic and paraaortic lymph node dissection, directed peritoneal biopsies, and infracolic omental biopsy Preprocedural Diagnosis: 1) At least grade IC 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 Anesthesia: General Complications: None Estimated Blood Loss: 5 mL Drains: Soto 200 clear yellow urine Fluids: 2000 cc crystalloid Preoperative antibiotics: 1 gram Ancef administered within one hour prior to the procedure DVT Prophylaxis: SCD's on and active during the case, 5000 units subcutaneous Heparin administered prior to procedure Findings: 1) EUA: Small, mobile cervix without palpable pelvic masses. No rectal masses, nodularity. 1) Laparoscopy: Few adhesions of the omentum to the middle right anterior abdominal wall. No evidence of metastatic disease. No ascites or carcinomatosis. Normal appearing left tube and ovary. No evidence of bulky lymphadenopathy. Normal appearing bowel and upper abdominal survey. Specimens: 1) Pelvic washings 2) Left tube and ovary 3) Directed peritoneal biopsies 4) Omental biopsy 5) Bilateral pelvic and paraaortic lymph nodes Indications: Catalina Hoyos is a 47 y.o. female referred for evaluation of post- operatively identified ovarian cancer. Catalina had pain in RLQ off and on, no pattern, for 2-3 years. After a severe episode, she went to ED for evaluation in late April 2012, had a f/u US which showed ovarian mass and small fibroids, then had CT and second US. With her primary regional director of finance, the plan was made to proceed to [facility] supra-cervical hysterectomy and RSO for presumed dermoid, which she had on 07/27/12. There wasno gross disease noted a the time of [...] as 183. Catalina was subsequently referred to [facility] oncology for management. 08/10/2012 CT Abdomen/Pelvis revealed no evidence of metastatic disease. The above procedures were recommended in order to complete definitive staging.Consent was obtained preoperatively. Procedure in Detail: The patient was identified and consent was reaffirmed. She was taken to the operating room and placed in low lithotomy position with stirrups after induction of anesthesia. An examwas conducted and the findings are discussed above. An antiseptic preparation of the abdomen, perineum, and vagina was performed and the patient was sterilely draped. A Soto catheter was inserted intothe bladder. A surgical pause was performed, correctly identifying the intended procedures, antibiotic administration, etc. for this patient. A 12- mm transverse incision was made 5 cm above the umbilicus, through which a 12-mm Optiview trocar was then inserted under direct visualization, verifying atra umatic entry. Under direct visualization, additional 8-mm robotic trocars and a 12-mm right upper quadrant library services assistant port were placed slightly superior to the usual locations due to planned omental biopsy. The patient was placed in steep Trendelenburg position. Pelvic washings were obtained. A sponge stick was placed in the vagina for manipulation of patient's cervix. The filmy adhesions of the omentum to the anterior abdominal wall were taken down with sharp dissection. Attention was then turned to the left adnexa for LSO. The retroperitoneum immediately lateral tothe left IP ligament was entered sharply and the incision extended the length of the IP ligament. The ureter was identified in the medial leaf of the broad ligament. With the ureter in view, a window in an avascular portion of the peritoneum inferior to the IP ligament was made with monopolar yeni and the IP ligament desiccated and transected with bipolar cautery. After the round ligament was desiccated and transected, the tube and ovary were fully excised via dissection of the remaining intervening peritoneum.. Attention was then turned to the pelvic and paraaortic lymph node dissection. Bilaterally, all lymphnode bearing tissue was collected distally to the circumflex iliac veins, proximally to the mid common iliac arteries, laterally to the mid psoas muscles, medially to the superior vesical arteries, anddorsally to the obturator nerves. Similarly, a paraaortic lymphadenectomy was performed by collecting all lymph node bearing tissue proximally to the level of 5 cm above the CHAI from the right and leftsides. Directed peritoneal biopsies including bilaterally at the anterior cul-de-sac, posterior cul-de-sac, and marisol colic gutters were performed and sent to Pathology. Finally, an omental biopsy was obtained via sequential desiccation and transection along the inferior portion of the infracolic omentum. The specimens including the lymph nodes, left tube and ovary, and omental biopsy were removed form the abdomen in endocatch specimen bags. Irrigation was performed and adequate hemostasis noted. The pneumoperitoneum was released through the ports. The ports were removed and the robot undocked. The skin of the port site incisions was reapproximated with 4-0 Vicryl sutures. Dermaflex sealant was applied to each site. The patient was returned to a supine position as anesthesia was discontinued. She was then extubated and taken to Same Day Surgery in stable condition, and accompanied by the anesthesiologist and surgeons. Dr. Sebastian Coy, theattending physician, was present for the entire procedure. MAIRA CUNNINGHAM MD Obgyn PGY4 Miscellaneous - Provider, Scanning - 09/22/2012 8:13 AM EST documented in this encounter Plan of Treatment Not on filedocumented as of this encounter Procedures Procedure Name Priority Date/Time Associated Comments Diagnosis SPECIMEN TO PATHOLOGY Routine 09/22/2012 10:03 Re sults for this AM EST procedure are i n the results section. SPECIMEN TO PATHOLOGY Routine 09/22/2012 10:03 Re sults for this AM EST procedure are i n the results section. SPECIMEN TO PATHOLOGY Routine 09/22/2012 9:45 AM Results for this EST procedure are i n the results section. SPECIMEN TO PATHOLOGY Routine 09/22/2012 9:39 AM Results for this EST procedure are i n the results section. SURGICAL PATHOLOGY Routine 09/22/2012 9:22 AM Res ults for this REPORT EST procedure are i n the results section. SPECIMEN TO PATHOLOGY Routine 09/22/2012 9:19 AM Results for this EST procedure are i n the results section. SPECIMEN TO PATHOLOGY Routine 09/22/2012 9:11 AM Results for this EST procedure are i n the results section. SPECIMEN TO PATHOLOGY Routine 09/22/2012 9:11 AM Results for this EST procedure are i n the results section. SPECIMEN TO PATHOLOGY Routine 09/22/2012 9:11 AM Results for this EST procedure are i n the results section. SPECIMEN TO PATHOLOGY Routine 09/22/2012 9:11 AM Results for this EST procedure are i n the results section. SPECIMEN TO PATHOLOGY Routine 09/22/2012 9:11 AM Results for this EST procedure are i n the results section. NON-[facility] FINAL REPORT Routine 09/22/2012 9:02 AM R esults for this EST procedure are i n the results section. CYTOPATHOLOGY Routine 09/22/2012 8:36 AM Results for this NON-GYNECOLOGICAL EST procedure are in the results section. LAPAROSCOPY,W\BILATERA 09/22/2012 7:19 AM CARCINOMA L TOTAL PELVIC EST LYMPHADENECTOMY, PERIAORTIC LYMPH NODE SAMPLING, ROBOTIC (WRVU 15.6) LAPAROSCOPY, REMOVAL 09/22/2012 7:19 AM CARCINOMA OF ADNEXA, ROBOT EST ASSIST (WRVU 11.35) TYPE AND SCREEN, SDP STAT 09/22/2012 6:50 AM Ovarian mass (FUTURE SURGERY, [facility] EST SAME DAY PROGRAM ONLY) ABO/RH TYPING STAT 09/22/2012 6:50 AM Ovarian mass Results for this EST procedure are i n the results section. ANTIBODY SCREEN STAT 09/22/2012 6:50 AM Ovarian mass Result s for this EST procedure are i n the results section. documented in this encounter Results Specimen to Pathology (surgical or derm) (09/22/2012 10:03 AM EST) Specimen Anatomical Collection Method Collection Time Receive d Time (Source) Location / / Volume Laterality AP Specimen 09/22/2012 10:03 09/22/2012 AM EST 10:03 AM EST Narrative DAVONTE GAMEZIUM - 09/22/2012 10:03 AM EST Specimen requisition ordered. ??Separate Pathology report to follow Sebastian Coy MD PATHOLOGY/CYTOLOGY ORDERABLE S Performing Organization Address City/State/ZIP Code Phon e Number [place] [id number] DAVONTE WALKER Specimen to Pathology (surgical or derm) (09/22/2012 10:03 AM EST) Specimen Anatomical Collection Method Collection Time Receive d Time (Source) Location / / Volume Laterality AP Specimen 09/22/2012 10:03 09/22/2012 AM EST 10:03 AM EST Narrative CERNER MILLENNIUM - 09/22/2012 10:03 AM EST Specimen requisition ordered. ??Separate Pathology report to follow Sebastian Coy MD PATHOLOGY/CYTOLOGY ORDERABLE S Performing Organization Address [facility]/[place] [address] CERNER MILLENNIUM Specimen to Pathology (surgical or derm) (09/22/2012 9:45 AM EST) Specimen Anatomical Collection Method Collection Time Receive d Time (Source) Location / / Volume Laterality AP Specimen 09/22/2012 9:45 AM 3 9:46 EST AM EST Narrative CERNER MILLENNIUM - 09/22/2012 9:[address] Specimen requisition ordered. ??Separate Pathology report to follow Sebastian Coy MD PATHOLOGY/CYTOLOGY ORDERABLE S Performing Organization Address City/[facility]/[place] [address] CERNER MILLENNIUM Specimen to Pathology (surgical or derm) (09/22/2012 9:39 AM EST) Specimen Anatomical Collection Method Collection Time Receive d Time (Source) Location / / Volume Laterality AP Specimen 09/22/2012 9:39 AM 3 9:39 EST AM EST Narrative CERNER MILLENNIUM - 09/22/2012 9:[address] Specimen requisition ordered. ??Separate Pathology report to follow Sebastian Coy MD PATHOLOGY/CYTOLOGY ORDERABLE S Performing Organization Address [facility] [place] [address] CERNER MILLENNIUM Surgical Pathology Report (09/22/2012 9:22 AM EST) Component Value Ref Test Analysis Performed At [facility] gist Range Method Time Signature Surgical CERNER Pathology ? [facility] Report ? Provider: ?? ANNELIESE, SEBASTIAN Thakkar ?Pt. Name: ?? SUSHANT IS, CATALINA L ? Acc #: ?[id number] ?Pt. MRN: ?[id number] ? Col Date: ?? 09/22/2012 ?/Sex: ?1965,(47 years),Female ? Rec Date: ?? 09/22/2012 ?LOC: ?SDA ? SURGICAL PATHOLOGY ? ---Pathologic Diagnosis--- ? CORRECTED REPORT (see Comment) ? A - Left bladder serosa, biopsy: ? 1 - Microscopic non-invasive implants of micr opapillary serous ? carcinoma, low grade, associa sade with psammoma bodies (see ? Comment). ? 2 - Focal foreign body reaction with chronic in flammation. ? B - Anterior bladder serosa, biopsy: ? Microscopic non-invasive implants of micropapil del serous ? carcinoma, low grade, associated with psammoma bodies (see ? Comment). ? C - Right bladder serosa, biopsy: ? Fibrous connective tissue and rare psammoma bod ies, negative ? for malignancy. ? D - Cul-de-sac, biopsy: ? Loose fibrous connective tissue and scattered psammoma bodies, ? negative for malignancy. ? E - Right ovarian fossa, biopsy: ? Fibrous connective tissue and small clusters of psammoma bodies, ? negative for malignancy. ? F - Right ovarian vessel, excision: ? Benign vascular tissue, negative for malignancy . ? G - Periaortic lymph nodes, excision: ? Two lymph nodes negative for malignancy (0/2). ? H - Bilateral pelvic lymph nodes, excision: ? Eleven lymph nodes negative for malignancy (0/1 1). ? I - Omentum, resection: ? Adipose tissue with scattered psammoma bodies and a few minute ? clumps of atypi gallito cells, consistent with microscopic non-invasive ? implants of micropapillary serous carcinoma, lo w-grade (see ? Comment). ? J - Left ovary, excision: ? 1 - Micropapillary serous tumor, left ovary (se e Comment). ? 2 - Corpus luteum. ? [facility] ? Provider: ?? SEBASTIAN COY ?Pt. Name: ?? SUSHANT IS, CATALINA L ? Acc #: ?[id number] ?Pt. MRN: ?[id number] ? Col Date: ?? 09/22/2012 ?/Sex: ?1965,(47 years),Female ? Rec Date: ?? 09/22/2012 ?LOC: ?SDA ? SURGICAL PATHOLOGY ? 3 - Left fallopian tube without histopatholog ical abnormality. ? 4 - Paratubal cyst. ? 5 - Two lymph nodes negative for malignancy (0/ 2). ? TNM Staging (AJCC, 7th ed., 2009): ? Primary tumor stage: ? pT3a [IIIA](Microscopic peritoneal metastasis ?beyond pelvis; no macroscopic tumor) ? Regional lymph nodes: ? pN0 ??(No regional lymph node metastases) ? Distant metastasis: ? pMX ??(Not applicable or not assessed) ? CR-0 ? 09/27/12 ? ARS ? 09/29/12 Verified by: ? Conor DE LEON, Ming Ocasio ? Pathologist ? (Electronic Si gnature) ? The attending pathologist whose signature appears o n this report has ? reviewed all diagnostic slides and has edited the aristides ss and/or ? microscopic portion of the report in rendering the fi nal pathologic ? diagnosis. ? ---Comment--- ? Correction ? Note: ??A typographic al error is corrected in the Comment. ??There are no ? other changes to the text of this report. ? 09/29/12 07:30 V. Striker ? The tumor in the left ovary by itself has features most in keeping with a ? borderline tumor; giv en the findings of microinvasion in the contralateral ? ovary ([id number]), ho wever, the tumor in this ovary likely represents the ? same neoplasm. ??Microscopic roun ded collections of atypical cells with ? histologic features resembling the ovarian tumor are present on the ? surfaces of biopsies A and B and in the omentum in specimen I. ??These foci ? stain positively with PAX-8, supporting the diagnosis of microscopic tumor ? implants. ??Dr. Tam yap reviewed inside technical sales representative slides from this case and ? concurs with this interpretation. ? ---Microscopic Description--- ? Slides reviewed, microscopic description not recorded . ? [facility] ? Provider: ?? SEBASTIAN COY ?Pt. Name: ?? CATALINA KARIMI ? Acc #: ?[id number] ?Pt. MRN: ?[id number] ? Col Date: ?? 09/22/2012 ?/Sex: ?1965,(47 years),Female ? Rec Date: ?? 09/22/2012 ?LOC: ?SDA ? SURGICAL PATHOLOGY ? Immunohistochemistry Studies: ? Formalin-fixed, paraf fin-embedded tissue sections are studied using the B- ? SA system technique w ith appropriate positive and negative controls. ??These ? IHC studies provide t pathologist with adjunctive diagnostic information. ? Antibody specificity has been verified by testing antibodies on a series of ? in-house tissues with known immunohistochemical perfo rmance ? characteristics. The clinical interpretation of any antibody positive ? staining or its absence is evaluated within the anthony xt of clinical ? presentation, morphol ogy, histopathological criteria and other diagnostic ? tests. ? Block ?Antibody ? Result (Posi tive/Negative) ? A ?PAX-8 ?Positive in isolated cell clusters ? B ?PAX-8 ?Positive in isolated cell clusters ? I ?PAX-8 ?Positive in isolated cell clusters ? ---Gross Description--- ? A - Labeled/Fixative: Left bladder serosa biopsy, melvina sh. ? Qty/Size/Weight: ?Single, 1.8 x 0.6 x 0.2 cm. ? Tissue Description: ?? Nodular portion of soliz-white t issue. ? Sections/Processing: ??Bisected. ??(T1) ? B - Labeled/Fixative: Anterior bladder serosa biopsy, fresh. ? Qty/Size/Weight: ?Single, 1.5 x 0.6 x 0.2 cm. ? Tissue Description: ?? Portion of peters-white soft tis lizzy. ? Sections/Processing: ??(T1) ? C - Labeled/Fixative: Right bladder serosa biopsy, fr esh. ? Qty/Size/Weight: ?Single, 1.2 x 0.7 x 0.5 cm. ? Tissue Description: ? ? Irregular portion of glistening, pink-white tissue. ? Sections/Processing: ??Bisected. ??(T1) ? D - Labeled/Fixative: Cul-de-sac, fresh. ? Qty/Size/Weight: ?Single, 1.2 x 0.4 x 0.2 cm. ? Tissue Description: ?? Irregular portion of soliz-yellow, lobular, fatty ? tissue and peters-white membranous- appearing tissue. ? Sections/Processing: ??(T1) ? E - Labeled/Fixative: Right ovarian fossa biopsy, melvina sh. ? Qty/Size/Weight: ?Single, 1.2 x 0.5 x 0.3 cm. ? Tissue Description: ? ? Irregular portion of glistening, pink-white tissue. ? Sections/Processing: ??Bisected. ??(T1) ? F - Labeled/Fixative: Right ovarian vessel, fresh. ? [facility] ? Provider: ?? WEST, SEBASTIAN A ?Pt. Name: ?? SUSHANT IS, CATALINA L ? Acc #: ?[id number] ?Pt. MRN: ?[id number] ? Col Date: ?? 09/22/2012 ?/Sex: ?1965,(47 years),Female ? Rec Date: ?? 09/22/2012 ?LOC: ?SDA ? SURGICAL PATHOLOGY ? Qty/Size/Weight: ?Single, 6.0 x 1.5 x 0.7 cm. ? Tissue Description: ? ? Elongated, cylindrical portion of rubbery, soliz tissue ? and attached fat. ??Sectioning reveals unremarkable, ? blood-filled vessels. ??No abnormalities are noted. ? Sections/Processing: ??A inside technical sales representative cross section is submitted. ??(R1) ? G - Labeled/Fixative: Para-aortic lymph nodes, fresh. ? Qty/Size/Weight: ?Fragments, 4.0 x 3.0 x 1.90 cm. ? Tissue Description: ? ? Aggregate of soliz-yellow, lobular, fatty tissue within ? which two soliz-pink lymph nodes are identified, 1.4 cm ? and 1.5 cm. ? Sections/Processing: ??(1-2) each contain a single bisected node. ??(R2) ? H - Labeled/Fixative: Bilateral pelvic lymph nodes, f resh. ? Qty/Size/Weight: ?Fragments, 5.0 x 5.0 x 1.0 c m. ? Tissue Description: ? ? Aggregate of soliz-yellow, lobular, fatty tissue within ? which eleven probable soliz-yellow to soliz-pink lymph ? nodes are identifi ed, up to 3.3 cm. ? Sections/Processing: ??(1) three intact nodes; (2) one lymph node; (3-4) ? each contain two differentially i nked and bisected nodes; (5) one node, ? bisected; (6-7) one node, sectioned; (8-1 1) the largest node, serially ? sectioned. ??(R11) ? I - Labeled/Fixative: Omentum, fresh. ? Qty/Size/Weight: ?Single, 18.0 x 7.0 x 1.5 cm. ? Tissue Description: ? ? Portion of focally firm, soliz-yellow, lobular omentum. ? Sectioning reveals focally firm areas; however, no ? definitive tumor is grossly identified. ? Sections/Processing: ??(R3) ? J - Labeled/Fixative: Left ovary, fresh. ? Qty/Size/Weight: ?3.8 x 2.5 x 1.5 cm. ? Tissue Description: ?? Ovary. ?External Surface: ??Cerebriform, focally irreg ular, yellow-soliz. ?Cut Surface: ? Displays hemorrhagic and hemorrhagic, roblero-bordered ? cystic structures, u p to 1.5 cm. ?Fallopian Tube: ?There is a 5.0 x 0.6-cm, congested fallopian tube ? present with a 1.0-cm, clear, fluid- filled paratubal ? cyst identified. ?Other: ? Also receiv ed in the same container is a ? 3.5 x 2.0 x 1.2-cm aggregate of firm, soliz-yellow, ? fatty tissue within which two possible lymph nodes ? are identified, up t o 2.3 cm. ? Sections/Processing: ??(1-3) ovary; (4) fallopian tube and paratubal cyst; ? [facility] ? Provider: ?? SEBASTIAN COY ?Pt. Name: ?? SUSHANT IS, CATALINA L ? Acc #: ?[id number] ?Pt. MRN: ?[id number] ? Col Date: ?? 09/22/2012 ?/Sex: ?1965,(47 years),Female ? Rec Date: ?? 09/22/2012 ?LOC: ?SDA ? SURGICAL PATHOLOGY ? (5-6) the larger possible node; (7) the smaller ? possible node. ??(R7 ) ??aje/EJR ? ---Clinical Information--- ? Specimen Submitted: ? A - Left bladder serosa biopsy ? B - Anterior bladder serosa biopsy ? C - Right bladder serosa biopsy ? D - cul-de-sac ? E - Right ovarian fossa biopsy ? F - Right ovarian vessel ? G - Periaortic lymph nodes ? H - Bilateral pelvic lymph nodes ? I - Omentum ? J - Left ovary ? Clinical History/Diagnosis: ? Carcinoma Specimen (Source) Anatomical Collection Method Collection Time Re ceived Time Location / / Volume Laterality 09/22/2012 9:22 AM EST Sebastian Coy MD PATHOLOGY/CYTOLOGY ORDERABLE S Performing Organization Address City/[facility]/ZIP Code Phon e Number [address] CERNER MILLENNIUM Specimen to Pathology (surgical or derm) (09/22/2012 9:19 AM EST) Specimen Anatomical Collection Method Collection Time Receive d Time (Source) Location / / Volume Laterality AP Specimen 09/22/2012 9:19 AM 3 9:19 EST AM EST Narrative CERNER MILLENNIUM - 09/22/2012 9:[address] Specimen requisition ordered. ??Separate Pathology report to follow Sebastian Coy MD PATHOLOGY/CYTOLOGY ORDERABLE S Performing Organization Address City/[facility]/[place] [address] CERNER MILLENNIUM Specimen to Pathology (surgical or derm) (09/22/2012 9:11 AM EST) Specimen Anatomical Collection Method Collection Time Receive d Time (Source) Location / / Volume Laterality AP Specimen 09/22/2012 9:11 AM 3 9:12 EST AM EST Narrative CERNER MILLENNIUM - 09/22/2012 9:[address] Specimen requisition ordered. ??Separate Pathology report to follow Sebastian Coy MD PATHOLOGY/CYTOLOGY ORDERABLE S Performing Organization Address City/[facility]/[place] [address] CERNER MILLENNIUM Specimen to Pathology (surgical or derm) (09/22/2012 9:11 AM EST) Specimen Anatomical Collection Method Collection Time Receive d Time (Source) Location / / Volume Laterality AP Specimen 09/22/2012 9:11 AM 3 9:11 EST AM EST Narrative CERNER MILLENNIUM - 09/22/2012 9:[address] Specimen requisition ordered. ??Separate Pathology report to follow Sebastian Coy MD PATHOLOGY/CYTOLOGY ORDERABLE S Performing Organization Address [facility]/[place] [address] CERNER MILLENNIUM Specimen to Pathology (surgical or derm) (09/22/2012 9:11 AM EST) Specimen Anatomical Collection Method Collection Time Receive d Time (Source) Location / / Volume Laterality AP Specimen 09/22/2012 9:11 AM 3 9:11 EST AM EST Narrative CERNER MILLENNIUM - 09/22/2012 9:[address] Specimen requisition ordered. ??Separate Pathology report to follow Sebastian Coy MD PATHOLOGY/CYTOLOGY ORDERABLE S Performing Organization Address City/[facility]/[place] [address] CERNER MILLENNIUM Specimen to Pathology (surgical or derm) (09/22/2012 9:11 AM EST) Specimen Anatomical Collection Method Collection Time Receive d Time (Source) Location / / Volume Laterality AP Specimen 09/22/2012 9:11 AM 3 9:11 EST AM EST Narrative CERNER MILLENNIUM - 09/22/2012 9:[address] Specimen requisition ordered. ??Separate Pathology report to follow Sebastian Coy MD PATHOLOGY/CYTOLOGY ORDERABLE S Performing Organization Address City/[facility]/[place] [address] CERNER MILLENNIUM Specimen to Pathology (surgical or derm) (09/22/2012 9:11 AM EST) Specimen Anatomical Collection Method Collection Time Receive d Time (Source) Location / / Volume Laterality AP Specimen 09/22/2012 9:11 AM 3 9:11 EST AM EST Narrative [facility] - 09/22/2012 9:[address] Specimen requisition ordered. ??Separate Pathology report to follow Sebastian Coy MD PATHOLOGY/CYTOLOGY ORDERABLE S Performing Organization Address City/State/[place] [address] [facility] Non-Registered Nurse Hh Case Manager Final Report (09/22/2012 9:02 AM EST) Component Value Ref Test Analysis Performed At [facility] gist Range Method Time Signature Non-Registered Nurse Hh Case Manager [facility] Final Report ? [facility] ? Provider: ?? SEBASTIAN COY ?Pt. Name: ?? SUSHANT IS, CATALINA L ? Acc #: ?[id number] ?Pt. MRN: ?[id number] ? Col Date: ?? 09/22/2012 ?/Sex: ?1965,(47 years),Female ? Rec Date: ?? 09/22/2012 ?LOC: ?SDA ? CYTOPATHOLOGY: ??NGYN ? ---Adequacy--- ? Specimen submitted is satisfactory. ? ---Cytopathologic Diagnosis--- ? Positive for Malignancy ? 09/23/12 ?Screened by: ? [facility] ? Rescreened by: ?? KPR,MENAGERIE SUPERINTENDENT, ? 09/30/12 ?Verified by: ? TRUMAN DE LEON, Jennifer COVARRUBIAS ?Pathol ogist ? (Electronic Signature) ? ---Comment--- ? Pelvic Fluid, Pelvic Wash: ? 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 Diagnostic material is mainly prese nt in the LBP. ? In addition to the tu mor, there are few single cells with abundant mucin in ? the cytoplasm; favor muciphages (CD68 positive). Special stains for PAS W ? and W/O diastase with satisfactory controls, is positive for mucin in these ? cells and also in the tumor. These cells are also not ed in the ? inside technical sales representative sectio n of the tumor in the omentum ([id number]) which was ? reviewed. ? Additional levels examined on the cell block. ? Please see the concurrent surgical specimen [id number] . ? --- Immunohistochemistry Studies --- ? Interpretation: Epith elial cells are CKAE1/AE3 positive, macrophages are ? CD68 positive. ?Formalin-fixe d, paraffin-embedded cell block sections are studied for ? CKAE1/AE3, CD68 using the B-SA system Technique with appropriate controls. ? _ ? These immunohistochemical studies provide ancillary information and are ? used only in conjunction with standard diagnostic pro cedures. ? ---Clinical Information--- ? Specimen Source: ?Pelvic Fluid, Pelvic Wash ? Pertinent Clinical Data and Significant Therapy: ? [facility] ? Provider: ?? SEBASTIAN COY ?Pt. Name: ?? SUSHANT IS, CATALINA L ? Acc #: ?[id number] ?Pt. MRN: ?[id number] ? Col Date: ?? 09/22/2012 ?/Sex: ?1965,(47 years),Female ? Rec Date: ?? 09/22/2012 ?LOC: ?SDA ? CYTOPATHOLOGY: ??NGYN ?Carcinoma ? Clinical Impression: ?Pelvic washings ? Pertinent Radiologic Findings: ?(not provided) ? Gross Description: ?Received fresh, approximatel y 200 ml. total volume of cloudy, pink ? fluid. ?Total Preparation: Liquid Based Prep 1; Cell Blo ck 1. Specimen (Source) Anatomical Collection Method Collection Time Re ceived Time Location / / Volume Laterality 09/22/2012 9:02 AM EST Sebastian Coy MD PATHOLOGY/CYTOLOGY ORDERABLE S Performing Organization Address City/[facility]/ZIP Code Phon e Number [address] [facility] Cytopathology Non-Gynecological (09/22/2012 8:36 AM EST) Specimen Anatomical Collection Method Collection Time Receive d Time (Source) Location / / Volume Laterality AP Specimen 09/22/2012 8:36 AM 3 8:36 EST AM EST Narrative [facility] - 09/22/2012 8:[address] Specimen requisition ordered. ??Separate Pathology report to follow Sebastian Coy MD PATHOLOGY/CYTOLOGY ORDERABLE S Performing Organization Address City/[facility]/ZIP Code Phon e Number [address] [facility] Antibody screen (09/22/2012 6:50 AM EST) Analysis Performed At [facility] Time Signature Ab Screen Negative [facility] Expires at [phone] [facility] 537 on: [facility] Specimen Anatomical Collection Method Collection Time Receive d Time (Source) Location / / Volume Laterality Blood specimen 09/22/2012 6:50 AM 013 7:13 (specimen) EST AM EST Resulting Agency Comment Spec In Lab Sebastian Coy MD BLOOD BANK ORDERABLES Performing Organization Address City/State/ZIP Code Phon e Number [address] [facility] ABO/Rh Typing (09/22/2012 6:50 AM EST) P athologist Signature ABORh Type O Pos [facility] Specimen Anatomical Collection Method Collection Time Receive d Time (Source) Location / / Volume Laterality Blood specimen 09/22/2012 6:50 AM 013 7:13 (specimen) EST AM EST Resulting Agency Comment Spec In Lab Sebastian Coy MD BLOOD BANK ORDERABLES Performing Organization Address City/[facility]/ZIP Code Phon e Number [address] [facility] documented in this encounter Visit Diagnoses Not on filedocumented in this encounter Administered Medications Inactive Administered Medications - up to 3 most recent administrations Medication Order MAR Action Action Date Dose Rate Site BUpivacaine-epiNEPHrine Given 09/22/2012 8:45 AM 11 mLs 19- Surgical Site 0.25 %-1:200,000 EST injection ONCE PRN, Starting on Nathaly 09/22/12 at 0845, Until Wed09/23/12 at 0113, Intra-Operative (Intra-Procedure), Routine ceFAZolin (ANCEF) injection Given 09/22/2012 7:55 AM EST 1 g ONCE PRN, Starting on Nathaly 09/22/12 at 0755, Until Wed09/23/12 at 0113, Intra-Operative (Intra-Procedure), Routine OXYcodone (ROXICODONE) immediate release tablet Given 09/22/2012 2:22 PM EST 5 mg 5-10 mg 5-10 mg, Oral, EVERY 3 HOURS PRN, Starting on Nathaly 09/22/12 at 1036, Until Wed09/23/12 at 0113, Pain, May repeat once within 30-60 minutes if pain unrelieved., Routine promethazine (PHENERGAN) injection 6.25 mg Given 09/22/2012 11:26 AM EST 6.25 mg 6.25 mg, Intravenous, EVERY 6 HOURS PRN, Starting on Nathaly 09/22/12 at 1119, Until Wed09/23/12 at 0113, Nausea, Avoid extravasation, PACU Recovery, Routine scopolamine (TRANSDERM-SCOP) 1.5 mg patch 1 Given 02/2013 7:45 AM EST 1 patch patch 1 patch, Transdermal, EVERY 72 HOURS, First dose on Nathaly 09/22/12 at 0745, Until Discontinued, PACU Recovery, Routine documented in this encounter Active and Recently Administered Medications Times are shown in EST. Scheduled Medication Order 09/20/2012 09/21/2012 09/22/2012 scopolamine (TRANSDERM-SCOP) 1.5 mg patch 1 patch (CANCELED) 0745 (Given - Provider: Donna Ross RN) 1 patch, Transdermal, EVERY 72 HOURS, Fi rst dose on Nathaly 09/22/12 at 0745, Until Discontinued, PACU Recovery, Routine PRN Medication Order 09/20/2012 09/21/2012 09/22/2012 BUpivacaine-epiNEPHrine 0.25 %-1:200,000 injection (CANCELED) 0845 (Given - Provider: Sebastian Cyo MD) ONCE PRN, Starting Nathaly 09/22/12 at 0845, U ntil Wed09/23/12 at 0113, Intra-Operative (Intra-Procedure), Routine ceFAZolin (ANCEF) injection (CANCELED) 0755 (Given - Provider: Davi Pereira CRNA) ONCE PRN, Starting Nathaly 09/22/12 at 0755, U ntil Wed09/23/12 at 0113, Intra-Operative (Intra-Procedure), Routine OXYcodone (ROXICODONE) immediate release tablet 5-10 mg (CANCELE D) 1422 (Given - Provider: Tierra Joiner RN) 5-10 mg, Oral, EVERY 3 HOURS PRN, Starti ng Nathaly 09/22/12 at 1036, Until Wed09/23/12 at 0113, Pain, May repeat once within 30-60 minutes if pain unrelieved., Routine promethazine (PHENERGAN) injection 6.25 mg (CANCELED) 1126 (Given - Provider: Tierra Joiner RN) 6.25 mg, Intravenous, EVERY 6 HOURS PRN, Starting Nathaly 09/22/12 at 1119, Until 09/23/12 at 0113, Nausea, Avoid extravasation, PACU Recovery, Routine documented in this encounter Care Teams [employer] Bi Administrator Relationship Specialty Start Date End Date Caitlin Callahan MD PCP - General 07/08/[address] [place] [address] documented as of this encounter
--- OUTSIDE RECORDS SUMMARY | 2022-03-05 00:39 | XMS_ITS | Encounter Summary ---
:1965 Author Organization [facility] [place] [address] Care Team Providers Name Role Phone Caitlin Callahan MD Primary Care Provider Encounter Details Date Type Department Care Team Description 08/19/2012 External Results Medical Records Provider, [place] [phone] Social History Tobacco Use Types Packs/Day [...] Name Priority Date/Time Associated Diagnosis Comme nts SURGICAL PATHOLOGY SCAN Routine 08/19/2012 documented in this encounter Results Scan Doc: Surgical Pathology (08/19/2012) Narrative This result has an attachment that is no t available. Sebastian Ledezma MD MEDIA MGR SCAN EXT ORDR/RSLT documented in this encounter Visit Diagnoses Not on filedocumented in this encounter Care Teams Parks [employer] Recreation Worker Relationship Specialty Start Date End Date Caitlin Callahan MD PCP - General 07/08/[address] [place] [address] documented as of this encounter
--- OUTSIDE RECORDS SUMMARY | 2022-03-05 00:39 | XMS_ITS | Encounter Summary ---
:1965 Author Organization [facility] [place] Address [facility] [place] [address] Care Team Providers Name Role Phone Caitlin Callahan MD Primary Care Provider Reason for Visit Reason Comments Establish Care Encounter Details Date Type Department Care Team Description 08/10/2012 Office Visit Gynecology Oncology Sebastian Ledezma MD Ovarian cancer at [facility] (Primary Dx) [facility] [address] GYNECOLOGY [place], [place] ONCOLOGY [id number] [place] [address] [phone] Social History Tobacco Use Types Packs/Day Years [...] Sign Reading Time Taken Comments Blood Pressure 128/80 08/10/2012 8:58 AM EST Pulse 60 08/10/2012 8:58 AM EST Temperature - - Respiratory Rate - - Oxygen Saturation - - Inhaled Oxygen Concentration - - Weight 68.8 kg (151 lb 10.8 oz) 08/10/2012 8:58 AM EST Height 177 cm (5' 9.69) 08/10/2012 8:58 AM EST Body Mass Index 21.96 08/10/2012 8:58 AM EST documented in this encounter Progress Notes Sandra Ordonez MD - 08/10/2012 9:14 AM EST Division of Gynecologic Oncology Ame Canales MD [facility] Maite Kim MD [facility] [place] [address] New Outpatient Consultation: Reason for Consult:Dunia Hoyos is being seen in the clinic today at the request of Dr. 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 I have reviewed the available records, interviewed and examined the patient. History of Present Illness: Dunia Hoyos is a 47 y.o. female referred for evaluation of post-operatively identified ovarian cancer. Dunia says she has had pain in RLQ off and on, no pattern, for 2-3 years. Sometimes it is a minor twinge, sometimes makes her double over in pain. After a severe episode, she went to ED for evaluation in late April 2012, had a f/u US which showed ovarian mass and small fibroids, then had CT and second US. With her primary liquid waste treatment plant operator, the plan was made to proceed to [facility] supra-cervical hysterectomy and RSO for presumed dermoid, which she had on 07/27/12. There was no gross disease noted a the time of her surgery. The right ovary was removed intact in an endo-catch bag and the uterus was morc ellated to be removed. 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 Right fallopian tube not involved bytumor. Uterine pathology showed focal simple hyperplasia and leiomyoma. CA-125 obtained shortly before the surgery returned as 183. She is now referred to ASSOCIATE PUBLISH[facility] oncology. Today, Dunia says she is doing well and recovering from her surgery. No pain. No fevers/chills. No abnormal vaginal discharge. Before her surgery, she says she had no symptoms of bloating/fullness/pressure/early satiety/reduced appetite/change in bowel or bladder habits. GYNhx: abnormal pap many years ago, s/p colpo. Normals since that time. No STDs or other ASS[employer] PUBL[employer] history. Menses were starting to become irregular, heavier in recent months until her surgery. Not currentlysexually active, no problems with sex the last time she was active. UTD mammograms, all normal. Obstetric History: . x 3, FT, no complications. TOP x 1. Review of Systems: Constitutional: Denies weight loss, fevers, chills or sweats. Energy level good. Able to care for self. Performance status 0. Eyes: Denies active eye issues. ENT: Good dentition. Denies mouth sores, sore throat, or runny nose. Denies problems with hearing. Cardiovascular: Denies CA, chest pain, chest pressure. Respiratory: Denies SOB or chronic cough. GI: Denies diarrhea, constipation, melena or BRBPR. : Denies incontinence or hematuria. Musculoskeletal: Denies weakness or muscle pain. Integumentary: Denies lesions and rash. Neurological: Denies seizures, headache. Psychiatric: Denies anxiety and depression. Endocrine: no heat/cold intolerance. Hematologic/Lymphatic: Denies easy bruising. Medical History: No major medical history Surgical History: Past Surgical History Procedure Date ??? Hysterectomy 07/27/12 [facility] BUD/RSO for fibroids and ovarian CA Medications: Multivitamin Allergies: Allergies Allergen Reactions ??? Other (Unclassified Drug) Shellfish= vomiting Family History: Family History Problem Relation Age of Onset ??? Diabetes Mother ??? Cancer Mother 47 Uterine cancer, s/p hysterectomy, no further treatment ??? Cancer neg for breast, ovarian, colon ??? Cancer Paternal Grandfather possibly bladder Social History: History Social History ??? Marital Status: Legal Separation Spouse Name: N/A Number of Children: N/A ??? Years of Education: N/A Occupational History ??? Not on file. Social History Main Topics ??? Smoking status: Never Smoker ??? Smokeless tobacco: Not on file ??? Alcohol Use: Not on file rare ??? Drug Use: No ??? Sexually Active: Not on file Other Topics Concern ??? 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 Kids 18,16.8, Physical Exam: BP 128/80 Pulse 60 Ht 177 cm (5' 9.69) Wt 68.8 kg (151 lb 10.8 oz) BMI 21.96 kg/m2 General: Dunia appears well. She is appropriate in her dress and demeanor. She is here with her mother and two sisters. Neck: Supple, no thyromegaly. Lymph nodes: No cervical, supraclavicular, or inguinal lymphadenopathy. Cor: RRR. No M/R/G. Lungs: CTA-B with good breath sounds throughout the entire lung schofield. Abdomen: Soft, nontender, nondistended. No palpable masses. Healing lsc incisions, with LLQ incisionabout 4 cm long. Pelvic Exam: Normal external female genitalia with a normal pubic hair distribution. The Bartholin'sand [place]'s glands are unremarkable. The urethra is without masses. The urethral meatus is without prolapse. The vagina is pink and rugated. There are no vaginal lesions. The cervix appears normal withno lesions. Bimanual and rectovaginal reveals hard stool in rectum, however there also seems to be afixed mass, approx 3 cm in diameter, anterior to the rectum, likely retained cervix. This is slightly mobile. No rectovaginal septum nodularity or sidewall nodularity. The anal sphincter tone is normaland there are no rectal masses. The stool is grossly heme negative. Extremities: no edema. Skin: No lesions. Pertinent Radiographic/Diagnostic Results: Images and reports reviewed. Ultrasounds and CT dated 05/23/12. CT with no evidence of upper abdominal disease or carcinomatosis. US 04/2012 shows 6.8x5.5x3.6 cm ovary with thick walled 4 cm mass and 2.9cm simple cyst. Repeat US 06/2012 shows right ovary is 43a64p17 mm, mixed echogenicity. Impression/Plan: Dunia Hoyos is a 47 y.o. with ovarian cancer, at least stage IC, found on pathology post-operatively after lsc BUD/RSO on 07/27/12. She had no evidence of upper abdominal disease on CT in May. She is asymptomatic. Pre-op CA 125 was elevated at 183. Her exam today is notable for a midline pelvic mass most likely retained cervix though this could represent tumor. We are recommending and planning completion oophorectomy and complete surgical staging. Chemotherapyregimen will be dictated based on tumor histology and stage. We discussed the following plan with Dunia: 1. Will request transfer of pathology slides to be reviewed at [facility]. 2. Repeat CA 125 today, and also repeat CT abdomen/pelvis today to assess for evidence of visible upper abdominal disease, given that she had ovarian capsule tumor involvement . We have scheduled surgery on 09/22/2012, about 8 weeks s/p initial surgery, to allow post-op inflammation to resolve, Will plan this to be a robotic staging (removal of contralateral ovary, pelvic and para-aortic lymphadenectomy, omental and peritoneal biopsies) if no evidence of bulky disease on CT, however will plan an open laparotomy with debulking and staging if upper abdominal disease is seen on CT. I reviewed the surgical approach, need for general anesthesia, and the expected postoperative recovery. The patient was informed that patient's undergoing this procedure typically are safe to go home the same day or the day after (will be longer if laparotomy is performed). Additionally, I discussed the risks of the procedure including infection, bleeding, chronic leg swelling (lymphedema), DVT/PE, , damage to pelvic or abdominal structures such as the bowel, bladder, ureters, blood vessels, nerves, and the possibility of needing to convert to an open surgery. All of Dunia's questions were answered to her satisfaction and she verbalized understanding of the plan of care. Surgical consent was obtained. Thank you for referring this wendi patient to [facility] for her cancer care. I will keep you apprised ofher progress. Patient was seen and examined with Dr. Sebastian Ledezma. SANDRA ORDONEZ MD Staff Addendum: I saw and evaluated the patient with Dr. Ordonez (prosthetic dentist resident). I independently confirmed the resident's history and physical findings, and I reviewed the pertinent data. The assessment and plan were formulated in discussion with me, as outlined in the above note, and I agree with the note as written. Sebastian Ledezma MD documented in this encounter Miscellaneous Notes Miscellaneous - Provider, Scanning - 08/19/2012 9:29 AM EST documented in this encounter Plan of Treatment Not on filedocumented as of this encounter Procedures Procedure Name Priority Date/Time Associated Comments Diagnosis DIFFERENTIAL, Routine 08/10/2012 10:47 AM Results for this AUTOMATED EST procedure are i n the results section. CREATININE Routine 08/10/2012 10:47 AM Ovarian cancer Result s for this EST procedure are i n the results section. CBC (WITH DIFF) Routine 08/10/2012 10:47 AM Ovarian cancer Res ults for this EST procedure are i n the results section. CANCER ANTIGEN 125 Routine 08/10/2012 10:47 AM Ovarian cancer Results for this EST procedure are i [...] seen. Sebastian Ledezma MD IMG CT ORDERABLES Differential, Automated (08/10/2012 10:47 AM EST) P athologist Signature Neutrophils % 70.0 34.0 - CERNER 71.0 % MILLENNIUM Neutr Abs (ANC) 3.29 1.50 - CERNER 6.30 MILLENNIUM x10(3)/mcL Lymphocytes % 22.1 19.0 - CERNER 53.0 % MILLENNIUM Lymphocytes Abs 1.0 1.0 - 3.6 CERNER x10(3)/mcL MILLENNIUM Monocytes % 6.4 4.0 - 13.0 CERNER % MILLENNIUM Monocyte Abs 0.3 0.2 - 1.0 CERNER x10(3)/mcL MILLENNIUM Eosinophils % 0.9 0.0 - 7.0 CERNER % MILLENNIUM Eosinophils Abs 0.0 0.0 - 0.5 CERNER x10(3)/mcL MILLENNIUM Basophils % 0.4 0.0 - 2.0 CERNER % MILLENNIUM Basophils Abs 0.0 0.0 - 0.2 CERNER x10(3)/mcL MILLENNIUM Immature Gran % 0.20 0.00 - CERNER 0.66 % MILLENNIUM Comment: Immature granulocytes(IG's)percentage an d absolute count will include metamyelocytes, myelocytes, and promyelo cytes. Blood smears from CBCs yielding IG's will be scanned manually for satya danrock. If this scan disagrees with the automated IG or if promyelocytes are not ed, a manual differential will be performed. Marilee Gran Abs 0.01 0.00 - 0.05 x10(3)/mcL CER NER MILLENNIUM Specimen Anatomical Collection Method Collection Time Receive d Time (Source) Location / / Volume Laterality Blood specimen 08/10/2012 10:47 2 (specimen) AM EST 10:51 AM EST Sebastian Ledezma MD HEMATOLOGY ORDERABLES Performing Organization Address City/State/ZIP Code Phon e Number [place] [id number] CERNER MILLENNIUM Creatinine, serum (08/10/2012 10:47 AM EST) athologist Signature Creatinine 0.83 0.70 - 1.20 CERNER mg/dL [facility] Comment: Please note that the pediatric reference intervals supplied above were not validated at [facility]. Results from pediatri c patients should be interpreted in conjunction to the patient's age, height and muscle mass. Estimated GFR >60 >=60 DAVONTE Oscar Comment: The National Kidney Disease Education Pr [...] Location / / Volume Laterality Blood specimen 08/10/2012 10:47 2 (specimen) AM EST 10:51 AM EST Resulting Agency Comment Spec In Lab Sebastian Ledezma MD CHEMISTRY ORDERABLES Performing Organization Address City/State/[place] [address] CERNER MILLENNIUM (ABNORMAL) CBC (with Diff) (08/10/2012 10:47 AM EST) P athologist Signature WBC 4.7 4.0 - 10.0 CERNER x10(3)/mcL MILLENNIUM RBC 3.82 (L) 3.93 - CERNER 5.22 MILLENNIUM x10(6)/mcL Hemoglobin 9.6 (L) 11.2 - CERNER 15.7 gm/dL MILLENNIUM Hematocrit 30.9 (L) 34.0 - CERNER 45.0 % MILLENNIUM MCV 80.9 79.0 - CERNER 94.0 fL MILLENNIUM MCH 25.1 (L) 26.6 - CERNER 32.2 pg MILLENNIUM MCHC 31.1 (L) 32.0 - CERNER 36.5 gm/dL MILLENNIUM Platelets 227 145 - 370 CERNER x10(3)/mcL [facility] RDWSD 42.1 35.0 - CERNER 46.0 fL [facility] RDWCV 14.4 10.9 - CERNER 14.4 % [facility] MPV 9.7 9.0 - 12.0 CERNER fL [facility] Specimen Anatomical Collection Method Collection Time Receive d Time (Source) Location / / Volume Laterality Blood specimen 08/10/2012 10:47 2 (specimen) AM EST 10:51 AM EST Resulting Agency Comment Spec In Lab Sebastian Ledezma MD HEMATOLOGY ORDERABLES Performing Organization Address City/State/ZIP Code Phon e Number [address] [facility] (ABNORMAL) Cancer Antigen 125 (08/10/2012 10:47 AM EST) P athologist Signature CA 125 54 (H) <=20 u/ml [facility] Specimen Anatomical Collection Method Collection Time Receive d Time (Source) Location / / Volume Laterality Blood specimen 08/10/2012 10:47 2 2:16 (specimen) AM EST PM EST Resulting Agency Comment Spec In Lab Sebastian Ledezma MD CHEMISTRY ORDERABLES Performing Organization Address City/State/ZIP Code Phon e Number [address] [facility] documented in this encounter Visit Diagnoses Diagnosis Ovarian cancer - Primary Malignant neoplasm of ovary Ovarian cancer Malignant neoplasm of ovary documented in this encounter Care Teams Javascript Software Engineer Relationship Specialty Start Date End Date Caitlin Callahan MD PCP - General 07/08/[address] [place] [address] documented as of this encounter
--- OUTSIDE RECORDS SUMMARY | 2022-03-05 00:39 | XMS_ITS | Encounter Summary ---
:1965 Author Organization [facility] [place] [address] Care Team Providers Name Role Phone Caitlin Callahan MD Primary Care Provider Encounter Details Date Type Department Care Team Description 08/03/2012 External Results XRay at [facility] Caitlin Callahan MD [address] [place] [address] [place] [address] [address] [place], [place] [id number] (Wo rk) Social History Tobacco Use Types Packs/Day Years Used Date Never Assessed Sex Assigned at Date Recorded Not on file documented as of this encounter Plan of Treatment Not on filedocumented as of this encounter Procedures Procedure Name Priority Date/Time Associated Diagnosis Comme nts ULTRASOUND SCAN (SCAN) Routine 07/01/2012 CT SCAN (SCAN) Routine 05/23/2012 ULTRASOUND SCAN (SCAN) Routine 05/11/2012 documented in this encounter Results Scan Doc: Ultrasound (07/01/2012) Anatomical Region Laterality Modality Other Narrative This result has an attachment that is no t available. Caitlin Callahan MD [place] [facility] SCAN EXT ORDR/RSLT Scan Doc: CT Scan (05/23/2012) Anatomical Region Laterality Modality Other Narrative This result has an attachment that is no t available. Caitlin Callahan MD [facility] SCAN EXT ORDR/RSLT Scan Doc: Ultrasound (05/11/2012) Anatomical Region Laterality Modality Other Narrative This result has an attachment that is no t available. Manasa Cast APRN [facility] SCAN EXT ORDR/RSLT documented in this encounter Visit Diagnoses Not on filedocumented in this encounter Care Teams Hospice Clinical Supervisor Relationship Specialty Start Date End Date Caitlin Callahan MD PCP - General 07/08/[address] [place] [address] documented as of this encounter
--- OUTSIDE RECORDS SUMMARY | 2022-03-05 00:39 | XMS_ITS | Encounter Summary ---
:1965 Author Organization [facility] [place] [address] Care Team Providers Name Role Phone Caitlin Callahan MD Primary Care Provider Encounter Details Date Type Department Care Team Description 08/19/2012 Hospital Encounter Laboratory Sebastian Coy MD [facility] [place] [address] GYNECOLOGY ONCOLOGY [phone] [place], [place] [address] (Wo rk) Social History Tobacco [...] Date/Time Associated Diagnosis Comme nts SURGICAL PATHOLOGY Routine 08/19/2012 7:28 AM Res ults for this REPORT EST procedure are i n the results section. documented in this encounter Results Surgical Pathology Report (08/19/2012 7:28 AM EST) Component Value Ref Test Analysis Performed At [facility] gist Range Method Time Signature Surgical CERNER Pathology ? [facility] Report ? Provider: ?? SEBASTIAN COY ?Pt. Name: ?? SUSHANT IS, DUNIA L ? Acc #: ?[id number] ?Pt. MRN: ?[id number] ? Col Date: ?? 08/19/2012 ?/Sex: ?1965,(47 years),Female ? Rec Date: ?? 08/19/2012 ?LOC: ?[facility] ? SURGICAL PATHOLOGY ? ---Pathologic Diagnosis--- ? CONSULTATION CASE ? Extradepartmental number: [id number]; collection date, 07/27/12. ? A - Right fallopian tube and ovary (salpingo-oophorec param): ? 1. Ovarian micropapillary serous carcinoma, low grade, with ?rare focus of microinvasion (see Comment). ? 2. Surface of ovary: Involved by tumor. ? 3. Fallopian tube, no evidence of malignancy. ? B - Uterus (supracervical hysterectomy): ? 1. Multiple leiomyomas. ? 2. No evidence of malignancy. ? 3. Benign functional endometrial polyp with sim ple ?hyperplasia. ? CR-0 ? 08/22/12 ? JLG ? 08/23/12 Verified by: ? Pawel DE LEON, [address]. ? Pathologist ? (Electronic Si gnature) ? The attending pathologist whose signature appears o n this report has ? reviewed all diagnostic slides and has edited the aristides ss and/or ? microscopic portion of the report in rendering the fi nal pathologic ? diagnosis. ? ---Comment--- ?An ovarian serou s tumor with this morphology was once termed serous ? borderline tumor, micropapillary variant unless there was significant ? stromal invasion (i.e. beyond microinvasion). However , there is a ? growing consensus that these tumors represent low-gra de serous ? carcinomas even in the absence of demonstrable stromal invasion because ? of their propensity for more aggressive behavio r, more frequent tumor ? recurrence, and a greater association with invasive e xtra-ovarian ? tumor implants as compared to classical borderline ov kinza serous ? tumors. Hence, the preferred designation micropapill shaheen serous ? carcinoma, low grade. ??The tumor has not been fully staged and is ? at least a FIGO stage IC. ? ---Microscopic Description--- ? Slides reviewed, microscopic description not recorded . ? [facility] ? Provider: ?? SEBASTIAN COY ?Pt. Name: ?? SUSHANT IS, DUNIA L ? Acc #: ?[id number] ?Pt. MRN: ?[id number] ? Col Date: ?? 08/19/2012 ?/Sex: ?1965,(47 years),Female ? Rec Date: ?? 08/19/2012 ?LOC: ?[facility] ? SURGICAL PATHOLOGY ? ---Gross Description--- ? [facility] ([facility]) pathology slide(s) are reviewed. ??Refer ? to Diagnosis and Specimen Submitted for specific case information. ? For the full text of the [facility] report(s) please refer to Non-DH ? Documentation Pathology in the electronic health [address] (eDH). ? ---Clinical Information--- ? Specimen Submitted: ? CONSULTATION CASE ? A - 21 slides labeled [id number], collection date 07/16 09/27. ? [id number] ? Report to: ? [facility] ? Surgical Pathology Department ? [facility], [facility], 2nd Floor ? [address] ? [place], [place] ??[address] ? Specimen (Source) Anatomical Collection Method Collection Time Re ceived Time Location / / Volume Laterality 08/19/2012 7:28 AM EST Sebastian Coy MD PATHOLOGY/CYTOLOGY ORDERABLE S Performing Organization Address City/State/[place] [address] [facility] documented in this encounter Visit Diagnoses Not on filedocumented in this encounter Care Teams Fittings Tightener Relationship Specialty Start Date End Date Caitlin Callahan MD PCP - General 07/08/[address] [place] [address] documented as of this encounter
--- OUTSIDE RECORDS SUMMARY | 2022-03-05 00:39 | XMS_ITS | Encounter Summary ---
:1965 Author Organization [facility] [place] [address] Care Team Providers Name Role Phone Caitlin Callahan MD Primary Care Provider Encounter Details Date Type Department Care Team Description 09/22/2012 Hospital Encounter Same Day Program at [facility] Ovarian mass [facility] GYNECOLOGY ON [id number] [place] [address] [phone] Social History Tobacco Use Types Packs/Day Years [...] Sign Reading Time Taken Comments Blood Pressure 103/62 09/22/2012 12:20 PM EST Pulse 58 09/22/2012 12:20 PM EST Temperature 36 ??C (96.8 ??F) 09/22/2012 10:29 AM EST Respiratory Rate 16 09/22/2012 12:20 PM EST Oxygen Saturation 100% 09/22/2012 12:20 PM EST Inhaled Oxygen Concentration - - [...] Program 8a-5pm Wednesday-Wednesday. All other times, call [phone] and ask for the anesthesiologist expedition supervisor. Patient InstructionsMaira Cunningham - 09/22/2012 10:23 AM EST PATIENT DISCHARGE INSTRUCTIONS Call your doctor if you develop: --A fever over 101 degrees --Severe pain --Increasing pain, redness, or discharge at your incisions Please call [facility], , with questions/concerns. After hours, call [phone]. Please follow up with Dr. Coy in [...] CT and second US. With her primary pediatric dental hygienist, the plan was made to proceed to [facility] supra-cervical hysterectomy and [...] as 183. She is now referred to BOOK SOLICITOR oncology. Today, Catalina says she is doing well and recovering from her surgery. No pain. No fevers/chills. No abnormal vaginal discharge. Before her surgery, she says she had no symptoms of b loating/fullness/pressure/early satiety/reduced appetite/change in bowel or bladder habits. GYNhx: abnormal pap many years ago, s/p colpo. Normals since that time. No STDs or other BOOK SOLICITOR history. Menses were starting to become irregular, [...] Surgical History Procedure Date ??? 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 Kids [...] Miscellaneous Notes Miscellaneous - Provider, Shayne - 09/22/2012 5:47 PM EST OR Attestation - Sebastian Coy MD - 09/22/2012 10:15 AM EST Attestation: Case Date: 09/22/2012 I was present and I participated during the entire procedure (does not need to include opening and closing). SEBASTIAN COY MD 09/22/2012 Brief Op Note - Sebastian Coy MD - 09/22/2012 10:05 AM EST Brief Operative Note Patient Name: Catalina Hoyos : [id number] MR#: [id number] Case Date: 09/22/2012 Surgeon: Surgeon(s) and Role: * Sebastian Coy MD - Primary * Maira Cunningham MD - Resident-Buyer Agent Preoperative diagnosis: Ovarian carcinoma, unstaged Postoperative diagnosis: [...] Coy MD - 09/22/2012 9:34 AM EST [facility] Operative Note Patient Name: Catalina Hoyos : [id number] MR#: [id number] Case Date: 09/22/2012 Surgeon: Surgeon(s) and Role: * Sebastian Coy MD - Primary * Maira Cunningham MD - Resident-Buyer Agent Procedure: 1) Robotic-Assisted laparoscopic left salpingo-oophorectomy and [...] CT and second US. With her primary pediatric dental hygienist, the plan was made to proceed to [facility] supra-cervical hysterectomy and [...] as 183. Catalina was subsequently referred to [facility] BOOK SOLICITOR oncology for management. 08/10/2012 CT Abdomen/Pelvis revealed [...] trocars and a 12-mm right upper quadrant litigation assistant port were placed slightly superior to [...] procedure are i n the results section. NON-BOOK SOLICITOR FINAL REPORT Routine 09/22/2012 9:02 AM R [...] 09/22/2012 6:50 AM Ovarian mass (FUTURE SURGERY, [facility] EST SAME DAY PROGRAM ONLY) ABO/RH TYPING [...] AM EST 10:03 AM EST Narrative DAVONTE WALKER - 09/22/2012 10:03 AM EST Specimen requisition ordered. ??Separate Pathology report to follow Sebastian Coy MD PATHOLOGY/CYTOLOGY ORDERABLE S Performing Organization Address City/State/[place] [address] DAVONTE WALKER Specimen to [...] MD PATHOLOGY/CYTOLOGY ORDERABLE S Performing Organization Address [facility]/ZIP Code Phon e Number [address] CERNER MILLENNIUM Specimen to [...] MD PATHOLOGY/CYTOLOGY ORDERABLE S Performing Organization Address [facility]/ZIP Code Phon e Number [address] CERNER MILLENNIUM Specimen to [...] MD PATHOLOGY/CYTOLOGY ORDERABLE S Performing Organization Address [facility] Phon e Number [address] CERNER MILLENNIUM Surgical Pathology Report (09/22/2012 9:22 AM EST) Component Value Ref Test Analysis Performed At [facility] Range Method Time Signature Surgical CERNER Pathology ? [facility] Report ? Provider: ?? SEBASTIAN COY ?Pt. Name: ?? SUSHANT IS, CATALINA L ? Acc #: ?[id number] ?Pt. MRN: ?[id number] ? Col Date: ?? 09/22/2012 ?/Sex: ?1965,(47 [...] Comment). ? 2 - Corpus luteum. ? [facility] ? Provider: ?? SEBASTIAN COY ?Pt. Name: ?? SUSHANT IS, CATALINA L ? Acc #: ?[id number] ?Pt. MRN: ?[id number] ? Col Date: ?? 09/22/2012 ?/Sex: ?1965,(47 [...] of microinvasion in the contralateral ? ovary ([id number]), ho wever, the tumor in this ovary [...] tumor ? implants. ??Dr. Tam yap reviewed sales and service representative slides from this case and ? concurs with this interpretation. ? ---Microscopic Description--- ? Slides reviewed, microscopic description not recorded . ? [facility] ? Provider: ?? SEBASTIAN COY ?Pt. Name: ?? CATALINA KARIMI ? Acc #: ?[id number] ?Pt. MRN: ?[id number] ? Col Date: ?? 09/22/2012 ?/Sex: ?1965,(47 years),Female ? Rec Date: ?? 09/22/2012 ?LOC: ?SDA ? SURGICAL PATHOLOGY ? Immunohistochemistry Studies: ? Formalin-fixed, paraf fin-embedded tissue sections are studied using the B- ? SA system technique w ith appropriate positive and negative controls. ??These ? IHC studies provide [facility] pathologist with adjunctive diagnostic information. ? Antibody [...] - Labeled/Fixative: Right ovarian vessel, fresh. ? [facility] ? Provider: ?? SEBASTIAN COY ?Pt. Name: ?? SUSHANT IS, CATALINA L ? Acc #: ?[id number] ?Pt. MRN: ?[id number] ? Col Date: ?? 09/22/2012 ?/Sex: ?1965,(47 years),Female ? Rec Date: ?? 09/22/2012 ?LOC: ?SDA ? SURGICAL PATHOLOGY ? Qty/Size/Weight: ?Single, 6.0 x 1.5 x 0.7 cm. ? Tissue Description: ? ? Elongated, cylindrical portion of rubbery, sloiz tissue ? and attached fat. ??Sectioning reveals unremarkable, ? blood-filled vessels. ??No abnormalities are noted. ? Sections/Processing: ??A sales and service representative cross section is submitted. ??(R1) ? [...] (4) fallopian tube and paratubal cyst; ? [facility] ? Provider: ?? SEBASTIAN COY ?Pt. Name: ?? SUSHANT IS, CATALINA L ? Acc #: ?[id number] ?Pt. MRN: ?[id number] ? Col Date: ?? 09/22/2012 ?/Sex: ?1965,(47 [...] MD PATHOLOGY/CYTOLOGY ORDERABLE S Performing Organization Address City/[facility]/ZIP Code Phon e Number [address] CERNER MILLENNIUM Specimen to [...] MD PATHOLOGY/CYTOLOGY ORDERABLE S Performing Organization Address City/[facility] [place] [address] CERNER MILLENNIUM Specimen to [...] Organization Address City/State/[place] [address] CERNER MILLENNIUM Specimen to [...] MD PATHOLOGY/CYTOLOGY ORDERABLE S Performing Organization Address City/[facility]/[place] [address] CERNER MILLENNIUM Specimen to [...] MD PATHOLOGY/CYTOLOGY ORDERABLE S Performing Organization Address City/[facility]/[place] [address] CERNER MILLENNIUM Specimen to [...] MD PATHOLOGY/CYTOLOGY ORDERABLE S Performing Organization Address City/[facility]/[place] [address] CERNER MILLENNIUM Specimen to Pathology (surgical or derm) (09/22/2012 9:11 AM EST) Specimen Anatomical Collection Method Collection Time Receive d Time (Source) Location / / Volume Laterality AP Specimen 09/22/2012 9:11 AM 3 9:11 EST AM EST Narrative [facility] - 09/22/2012 9:[address] Specimen requisition ordered. ??Separate Pathology report to follow Sebastian Coy MD PATHOLOGY/CYTOLOGY ORDERABLE S Performing Organization Address City/State/[place] [address] [facility] Non-Fingerprint Technician Final Report (09/22/2012 9:02 AM EST) Component Value Ref Test Analysis Performed At [facility] gist Range Method Time Signature Non-Fingerprint Technician [facility] Final Report ? [facility] ? Provider: ?? SEBASTIAN COY ?Pt. Name: ?? SUSHANT IS, CATALINA L ? Acc #: ?[id number] ?Pt. MRN: ?[id number] ? Col Date: ?? 09/22/2012 ?/Sex: ?1965,(47 years),Female ? Rec Date: ?? 09/22/2012 ?LOC: ?SDA ? CYTOPATHOLOGY: ??NGYN ? ---Adequacy--- ? Specimen submitted is satisfactory. ? ---Cytopathologic Diagnosis--- ? Positive for Malignancy ? 09/23/12 ?Screened by: ? [facility] ? Rescreened by: ?? KPR,PHOTOGRAPHY EDITOR, ? 09/30/12 ?Verified by: ? TRUMAN DE [...] are also not ed in the ? sales and service representative sectio n of the tumor in the omentum ([id number]) which was ? reviewed. ? Additional levels examined on the cell block. ? Please see the concurrent surgical specimen [id number] . ? --- Immunohistochemistry Studies --- ? [...] Pertinent Clinical Data and Significant Therapy: ? [facility] ? Provider: ?? SEBASTIAN COY ?Pt. Name: ?? SUSHANT IS, CATALINA L ? Acc #: ?[id number] ?Pt. MRN: ?[id number] ? Col Date: ?? 09/22/2012 ?/Sex: ?1965,(47 [...] MD PATHOLOGY/CYTOLOGY ORDERABLE S Performing Organization Address City/[facility]/ZIP Code Phon e Number [address] [facility] Cytopathology Non-Gynecological (09/22/2012 8:36 AM EST) Specimen Anatomical Collection Method Collection Time Receive d Time (Source) Location / / Volume Laterality AP Specimen 09/22/2012 8:36 AM 3 8:36 EST AM EST [facility]ative [facility] 8:[address] Specimen requisition ordered. ??Separate Pathology report to follow Sebastian Coy MD PATHOLOGY/CYTOLOGY ORDERABLE S Performing Organization Address City/[facility] Phon e Number [address] [facility] Antibody screen (09/22/2012 6:50 AM EST) Analysis Performed At Patho logist Time Signature Ab Screen Negative [facility] Expires at [id number] 066 on: [facility] Specimen Anatomical Collection Method Collection Time Receive d Time (Source) Location / / Volume Laterality Blood specimen 09/22/2012 6:50 AM 013 7:13 (specimen) EST AM EST Resulting Agency Comment Spec In Lab Sebastian Coy MD BLOOD BANK ORDERABLES Performing Organization Address City/State/ZIP Code Phon e Number [address] [facility] ABO/Rh Typing (09/22/2012 6:50 AM EST) P athologist Signature ABORh Type O Pos [facility] Specimen Anatomical Collection Method Collection Time Receive d Time (Source) Location / / Volume Laterality Blood specimen 09/22/2012 6:50 AM 013 7:13 (specimen) EST AM EST Resulting Agency Comment Spec In Lab Sebastian Coy MD BLOOD BANK ORDERABLES Performing Organization Address City/[facility]/ZIP Code Phon e Number [address] [facility] documented in this encounter Visit Diagnoses Diagnosis Ovarian mass Unspecified noninflammatory disorder of ovary, fallopian tube, and broad ligament documented in this encounter Administered Medications Inactive Administered Medications - up to 3 most recent administrations Medication Order MAR Action Action Date Dose Rate Site OXYcodone (ROXICODONE) immediate Given 09/22/2012 2:22 PM EST 5 mg release tablet 5-10 mg 5-10 mg, Oral, EVERY 3 [...] patch (CANCELED) 0745 (Given - Provider: Donna Ross, JACEY) 1 patch, Transdermal, EVERY 72 HOURS, Fi rst dose on Nathaly 09/22/12 at 0745, Until Discontinued, PACU Recovery, Routine PRN Medication Order 09/20/2012 09/21/2012 09/22/2012 BUpivacaine-epiNEPHrine 0.25 %-1:200,000 injection (CANCELED) 0845 (Given - Provider: Sebastian Coy MD) ONCE PRN, Starting Nathaly 09/22/12 at 0845, U ntil 09/23/12 at 0113, Intra-Operative (Intra-Procedure), Routine ceFAZolin (ANCEF) injection (CANCELED) 0755 (Given - Provider: Davi Pereira CRNA) ONCE PRN, Starting Nathaly 09/22/12 at 0755, U ntil 09/23/12 at 0113, Intra-Operative (Intra-Procedure), Routine OXYcodone (ROXICODONE) immediate release tablet 5-10 mg (CANCELE D) 1422 (Given - Provider: Tierra Joiner, JACEY) 5-10 mg, Oral, EVERY 3 HOURS PRN, Starti ng Nathaly 09/22/12 at 1036, Until 09/23/12 at 0113, Pain, May repeat once within 30-60 minutes if pain unrelieved., Routine promethazine (PHENERGAN) injection 6.25 mg (CANCELED) 1126 (Given - Provider: Tierra Joiner, RN) 6.25 mg, Intravenous, EVERY 6 HOURS PRN, Starting Nathaly 09/22/12 at 1119, Until 09/23/12 at 0113, Nausea, Avoid extravasation, PACU Recovery, Routine documented in this encounter Care Teams Body Art Technician Relationship Specialty Start Date End Date Caitlin Callahan MD PCP - General 07/08/[address] [place] [address] [address] [place] [address] documented as of this encounter
--- OUTSIDE RECORDS SUMMARY | 2022-03-05 00:39 | XMS_ITS | Encounter Summary ---
:1965 [place] [address] Care Team Providers Name Role Phone Caitlin Callahan MD Primary Care Provider Encounter Details Date Type Department Care Team Description 05/11/2012 Orders Only Gynecology Oncology at [facility] Sebastian Ledezma MD [facility] [address] [place] [address] GYNECOLOGY ONCOLOGY [phone] [place], [place] [address] (Wo rk) Social History Tobacco Use Types Packs/Day Years Used Date Never Assessed Sex Assigned at Date Recorded Not on file documented as of this encounter Plan of Treatment Not on filedocumented as of this encounter Procedures Procedure Name Priority Date/Time Associated Comments Diagnosis FILM LIBRARY STORAGE Routine 05/11/2012 5:45 PM R esults for this ONLY ULTRASOUND EDT procedure ar e in STUDY the results section. documented in this encounter Results Film Library- Storage only Ultrasound Study (05/11/2012 5:45 PM EDT) Specimen (Source) Anatomical Collection Method Collection Time Re ceived Time Location / / Volume Laterality 05/11/2012 5:45 PM EDT Narrative RAD - 04/02/2014 7:04 PM EDT This is a non-reportable exam. Procedure Note Rl Brown - 04/02/2014Formatti ng of this note might be different from the original. This is a non-reportable exam. Sebastian Ledezma MD [facility] FILM LIBRARY ORDERABLES Performing Organization Address City/State/ZIP Code Phon e Number [facility] [address] [facility] [place] [address] documented in this encounter Visit Diagnoses Not on filedocumented in this encounter Care Teams Farm Equipment Engineer Relationship Specialty Start Date End Date Caitlin Callahan MD PCP - General 07/08/[address] [place] [address] documented as of this encounter
--- OUTSIDE RECORDS SUMMARY | 2022-03-05 00:39 | XMS_ITS | Encounter Summary ---
:1965 Author Organization [facility] [place] [address] Care Team Providers Name Role Phone Caitlin Callahan MD Primary Care Provider Encounter Details Date Type Department Care Team Description 08/10/2012 Clinical Support Same Day at [facility] Ovarian mass (Primary [facility] [place] [place] [address] Social History Tobacco Use Types Packs/Day [...] Sign Reading Time Taken Comments Blood Pressure - - Pulse - - Temperature - - Respiratory Rate - - Oxygen Saturation 100% 08/10/2012 10:24 AM EST Inhaled Oxygen Concentration - - Weight - - Height - - Body Mass Index - - documented in this encounter Progress Notes Mayra David RN - 08/10/2012 10:50 AM EST Pre-anesthesia questionnaire reviewed with patient. No previous issues with anesthesia. Patient has paperwork for doing Living Will and DPOA. Pre-op folder reviewed and all questions addressed. Labs done today. Will need T&S closer to date of surgery or on day of surgery. documented in this encounter Plan of Treatment Not on filedocumented as of this encounter Visit Diagnoses Diagnosis Ovarian mass - Primary Unspecified noninflammatory disorder of ovary, fallopian tube, and broad ligament documented in this encounter Care Teams Yard Motor Operator Relationship Specialty Start Date End Date Caitlin Callahan MD PCP - General 07/08/[address] [place] [address] [address] [place] [address] documented as of this encounter
--- OUTSIDE RECORDS SUMMARY | 2022-03-05 00:39 | XMS_ITS | Encounter Summary ---
:1965 [place] [address] Care Team Providers Name Role Phone Caitlin Callahan MD Primary Care Provider Encounter Details Date Type Department Care Team Description 05/23/2012 Orders Only Gynecology Oncology at [facility] Sebastian Ledezma MD [facility] [address] [place] [address] GYNECOLOGY ONCOLOGY [phone] [place] [id number] (Wo rk) Social History Tobacco Use Types Packs/Day Years Used Date Never Assessed Sex Assigned at Date Recorded Not on file documented as of this encounter Plan of Treatment Not on filedocumented as of this encounter Procedures Procedure Name Priority Date/Time Associated Diagnosis Comme nts FILM LIBRARY Routine 05/23/2012 5:47 PM Results f or this STORAGE ONLY CT EDT procedure ar e in ABDOMEN AND PELVIS the resul ts section. documented in this encounter Results Film Library- Storage only CT abdomen & pelvis (05/23/2012 5:47 PM EDT) Specimen (Source) Anatomical Collection Method Collection Time Re ceived Time Location / / Volume Laterality 05/23/2012 5:47 PM EDT Narrative RAD - 04/02/2014 7:04 PM EDT This is a non-reportable exam. Procedure Note Rl Brown - 04/02/2014Formatti ng of this note might be different from the original. This is a non-reportable exam. Sebastian Ledezma MD IMG FILM LIBRARY ORDERABLES Performing Organization Address City/State/ZIP Code [facility] e Number DH RAD RAD [address] [facility] [place] [address] documented in this encounter Visit Diagnoses Not on filedocumented in this encounter Care Teams Hand Tier Relationship Specialty Start Date End Date Caitlin Callahan MD PCP - General 07/08/[address] [place] [address] documented as of this encounter
--- OUTSIDE RECORDS SUMMARY | 2022-03-05 00:39 | XMS_ITS | Encounter Summary ---
:1965 Author Organization [facility] [place] [address] Care Team Providers Name Role Phone Caitlin Callahan MD Primary Care Provider Encounter Details Date Type Department Care Team Description 09/22/2012 Anesthesia Event Main Operating Room Davi Singer MD [address] [address] [place] [address] [phone] Anesthesia Record Procedure Summary Procedure Name Responsible Anesthesia Start Anesthesia Stop Time Anesthesiologist Time LAPAROSCOPY, Davi Tovar MD 09/22/12 0727 09/22/12 1030 REMOVAL OF ADNEXA, ROBOT ASSIST (WRVU 11.35) (N/A Uterus) Events Date Time Event Comment 09/22/2012 0715 0727 Start 1030 Stop No medications on file. Agents No agents on file. Blood No blood administrations on file. Lines, Drains, and Airways Type Details Placement Removal Incision 09/22/12; abdomen 09/22/12 0000 by Tiera Koch RN PIV 08/10/12; 1427; 08/10/12 1427 by Kem, 11/03/12 1326 by 11/03/12; 1326 Val Gross RN PIV 09/22/12; 09/22/12; 1445 09/22/12 0000 by 1445 by Tiera oKch RN Farrell, Judith B, RN Urethral Catheter 09/22/12; indwelling 09/22/12 0000 by 11/03/12 1326 by double lumen catheter; Tiera Koch RN Me nard, Susan A, RN silastic; 16; inserted (Inserted from field by JAMEE Aguilar); drainage bag to dependent drainage; 11/03/12; 1326 documented in this encounter Social History Tobacco [...] encounter OR Notes Anesthesia Postprocedure Evaluation - Davi Tovar - 09/22/2012 12:42 PM EST Patient: Dunia Hoyos Procedure(s) Performed: Procedure(s): LAPAROSCOPY, REMOVAL OF ADNEXA, ROBOT ASSIST LAPAROSCOPY,W\BILATERAL TOTAL PELVIC LYMPHADENECTOMY, PERIAORTIC LYMPH NODE SAMPLING, ROBOTIC Patient location: PACU Post-op pain: Adequate analgesia Post-op nausea: nausea or vomiting an issue but being treated with medication Last Vitals: Filed Vitals: 09/22/12 1220 BP: 103/62 Pulse: 58 Temp: Resp: 16 Post-op cardiovascular and respiratory status: is stable Level of consciousness: awake Complications: no apparent complications Fluid Status: normal Anesthesia Preprocedure Evaluation - Davi Pereira CRNA - 09/22/2012 7:14 AM EST Today I evaluated Dunia Hoyos a 47 y.o. female. Procedure(s): LAPAROSCOPY, REMOVAL OF ADNEXA, ROBOT ASSIST LAPAROSCOPY,W\BILATERAL TOTAL PELVIC LYMPHADENECTOMY, PERIAORTIC LYMPH NODE SAMPLING, ROBOTIC There are no active problems to display for this patient. No past medical history on file. Past Surgical History Procedure Date ??? Hysterectomy 07/27/12 c BUD/RSO for fibroids and ovarian CA History Substance Use Topics ??? Smoking status: [...] >3 FB Neck ROM: full Cardiovascular Assessment: Pulmonary Assessment: Dental Assessment: - normal exam [facility] Assessment: Anesthesia Plan: ASA 3 general, with a(n) intravenous induction Plan GA with ETT. Informed Consent: Anesthetic plan and risks discussed with patient. Use of blood products discussed with whom consented to blood products. Plan discussed with FORGE HEATER. [facility]. Assessment: documented in this encounter Plan of Treatment Not on filedocumented as of this encounter Visit Diagnoses Not on filedocumented in this encounter Care Teams Train Operations Supervisor Relationship Specialty Start Date End Date Caitlin Callahan MD PCP - General 07/08/[address] [place] [address] documented as of this encounter
--- OUTSIDE RECORDS SUMMARY | 2022-03-05 00:41 | XMS_ITS | Encounter Summary ---
:1965 Author Organization [facility] Address [address] [place] [address] Care Team Providers Name Role Phone Unavailable Primary Care Provider Unavailable Encounter Details Date Type Department Care Team Description 07/27/[address] [facility] Rachel Vickers MD [phone] [address] [place] [address] Social History Tobacco Use Types Packs/Day Years Used Date Never Assessed Sex Assigned at Date Recorded Not on file documented as of this encounter Plan of Treatment Not on filedocumented as of this encounter Procedures Procedure Name Priority Date/Time Associated Diagnosis Comme [facility] SURGICAL PATHOLOGY Routine 07/27/2012 0:00 EST Re sults for this procedure are i n the results section. documented in this encounter Results SURGICAL PATHOLOGY (07/27/2012 0:00 EST) Pathology Report: SURGICAL PATHOLOGY REPORT [facility] Reports generated via electronic interface contain lidia ginal data; LAB however they are lacking the format of the original re port. Caution should be taken when reading/interpreting unfo rmatted reports. Name: ? DUNIA HOYOS ? Accession #: ? [id number] ? : ? 1965 (Age: 47) ??F ? Collect Date: ? 07/27/2012 ? Location: ? [facility] ? Receive Date: ? 12/12/2 012 ? Provider: RACHEL VICKERS MD Copy to: ZOEY CORRIGAN MD ? Final Pathologic Diagnosis: A. ?Ovary and fallopian tube, right, salp ingo-oophorectomy: 1. ?Micro papillary serous carcinoma, low grade. ??See comment. ? - Specimen integrity intact. ?- Differentiation: Well differentiated. ?- Primary tumor site: Right ovary. ?- Tumor size: 7.6 x 6.5 x 2.7 cm. ?- Ovarian surface i nvolvement present, (AJCC: pT1c, pNX [FIGO Stage IC] ). ?- Right fallopian tube not involved by tumor. ? - Peritoneal ascitic fluid: None submi tted. ? - Lymphovascular invasion: Not identif ied. ? B. ?? Uterus, supracervical, hysterectomy: ? 1. ?? Focal simple hyperplasia. ? 2. ?? Leiomyomata. Comment: ? Histologic sections demonstrate a micropa pillary serous carcinoma with focal microinvasion. The alla or is present on the ovarian surface so the staging is at least a pT1c. Additional studies may be re quired for further staging if clinically indicated. Repres entative sections of this case were reviewed at the intradepartmental consultati on conference. The findings were communicated to Dr. Rachel Vickers on August 01 2012. (Dr. Hector). ?? Document reviewed and electronically signed by: VIJI HECTOR MD Report ??Date: 08/03/2012 09:16 By the signature above, the attending physician certif ies that he/she has personally conducted a gross and/or microscopic examin ation of the described specimens and rendered or confirmed the above diagnosi s. Specimen(s) Received: A. ?Rt ovary & tube (#1) B. ? Supracervical uterus (#2) Clinical History: ? Rt. adnexal mass Gross Description: ? Received in formalin labelled Dunia Hoyos and right ovary and tube is the product of a right salpi morelos-oophorectomy which has a combined weight of 109 grams. ??The soliz-white lobul ated ovary measures 7.5 x 6.5 x 2.7 cm. ??The external surface has two soliz-pink reg ions of papillary excrescences measuring 1.4 x 1.0 x 0.2 cm and 4.0 x 2.5 x 0.5 c m. ??Upon sectioning, the cut surfaces are soliz-yellow to white, diffusely nodular, and predominantly s olid with one mucinous filled 1.6 cm in greatest dimension cystic structure. ??There is no normal residual ovarian parenchyma present. ??There is an eccentric 1.6 cm in greatest dimension area of hemorrhage. ??The at tached fimbriated end fallopian tube measures 5.2 cm in length by 0.6 cm in diameter. ??Upon sectioning, th e cut surfaces are soliz-white with a central pin point lumen. ??The specimen is serially sectioned and technical account representative sections are submitted as follows: BLOCK MADRIGAL A1-A3 ?Ovary in larger area of external e xcrescences A4 ?Ovary with smaller region of external excrescences A5-A9 ?Ovarian mass A10 ?Attached f allopian tube to include two cross sections and one-half of the fimbria A11-A13 ? Remaining fallopian tube Received in formalin labelled Dunia Hoyos and supr acervical uterus is a product of a supracervical morcellated h ysterectomy which weighs 134 grams and measures 12.0 x 11.0 x 2.5 c m in aggregate. ??The serosa is soliz-pink, smooth and glistening with a minimal amount of cautery artifact. ??The endometrium is soliz-pink and ranges from 0.2 -0.4 cm in thickness. ??There is a 1.1 x 0.9 x 0.7 cm endometrial polypoid lesion present. ??The myometrium is soliz-pink and measures up to 1.5 cm in thickness. ??Upon further sectioning, the re are eight soliz-white whorled well-demarcated intramural and s ubserosal whorled nodules ranging from 0.3-2.2 cm in greatest dimension. ??The adnexa nor cer vix are present. Head Up Operator Helper sections are submitted as follows: BLOCK MADRIGAL B1 ?Polypoid lesion, bisected B2-B4 ?Endomyometrium B5, B6 ?Myometrium with serosa B7-B8 ?Whorled nodules (Boy Shafer)/mms ?? End of Report Specimen Performing Organization Address City/State/ZIP Code Phon e Number [facility] [address] [place] [address] SERVICES [facility] [address] [place] [address] documented in this encounter Visit Diagnoses Not on filedocumented in this encounter
--- OUTSIDE RECORDS SUMMARY | 2022-03-05 00:41 | XMS_ITS | Encounter Summary ---
:1965 Author Organization [facility] Address [address] [place] [address] Care Team Providers Name Role Phone Unavailable Primary Care Provider Unavailable Encounter Details Date Type Department Care Team Description 08/04/2005 Results Only [facility] - Vernon Abdi CNM conversion [address] [place], [place] [id number] [place] [id number] [phone] Social History Tobacco Use Types Packs/Day Years Used Date Never Assessed Sex Assigned at Date Recorded Not on file documented as of this encounter Plan of Treatment Not on filedocumented as of this encounter Procedures Procedure Name Priority Date/Time Associated Diagnosis Comme nts CYTOPATHOLOGY Routine 08/04/2005 0:00 EST Results for this procedure are i n the results section . documented in this encounter Results CYTOPATHOLOGY (08/04/2005 0:00 EST) Pathology Report: CYTOPATHOLOGY REPORT [facility] Reports generated via electronic interface contain lidia ginal data; however they are lacking the format of the original re port. Caution should be taken when reading/interpreting unfo rmatted reports. Name: ? DUNIA PACK ? Accession #: ? [id number] : ? 1965 (Age: 40) ??F ?Collect Date: ? 07/17 Location: ? [facility] ? Receive Date : ? 08/05/2005 Provider: ?VERNON PORTILLO CNM Copy to: ? Specimen/Source: ?ThinPrep Pap Test, E ndocervix, processed on [employer] ThinPrep Imaging System, with manual evaluation Last Menstrual Period: ? 07/16/05 Other: ? Additional clinical information: 07/24/04 pap nl. HPVA - HPV testing requested if ASC-US on the current ThinPrep Pap test. ? SPECIMEN ADEQUACY ? Satisfactory for Evaluation - transformation zone component present GENERAL CATEGORIZATION ? Negative for Intraepithelial Lesion or Malignan cy ? Document reviewed and electronically signed by: ? DIDI Javed(ASCP) ? Report Date: ??08/06/2005 11:19 End of Report Specimen Performing Organization Address City/State/ZIP Code Phon e Number [facility] [address] [place] [phone] SERVICES [facility] [address] [place] [address] documented in this encounter Visit Diagnoses Not on filedocumented in this encounter
--- OUTSIDE RECORDS SUMMARY | 2022-03-05 00:41 | XMS_ITS | Encounter Summary ---
:1965 Author Organization [facility] Address [address] [place] [address] Care Team Providers Name Role Phone Unavailable Primary Care Provider Unavailable Encounter Details Date Type Department Care Team Description 09/23/2006 Results Only [facility] Val Shrestha CNM [facility] [address] [place] [id number] Social History Tobacco Use Types Packs/Day Years Used Date Never Assessed Sex Assigned at Date Recorded Not on file documented as of this encounter Plan of Treatment Not on filedocumented as of this encounter Procedures Procedure Name Priority Date/Time Associated Diagnosis Comme [facility] CYTOPATHOLOGY Routine 09/23/2006 0:00 EST Results for this procedure are i n the results section . documented in this encounter Results CYTOPATHOLOGY (09/23/2006 0:00 EST) Pathology Report: CYTOPATHOLOGY REPORT [facility] Reports generated via electronic interface contain lidia ginal data; however they are lacking the format of the original re port. Caution should be taken when reading/interpreting unfo rmatted reports. Name: ? DUNIA PACK ? Accession #: ? [id number] : ? 1965 (Age: 41) ??F ?Collect Date: ? 03/2007 Location: ? [facility] ? Receive Date : ? 09/27/2006 Provider: ?[facility] Copy to: ? Specimen/Source: ? ThinPrep Pap Test, Cervix/Endocervix, processed on [employer] ThinPrep Imaging System, with manual evaluation Last Menstrual Period: ? 08/29/06 Other: ? HPVA - HPV testing requested if ASC-US on the current ThinPrep Pap test. ? SPECIMEN ADEQUACY ? Satisfactory for Evaluation - transformation zone component present GENERAL CATEGORIZATION ? Negative for Intraepithelial Lesion or Malignan cy ? Document reviewed and electronically signed by: ? DIDI Samuel(ASCP) ? Report Date: ??09/28/2006 15:42 End of Report Specimen Performing Organization Address City/State/ZIP Code Phon e Number [facility] [address] [place] [address] SERVICES [facility] [address] [place] [address] documented in this encounter Visit Diagnoses Not on filedocumented in this encounter
--- OUTSIDE RECORDS SUMMARY | 2022-03-05 00:41 | XMS_ITS | Clinical Summary ---
:1965 Author Organization [facility] Address [address] [place] [address] Care Team Providers Name Role Phone None, Provider Primary Care Provider Unavailable Encounters Date Type Specialty Care Team Description 12/30/2021 Lab Requisition Clinical Laboratory Outr Resulting Lab , Provider 12/30/2021 Lab Requisition Clinical Laboratory Outr Resulting Lab , Provider from Last 3 Months Social History Tobacco Use Types Packs/Day Years Used Date Never Assessed Sex Assigned at Date Recorded Not on file Plan of Treatment Health Maintenance Due Date Last Done Comments COVID-19 Vaccine (1) 1970 Hepatitis C Screen Completed 12/30/2021 Procedures Procedure Name Priority Date/Time Associated Comments Diagnosis HEPATITIS C AB W Routine 12/30/2021 8:15 EDT Resu lts for this REFLEX TO HCV RNA BY procedu re are in PCR the results section. HIV 1/2 ANTIGEN AND Routine 12/30/2021 8:15 EDT R esults for this ANTIBODY, 4TH procedure are in GENERATION the results section. from Last 3 Months Results HEPATITIS C AB W REFLEX TO HCV RNA BY PCR (12/30/2021 8:15 EDT) Pathologist Sig nature Hep C Antibody Negative Negative [facility] Specimen Blood - Venous blood (substance) Performing Organization Address City/State/ZIP Code Phon e Number [facility] [address] [place] [address] SERVICES HIV 1/2 ANTIGEN AND ANTIBODY, 4TH GENERATION (12/30/2021 8:15 EDT) HIV 1 and 2 NegativeComment: If Negative [facility] Antibody/p24 acute HIV-1 LABORATORY Antigen, 4th infection is SERVICES Generation suspected in a high risk patient, submit plasma specimen for HIV-1 RNA quantitation test. Specimen Blood - Venous blood (substance) Narrative [facility] SERVICES - 12/31/2021 10:05 EDT Fourth Generation assay performed on the Siemens Centaur XPT. Performing Organization Address City/State/ZIP Code Phon e Number [facility] [address] [place] [address] SERVICES from Last 3 Months Care Teams Sustainability Executive Director Relationship Specialty Start Date End Date None, Provider PCP - General 01/07/17
--- OUTSIDE RECORDS SUMMARY | 2022-03-05 00:41 | XMS_ITS | Encounter Summary ---
:1965 Author Organization [facility] Address [address] [place] [address] Care Team Providers Name Role Phone None, Provider Primary Care Provider Unavailable Encounter Details Date Type Department Care Team Description 04/07/2019 Results Only [facility] Eitan Dasilva, [address] [place] [address] (Wo rk) Social History Tobacco Use Types Packs/Day Years Used Date Never Assessed Sex Assigned at Date Recorded Not on file documented as of this encounter Plan of Treatment Not on filedocumented as of this encounter Procedures Procedure Name Priority Date/Time Associated Diagnosis Comme nts SURGICAL PATHOLOGY Routine 04/07/2019 15:44 Resul ts for this EDT procedure are i n the results section. documented in this encounter Results SURGICAL PATHOLOGY (04/07/2019 15:44 EDT) Pathology Report: SURGICAL PATHOLOGY REPORT [facility] Reports generated via electronic interface contain lidia ginal data; LABORATORY however they are lacking the format of the original re port. SERVICES Caution should be taken when reading/interpreting unfo rmatted reports. Name: ? DUNIA MORGAN ? Accession #: ? [id number] ? : ? 1965 (Age: [age]) ??F ? Collect Date: ? 04/07/2019 ? Location: ? [facility] ? Receive Date: ? 9 ? Provider: EITAN DASILVA DO Copy to: ZOEY CORRIAGN MD ? Final Pathologic Diagnosis: SKIN OF ELBOW, RIGHT, SHAVE BIOPSY: - Predominantly intradermal compound nevus. ??See micr oscopic. Microscopic Description: Multiple levels are examined. ??(Dr. Mclaughlin)/[facility] Document reviewed and electronically signed by: CARMELO MCLAUGHLIN MD Report ??Date: 04/11/2019 14:14 By the signature above, the attending physician certif ies that he/she has personally conducted a gross and/or microscopic examin ation of the described specimens and rendered or confirmed the above diagnosi s. Specimen(s) Received: Right elbow Clinical History: Clinical diagnosis code: ??D49.2 Gross Description: ? Received in formalin labelled with proper patient identification (initials W, T) and right elbow are two irregula r shave of soliz-brown skin (0.3 x 0.1 x 0.1 cm and 0.4 x 0.3 x 0.1 cm). The margins are inked. The specimens are submitted in toto in 1. VAISHNAVI Cohen ([facility]) 04/10/2019 3:54 PM End of Report Specimen Performing Organization Address City/State/ZIP Code Phon e Number [facility] [address] [place] [id number] SERVICES documented in this encounter Visit Diagnoses Not on filedocumented in this encounter Care Teams Straw Hat Brim Cutter Operator Relationship Specialty Start Date End Date None, Provider PCP - General 01/07/17 documented as of this encounter
--- OUTSIDE RECORDS SUMMARY | 2022-03-05 00:41 | XMS_ITS | Encounter Summary ---
:1965 Author Organization [facility] Address [address] [place] [address] Care Team Providers Name Role Phone None, Provider Primary Care Provider Unavailable Encounter Details Date Type Department Care Team Description 04/07/2019 Hospital Encounter [facility] Unknown, Provider, [facility] [address] [facility] [phone] [place] [address] (Work) [phone] Social History Tobacco Use Types Packs/Day Years Used Date Never Assessed Sex Assigned at Date Recorded Not on file documented as of this encounter Discharge Disposition Disposition Code Departure Means Destination Home or Self Correction documented in this encounter Plan of Treatment Not on filedocumented as of this encounter Visit Diagnoses Not on filedocumented in this encounter Care Teams Vp Publisher Development Relationship Specialty Start Date End Date None, Provider PCP - General 01/07/17 documented as of this encounter
--- OUTSIDE RECORDS SUMMARY | 2022-03-05 00:41 | XMS_ITS | Encounter Summary ---
:1965 Author Organization [facility] Address [address] [place] [address] Care Team Providers Name Role Phone Caitlin Callahan MD Primary Care Provider Encounter Details Date Type Department Care Team Description 12/31/2016 Results Only [facility] Moni Dasilva, [address] [place], [place] [id number] (Wo rk) Social History Tobacco Use Types Packs/Day Years Used Date Never Assessed Sex Assigned at Date Recorded Not on file documented as of this encounter Plan of Treatment Not on filedocumented as of this encounter Procedures Procedure Name Priority Date/Time Associated Diagnosis Comme [facility] SURGICAL PATHOLOGY Routine 01/01/2017 9:27 EDT Re sults for this procedure are i n the results section. documented in this encounter Results SURGICAL PATHOLOGY (01/01/2017 9:27 EDT) Pathology Report: SURGICAL PATHOLOGY REPORT [facility] Reports generated via electronic interface contain lidia ginal data; LABORATORY however they are lacking the format of the original re port. SERVICES Caution should be taken when reading/interpreting unfo rmatted reports. Name: ? DUNIA MORGAN ? Accession #: ? [id number] ? : ? 1965 (Age: [age]) ??F ? Collect Date: ? 01/01/2017 ? Location: ? [facility] ? Receive Date: ? 7 ? Provider: MONI DASILVA DO Copy to: CAITLIN CALLAHAN MD ? Final Pathologic Diagnosis: A. ??SKIN OF BACK, RIGHT UPPER MEDIAL, SHAVE BIOPSY: - Melanocytic nevus, junctional lentiginous type, with unusual architectural features and mild cytologic atypia. ?? - Nevus does not extend to edges of sha ve biopsy specimen in the plane of the sections examined. B. ??SKIN OF BACK, RIGHT UPPER LATERAL, SHAVE BIOPSY: - Seborrheic keratosis. C. ??SKIN OF BACK, MID UPPER, SHAVE BIOPSY: - Seborrheic keratosis. D. ??SKIN OF BACK, MID, SHAVE BIOPSY: - Hemangioma. ?? Microscopic Description: A-The epidermis shows mild hyperplasia consisting of t hin and clubbed rete ridges. ??There is a proliferation of melanocytes with in the epidermis that consists of rare nests but i s predominated by individual cells in a lentiginous pattern. ??The nests are small and located at the tips of rete ridges. ??The individual melanocytes are generally evenly spac ed along the dermal-epidermal junction. ??The melanocytes are slightly enlarged and have dark nuclei. ??There is abundant melanin pigment within the epidermis, stratum corneum, and dermal melanophages. B, C-The stratum corneum is thickened by compact and basketweave orthokeratosis with formation of horn pseud ocysts. ??The epidermis is acanthotic with formation of broad and anastomosing tr abeculae. ??The trabeculae are composed of basaloid keratinocytes with round uniform nuclei. ??The keratin ocytes have a variable amount of melanin pigment. ?? D-There is a dome-shaped papule formed by a proliferat ion of small vascular channels that has a lobular architecture. ??The vessel s are lined by an attenuated endothelium. ??Some of the vessels are dwaine ested. ??The overlying epidermis has a diminished rete ridge pattern. ??(Dr. Kimble)/rahul Document reviewed and electronically signed by: JAGDISH KIMBLE MD Report ??Date: 01/06/2017 20:37 By the signature above, the attending physician certif ies that he/she has personally conducted a gross and/or microscopic examin ation of the described specimens and rendered or confirmed the above diagnosi s. Specimen(s) Received: A. ??Right upper back medial B. ??Right upper back lateral C. ??Mid upper back D. ??Mid back Clinical History: Non-healing skin lesions (5), F/H skin cancer; c linical diagnosis code: D49.2 Gross Description: A. ?Received in formalin labelled with proper p atient identification (initials W, T) and right u pper back medial is a 0.8 x 0.7 x 0.1 cm irregular shave of soliz-white skin. There is a 0.3 x 0.2 cm well-circumscribed dark brown macule centrally located on the skin surface, 0.1 cm from the nearest resection margin. The margin is inked blue. The tissue is trisected and entirely submitted in A1. B. ?Received in formalin labelled with proper p atient identification (initials W, T) and right u pper back lateral is a 0.9 x 0.9 x 0.1 cm irregular shave of soliz-white skin. There is a 0.4 x 0.4 cm irreg ular but well-circumscribed brown-gra y macule centrally located on the skin surface, 0.1 cm from the nearest resection margin. The margin is inked blue. The tissue is trisected and entirely submitted in B1. C. ?Received in formalin labelled with proper p atient identification (initials W, T) and mid upp er back is a 2.1 x 1.7 x 0.4 cm irregular shave of granular, friable soliz-pink t o peters skin. The margin is inked blue. The specimen is serially sectioned and entirely submitted in C1-C3. D. ?Received in formalin labelled with proper p atient identification (initials W, T) and mid back is a 1.3 x 0.9 x 0.1 cm irregular shave of soliz-white skin. There is a 0.7 x 0.5 x 0.2 cm we ll-circumscribed pink to peters nodule centrally located on the skin surface, 0.1 cm from the nearest resection margin. The margin is inked blue. The specimen is seri ally sectioned and entirely submitted in D1 and D2. VAISHNAVI Cohen (ASCP) 01/05/2017 11:27 AM End of Report Specimen Performing Organization Address City/State/ZIP Code Phon e Number [facility] [address] [place] [address] SERVICES documented in this encounter Visit Diagnoses Not on filedocumented in this encounter Care Teams Turnaround Engineer Relationship Specialty Start Date End Date Caitlin Callahan MD PCP - General 07/29/12 01/06/[address] [place] [address] [address] [place] [address] documented as of this encounter
--- OUTSIDE RECORDS SUMMARY | 2022-03-05 00:41 | XMS_ITS | Encounter Summary ---
:1965 Author Organization [facility] Address [address] [place] [address] Care Team Providers Name Role Phone Caitlin Callahan MD Primary Care Provider Encounter Details Date Type Department Care Team Description 01/01/2017 Hospital Encounter [facility] Unknown, Provider, [facility] [address] [facility] [phone] [place] [address] (Work) [phone] Social History Tobacco Use Types Packs/Day Years Used Date Never Assessed Sex Assigned at Date Recorded Not on file documented as of this encounter Discharge Disposition Disposition Code Departure Means Destination Home or Self Long-Term documented in this encounter Plan of Treatment Not on filedocumented as of this encounter Visit Diagnoses Not on filedocumented in this encounter Care Teams Dietitian Teaching Relationship Specialty Start Date End Date Caitlin Callahan MD PCP - General 07/29/12 01/06/[address] [place] [address] documented as of this encounter
--- OUTSIDE RECORDS SUMMARY | 2022-03-05 00:41 | XMS_ITS | Encounter Summary ---
:1965 Author Organization [facility] Address [address] [place] [address] Care Team Providers Name Role Phone Unavailable Primary Care Provider Unavailable Encounter Details Date Type Department Care Team Description 09/23/2007 Results Only [facility] - Vernon Abdi CNM conversion [address] [place], [place] [id number] [place] [address] [phone] Social History Tobacco Use Types Packs/Day Years Used Date Never Assessed Sex Assigned at Date Recorded Not on file documented as of this encounter Plan of Treatment Not on filedocumented as of this encounter Procedures Procedure Name Priority Date/Time Associated Diagnosis Comme nts CYTOPATHOLOGY Routine 09/23/2007 0:00 EST Results for this procedure are i n the results section . documented in this encounter Results CYTOPATHOLOGY (09/23/2007 0:00 EST) Pathology Report: CYTOPATHOLOGY REPORT [facility] Reports generated via electronic interface contain lidia ginal data; however they are lacking the format of the original re port. Caution should be taken when reading/interpreting unfo rmatted reports. Name: ? DUNIA PACK ? Accession #: ? [id number] : ? 1965 (Age: 42) ??F ?Collect Date: ? 03/2008 Location: ? [facility] ? Receive Date : ? 09/27/2007 Provider: ?VERNON PORTILLO CNM Copy to: ? Specimen/Source: ? ThinPrep Pap Test, Cervix/Endocervix, processed on [employer] ThinPrep Imaging System, with manual evaluation Last Menstrual Period: ? 08-28-07 Other: ? HPVA - HPV testing requested if ASC-US on the current ThinPrep Pap test. ? SPECIMEN ADEQUACY ? Satisfactory for Evaluation - transformation zone component present - scant squamous epithelial component secondary to exc essive blood GENERAL CATEGORIZATION ? Negative for Intraepithelial Lesion or Malignan cy ? Document reviewed and electronically signed by: ? DIDI Pantoja(ASCP) ? Report Date: ??09/29/2007 14:27 End of Report Specimen Performing Organization Address City/State/ZIP Code Phon e Number [facility] [address] [place] [phone] SERVICES [facility] [address] [place] [address] documented in this encounter Visit Diagnoses Not on filedocumented in this encounter
--- OUTSIDE RECORDS SUMMARY | 2022-03-05 00:41 | XMS_ITS | Encounter Summary ---
:1965 Author Organization [facility] Address [address] [place] [address] Care Team Providers Name Role Phone Unavailable Primary Care Provider Unavailable Encounter Details Date Type Department Care Team Description 07/09/2003 Results Only [facility] - Vernon Abdi CNM conversion [address] [place], [place] [id number] [place] [address] [phone] Social History Tobacco Use Types Packs/Day Years Used Date Never Assessed Sex Assigned at Date Recorded Not on file documented as of this encounter Plan of Treatment Not on filedocumented as of this encounter Procedures Procedure Name Priority Date/Time Associated Diagnosis Comme nts CYTOPATHOLOGY Routine 07/09/2003 0:00 EST Results for this procedure are i n the results section . documented in this encounter Results CYTOPATHOLOGY (07/09/2003 0:00 EST) Pathology Report: CYTOPATHOLOGY REPORT [facility] Reports generated via electronic interface contain lidia ginal data; however they are lacking the format of the original re port. Caution should be taken when reading/interpreting unfo rmatted reports. Name: ? DUNIA PACK ? Accession #: ? [id number] : ? 1965 (Age: 38) ??F ?Collect Date: ? 06/17 Location: ? [facility] ? Receive Date : ? 07/13/2003 Provider: ?VERNON PORTILLO CNM Copy to: ? Specimen/Source: ?ThinPrep Pap Test, Cervix/ Endocervix Last Menstrual Period: ? 04/27/03 Menstrual/ Status: ? SPECIMEN ADEQUACY ? Satisfactory for Evaluation - transformation zone component present GENERAL CATEGORIZATION ? Negative for Intraepithelial Lesion or Malignan cy ? Document reviewed and electronically signed by: ? DIDI Montoya(ASCP) ? Report Date: ??07/18/2003 08:45 End of Report Specimen Performing Organization Address City/State/ZIP Code Phon e Number [facility] [address] [place] [address] SERVICES [facility] [address] [place] [address] documented in this encounter Visit Diagnoses Not on filedocumented in this encounter
--- OUTSIDE RECORDS SUMMARY | 2022-03-05 00:41 | XMS_ITS | Encounter Summary ---
:1965 Author Organization [facility] Address [address] [place] [address] Care Team Providers Name Role Phone Unavailable Primary Care Provider Unavailable Encounter Details Date Type Department Care Team Description 07/24/2004 Results Only [facility] - Vernon Abdi CNM conversion [address] [place], [place] [id number] [place] [id number] [phone] Social History Tobacco Use Types Packs/Day Years Used Date Never Assessed Sex Assigned at Date Recorded Not on file documented as of this encounter Plan of Treatment Not on filedocumented as of this encounter Procedures Procedure Name Priority Date/Time Associated Diagnosis Comme nts CYTOPATHOLOGY Routine 07/24/2004 0:00 EST Results for this procedure are i n the results section . documented in this encounter Results CYTOPATHOLOGY (07/24/2004 0:00 EST) Pathology Report: CYTOPATHOLOGY REPORT [facility] Reports generated via electronic interface contain lidia ginal data; however they are lacking the format of the original re port. Caution should be taken when reading/interpreting unfo rmatted reports. Name: ? DUNIA PACK ? Accession #: ? [id number] : ? 1965 (Age: 39) ??F ?Collect Date: ? 04/2004 Location: ? [facility] ? Receive Date : ? 07/28/2004 Provider: ?VENRON PORTILLO CNM Copy to: ? Specimen/Source: ?ThinPrep Pap Test, Cervix/ Endocervix Last Menstrual Period: ? 07/08/04 Other: ? HPVA - HPV testing requested if ASC-US on the current ThinPrep Pap test. ? SPECIMEN ADEQUACY ? Satisfactory for Evaluation - transformation zone component present GENERAL CATEGORIZATION ? Negative for Intraepithelial Lesion or Malignan cy ? Document reviewed and electronically signed by: ? DIDI Trevino(ASCP) ? Report Date: ??08/01/2004 08:00 End of Report Specimen Performing Organization Address City/State/ZIP Code Phon e Number [facility] [address] [place] [address] SERVICES [facility] [address] [place] [address] documented in this encounter Visit Diagnoses Not on filedocumented in this encounter
--- OUTSIDE RECORDS SUMMARY | 2022-03-05 00:41 | XMS_ITS | Encounter Summary ---
:1965 Author Organization [facility] Address [address] [place] [address] Care Team Providers Name Role Phone None, Provider Primary Care Provider Unavailable Encounter Details Date Type Department Care Team Description 12/30/2021 Lab Requisition [facility] Outr Resulting Lab, Pathology & Laboratory Provider [facility] [address] [place] [address] Social History Tobacco Use Types Packs/Day Years Used Date Never Assessed Sex Assigned at Date Recorded Not on file documented as of this encounter Plan of Treatment Not on filedocumented as of this encounter Procedures Procedure Name Priority Date/Time Associated Diagnosis Comme nts HEPATITIS C AB W Routine 12/30/2021 8:15 EDT Resu lts for this REFLEX TO HCV RNA procedure are in BY PCR the results section. documented in this encounter Results HEPATITIS C AB W REFLEX TO HCV RNA BY PCR (12/30/2021 8:15 EDT) Pathologist Sig nature Hep C Antibody Negative Negative [facility] Specimen Blood - Venous blood (substance) Performing Organization Address City/State/ZIP Code Phon e Number [facility] [address] [place] [address] SERVICES documented in this encounter Visit Diagnoses Not on filedocumented in this encounter Care Teams Records Analysis Manager Relationship Specialty Start Date End Date None, Provider PCP - General 01/07/17 documented as of this encounter
--- OUTSIDE RECORDS SUMMARY | 2022-03-05 00:41 | XMS_ITS | Encounter Summary ---
:1965 Author Organization [facility] Address [address] [place] [address] Care Team Providers Name Role Phone Unavailable Primary Care Provider Unavailable Encounter Details Date Type Department Care Team Description 07/25/2012 Results Only [facility] Rachel Vickers MD [phone] [address] [place] [address] Social History Tobacco Use Types Packs/Day Years Used Date Never Assessed Sex Assigned at Date Recorded Not on file documented as of this encounter Plan of Treatment Not on filedocumented as of this encounter Procedures Procedure Name Priority Date/Time Associated Diagnosis Comme nts PAP TEST- RESULT Routine 07/25/2012 0:00 EST Resu lts for this ONLY procedure are i n the results section. documented in this encounter Results PAP TEST- RESULT ONLY (07/25/2012 0:00 EST) Pathology Report: CYTOPATHOLOGY REPORT [facility] Reports generated via electronic interface contain lidia ginal data; however they are lacking the format of the original re port. Caution should be taken when reading/interpreting unfo rmatted reports. Name: ? DUNIA PACK ? Accession #: ? [id number] ? : ? 1965 (Age: 47) ??F ?Collect Da te: ? 07/25/2012 ? Location: ? [facility] ? Receive Date: ? 012 ? Provider: RACHEL VICKERS MD Copy to: ZOEY CORRIGAN MD ? Final Report SPECIMEN ADEQUACY ? Satisfactory for Evaluation - transformation zone component present GENERAL CATEGORIZATION ? Epithelial Cell Abnormality INTERPRETATION ? Glandular Cell Abnormality - Atyp ical glandular cells, favor neoplastic process. EDUCATIONAL NOTES/RECOMMENDATIONS ? [facility] recommends brennao wing the 2006 Consensus Guidelines for the Management of Women with Abnormal Cervical Cancer Screening Tests (JLGTD, 2007;11(4):201-222). ??Consensus guidelines are availa ble online at www.ASCCP.org. Comment: ? Rare clusters of markedly atypical cells are present s uggestive of serous carcinoma. The finding may represent roberto ls from the patient's ovarian tumor as the pap test was collected b efore the patient's surgery. The case was discussed with Dr. Tomlinson on 08/03/12 at 4:30. This case was reviewed in consultation by Dr. Verito Elam. ? Specimen/Source: ??Pap Test, Cervix/Endocervix, ThinPr ep Imaging System with manual evaluation Document reviewed and electronically signed by: ? CHRIS SNOW MD ? Report ??Date: 08/05/2012 14:55 HPV with Pap Test ? Date Ordered: ? 08/05/2012 ? Status: ?? Signed Out ?Date Complete: ? 08/11/2012 ? By: ??S ystem Interface ? Date Reported: ? 08/11/2012 ? Interpretation RESULT: Negative for HPV. No E6 or E7 mRNA is detected from HPV types 16,18,31,3 3,35, 39,45,51,52,56,58,59,66, and 68 by architecture analyst media sade amplification. Comments Document reviewed and electronically signed by: ? System Interface ? Report date: 08/11/2012 By the signature above, the attending physician certif ies that he/she has personally conducted a gross and/or microscopic examin ation of the described specimens and rendered or confirmed the above diagnosi s. End of Report Specimen Performing Organization Address City/State/ZIP Code Phon e Number [facility] [address] [place] [address] SERVICES [facility] [address] [place] [address] documented in this encounter Visit Diagnoses Not on filedocumented in this encounter
== END ==
PROVIDERS: PCP Family Medicine; Visit Provider Family Medicine
DX: Z12.31 Encounter for screening mammogram for malignant neoplasm of breast (principal); R92.8 Other abnormal and inconclusive findings on diagnostic imaging of breast; N60.11 Diffuse cystic mastopathy of right breast; N64.59 Other signs and symptoms in breast
CPT/HCPCS: 76642; 77063; 77067

== ENCOUNTER 2023-02-04 02:10 | Outpatient (CLI) | payer BC, SELFPAY ==
[2023-02-04 09:10] LABS: ALT 24 U/L (14-59); AST 35 U/L (15-37); Albumin 3.9 g/dL (3.4-5.0); Alkaline Phosphatase 89 U/L (46-116); Anion Gap 5.9 mmol/L (3-11); BUN 26 mg/dL (7-18); Bilirubin, Total 0.6 mg/dL (0.2-1.0); CO2 33.1 mmol/L (21.0-32.0); CREATININE 1.3 mg/dL (0.55-1.02); Calcium 9.1 mg/dL (8.5-10.1); Calculated LDL 129 mg/dL (<100); Chloride 104 mmol/L (98-107); Cholesterol 233 mg/dL (<200); Estimated GFR 47.66 (mL/min/1.73m2); Glucose 103 mg/dL (74-106); HDL Cholesterol 96 mg/dL (40-60); Sodium 143 mmol/L (136-145); Total Protein 6.9 g/dL (6.4-8.2); Triglyceride 42 mg/dL (<150)
== END 2023-02-04 02:11 | disposition home or self-care (01) ==
LOC: LBO 02:10
PROVIDERS: PCP Family Medicine; Visit Provider Family Medicine
DX: Z00.00 Encounter for general adult medical examination without abnormal findings (principal); Z13.220 Encounter for screening for lipoid disorders; Z13.228 Encounter for screening for other metabolic disorders
CPT/HCPCS: 36415; 80053; 80061